=== PATIENT | male | born 1950 | race Caucasian/White ===

== ENCOUNTER 2022-07-24 08:15 | Outpatient (RCR) | payer MEDICARE, BC, SELFPAY | END 2022-07-26 13:49 | disposition home or self-care (01) | PROVIDERS: PCP Surgery; Visit Provider Family Medicine | DX: M54.2 Cervicalgia (principal); M79.605 Pain in left leg; M54.16 Radiculopathy, lumbar region; Z51.89 Encounter for other specified aftercare | CPT/HCPCS: 97012; 97110; 97112; 97140 ==

== ENCOUNTER 2022-11-20 15:12 | Outpatient (CLI) | payer MEDICARE, BC, SELFPAY ==
--- NOTE | 2022-11-20 15:30 | MR_ITS ---
[address] [address] Phone:?[phone] Fax:?[phone] Referring Physician Information: Dawson Ariza M.D. [id number] [facility] [address] Phone:?[phone] Fax:?[phone] Patient:Ivy Hawkins D.O.B:?1950 Sex:?Male Phone:?[phone] [facility] MRN:?[id number] Exam Date:?11/20/2022 ? EXAM: MRI EXAMINATION OF THE LEFT TIBIA AND FIBULA CLINICAL INFORMATION: The patient is a 72-year-old with left lower leg pain. The patient has a history of left tibial fracture with subsequent surgical fixation and hardware removal. COMPARISON STUDIES: Comparison is made to prior radiographs dated 02/19/2022. TECHNICAL INFORMATION: Using a 1.5T MRI scanner: 3 mm?coronals: T1, T2, STIR 3 mm?sagittals: STIR 4 mm?axials: T1, T2FS FINDINGS: Osseous structures: Imaging of the left tibia demonstrates postsurgical and posttraumatic changes, in keeping with the patient's history of fracture, surgical fixation, and subsequent hardware removal. There is a posttraumatic deformity involving the mid diaphyseal region seen on coronal series 5 image 15. No definite evidence for acute fracture is identified. No evidence for well- defined marrow edema within the tibia can be seen to suggest contusion or stress injury. No definite periosteal reaction is noted. There is a chronic, healed fracture involving the diaphyseal region of the fibula, seen on coronal series 6 image 22. No evidence for acute injury or nonunion can be seen. No other bony abnormalities of the left fibula are present. The right tibia and right fibula appear intact. Musculotendinous structures: No definite evidence for injury to the musculotendinous structures of the left lower leg can be seen. There is no definite evidence for myotendinous strain or intramuscular mass. No definite asymmetry of the left lower leg musculature can be seen when compared to the contralateral right side. Neurovascular structures: No definite neurovascular abnormalities of the left lower leg are noted. Fluid collections:?No evidence for abnormal fluid collection or soft tissue edema can be seen. No evidence for ganglion cyst is identified. CONCLUSION: 1. Chronic posttraumatic and postsurgical changes can be seen involving the left tibia and left fibula, however no definite evidence for acute injury or nonunion can be seen. 2. No definite musculotendinous injuries of the left lower leg are present. 3. No definite neurovascular abnormalities are noted. 4. No well-defined areas of abnormal fluid collection are seen. AEC Electronically signed on 11/21/2022 7:09:00 AM by Junior Crowley M.D.
== END 2022-11-20 15:13 | disposition home or self-care (01) ==
LOC: MRI 15:13
PROVIDERS: PCP Surgery; Visit Provider Orthopaedic Surgery
DX: M79.605 Pain in left leg (principal)
CPT/HCPCS: 73718

== ENCOUNTER 2023-01-03 10:09 | Outpatient (CLI) | payer MEDICARE, BC, SELFPAY | END 2023-01-03 10:10 | disposition home or self-care (01) | LOC: AMB 18:01 | PROVIDERS: PCP Surgery; Visit Provider Internal Medicine | DX: R07.89 Other chest pain (principal) | CPT/HCPCS: A0425; A0427 ==

== ENCOUNTER 2023-01-03 10:36 | Emergency (ER) | payer MEDICARE, BC, SELFPAY ==
[2023-01-03] VITALS (14 sets, daily range): BP systolic 100–140; BP diastolic 57–83; PULSE 65–75; RESP 16–18; TEMP 36.9–37.1; O2SAT 92–96; BMI 31.0
--- NOTE | 2023-01-03 10:57 | ED_ITS ---
HPI - General Adult General Time Seen by Provider: 10:58 Date Seen: 01/03/23 Chief complaint: Chest Pain Stated complaint: Chest Pains Time Seen by Provider: 01/03/23 10:57 Source: patient and RN notes reviewed Mode of arrival: ambulatory Limitations: no limitations History of Present Illness HPI narrative: This 72-year-old male is ambulatory into the ED accompanied by his with concerns of chest congestion, chest pressure. He has had cough and cold symptoms for about 3 days now. No fevers, he has checked his temperature. He is having difficulty sleeping at night, cannot lie flat. He has had lots of clear nasal drainage. This morning after he got out of the shower he had an episode we just felt like he could not breathe that there was pressure on his neck and in his chest. He is noted no lower extremity edema. No abdominal pain, no nausea vomiting or diarrhea. He is up-to-date on all COVID vaccines. In review of records, this patient had a nuclear stress test that showed a small to medium area of inferior ischemia. He had an angiogram at [place] on 11/23/2021 that required no intervention, per Dr. Singh's note was essentially normal. Cardiology placed him on metoprolol and atorvastatin. Medications reviewed. his also reports that he has had a history of pneumonia. He does have obstructive sleep apnea but is not using CPAP. He denies any under lying chronic pulmonary conditions. Related Data Home Medications Medication Instructions Recorded Confirmed atorvastatin 40 mg tablet 20 mg PO HS 11/08/22 01/03/23 diltiazem HCl 180 mg 180 mg PO Q24H 11/08/22 01/03/23 capsule,extended release 24 hr nitroglycerin 0.4 mg sublingual 0.4 mg sublingual PRN 11/08/22 12/05/22 tablet trazodone 50 mg tablet 50 mg PO HS 11/08/22 01/03/23 aspirin 81 mg chewable tablet 81 mg PO DAILY 01/03/23 01/03/23 (Martín Chewable Low Dose Aspirin) escitalopram oxalate 10 mg tablet 10 mg PO DAILY 01/03/23 01/03/23 fluticasone furoate 50 inhalation 01/03/23 mcg/actuation blister powder for inhalation metformin 1,000 mg tablet 1,000 mg PO BID 01/03/23 01/03/23 omega 6-kkn-iab-fish oil 1,000 mg 1 cap PO DAILY 01/03/23 01/03/23 (120 mg-180 mg) capsule (Fish Oil) omeprazole 20 mg tablet,delayed 20 mg PO DAILY 01/03/23 01/03/23 release tamsulosin 0.4 mg capsule 0.4 mg PO DAILY 01/03/23 01/03/23 Previous Rx's Medication Instructions Recorded doxycycline monohydrate 100 mg 100 mg PO BID #13 caps 01/03/23 capsule Allergies Allergy/AdvReac Type Severity Reaction Status Date / Time morphine Allergy Verified 12/05/22 10:02 Review of Systems Status of ROS: Reports: 10 or more systems reviewed and unremarkable except as noted in History and below [facility] Medical History Adjustment disorder with depressed mood Asplenia (09/22/12) Chronic gastroesophageal reflux disease (06/28/16) Diverticulitis Heart attack Hyperlipidemia Hypertension Intractable hiccups Laceration of finger GHADA (obstructive sleep apnea) (06/11/17) Type 2 diabetes mellitus Surgical History H/O heart artery stent H/O hernia repair History of removal of retained hardware (09/04/18) S/P ORIF (open reduction internal fixation) fracture (04/21/12) Status post arthroscopy of left shoulder (04/02/17) Status post arthroscopy of right shoulder (11/04/09) Status post laparoscopic cholecystectomy Status post open reduction and internal fixation (ORIF) of fracture (11/11/19) Social History Smoking Status: Former smoker Exam Const: Vital Signs, click to edit/add: Vital Signs - 24 hr 01/03/23 10:51 01/03/23 10:45 01/03/23 11:00 Temperature 98.5 F Pulse Rate [Left P ulse Oximeter] 68 67 Respiratory Rate 18 16 Blood Pressure [Ri ght Upper Arm] 115/83 126/72 Pulse Oximetry 96 94 94 Oxygen Delivery Me thod Room Air Room Air 01/03/23 11:30 01/03/23 12:00 01/03/23 12:30 Temperature Pulse Rate [Left P ulse Oximeter] 69 65 69 Respiratory Rate 16 16 16 Blood Pressure [Ri ght Upper Arm] 100/57 L 126/73 134/63 Pulse Oximetry 93 93 92 Oxygen Delivery Me thod 01/03/23 13:37 01/03/23 13:00 01/03/23 13:30 Temperature 98.8 F Pulse Rate [Left P ulse Oximeter] 71 75 Respiratory Rate 16 16 Blood Pressure [Ri ght Upper Arm] 115/59 L 118/64 Pulse Oximetry 95 95 Oxygen Delivery Me thod Documenting provider has reviewed patient's vital signs: yes Common normal s: no apparent distress, average body habitus, oriented x3, no limitations, healthy appearing, alert and well nourished General appearance: cooperative, comfortable, well kempt and well developed Other: He has some audible nasal congestion but is able to speak in complete sentences. When I am talking to him, watching the oximetry, he is in the lower 90s. He is not tachypneic at this time. HENMT: Common normals: normocephalic, head/scalp atraumatic, hearing grossly normal bilaterally and external ears normal Head and scalp: normocephalic and atraumatic External ear: external ears normal Eye: Common normals: PERRL, EOMs intact bilaterally, conjunctivae normal and no scleral icterus General eye: normal appearance of both eyes Conjunctiva: conjunctiva(e) normal Pupil: PERRL Neck & C-Spine: Common normals: full ROM, no lymphadenopathy, supple, no meningeal signs, no JVD and thyroid normal Thyroid: thyroid normal Chest: Common normals: inspection of chest normal Resp: Common normals: normal respiratory effort, no retractions, no use of accessory muscles and clear to auscultation bilaterally Effort & inspection: able to speak in complete sentences Auscultation: clear to auscultation bilaterally Cardio: Common normals: no JVD, regular rate, regular rhythm, S1 normal heart sound, S2 normal heart sound, no gallops, no clicks and no murmurs Rate: regular rate Rhythm: regular rhythm Heart sounds: S1 normal and S2 normal GI: Common normals: Normal to inspection, nondistended, normoactive bowel sounds present, soft to palpation, non-tender, no hepatosplenomegaly and no masses Palpation: soft and no hepatosplenomegaly Extremity: Other: No lower extremity edema. Neuro: Common normals: oriented x3, moves all extremities and no focal motor deficits Sensorium/orientation: alert Meningeal signs: no meningeal signs Psych: Appearance: well kempt Course Course Hospital Course: We will obtain a triple swab for RSV, COVID and influenza. Patient has not tested yet. We will do a portable chest x-ray. He will be monitored on cardiac monitoring and pulse oximetry while here. We will obtain a full complement of labs as well. It certainly sounds as this is respiratory in nature. His initial troponin is already back and is normal. Will do a 3 hour troponin as well. My assumption is that he probably has a viral upper respiratory infection causing his symptoms, need to rule out any demand ischemia. Will also do a D- dimer, patient and his understand that he may need to do a chest CT if clinically indicated. Reevaluation(s) Reevaluation #1: Checked in on patient. Reviewed with him his chest x-ray is with some evidence of pneumonia at this time, will order IV doxycycline. We need to await for 3 hour EKG and troponin but other labs are looking good. Reviewed with him the negative triple swab. Did review there is always a possibility of false negative COVID testing initially but with the PCR, believe this to be less likely. We reviewed that the significant nasal drainage in congestion could have given him a choking type sensation. I would recommend something like Flonase, potentially maybe even Mucinex. [facility] and declines prescriptions from me. Reviewed signs and symptoms for return. If his follow-up EKG and troponin are normal, will discharge to home with further oral antibiotics. Time: 13:08 Vital Signs Vital signs: Initial Vital Signs Pulse Oximetry 94 01/03/23 10:45 Vital Signs Pulse Oximetry 94 01/03/23 10:45 Temperature 98.8 F 01/03/23 13:37 Pulse Rate 75 01/03/23 13:30 Respiratory Rate 16 01/03/23 13:30 Blood Pressure 118/64 01/03/23 13:30 Pulse Oximetry 95 01/03/23 13:30 Oxygen Delivery Method 01/03/23 11:00 Medical Decision Making Lab Data Lab results reviewed: Yes I reviewed the patient's lab results Labs: Lab Results 01/03/23 01/03/23 01/03/23 Range/Units 10:46 10:46 10:46 WBC 10.41 (4.50-11.00) K/uL RBC 4.92 (4.30-5.90) m/uL Hgb 15.4 (13.5-17.5) gm/dL Hct 46.5 (37.0-53.0) % MCV 95 (80-100) fL MCH 31 (26-34) pg MCHC 33 (32-36) gm/dL RDW Coeff of Nora 13.2 (11.5-15.5) % Plt Count 304 (140-440) K/uL Neut % (Auto) 60.6 (42.0-72.0) % Lymph % (Auto) 24.2 (20-44) % Camp % (Auto) 12.4 H (0.0-11.0) % Eos % (Auto) 2.0 (0.0-7.0) % Baso % (Auto) 0.5 (0.0-3.0) % Neut # (Auto) 6.31 (1.7-7.0) K/uL Lymph # (Auto) 2.52 (0.90-2.90) K/uL Camp # (Auto) 1.30 H (0.00-0.90) K/UL Eos # (Auto) 0.21 (0.00-0.50) K/uL Baso # (Auto) 0.05 (0.00-0.30) K/uL D-Dimer Quant (PE/DVT) 0.33 (0.00-0.50) ug/ml VBG pH (7.32-7.43) VBG pCO2 (40-50) mmHG VBG pO2 (25-47) mmHG VBG HCO3 (21-28) mmol/L Sodium 137 (135-149) mmol/L Potassium 4.0 (3.6-5.1) mmol/L Chloride 103 (96-114) mmol/L Carbon Dioxide 24 (20-32) mmol/L BUN 14 (7-30) mg/dL Creatinine 1.0 (0.5-1.5) mg/dL Estimated Creat Clear 66.77 Estimated GFR 80 ml/min Glucose 146 H (60-115) mg/dL Lactate (0.5-1.9) mmol/L Calcium 9.0 (8.4-10.6) mg/dL Total Bilirubin 0.8 (0.1-1.5) mg/dL AST 25 (12-35) U/L ALT 29 (4-50) U/L Alkaline Phosphatase 86 (40-150) U/L C-Reactive Protein 1.1 H (0.5-1.0) mg/dL NT-Pro-B Natriuret Pep pg/mL Total Protein 7.0 (6.0-8.3) g/dL Albumin 4.3 (3.3-5.0) g/dL SARS-CoV-2 (PCR) (Negative) Influenza Type A (PCR) (Negative) Influenza Type B (PCR) (Negative) RSV (PCR) (Negative) POC Troponin I (0.01-0.04) ng/ml 01/03/23 01/03/23 01/03/23 Range/Units 10:46 10:46 10:46 WBC (4.50-11.00) K/uL RBC (4.30-5.90) m/uL Hgb (13.5-17.5) gm/dL Hct (37.0-53.0) % MCV (80-100) fL MCH (26-34) pg MCHC (32-36) gm/dL RDW Coeff of Nora (11.5-15.5) % Plt Count (140-440) K/uL Neut % (Auto) (42.0-72.0) % Lymph % (Auto) (20-44) % Camp % (Auto) (0.0-11.0) % Eos % (Auto) (0.0-7.0) % Baso % (Auto) (0.0-3.0) % Neut # (Auto) (1.7-7.0) K/uL Lymph # (Auto) (0.90-2.90) K/uL Camp # (Auto) (0.00-0.90) K/UL Eos # (Auto) (0.00-0.50) K/uL Baso # (Auto) (0.00-0.30) K/uL D-Dimer Quant (PE/DVT) (0.00-0.50) ug/ml VBG pH (7.32-7.43) VBG pCO2 (40-50) mmHG VBG pO2 (25-47) mmHG VBG HCO3 (21-28) mmol/L Sodium (135-149) mmol/L Potassium (3.6-5.1) mmol/L Chloride (96-114) mmol/L Carbon Dioxide (20-32) mmol/L BUN (7-30) mg/dL Creatinine (0.5-1.5) mg/dL Estimated Creat Clear Estimated GFR ml/min Glucose (60-115) mg/dL Lactate 2.3 H (0.5-1.9) mmol/L Calcium (8.4-10.6) mg/dL Total Bilirubin (0.1-1.5) mg/dL AST (12-35) U/L ALT (4-50) U/L Alkaline Phosphatase (40-150) U/L C-Reactive Protein (0.5-1.0) mg/dL NT-Pro-B Natriuret Pep < 20 pg/mL Total Protein (6.0-8.3) g/dL Albumin (3.3-5.0) g/dL SARS-CoV-2 (PCR) (Negative) Influenza Type A (PCR) (Negative) Influenza Type B (PCR) (Negative) RSV (PCR) (Negative) POC Troponin I 0.00 L (0.01-0.04) ng/ml 01/03/23 01/03/23 01/03/23 Range/Units 10:46 11:38 13:46 WBC (4.50-11.00) K/uL RBC (4.30-5.90) m/uL Hgb (13.5-17.5) gm/dL Hct (37.0-53.0) % MCV (80-100) fL MCH (26-34) pg MCHC (32-36) gm/dL RDW Coeff of Nora (11.5-15.5) % Plt Count (140-440) K/uL Neut % (Auto) (42.0-72.0) % Lymph % (Auto) (20-44) % Camp % (Auto) (0.0-11.0) % Eos % (Auto) (0.0-7.0) % Baso % (Auto) (0.0-3.0) % Neut # (Auto) (1.7-7.0) K/uL Lymph # (Auto) (0.90-2.90) K/uL Camp # (Auto) (0.00-0.90) K/UL Eos # (Auto) (0.00-0.50) K/uL Baso # (Auto) (0.00-0.30) K/uL D-Dimer Quant (PE/DVT) (0.00-0.50) ug/ml VBG pH 7.472 H (7.32-7.43) VBG pCO2 37 L (40-50) mmHG VBG pO2 70.3 H (25-47) mmHG VBG HCO3 27 (21-28) mmol/L Sodium (135-149) mmol/L Potassium (3.6-5.1) mmol/L Chloride (96-114) mmol/L Carbon Dioxide (20-32) mmol/L BUN (7-30) mg/dL Creatinine (0.5-1.5) mg/dL Estimated Creat Clear Estimated GFR ml/min Glucose (60-115) mg/dL Lactate (0.5-1.9) mmol/L Calcium (8.4-10.6) mg/dL Total Bilirubin (0.1-1.5) mg/dL AST (12-35) U/L ALT (4-50) U/L Alkaline Phosphatase (40-150) U/L C-Reactive Protein (0.5-1.0) mg/dL NT-Pro-B Natriuret Pep pg/mL Total Protein (6.0-8.3) g/dL Albumin (3.3-5.0) g/dL SARS-CoV-2 (PCR) Negative SARS-CoV-2 (Negative) Influenza Type A (PCR) Negative PCR FLU A (Negative) Influenza Type B (PCR) Negative PCR FLU B (Negative) RSV (PCR) Negative PCR RSV (Negative) POC Troponin I 0.00 L (0.01-0.04) ng/ml Imaging Data Chest x-ray: Attestation: I have reviewed the pertinent imaging results. My impression: I see no acute infiltrate or pneumonia, no CHF in my preliminary review. Radiologist's impression: Patient: [facility] Facility:[facility] Patient ID:?[id number] Site Patient ID:?[id number]. Site :?[id number] Study:?XRay Chest 1 VIEW PORTABLE-01/03/2023 11:28:10 AM Ordering Physician:Mitch Birmingham Final Report: Indication: Cough, shortness of breath Technique: Chest 1 view Comparison: Chest x-ray 10/04/2021 Findings/Impression: Cardiovascular and mediastinum: Normal heart size with mild aortic tortuosity and atherosclerotic calcification. Lungs and pleural space: No pleural effusion or pneumothorax. Bronchial wall thickening with slight patchy opacities at the lung bases consistent with atelectasis or pneumonia. Bones and soft tissues: Attachment hooks bilateral humeri. Old left-sided rib fractures. Dictated by Heber East MD @ 01/03/2023 12:41:51 PM (Electronic Signature) Dictated by: Benny Crain MD @ 01/03/2023 12:36:30 (Electronic Signature) ECG Data Attestation: I personally reviewed and interpreted this ECG as follows: ( Arrival EKG shows normal sinus rhythm, 69 beats per minute. QT corrected 430 milliseconds. I appreciate no concerning ischemic change.) Prior ECG tracings: not available for review Interpretation: EKG timed 1:41 p.m. shows normal sinus rhythm, 69 beats per minute. No acute ischemic change. QT corrected 435 milliseconds on my reading. Critical Care Time Critical Care Time Critical Care Time: No Discharge Plan Discharge Clinical Impression: Community acquired pneumonia Patient Disposition: Home, Self-Care Condition: Stable Additional Instructions: Start oral antibiotic tonight and take as prescribed. Can use dmjw-tos-fgzmolo medicines for symptom control such as Mucinex. Can resume Flonase as well to help diminish nasal drainage. If you should develop increased difficulty breathing, worsening shortness of breath, worsening cough or fever, do recommend re-evaluation. Activity Level: Activity as Tolerated Discharge Diet: Regular Prescriptions: New doxycycline monohydrate 100 mg capsule 100 mg PO BID Qty: 13 0RF No Action diltiazem HCl 180 mg capsule,extended release 24hr 180 mg PO Q24H Label Comments: TAKE 1 CAPSULE BY MOUTH ONCE DAILY AT NIGHT trazodone 50 mg tablet 50 mg PO HS Label Comments: TAKE 1 TABLET BY MOUTH EVERYDAY AT BEDTIME atorvastatin 40 mg tablet 20 mg PO HS Label Comments: TAKE 1/2 TABLET BY MOUTH AT BEDTIME nitroglycerin 0.4 mg tablet, sublingual 0.4 mg sublingual PRN Label Comments: PLACE 0.4 MG ON TONGUE BY MOUTH EVERY 5M NEEDED FOR CHEST PAIN escitalopram oxalate 10 mg tablet 10 mg PO DAILY fluticasone furoate 50 mcg/actuation blister with device inhalation metformin 1,000 mg tablet 1,000 mg PO BID omeprazole 20 mg tablet,delayed release (DR/EC) 20 mg PO DAILY tamsulosin 0.4 mg capsule 0.4 mg PO DAILY aspirin [Martín Chewable Aspirin] 81 mg tablet,chewable 81 mg PO DAILY omega 0-nhu-hrd-fish oil [Fish Oil] 1,000 mg (120 mg-180 mg) capsule 1 cap PO DAILY Follow Up/Referrals: Mario White MD [Primary Care Provider] - Stand Alone Forms: [facility] Info Instructions
--- NOTE | 2023-01-03 11:08 | CRLHL7_ITS ---
For Patients: As a result of the Century Cures Act, medical imaging exams and procedure reports are released immediately into your electronic medical record. You may view this report before your referring provider. If you have questions, please contact your health care provider. Indication: Cough, shortness of breath Technique: Chest 1 view Comparison: Chest x-ray 10/04/2021 Findings/Impression: Cardiovascular and mediastinum: Normal heart size with mild aortic tortuosity and atherosclerotic calcification. Lungs and pleural space: No pleural effusion or pneumothorax. Bronchial wall thickening with slight patchy opacities at the lung bases consistent with atelectasis or pneumonia. Bones and soft tissues: Attachment hooks bilateral humeri. Old left-sided rib fractures. Dictated by Heber East MD @ 01/03/2023 12:41:51 PM (Electronically Signed)
[2023-01-03 11:19] LABS: HCO3 VBG 27 mmol/L (21-28); PCO2 VBG 37 mmHG (40-50); PO2 VBG 70.3 mmHG (25-47); pH VBG 7.472 (7.32-7.43)
[2023-01-03 11:20] LABS: Basophils Absolute Auto 0.05 K/uL (0.00-0.30); Basophils Percent Auto 0.5 % (0.0-3.0); Eosinophils Absolute Auto 0.21 K/uL (0.00-0.50); Hematocrit 46.5 % (37.0-53.0); Hemoglobin* 15.4 gm/dL (13.5-17.5); Immature Granulocytes Abs Auto 0.03 K/uL (0.00-0.30); Immature Granulocytes Pct Auto 0.3 %; Lymphocytes Absolute Auto 2.52 K/uL (0.90-2.90); Lymphocytes Percent Auto 24.2 % (20-44); Mean Corpuscular HGB Conc 33 gm/dL (32-36); Mean Corpuscular Hemoglobin 31 pg (26-34); Mean Corpuscular Volume 95 fL (80-100); Monocytes Percent Auto 12.4 % (0.0-11.0); Neutrophils Absolute Auto 6.31 K/uL (1.7-7.0); Neutrophils Percent Auto 60.6 % (42.0-72.0); Platelet Count* 304 K/uL (140-440); RDW Coefficient of Variation % 13.2 % (11.5-15.5); Red Blood Count 4.92 m/uL (4.30-5.90); White Blood Count* 10.41 K/uL (4.50-11.00)
[2023-01-03 11:21] LABS: Slide Review Reflex No
[2023-01-03 11:22] LABS: Lactate* 2.3 mmol/L (0.5-1.9)
[2023-01-03 11:39] LABS: Albumin* 4.3 g/dL (3.3-5.0); Chloride* 103 mmol/L (96-114)
[2023-01-03 11:40] LABS: Sodium* 137 mmol/L (135-149)
[2023-01-03 11:42] LABS: Alanine Aminotransferase* 29 U/L (4-50); Alkaline Phosphatase* 86 U/L (40-150); Aspartate Amino Transferase* 25 U/L (12-35); Bilirubin Total* 0.8 mg/dL (0.1-1.5); Carbon Dioxide* 24 mmol/L (20-32); Est. Creatinine Clearance* 66.77; Estimated Glomerular Filt Rate 80 ml/min
[2023-01-03 11:43] LABS: Blood Urea Nitrogen* 14 mg/dL (7-30); Glucose* 146 mg/dL (60-115)
[2023-01-03 11:45] LABS: C Reactive Protein* 1.1 mg/dL (0.5-1.0)
[2023-01-03 11:50] LABS: D Dimer Quantitative* 0.33 ug/ml (0.00-0.50)
[2023-01-03 11:52] LABS: NT Pro B Type NatriureticPept* < 20 pg/mL
[2023-01-03 12:21] LABS: PCR FLU A Negative PCR FLU A (Negative); PCR FLU B Negative PCR FLU B (Negative); PCR RSV Negative PCR RSV (Negative)
[2023-01-03 12:25] LABS: SARS PCR* Negative SARS-CoV-2 (Negative)
[2023-01-03] MEDS: DOXYCYCLINE HYCLATE 100 MG in 0.9 % SODIUM CHLORIDE Mini-bag 100 ML IVPB (13:33)
== END 2023-01-03 14:55 | disposition home or self-care (01) ==
PROVIDERS: Emergency Provider Family Medicine; PCP Surgery
DX: J18.9 Pneumonia, unspecified organism (principal)
CPT/HCPCS: 36415; 71045; 80053; 82803; 83605; 83880; 84484; 85025; 85379; 86140; 87502; 87634; 87635; 93005; 94761; 96365; 99284; 99285

== ENCOUNTER 2023-01-15 09:45 | Outpatient (RCR) | payer MEDICARE, BC, SELFPAY ==
--- NOTE | 2022-12-13 12:26 | PT.OPEX ---
PT [place] Outpatient Eval PT [facility] Outpatient Eval Start: 12/13/22 09:38 Freq: Status: Active Protocol: Document 12/13/22 09:38 ARR (Rec: 12/13/22 10:38 ARR [id number]) E-signed By Angelica Lui DPT Physical Therapy Outpatient Evaluation Insurance Information Recert Due Date 03/13/23 Insurance Name Medicare B Medical Diagnosis [id number] pain in left leg Left leg peroneal muscle stretching and strengthening Treating Diagnosis M79.605 pain in left leg M54.16 lumbar radiculopathy M25.672 left ankle stiffness Referring MD Dawson Ariza MD ([facility]) Subjective Subjective Pt noting pain ongoing a few months. Pain takes a little while to come on, but increases over course of day and with more activity. Did have imaging redone and all looked good. Per MD report MRI on 11/20/22 noting tibia/ fibula fx?s healed from fx?s back in 2011. Pain described as a toothache that doesn't go away. Slight swelling has been noted. -Increases in pain: walking, on it all day, sitting can make it ache. Can walk maybe 30-60 min before noticing pain . On a typical day pain can increase to 3-4/10 but manages it so it won't get high. -Decreases in pain: elevating legs. Rubbing ointment on it. -Location of pain: posterior- lateral L romo -Goals: get rid of pain, make it go away. PMHx: heart attack, HTN, Type 2 DM. Surgical for artery stent, hernia repair, ORIF L tibia fx with IM nailing with hardware removal 2019, bilateral shoulder scopes. Objective Other/Pertinent Objective Eval 12/13/22 Posture: loss of LS lordosis, level IC, loss of TS kyhposis, bilateral foot ER and foot pronation Palpation: slight TTP posterior tib muscle belly on L SLS (30 sec): mild pelvic drop on L side. Instability on both sides RANGE OF MOTION: Lumbar ROM: -Flx: fingers to knees with reduced TS/LS ROM and HS tightness -Ext: 50% loss of segmental mobility -R Rot: 50% loss -L Rot: 50% loss -R Sidebend: reduced L calf pain -L Sidebend: inc'd L calf pain LE ROM (R/L): -Hip ER90: 70 bliat -Hip IR90: 30 bilat -Knee Ext: 0 -Ankle DF: limited bilat -Ankle PF: 50 bilat -Ankle inversion 40R, 32 L STRENGTH: LE Strength (R/L) -Ankle DF, inversion, eversion , 4+/5 bilat -GLut medius: 3 R/L LE (myotome) strength (R/L) symmetrical no differences LE dermatomes symmetrical SPECIAL TESTS: LE Flexibility (R/L) -Hamstring: neg bilat -Piriformis: neg bilat : - Gastroc: pos bilat OTHER: -Passive SLR pos on L Functional Test Performed & Score LEFS 26/80 Assessment Assessment/Impression Pt is a 72 y/o male who presents with concerns of lateral romo/calf pain on left . Signs and symptoms not fully conclusive but does appear there could be lumbar radiculopathy component to symptoms as passive SLR on left and standing LS AROM L lateral flexion closing down L side of spine reproduced concordant signs. However, cannot rule out contributing peripheral source as pt does have h/o L ORIF with limited ankle AROM in all planes with gastroc tightness that also may be contributing to the problem. Patient is a good candidate for skilled therapy to target deficits described above. Skilled PT intervention is necessary for use of therapeutic exercise manual therapy, neuromuscular re- education, gait training, and therapeutic activity. Functional impairments include difficulty with: walking, sleeping through the night. See appropriate sections of PT eval for complete list of goals and POC. D/C plan and criteria is for pt to achieve the goals as listed below or until max rehab potential is met. Pt was agreeable with plan of care and goals established. 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 3) Pt will report at least 60% improvement in pain/symptoms since start of PT to sleep through the night without waking due to pain 4) Pt will report ability to walk 30-60 min pain not exceeding 1/10 for improved community mobility 5) Pt will demonstrate LEFS score <20 Treatment Plan/Direct Interventions Electrical Stimulation,Gait Training,Heat,Joint Mobilization,Manual Therapy, Neuromuscular Re-ed, Therapeutic Activities, Therapeutic Exercises,Traction (Mechanical),Ultrasound Frequency/Duration 1x/wk x 10 visits in 90 days Patient Will Be Discharged From Therapy Skills [facility],Independent w/ HEP Evaluation Billing Untimed Code Treatment Minutes 30 Complexity Moderate Certification Information Initial Certification Date 12/13/22 Ending Certification Date 03/13/23 Provider Signature Shows Agreement With POC & Medical Necessity Physician Signature & Date Requested Please Sign/Date Here Physician Comment/Change : Physician NPI Number #
== END 2023-01-16 10:00 | disposition home or self-care (01) ==
PROVIDERS: PCP Surgery; Visit Provider Orthopaedic Surgery
DX: M79.605 Pain in left leg (principal); Z51.89 Encounter for other specified aftercare
CPT/HCPCS: 97110; 97140; 97162

== ENCOUNTER 2023-01-15 21:48 | Emergency (ER) | payer MEDICARE, BC, SELFPAY ==
[2023-01-15] VITALS (12 sets, daily range): BP systolic 132–158; BP diastolic 69–80; PULSE 62–67; RESP 24; TEMP 36.4; O2SAT 93–98
--- NOTE | 2023-01-15 22:37 | CRLHL7_ITS ---
For Patients: As a result of the Cures Act, medical imaging exams and procedure reports are released immediately into your electronic medical record. You may view this report before your referring provider. If you have questions, please contact your health care provider. INDICATION: Chest pain. TECHNIQUE: Chest 2 views. COMPARISON: January 11, 2023. FINDINGS: Cardiovascular and mediastinum: Heart size and vasculature are normal in caliber and appearance. Lungs and pleural spaces: Lungs are clear. No sign of infiltrate or mass. No sign of pleural effusion. No pneumothorax. Bones and soft tissues: No significant findings. Chronic left rib fractures. IMPRESSION: No acute findings and no significant changes from the prior exam. Dictated by Kris Hess MD @ 01/15/2023 11:17:46 PM (Electronically Signed)
[2023-01-15 22:43] LABS: Basophils Absolute Auto 0.05 K/uL (0.00-0.30); Basophils Percent Auto 0.6 % (0.0-3.0); Eosinophils Absolute Auto 0.17 K/uL (0.00-0.50); Eosinophils Percent Auto 1.9 % (0.0-7.0); Hematocrit 47.8 % (37.0-53.0); Hemoglobin* 15.9 gm/dL (13.5-17.5); Immature Granulocytes Abs Auto 0.02 K/uL (0.00-0.30); Immature Granulocytes Pct Auto 0.2 %; Lymphocytes Absolute Auto 3.79 K/uL (0.90-2.90); Lymphocytes Percent Auto 41.7 % (20-44); Mean Corpuscular HGB Conc 33 gm/dL (32-36); Mean Corpuscular Hemoglobin 31 pg (26-34); Mean Corpuscular Volume 94 fL (80-100); Monocytes Percent Auto 10.8 % (0.0-11.0); Neutrophils Absolute Auto 4.08 K/uL (1.7-7.0); Neutrophils Percent Auto 44.8 % (42.0-72.0); Platelet Count* 321 K/uL (140-440); Red Blood Count 5.07 m/uL (4.30-5.90); White Blood Count* 9.09 K/uL (4.50-11.00)
[2023-01-15 22:45] LABS: Slide Review Reflex No
[2023-01-15 22:46] LABS: Albumin* 4.3 g/dL (3.3-5.0); Chloride* 102 mmol/L (96-114)
[2023-01-15 22:47] LABS: Potassium* 3.9 mmol/L (3.6-5.1); Sodium* 138 mmol/L (135-149)
[2023-01-15 22:49] LABS: Creatinine* 0.9 mg/dL (0.5-1.5); Estimated Glomerular Filt Rate 91 ml/min
[2023-01-15 22:50] LABS: Alanine Aminotransferase* 33 U/L (4-50); Alkaline Phosphatase* 106 U/L (40-150); Aspartate Amino Transferase* 41 U/L (12-35); Bilirubin Direct* 0.2 mg/dL (0.0-0.5); Bilirubin Total* 0.6 mg/dL (0.1-1.5); Blood Urea Nitrogen* 12 mg/dL (7-30); Carbon Dioxide* 28 mmol/L (20-32); Glucose* 159 mg/dL (60-115); Total Protein* 7.2 g/dL (6.0-8.3)
[2023-01-15 22:51] LABS: Calcium* 9.4 mg/dL (8.4-10.6)
[2023-01-15] MEDS: ASPIRIN 81 MG TAB.CHEW 324 MG PO (22:51)
[2023-01-15 22:57] LABS: C Reactive Protein* < 0.5 mg/dL (0.5-1.0)
[2023-01-15 22:59] LABS: D Dimer Quantitative* < 0.27 ug/ml (0.00-0.50)
[2023-01-15 23:01] LABS: NT Pro B Type NatriureticPept* < 20 pg/mL
[2023-01-16] VITALS (7 sets, daily range): BP systolic 135–149; BP diastolic 72–85; PULSE 63–77; O2SAT 93–97
--- NOTE | 2023-01-16 00:02 | ED_ITS ---
HPI - General Adult General Date Seen: 01/16/23 Chief complaint: Chest Pain Stated complaint: Heart Issue Time Seen by Provider: 01/15/23 22:08 Source: patient and family Mode of arrival: ambulatory Limitations: no limitations History of Present Illness HPI narrative: Patient is a 72-year-old male who presents with his for evaluation of chest discomfort. He is a little bit of a meandering historian but seems to have had several episodes of chest pain in the past couple of weeks. He was seen initially on January 03 and I believe it had some chest pressure at that time, but was diagnosed with pneumonia by chest x-ray. He was treated initially with doxycycline, then seen again in Urgent Care on January 11, chest x-ray was negative at that time but he was prescribed amoxicillin. He does not have any further respiratory symptoms, COVID was negative at that time. However, he says he is still getting some chest pressure, and has had 1 episode at least today, [place] the [place]. Pain seems to come on mostly at rest, sometimes when he is laying in bed, although it does not seem to be reliably reproduced by laying down. He describes it as a tightness which goes up into his throat. It seems reminiscent of his symptoms that he had prior to stenting back in 2011. In review of his notes from January 03 here, he had a stress test back in 2020 which did show small to moderate area of inferior ischemia, which was followed up with an angiogram which reportedly did not show any significant disease. He has been managed medically. He denies exertional chest pain. He has not had any difficulties with shortness of breath, nausea, vomiting, diaphoresis. He notes that when he is throwing a ball to his dog he gets more fatigued lately, but he also notes that he has a lot of phlegm or reflux into his throat lately as well. He has not tried nitroglycerin for his symptoms. He does take omeprazole 20 mg daily. Related Data Home Medications Medication Instructions Recorded Confirmed atorvastatin 40 mg tablet 20 mg PO HS 11/08/22 01/11/23 diltiazem HCl 180 mg 180 mg PO Q24H 11/08/22 01/11/23 capsule,extended release 24 hr nitroglycerin 0.4 mg sublingual 0.4 mg sublingual PRN 12/08/22 02/10/23 tablet trazodone 50 mg tablet 50 mg PO HS 11/08/22 01/11/23 aspirin 81 mg chewable tablet 81 mg PO DAILY 01/03/23 01/11/23 (Martín Chewable Low Dose Aspirin) escitalopram oxalate 10 mg tablet 10 mg PO DAILY 01/03/23 01/11/23 fluticasone furoate 50 inhalation 01/03/23 01/11/23 mcg/actuation blister powder for inhalation metformin 1,000 mg tablet 1,000 mg PO BID 01/03/23 01/11/23 omega 3-obt-uks-fish oil 1,000 mg 1 cap PO DAILY 01/03/23 01/11/23 (120 mg-180 mg) capsule (Fish Oil) omeprazole 20 mg tablet,delayed 20 mg PO DAILY 01/03/23 01/11/23 release tamsulosin 0.4 mg capsule 0.4 mg PO DAILY 01/03/23 01/11/23 Previous Rx's Medication Instructions Recorded doxycycline monohydrate 100 mg 100 mg PO BID #13 caps 01/03/23 capsule amoxicillin 875 mg tablet 875 mg PO BID #20 tabs 01/11/23 Allergies Allergy/AdvReac Type Severity Reaction Status Date / Time morphine Allergy Verified 01/11/23 17:27 Review of Systems Status of ROS: Reports: 10 or more systems reviewed and unremarkable except as noted in History and below [facility] Medical History Adjustment disorder with depressed mood Asplenia (09/22/12) Chronic gastroesophageal reflux disease (06/28/16) Cough Diverticulitis Heart attack Hyperlipidemia Hypertension Intractable hiccups Laceration of finger GHADA (obstructive sleep apnea) (06/11/17) Type 2 diabetes mellitus Surgical History H/O heart artery stent H/O hernia repair History of removal of retained hardware (09/04/18) S/P ORIF (open reduction internal fixation) fracture (04/21/12) Status post arthroscopy of left shoulder (04/02/17) Status post arthroscopy of right shoulder (11/04/09) Status post laparoscopic cholecystectomy Status post open reduction and internal fixation (ORIF) of fracture (11/11/19) Social History Smoking Status: Former smoker Do you use any of these nicotine containing products: None Second hand tobacco smoke exposure: No How often do you have a drink containing alcohol: monthly or less AUDIT-C Alcohol total score: 1 Non-prescribed substance use: denies use service: No Exam Narrative: Exam Narrative: Vital signs as noted above. In general, an alert, well-appearing patient. Head: Normocephalic, atraumatic. Eyes: Pupils are equal reactive. Extraocular movements are full. Conjunctivae are normal. ENT: Mucous membranes are moist. Throat is normal. Neck: Supple without lymphadenopathy. Heart: Regular rate and rhythm. No murmur or rub. Lungs: Clear bilaterally. No increased work of breathing, crackles or wheezes. Abdomen: Soft and nontender. No organomegaly. Extremities: Well perfused. No edema. No calf tenderness. Pulses intact. Neurologic: Patient is alert and oriented to person and place. Speech is fluent. Face is symmetric. Moves all extremities equally. Affect: Normal. Skin: Warm and dry. Well perfused. Const: Vital Signs, click to edit/add: Vital Signs - 24 hr 01/15/23 21:52 01/15/23 22:37 01/15/23 22:12 Temperature 97.6 F Pulse Rate 64 Pulse Rate [Right Pulse Oximeter] 67 Respiratory Rate 24 Blood Pressure Blood Pressure [Le ft Upper Arm] 158/80 H Pulse Oximetry 98 97 97 Oxygen Delivery Me thod Room Air 01/15/23 22:30 01/15/23 22:32 01/15/23 22:33 Temperature Pulse Rate 64 64 66 Pulse Rate [Right Pulse Oximeter] Respiratory Rate Blood Pressure 132/69 Blood Pressure [Le ft Upper Arm] Pulse Oximetry 96 96 95 Oxygen Delivery Me thod 01/15/23 23:00 01/15/23 23:03 01/15/23 23:04 Temperature Pulse Rate 67 65 66 Pulse Rate [Right Pulse Oximeter] Respiratory Rate Blood Pressure 147/79 H Blood Pressure [Le ft Upper Arm] Pulse Oximetry 93 93 94 Oxygen Delivery Me thod 01/15/23 23:30 01/15/23 23:32 01/15/23 23:33 Temperature Pulse Rate 65 63 62 Pulse Rate [Right Pulse Oximeter] Respiratory Rate Blood Pressure 151/76 H Blood Pressure [Le ft Upper Arm] Pulse Oximetry 94 96 96 Oxygen Delivery Me thod 01/16/23 00:00 01/16/23 00:02 Temperature Pulse Rate 70 74 Pulse Rate [Right Pulse Oximeter] Respiratory Rate Blood Pressure 149/85 H Blood Pressure [Le ft Upper Arm] Pulse Oximetry 93 94 Oxygen Delivery Me thod Documenting provider has reviewed patient's vital signs: yes Course Course Hospital Course: On arrival, patient had an EKG which by my review showed a normal sinus rhythm, ventricular rate of 70 beats per minute. Overall small voltages, but no acute ST segment changes. T-waves are unremarkable. Initial troponin was 0. Two- view chest x-ray by my review was unremarkable, comparison to previous no change. Final radiology report is no active disease. CBC shows a white blood cell count of 9, hemoglobin of 15.9 and normal platelets. D-dimer was negative. Metabolic panel was unremarkable. LFTs unremarkable as well, AST mildly elevated at 41, normal ALT, bilirubin and alk-phos. CRP was less than 0.5. BNP was less than 20. A 2nd troponin is pending at this time. Overall, return of symptoms reminiscent of his pre stent symptoms is somewhat concerning, though he does not complain of any exertional pain. Second troponin is 0.01. Repeat EKG is unchanged. He is eager to go home. Have discussed with him that we certainly want to get further evaluation to make sure that these symptoms are not related to coronary artery disease. I have set him up for a stress test as an outpatient, and I have asked him to make a follow-up appointment with his clinic. If at any time he has severe or persistent symptoms, would want him to return to the emergency department. Have also asked him to increase omeprazole to 40 mg daily, since he seems to have a significant component of symptoms which are suggestive of reflux. They are comfortable with that plan. Vital Signs Vital signs: Initial Vital Signs Temperature 97.6 F 01/15/23 21:52 Temperature Source Temporal Artery Scan 01/15/23 21:52 Pulse Rate 67 01/15/23 21:52 Pulse Rhythm 01/15/23 21:52 Respiratory Rate 24 01/15/23 21:52 Blood Pressure 158/80 H 01/15/23 21:52 Blood Pressure Mean 106 01/15/23 21:52 Blood Pressure Position Semi-Fowlers 01/15/23 21:52 Pulse Oximetry 98 01/15/23 21:52 Oxygen Delivery Method 01/15/23 21:52 Vital Signs Temperature 97.6 F 01/15/23 21:52 Pulse Rate 67 01/15/23 21:52 Respiratory Rate 24 01/15/23 21:52 Blood Pressure 158/80 H 01/15/23 21:52 Pulse Oximetry 98 01/15/23 21:52 Oxygen Delivery Method 01/15/23 21:52 Temperature 97.6 F 01/15/23 21:52 Pulse Rate 74 01/16/23 00:02 Respiratory Rate 24 01/15/23 21:52 Blood Pressure 149/85 H 01/16/23 00:02 Pulse Oximetry 94 01/16/23 00:02 Oxygen Delivery Method 01/15/23 21:52 Medical Decision Making Lab Data Labs: Lab Results 01/15/23 01/15/23 01/15/23 Range/Units 22:37 22:37 22:37 WBC 9.09 (4.50-11.00) K/uL RBC 5.07 (4.30-5.90) m/uL Hgb 15.9 (13.5-17.5) gm/dL Hct 47.8 (37.0-53.0) % MCV 94 (80-100) fL MCH 31 (26-34) pg MCHC 33 (32-36) gm/dL RDW Coeff of Nora 13.0 (11.5-15.5) % Plt Count 321 (140-440) K/uL Neut % (Auto) 44.8 (42.0-72.0) % Lymph % (Auto) 41.7 (20-44) % Walsh % (Auto) 10.8 (0.0-11.0) % Eos % (Auto) 1.9 (0.0-7.0) % Baso % (Auto) 0.6 (0.0-3.0) % Neut # (Auto) 4.08 (1.7-7.0) K/uL Lymph # (Auto) 3.79 H (0.90-2.90) K/uL Walsh # (Auto) 1.00 H (0.00-0.90) K/UL Eos # (Auto) 0.17 (0.00-0.50) K/uL Baso # (Auto) 0.05 (0.00-0.30) K/uL D-Dimer Quant (PE/DVT) < 0.27 (0.00-0.50) ug/ml Sodium 138 (135-149) mmol/L Potassium 3.9 (3.6-5.1) mmol/L Chloride 102 (96-114) mmol/L Carbon Dioxide 28 (20-32) mmol/L BUN 12 (7-30) mg/dL Creatinine 0.9 (0.5-1.5) mg/dL Estimated GFR 91 ml/min Glucose 159 H (60-115) mg/dL Calcium 9.4 (8.4-10.6) mg/dL Total Bilirubin 0.6 (0.1-1.5) mg/dL Direct Bilirubin 0.2 (0.0-0.5) mg/dL AST 41 H (12-35) U/L ALT 33 (4-50) U/L Alkaline Phosphatase 106 (40-150) U/L C-Reactive Protein < 0.5 L (0.5-1.0) mg/dL NT-Pro-B Natriuret Pep < 20 pg/mL Total Protein 7.2 (6.0-8.3) g/dL Albumin 4.3 (3.3-5.0) g/dL POC Troponin I (0.01-0.04) ng/ml 01/15/23 01/16/23 Range/Units 22:37 00:37 WBC (4.50-11.00) K/uL RBC (4.30-5.90) m/uL Hgb (13.5-17.5) gm/dL Hct (37.0-53.0) % MCV (80-100) fL MCH (26-34) pg MCHC (32-36) gm/dL RDW Coeff of Nora (11.5-15.5) % Plt Count (140-440) K/uL Neut % (Auto) (42.0-72.0) % Lymph % (Auto) (20-44) % Walsh % (Auto) (0.0-11.0) % Eos % (Auto) (0.0-7.0) % Baso % (Auto) (0.0-3.0) % Neut # (Auto) (1.7-7.0) K/uL Lymph # (Auto) (0.90-2.90) K/uL Walsh # (Auto) (0.00-0.90) K/UL Eos # (Auto) (0.00-0.50) K/uL Baso # (Auto) (0.00-0.30) K/uL D-Dimer Quant (PE/DVT) (0.00-0.50) ug/ml Sodium (135-149) mmol/L Potassium (3.6-5.1) mmol/L Chloride (96-114) mmol/L Carbon Dioxide (20-32) mmol/L BUN (7-30) mg/dL Creatinine (0.5-1.5) mg/dL Estimated GFR ml/min Glucose (60-115) mg/dL Calcium (8.4-10.6) mg/dL Total Bilirubin (0.1-1.5) mg/dL Direct Bilirubin (0.0-0.5) mg/dL AST (12-35) U/L ALT (4-50) U/L Alkaline Phosphatase (40-150) U/L C-Reactive Protein (0.5-1.0) mg/dL NT-Pro-B Natriuret Pep pg/mL Total Protein (6.0-8.3) g/dL Albumin (3.3-5.0) g/dL POC Troponin I 0.00 L 0.01 (0.01-0.04) ng/ml Discharge Plan Discharge Clinical Impression: Chest pain Patient Disposition: Home, Self-Care Condition: Stable Instructions: Chest Pain (DC) Additional Instructions: Increase your omeprazole to 40 mg daily for the next couple of weeks. Follow up in clinic within the next week; I have put in an order for you for a stress test to make sure that that can be done in a timely manner, however if you would rather schedule that through your primary doctor you are welcome to do that as well. In the meantime, avoid strenuous activity. Return to the emergency department at any time for worsening or severe, persistent symptoms. Prescriptions: No Action diltiazem HCl 180 mg capsule,extended release 24hr 180 mg PO Q24H Label Comments: TAKE 1 CAPSULE BY MOUTH ONCE DAILY AT NIGHT trazodone 50 mg tablet 50 mg PO HS Label Comments: TAKE 1 TABLET BY MOUTH EVERYDAY AT BEDTIME atorvastatin 40 mg tablet 20 mg PO HS Label Comments: TAKE 1/2 TABLET BY MOUTH AT BEDTIME nitroglycerin 0.4 mg tablet, sublingual 0.4 mg sublingual PRN Label Comments: PLACE 0.4 MG ON TONGUE BY MOUTH EVERY 5M NEEDED FOR CHEST PAIN amoxicillin 875 mg tablet 875 mg PO BID Qty: 20 0RF escitalopram oxalate 10 mg tablet 10 mg PO DAILY fluticasone furoate 50 mcg/actuation blister with device inhalation metformin 1,000 mg tablet 1,000 mg PO BID omeprazole 20 mg tablet,delayed release (DR/EC) 20 mg PO DAILY tamsulosin 0.4 mg capsule 0.4 mg PO DAILY aspirin [Martín Chewable Aspirin] 81 mg tablet,chewable 81 mg PO DAILY omega 9-krs-gfd-fish oil [Fish Oil] 1,000 mg (120 mg-180 mg) capsule 1 cap PO DAILY doxycycline monohydrate 100 mg capsule 100 mg PO BID Qty: 13 0RF Follow Up/Referrals: Mario White MD [Primary Care Provider] - Stand Alone Forms: [facility] Info Instructions
[2023-01-16 00:57] LABS: Troponin, Point-of-Care* 0.01 ng/ml (0.01-0.04)
== END 2023-01-16 01:21 | disposition home or self-care (01) ==
PROVIDERS: Emergency Provider Emergency Medicine; PCP Surgery
DX: R07.89 Other chest pain (principal)
CPT/HCPCS: 36415; 71046; 80048; 80076; 83880; 84484; 85025; 85379; 86140; 93005; 94761; 97110; 97140; 99284; 99285; A9270

== ENCOUNTER 2024-12-09 10:15 | Outpatient (RCR) | payer MEDICARE, BC, SELFPAY ==
--- OUTSIDE RECORDS SUMMARY | 2024-11-16 15:04 | XMS_ITS | Encounter Summary ---
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 This section includes the names of all active insurance providers for the patient. Insurance Provider Type of Coverage Plan Name Start of Policy Coverage End of Policy Coverage Group Number Member ID Insurance Provider's Telephone Number Policy Ivey's Name Patient's Relationship to Policy Ivey [place] ([place]) MEDICARE ADVANTAGE MCR (WNR) Dec 02, 2017 [id number] [phone] DIANA VELASQUEZ RTIN PATIENT Selected Encounter This section includes the information on record at [place] for the Encounter. Date/Time Encounter Type Encounter Description Reason Pro vider Source Dec 17, 2023 11:53 AM Outpatient Encounter COMMUNITY CARE CONSULT I[facility] Encounter Template Text not used by [place] Plan of Treatment: Future Appointments (+ 6 months) and Future Tests (+/- 45 days) The Plan of Treatment section includes future care activities for the patient from all [place] treatmentfacilities. This section includes future appointments and future orders which are active, pending or scheduled. Future Appointments This section includes appointments that were scheduled to occur 6 months from the date of the Encounter, up to a maximum of 20 appointments. The data comes from all [place] treatment facilities. Appointment Date/Time Appointment Type Appointme nt Facility Name Jan 07, 2024 10:30 AM AMBULATORY - MEDICINE [facility] Jan 09, 2024 02:00 PM AMBULATORY - MEDICINE [facility] April 16, 2024 08:45 AM AMBULATORY - SURGERY [facility] May 11, 2024 12:00 PM [facility] May 25, 2024 01:30 PM AMBULATORY - SURGERY [facility] Active, Pending, and Scheduled Orders This section includes a listing of several types of active, pending, and scheduled orders, including clinic medications orders, diagnostic test orders, procedure orders and consult orders; where the start date of the order is 45 days before the date of the Encounter or 45 days after the date of theEncounter. The data comes from all [place] treatment facilities. Test Date/Time Test Type Test Details Facility Name Dec 11, 2023 12:00 AM Laboratory - Chemi stry Order OCCULT BLOOD FIT X1 SCREEN STOOL FECES SP ONCE [facility] Lab Results: +/- 30 days of the encounter This section includes the Chemistry and Hematology Lab Results on record with [place] for the patient. Radiology Reports and Pathology Reports are provided separately, in subsequent sections. Lab Results This section contains the Chemistry/Hematology Results that were resulted 30 days before or 30 daysafter the date of the Encounter. Date/Time Source Result Type Result - Unit Interpretation Reference Range Comment Jan 09, 2024 02:[address] [facility] URINALYSIS Specimen Type: URINE No comment entered. Ordering Provider: STEPH MCDONNELL Report Released Date/Time: Jan 09, 2024 01:44 PM Reporting Lab: [facility] [id number] Performing Lab: [facility] [phone] URINE COLOR YELLOW SPECIFIC GRAVITY 1.023 1.003-1.035 URINE BILIRUBIN NEGATIVE NEGATIVE URINE KETONES NEGATIVE NEGATIVE URINE GLUCOSE NEGATIVE mg/dL URINE PROTEIN 20 mg/dL URINE PH 7.0 5.0-8.0 URINE WBC/HPF 23 /[HPF] H 0-7 URINE BACTERIA NONE SEEN URINE RBC/HPF 4 /[HPF] H 0-3 APPEARANCE CLEAR SQUAMOUS EPITHELIAL 1 /[HPF] URINE BLOOD NEGATIVE NEGATIVE URINE NITRITE NEGATIVE NEGATIVE LEUKOCYTE ESTERASE 250 NEGATIVE Dec 11, 2023 09:[address] [facility] HEMOGLOBIN A1C Specimen Type: BLOOD Comment: Values obtained from A1C measurements can vary. For typical A1C assays, a reported value of 7.0 could actually be between 6.7 and 7.3 if measured by a reference method. A reported value of 9.0 could actually be between 8.7 and 9.3. Ref: http://www.ngs p.org/CAPdata. asp Ordering Provider: INGE PERALES Report Released Date/Time: Nov 29, 2022 10:43 AM Reporting Lab: [facility] [phone] Performing Lab: [facility] [address] HEMOGLOBIN A1C 7.0 H 4.0-6.0 Dec 11, 2023 09:[address] [facility] BASIC METABOLIC PANEL+MG Specimen Type: PLASMA No comment entered. Ordering Provider: INGE PERALES Report Released Date/Time: Nov 29, 2022 10:43 AM Reporting Lab: [facility] [phone] Performing Lab: [facility] [phone] CREATININE 1.1 mg/dL 0.7-1.2 UREA NITROGEN 10 mg/dL 8-26 GLUCOSE 234 mg/dL H 70-100 SODIUM 136 mmol/L 136-145 POTASSIUM 3.9 mmol/L 3.5-5.1 CHLORIDE 100 mmol/L 98-107 CO2 28 mmol/L 22-29 CALCIUM 9.8 mg/dL 8.4-10.2 MAGNESIUM 1.9 mg/dL 1.6-2.6 ANION GAP 8 mmol/L 5-15 .CREAT EGFR(CKD-EPI) 71 >60 Dec 11, 2023 09:[address] [facility] LIPID PANEL,NON-FASTING Specimen Type: PLASMA No comment entered. Ordering Provider: INGE PERALES Report Released Date/Time: Nov 29, 2022 10:43 AM Reporting Lab: [facility] [phone] Performing Lab: [facility] [phone] CHOLESTEROL 120 mg/dL <199 .HDL 37 mg/dL L >40 LDL CALCULATION 46 mg/dL <99 VLDL CALCULATION 37 mg/dL H <29 NON HDL CHOLESTEROL 83 mg/dL <129 TRIG(NON FASTING) 185 mg/dL H <149 Social History: Smoking Status (Most current) and Tobacco Use (All prior to encounter date) This section includes the most current, and the historical, smoking and tobacco- related health factors from the [facility] where the Encounter took place. Current Smoking Status This section includes the most current smoking, or tobacco-related health factor, from the [place] facility where the Encounter took place. Date/Time Current Smoking Status Comment Facil ity Dec 11, 2023 10:30 AM VA-TOBACCO FORMER USER [facility] Tobacco Use History This section includes a history of the smoking, or tobacco-related health factors, that were collected on or before the date of the Encounter. The data comes from the [place] facility where the Encounter took place. Date/Time Smoking Status/Tobacco Use Comment F acility Dec 11, 2023 10:30 AM VA-TOBACCO QUIT [address] [facility] Nov 14, 2021 10:30 AM VA-TOBACCO FORMER USER [facility] Nov 14, 2021 10:30 AM VA-TOBACCO QUIT [address] [facility] Jun 24, 2019 09:39 AM VA-TOBACCO FORMER USER [facility] Jun 24, 2019 09:39 AM VA-TOBACCO QUIT [address] [facility] Aug 21, 2018 12:20 PM VA-TOBACCO FORMER USER [facility] Aug 21, 2018 12:20 PM VA-TOBACCO QUIT [address] [facility] Sep 26, 2017 10:52 AM FORMER TOBACCO USER 7Y OR GREATE R [facility] April 16, 2016 01:05 PM FORMER TOBACCO USER 7Y OR GREATE R [facility] Jul 21, 2014 08:39 AM FORMER TOBACCO USER 7Y OR GREATE R [facility] Pathology Reports: +/- 30 days of the encounter Pathology Reports For cases when an order for pathology services may have been completed prior to the date of the Encounter, the report list includes the Pathology Reports that were completed up to 30 days before dateof the Encounter. For cases when an order for pathology services may have been completed after the date of the Encounter, the report list also includes the Pathology Reports that were completed up to30 days after date of the Encounter. The data comes from all [facility] facilities. Date/Time Pathology Report Provider Source Jan 09, 2024 02:01 PM LR MICROBIOLOGY RE PORT: Reporting Lab: [facility] [CLIA# [id number]] [place] [address] Accession [UID]: [id number] [[id number]] Received: Jan 09, 2024@14:01 Collection sample: URINE Collection date: Jan 09, 2024 14:01 Provider: STEPH MCDONNELL Test(s) ordered: CULTURE & SUSCEPTIBILITY...... completed: Jan 10, 2024 * BACTERIOLOGY FINAL REPORT => Jan 10, 2024 14:32 TECH CODE: [id number] CULTURE RESULTS: STAPHYLOCOCCUS HAEMOLYTICUS - Quantity: >100,000 Comment: No susceptibility testing performed. Bacteriology Remark(s): THIS REPORT IS FINAL =--=--=--=--=--=--=--=--=--=--=--=- -=--=--=--=--=--=--=--=--=--=--=--= --=--=-- Performing Laboratory: Bacteriology Report Performed By: [facility] [CLIA# [id number]] [place] [address] [facility] Encounter Notes: All associated encounter notes This section contains the clinical notes associated to the Encounter. Date/Time Encounter Note(s) Provider Source Dec 17, 2023 11:53 AM PHARMACY NOTE: LOCAL TITLE: PHARMACY NON [place] CARE MEDICATIONS STANDARD TITLE: PHARMACY NOTE DATE OF NOTE: DEC 17, 2023@11:53 ENTRY DATE: DEC 17, 2023@11:53:42 AUTHOR: LUPE PILLAI EXP COSIGNER: URGENCY: STATUS: COMPLETED [facility] RECEIVED electronic prescription(s) (eRX(s))from NON- [place] Provider: JUAN RAMON VÁZQUEZ Date eRX received: Dec The outside (NON-[place]) provider not authorized to write for prescription(s) through community care at this [place] pharmacy at this time. Prescription request FORWARDED via FAX to [facility] eRx Prescription Information: eRx Reference #: [id number] eRx Drug: primidone 50 mg tablet (MYSOLINE) eRx Qty: 90 eRx Refills: 3 eRx Days Supply: eRx Written Date: DEC 12, 2023 eRx Issue Date: Prohibit Renewals: No eRx Sig: Take 1 tablet qhs. /александр/ LUPE PILLAI PharmD Signed: 12/17/2023 11:[address] [facility]
--- OUTSIDE RECORDS SUMMARY | 2024-11-16 15:04 | XMS_ITS | Encounter Summary ---
Author Name [facility] [place] [facility] [place] Address [address] [place] [address] Care Team Providers Care Service Support Representative Name Role Phone GLORIA PELAYO Primary Care [...] Name Patient's Relationship to Policy Ivey [place] MCR (WNR) MEDICARE ADVANTAGE MCR (WNR) Dec 02, 2017 [id number] [phone] DIANA VELASQUEZ RTIN PATIENT Selected Encounter This section includes the information on record at [place] for the Encounter. Date/Time Encounter Type Encounter Description Reason Pro vider Source Dec 19, 2023 09:20 AM Outpatient Encounter TELEPHONE PRIMARY CARE IHE Encounter Template Text not used by [...] 07, 2024 10:30 AM AMBULATORY - MEDICINE [facility] Jan 09, 2024 02:00 PM AMBULATORY - MEDICINE [facility] April 16, 2024 08:45 AM AMBULATORY - SURGERY [facility] May 11, 2024 12:00 PM [facility] May 25, 2024 01:30 PM AMBULATORY - SURGERY [facility] Active, Pending, and Scheduled Orders This section [...] FIT X1 SCREEN STOOL FECES SP ONCE [facility] Lab Results: +/- 30 days [...] Range Comment Jan 09, 2024 02:00 PM [facility] URINALYSIS Specimen Type: URINE No comment entered. Ordering Provider: STEPH MCDONNELL Report Released Date/Time: Jan 09, 2024 01:44 PM Reporting Lab: [facility] [phone] Performing Lab: [facility] [address] URINE COLOR YELLOW SPECIFIC GRAVITY 1.023 1.003-1.035 [...] 250 NEGATIVE Dec 11, 2023 09:27 AM [facility] HEMOGLOBIN A1C Specimen Type: BLOOD [...] Nov 29, 2022 10:43 AM Reporting Lab: [facility] [id number] Performing Lab: [facility] [address] HEMOGLOBIN A1C 7.0 H 4.0-6.0 Dec 11, 2023 09:27 AM [facility] BASIC METABOLIC PANEL+MG Specimen Type: PLASMA No comment entered. Ordering Provider: INGE PERALES Report Released Date/Time: Nov 29, 2022 10:43 AM Reporting Lab: [facility] [phone] Performing Lab: [facility] [address] CREATININE 1.1 mg/dL 0.7-1.2 UREA NITROGEN 10 mg/dL 8-26 GLUCOSE 234 mg/dL H 70-100 SODIUM 136 mmol/L 136-145 POTASSIUM 3.9 mmol/L 3.5-5.1 CHLORIDE 100 mmol/L 98-107 CO2 28 mmol/L 22-29 CALCIUM 9.8 mg/dL 8.4-10.2 MAGNESIUM 1.9 mg/dL 1.6-2.6 ANION GAP 8 mmol/L 5-15 .CREAT EGFR(CKD-EPI) 71 >60 Dec 11, 2023 09:27 AM [facility] LIPID PANEL,NON-FASTING Specimen Type: PLASMA No comment entered. Ordering Provider: INGE PERALES Report Released Date/Time: Nov 29, 2022 10:43 AM Reporting Lab: [facility] [phone] Performing Lab: [facility] [address] CHOLESTEROL 120 mg/dL <199 .HDL 37 mg/dL L >40 LDL CALCULATION 46 mg/dL <99 VLDL CALCULATION 37 mg/dL H <29 NON HDL CHOLESTEROL 83 mg/dL <129 TRIG(NON FASTING) 185 mg/dL H <149 Social History: Smoking Status (Most current) and Tobacco Use (All prior to encounter date) This section includes the most current, and the historical, smoking and tobacco- related health factors from the [facility] where the Encounter took place. Current Smoking Status This section includes the most current smoking, or tobacco-related health factor, from the [place] facility where the Encounter took place. Date/Time Current Smoking Status Comment Facil ity Dec 11, 2023 10:30 AM VA-TOBACCO FORMER USER [facility] Tobacco Use History This section includes a history of the smoking, or tobacco-related health factors, that were collected on or before the date of the Encounter. The data comes from the [place] facility where the Encounter took place. Date/Time Smoking Status/Tobacco Use Comment F acility Dec 11, 2023 10:30 AM VA-TOBACCO QUIT 15 YRS OR MORE [facility] Nov 14, 2021 10:30 AM VA-TOBACCO FORMER USER [facility] Nov 14, 2021 10:30 AM VA-TOBACCO QUIT 15 YRS OR MORE [facility] Jun 24, 2019 09:39 AM VA-TOBACCO FORMER USER [facility] Jun 24, 2019 09:39 AM VA-TOBACCO QUIT 15 YRS OR MORE [facility] Aug 21, 2018 12:20 PM VA-TOBACCO FORMER USER [facility] Aug 21, 2018 12:20 PM VA-TOBACCO QUIT 15 YRS OR MORE [facility] Sep 26, 2017 10:52 AM FORMER TOBACCO USER 7Y OR GREATE R [facility] April 16, 2016 01:05 PM FORMER TOBACCO USER 7Y OR GREATE R [facility] Jul 21, 2014 08:39 AM FORMER TOBACCO USER 7Y OR GREATE R [facility] Pathology Reports: +/- 30 days [...] the Encounter. The data comes from [facility] facilities. Date/Time Pathology Report Provider Source Jan 09, 2024 02:01 PM LR MICROBIOLOGY RE PORT: Reporting Lab: [facility] [CLIA# [id number]] [place] [address] Accession [UID]: [id number] [[id number]] Received: Jan 09, 2024@14:01 Collection sample: URINE [...] --=--=-- Performing Laboratory: Bacteriology Report Performed By: [facility] [CLIA# [id number]] [place] [address] [facility] Encounter Notes: All associated encounter notes This section contains the clinical notes associated to the Encounter. Date/Time Encounter Note(s) Provider Source Dec 19, 2023 09:20 AM PRIMARY CARE NONVA NOTE: LOCAL TITLE: CO-MANAGED CARE NOTE STANDARD TITLE: PRIMARY CARE NONVA NOTE DATE OF NOTE: DEC 19, 2023@09:20 ENTRY DATE: DEC 19, 2023@09:20:41 AUTHOR: ANDRE SANTOS EXP COSIGNER: URGENCY: STATUS: COMPLETED Received a request for: 1. Primidone 50mg tablet, take 1 tablet at bedtime. Records scanned and available for review. Rx written by: Nhan Vizcaino Facility: [facility] Local provider phone #[phone] Local provider fax #[phone] Please alert me if med isn't approved or additional information is requested. If med is denied let me know what alternatives would be approved so I can communicate that information back to the local provider. /александр/ ANDRE SANTOS LPN [employer] Signed: 12/19/2023 09:22 Receipt Acknowledged By: 12/19/2023 18:08 /александр/ GLORIA PELAYO Physician ANDRE SANTOS [facility]
--- OUTSIDE RECORDS SUMMARY | 2024-11-16 15:04 | XMS_ITS | Encounter Summary ---
Author Name [facility] [place] Address [address] [place] [address] Care Team Providers Care Business And Services Instructor Name Role Phone GLORIA PELAYO Primary Care [...] Ivey's Name Patient's Relationship to Policy Ivey [facility] (WNR) MEDICARE ADVANTAGE MCR (WNR) Dec 02, 2017 [id number] [phone] DIANA VELASQUEZ RTIN PATIENT Selected Encounter This section includes the information on record at [place] for the Encounter. Date/Time Encounter Type Encounter Description Reason Provider Source Dec 11, 2023 11:18 AM Outpatient Encounter GENERAL INTERNAL MEDICINE ICD-10-CM Z23 Encounter for immunization TERRY CARTAGENA [facility] Encounter Template Text not used by [place] Assessments - Encounter Diagnoses This section includes the primary and secondary diagnoses documented for the Encounter. Date/Time Primary/Secondary Diagnosis Diagnosis Name Provider Source Dec 11, 2023 11:19 AM PRIMARY Encounter for immunization TERRY CARTAGENA [facility] Plan of Treatment: Future Appointments (+ 6 months) and Future Tests (+/- 45 days) The Plan of Treatment section includes future care activities for the patient from all [place] treatmentfacilities. This section includes future appointments and future orders which are active, pending or scheduled. Future Appointments This section includes appointments that were scheduled to occur 6 months from the date of the Encounter, up to a maximum of 20 appointments. The data comes from all [facility]. Appointment Date/Time Appointment Type Appointme nt Facility Name Jan 07, 2024 10:30 AM AMBULATORY - MEDICINE [facility] Jan 09, 2024 02:00 PM AMBULATORY MEDICINE [facility] April 16, 2024 08:45 AM AMBULATORY - SURGERY [facility] May 11, 2024 12:00 PM AMBULATORY MEDICINE [facility] May 25, 2024 01:30 PM AMBULATORY - SURGERY [facility] Active, Pending, and Scheduled Orders This section includes a listing of several types of active, pending, and scheduled orders, including clinic medications orders, diagnostic test orders, procedure orders and consult orders; where the start date of the order is 45 days before the date of the Encounter or 45 days after the date of theEncounter. The data comes from all [facility]. Test Date/Time Test Type Test Details Facility Name Dec 11, 2023 12:00 AM Laboratory - Chemi stry Order OCCULT BLOOD FIT X1 SCREEN STOOL FECES SP ONCE [facility] Lab Results: +/- 30 days of the encounter This section includes the Chemistry and Hematology Lab Results on record with [place] for the patient. Radiology Reports and Pathology Reports are provided separately, in subsequent sections. Lab Results This section contains the Chemistry/Hematology Results that were resulted 30 days before or 30 daysafter the date of the Encounter. Date/Time Source Result Type Result - Unit Interpretation Reference Range Comment Jan 09, 2024 02:00 PM [facility] URINALYSIS Specimen Type: URINE No comment entered. Ordering Provider: STEPH MCDONNELL Report Released Date/Time: Jan 09, 2024 01:44 PM Reporting Lab: [facility] [id number] Performing Lab: [facility] [address] URINE COLOR YELLOW SPECIFIC GRAVITY 1.023 1.003-1.035 [...] 250 NEGATIVE Dec 11, 2023 09:27 AM [facility] HEMOGLOBIN A1C Specimen Type: BLOOD Comment: Values [...] Nov 29, 2022 10:43 AM Reporting Lab: [facility] [phone] Performing Lab: [facility] [id number] HEMOGLOBIN A1C 7.0 H 4.0-6.0 Dec 11, 2023 09:27 AM [facility] BASIC METABOLIC PANEL+MG Specimen Type: PLASMA No comment entered. Ordering Provider: INGE PERALES Report Released Date/Time: Nov 29, 2022 10:43 AM Reporting Lab: [facility] [id number] Performing Lab: [facility] [address] CREATININE 1.1 mg/dL 0.7-1.2 UREA NITROGEN 10 mg/dL 8-26 GLUCOSE 234 mg/dL H 70-100 SODIUM 136 mmol/L 136-145 POTASSIUM 3.9 mmol/L 3.5-5.1 CHLORIDE 100 mmol/L 98-107 CO2 28 mmol/L 22-29 CALCIUM 9.8 mg/dL 8.4-10.2 MAGNESIUM 1.9 mg/dL 1.6-2.6 ANION GAP 8 mmol/L 5-15 .CREAT EGFR(CKD-EPI) 71 >60 Dec 11, 2023 09:27 AM [facility] LIPID PANEL,NON-FASTING Specimen Type: PLASMA No comment entered. Ordering Provider: INGE PERALES Report Released Date/Time: Nov 29, 2022 10:43 AM Reporting Lab: [facility] [id number] Performing Lab: [facility] [address] CHOLESTEROL 120 mg/dL <199 .HDL 37 mg/dL L >40 LDL CALCULATION 46 mg/dL <99 VLDL CALCULATION 37 mg/dL H <29 NON HDL CHOLESTEROL 83 mg/dL <129 TRIG(NON FASTING) 185 mg/dL H <149 Vital Signs: All taken on the encounter date This section contains inpatient and outpatient Vital Signs collected on the date of the Encounter. Date/Time Temperature Pulse Blood Pressure Respiratory Rate SP02 Pain Height Weight Body Mass Index Source Dec 11, 2023 10:27 AM 64 /min 135/73 mm[Hg] [facility] Dec 11, 2023 10:19 AM 98 F 70 /min 141/85 mm[Hg] 16 /min 93 % 3 69 in 198.2 lb 29 [facility] Immunizations: All administered on the encounter date This section contains immunizations associated to the Encounter. Immunization Series Date Issued Reaction Comments COVID-19 (PFIZER), MRNA, LNP -S, PF, MAIRA-SUCROSE, 30 MCG/0.3 ML (AGES 12+ YEARS) 1 Dec 11, 2023 Social History: Smoking Status (Most current) and Tobacco Use (All prior to encounter date) This section includes the most current, and the historical, smoking and tobacco- related health factors from the [place] facility where the Encounter took place. Current Smoking Status This section includes the most current smoking, or tobacco-related health factor, from the [place] facility where the Encounter took place. Date/Time Current Smoking Status Comment Mookie ity Dec 11, 2023 10:30 AM VA-TOBACCO FORMER USER [facility] Tobacco Use History This section includes a history of the smoking, or tobacco-related health factors, that were collected on or before the date of the Encounter. The data comes from the [place] facility where the Encounter took place. Date/Time Smoking Status/Tobacco Use Comment F acility Dec 11, 2023 10:30 AM VA-TOBACCO QUIT 15 YRS OR MORE [facility] Nov 14, 2021 10:30 AM VA-TOBACCO FORMER USER [facility] Nov 14, 2021 10:30 AM VA-TOBACCO QUIT 15 YRS OR MORE [facility] Jun 24, 2019 09:39 AM VA-TOBACCO FORMER USER [facility] Jun 24, 2019 09:39 AM VA-TOBACCO QUIT 15 YRS OR MORE [facility] Aug 21, 2018 12:20 PM VA-TOBACCO FORMER USER [facility] Aug 21, 2018 12:20 PM VA-TOBACCO QUIT 15 YRS OR MORE [facility] Sep 26, 2017 10:52 AM FORMER TOBACCO USER 7Y OR GREATE R [facility] April 16, 2016 01:05 PM FORMER TOBACCO USER 7Y OR GREATE R [facility] Jul 21, 2014 08:39 AM FORMER TOBACCO USER 7Y OR GREATE R [facility] Pathology Reports: +/- 30 days of the [...] the Encounter. The data comes from all [place] treatment facilities. Date/Time Pathology Report Provider Source Jan 09, 2024 02:01 PM LR MICROBIOLOGY RE PORT: Reporting Lab: [facility] [CLIA# [id number]] [place] [address] Accession [UID]: [id number] [[id number]] Received: Jan 09, 2024@14:01 Collection sample: URINE [...] --=--=-- Performing Laboratory: Bacteriology Report Performed By: [facility] [CLIA# [id number]] [place] [address] [facility] Encounter Notes: All associated encounter notes This section contains the clinical notes associated to the Encounter. Date/Time Encounter Note(s) Provider Source Dec 11, 2023 07:00 PM ADMINISTRATIVE NOT E: LOCAL TITLE: AFTER VISIT SUMMARY NOTE STANDARD TITLE: ADMINISTRATIVE NOTE DICT DATE: DEC 11, 2023@19:00:11 ENTRY DATE: DEC 11, 2023@19:00:11 DICTATED BY: MARILIA CARTAGENA EXP COSIGNER: URGENCY: STATUS: COMPLETED The patient was provided with a copy of an after-visit summary at the conclusion of the visit. A copy of the after-visit summary provided to the patient is available in [facility]. SCANNED DOCUMENT SIGNATURE NOT REQUIRED Electronically Filed: 12/11/2023 by: Steff Chaudhari MD Primary Care Staff Physician MARILIA CARTAGENA [facility] Dec 11, 2023 11:19 AM NURSING IMMUNIZATI ON NOTE: LOCAL TITLE: [facility] OUTPATIENT COVID VACCINE ADMINISTRATION STANDARD TITLE: NURSING IMMUNIZATION NOTE DATE OF NOTE: DEC 11, 2023@11:19 ENTRY DATE: DEC 11, 2023@11:19:09 AUTHOR: MARILIA CARTAGENA EXP COSIGNER: URGENCY: STATUS: COMPLETED Pfizer Monovalent (Comirnaty) Administered: COVID-19 ([employer]), MRNA, LNP-S, PF, MAIRA-SUCROSE, 30 MCG/0.3 ML (AGES 12+ YEARS) Date Administered: Dec 11, 2023 11:18 Series: Series 1 Fisher Lampara Net: [employer] Lot: [id number] Exp Date: Jan 01, 2024 NDC: [id number] Admin Route/Site: INTRAMUSCULAR/LEFT DELTOID Dosage: 0.3mL Vaccine Information Statement(s): COVID-19 MRNA VACCINE (12+ YRS) VACCINE VIS Sep 19, 2023 ([place]) Order By: Policy Administered By: Marilia Cartagena Vaccine administered without complications. The patient was advised to remain in the facility for 15 minutes post vaccination. /александр/ MARILIA CARTAGENA RN Signed: 12/11/2023 11:19 MARILIA CARTAGENA [facility]
--- OUTSIDE RECORDS SUMMARY | 2024-11-16 15:04 | XMS_ITS | Encounter Summary ---
Author Name [facility] [place] Address [address] [place] [address] Care Team Providers Care Liner Reroll Tender Name Role Phone GLORIA PELAYO Primary Care [...] Name Patient's Relationship to Policy Ivey [place] MCR ([place]) MEDICARE ADVANTAGE MCR (WNR) Dec 02, 2017 [id number] [phone] DIANA VELASQUEZ RTIN PATIENT Selected Encounter This section includes the information on record at [place] for the Encounter. Date/Time Encounter Type Encounter Description Reason Pro vider Source Dec 19, 2023 08:19 AM Outpatient Encounter COMMUNITY CARE CONSULT IHE Encounter Template Text not used by [place] Plan of Treatment: Future Appointments (+ 6 months) and Future Tests (+/- 45 days) The Plan of Treatment section includes future care activities for the patient from all [place] treatmentfacilities. This section includes future appointments and future orders which are active, pending or scheduled. Future Appointments This section includes appointments that were scheduled to occur 6 months from the date of the Encounter, up to a maximum of 20 appointments. The data comes from all [place] treatment facilities. Appointment Date/Time Appointment Type Appointme nt Facility Name Jan 07, 2024 10:30 AM AMBULATORY - MEDICINE [facility] Jan 09, 2024 02:00 PM AMBULATORY - MEDICINE [facility] April 16, 2024 08:45 AM AMBULATORY - SURGERY [facility] May 11, 2024 12:00 PM AM[facility]UL[facility] - [facility]IC[facility] May 25, 2024 01:30 PM AMBULATORY - SURGERY [facility] Active, Pending, and Scheduled Orders This section includes a listing of several types of active, pending, and scheduled orders, including clinic medications orders, diagnostic test orders, procedure orders and consult orders; where the start date of the order is 45 days before the date of the Encounter or 45 days after the date of theEncounter. The data comes from all [place] treatment facilities. Test Date/Time Test Type Test Details Facility Name Dec 11, 2023 12:00 AM Laboratory - Chemi stry Order OCCULT BLOOD FIT X1 SCREEN STOOL FECES SP ONCE [facility] Lab Results: +/- 30 days of the encounter This section includes the Chemistry and Hematology Lab Results on record with [place] for the patient. Radiology Reports and Pathology Reports are provided separately, in subsequent sections. Lab Results This section contains the Chemistry/Hematology Results that were resulted 30 days before or 30 daysafter the date of the Encounter. Date/Time Source Result Type Result - Unit Interpretation Reference Range Comment Jan 09, 2024 02:00 PM [facility] URINALYSIS Specimen Type: URINE No comment entered. Ordering Provider: STEPH MCDONNELL Report Released Date/Time: Jan 09, 2024 01:44 PM Reporting Lab: [facility] [id number] Performing Lab: [facility] [address] URINE COLOR YELLOW SPECIFIC GRAVITY 1.023 1.003-1.035 [...] 250 NEGATIVE Dec 11, 2023 09:27 AM [facility] HEMOGLOBIN A1C Specimen Type: BLOOD Comment: [...] Nov 29, 2022 10:43 AM Reporting Lab: [facility] [id number] Performing Lab: [facility] [address] HEMOGLOBIN A1C 7.0 H 4.0-6.0 Dec 11, 2023 09:27 AM [facility] BASIC METABOLIC PANEL+MG Specimen Type: PLASMA No comment entered. Ordering Provider: INGE PERALES Report Released Date/Time: Nov 29, 2022 10:43 AM Reporting Lab: [facility] [id number] Performing Lab: [facility] [address] CREATININE 1.1 mg/dL 0.7-1.2 UREA NITROGEN 10 mg/dL 8-26 GLUCOSE 234 mg/dL H 70-100 SODIUM 136 mmol/L 136-145 POTASSIUM 3.9 mmol/L 3.5-5.1 CHLORIDE 100 mmol/L 98-107 CO2 28 mmol/L 22-29 CALCIUM 9.8 mg/dL 8.4-10.2 MAGNESIUM 1.9 mg/dL 1.6-2.6 ANION GAP 8 mmol/L 5-15 .CREAT EGFR(CKD-EPI) 71 >60 Dec 11, 2023 09:27 AM [facility] LIPID PANEL,NON-FASTING Specimen Type: PLASMA No comment entered. Ordering Provider: INGE PERALES Report Released Date/Time: Nov 29, 2022 10:43 AM Reporting Lab: [facility] [id number] Performing Lab: [facility] [address] CHOLESTEROL 120 mg/dL <199 .HDL 37 mg/dL L >40 LDL CALCULATION 46 mg/dL <99 VLDL CALCULATION 37 mg/dL H <29 NON HDL CHOLESTEROL 83 mg/dL <129 TRIG(NON FASTING) 185 mg/dL H <149 Social History: Smoking Status (Most current) and Tobacco Use (All prior to encounter date) This section includes the most current, and the historical, smoking and tobacco- related health factors from the [facility] where the Encounter took place. Current Smoking Status This section includes the most current smoking, or tobacco-related health factor, from the [place] facility where the Encounter took place. Date/Time Current Smoking Status Comment Facil ity Dec 11, 2023 10:30 AM VA-TOBACCO FORMER USER [facility] Tobacco Use History This section includes a history of the smoking, or tobacco-related health factors, that were collected on or before the date of the Encounter. The data comes from the [place] facility where the Encounter took place. Date/Time Smoking Status/Tobacco Use Comment F acility Dec 11, 2023 10:30 AM VA-TOBACCO QUIT 15 YRS OR MORE [facility] Nov 14, 2021 10:30 AM VA-TOBACCO FORMER USER [facility] Nov 14, 2021 10:30 AM VA-TOBACCO QUIT 15 YRS OR MORE [facility] Jun 24, 2019 09:39 AM VA-TOBACCO FORMER USER [facility] Jun 24, 2019 09:39 AM VA-TOBACCO QUIT 15 YRS OR MORE [facility] Aug 21, 2018 12:20 PM VA-TOBACCO FORMER USER [facility] Aug 21, 2018 12:20 PM VA-TOBACCO QUIT 15 YRS OR MORE [facility] Sep 26, 2017 10:52 AM FORMER TOBACCO USER 7Y OR GREATE R [facility] April 16, 2016 01:05 PM FORMER TOBACCO USER 7Y OR GREATE R [facility] Jul 21, 2014 08:39 AM FORMER TOBACCO USER 7Y OR GREATE R [facility] Pathology Reports: +/- 30 days of [...] the Encounter. The data comes from all [facility] facilities. Date/Time Pathology Report Provider Source Jan 09, 2024 02:01 PM LR MICROBIOLOGY RE PORT: Reporting Lab: [facility] [CLIA# [id number]] [place] [address] Accession [UID]: [id number] [[id number]] Received: Jan 09, 2024@14:01 Collection sample: URINE [...] --=--=-- Performing Laboratory: Bacteriology Report Performed By: [facility] [CLIA# [id number]] [place] [address] [facility] Encounter Notes: All associated encounter notes This section contains the clinical notes associated to the Encounter. Date/Time Encounter Note(s) Provider Source Dec 19, 2023 08:19 AM PHARMACY NOTE: LOCAL TITLE: PHARMACY NON [place] CARE MEDICATIONS STANDARD TITLE: PHARMACY NOTE DATE OF NOTE: DEC 19, 2023@08:19 ENTRY DATE: DEC 19, 2023@08:19:35 AUTHOR: AUREA GRANDE COSIGNER: URGENCY: STATUS: COMPLETED [facility] Outpatient Pharmacy RECEIVED electronic prescription(s) (eRX(s)) from NON-VA Provider: BRYANT ROMO Date eRX received: Dec [facility] not eligible to receive non-VA prescription(s) at this time. Prescription(s) REDIRECTED via FAX to [facility] (Dual[facility] Care eRx Reference #: [id number] eRx Prescription Information: eRx Drug: atorvastatin 40 mg tablet (LIPITOR) eRx Qty: 90 eRx Refills: 3 eRx Days Supply: eRx Written Date: DEC 16, 2023 eRx Issue Date: Prohibit Renewals: No eRx Sig: Take 1 Tablet (40 mg) by mouth once daily in the evening. eRx Reference #: [id number] eRx Drug: dilTIAZem CD 180 mg capsule,extended release 24 hr (CARDIZEM CD) eRx Qty: 90 eRx Refills: 3 eRx Days Supply: eRx Written Date: DEC 16, 2023 eRx Issue Date: Prohibit Renewals: No eRx Sig: Take 1 Capsule (180 mg) by mouth once daily. Take at night // SANTIAGO CAPPS Pharmacist Signed: 12/19/2023 08:21 SANTIAGO GRANDE [facility]
--- OUTSIDE RECORDS SUMMARY | 2024-11-16 15:04 | XMS_ITS | Encounter Summary ---
Author Name [place] Organization [place] Address [address] [place] [address] Care Team Providers Care Nascar Racer Name Role Phone PIERCEGLORIA Primary Care Provider Unavaila ble Insurance Providers: [...] Ivey's Name Patient's Relationship to Policy Ivey BS [place] MCR (WNR) MEDICARE ADVANTAGE MCR (WNR) Dec 02, 2017 [id number] [phone] DIANA VELASQUEZ RTIN PATIENT Selected Encounter This section includes the information on record at [place] for the Encounter. Date/Time Encounter Type Encounter Description Reason Pro vider Source Dec 11, 2023 12:00 AM Outpatient Encounter EVENT (HISTORICAL) IHE Encounter Template Text not used by [place] Plan of Treatment: Future Appointments (+ 6 months) and Future Tests (+/- 45 days) The Plan of Treatment section includes future care activities for the patient from all [place] treatmentfacilities. This section includes future appointments and future orders which are active, pending or scheduled. Future Appointments This section includes appointments that were scheduled to occur 6 months from the date of the Encounter, up to a maximum of 20 appointments. The data comes from all [place] treatment facilities. Appointment Date/Time Appointment Type Appointme nt Facility Name Jan 07, 2024 10:30 AM AMBULATORY - MEDICINE [facility] Jan 09, 2024 02:00 PM AMBULATORY - MEDICINE [facility] April 16, 2024 08:45 AM AMBULATORY - SURGERY [facility] May 11, 2024 12:00 PM [facility]UL[facility]ICINE [facility] May 25, 2024 01:30 PM AMBULATORY - SURGERY [facility] Active, Pending, and Scheduled Orders This section includes a listing of several types of active, pending, and scheduled orders, including clinic medications orders, diagnostic test orders, procedure orders and consult orders; where the start date of the order is 45 days before the date of the Encounter or 45 days after the date of theEncounter. The data comes from all [place] treatment facilities. Test Date/Time Test Type Test Details Facility Name Dec 11, 2023 12:00 AM Laboratory - Chemi stry Order OCCULT BLOOD FIT X1 SCREEN STOOL FECES SP ONCE [facility] Lab Results: +/- 30 days of the encounter This section includes the Chemistry and Hematology Lab Results on record with [place] for the patient. Radiology Reports and Pathology Reports are provided separately, in subsequent sections. Lab Results This section contains the Chemistry/Hematology Results that were resulted 30 days before or 30 daysafter the date of the Encounter. Date/Time Source Result Type Result - Unit Interpretation Reference Range Comment Jan 09, 2024 02:00 PM [facility] URINALYSIS Specimen Type: URINE No comment entered. Ordering Provider: STEPH MCDONNELL Report Released Date/Time: Jan 09, 2024 01:44 PM Reporting Lab: [facility] [address] Performing Lab: [facility] [address] URINE COLOR YELLOW SPECIFIC GRAVITY 1.023 1.003-1.035 [...] 250 NEGATIVE Dec 11, 2023 09:27 AM [facility] HEMOGLOBIN A1C Specimen Type: BLOOD Comment: Values [...] Nov 29, 2022 10:43 AM Reporting Lab: [facility] [id number] Performing Lab: [facility] [address] HEMOGLOBIN A1C 7.0 H 4.0-6.0 Dec 11, 2023 09:27 AM [facility] BASIC METABOLIC PANEL+MG Specimen Type: PLASMA No comment entered. Ordering Provider: INGE PERALES Report Released Date/Time: Nov 29, 2022 10:43 AM Reporting Lab: [facility] [address] Performing Lab: [facility] [address] CREATININE 1.1 mg/dL 0.7-1.2 UREA NITROGEN 10 mg/dL 8-26 GLUCOSE 234 mg/dL H 70-100 SODIUM 136 mmol/L 136-145 POTASSIUM 3.9 mmol/L 3.5-5.1 CHLORIDE 100 mmol/L 98-107 CO2 28 mmol/L 22-29 CALCIUM 9.8 mg/dL 8.4-10.2 MAGNESIUM 1.9 mg/dL 1.6-2.6 ANION GAP 8 mmol/L 5-15 .CREAT EGFR(CKD-EPI) 71 >60 Dec 11, 2023 09:27 AM [facility] LIPID PANEL,NON-FASTING Specimen Type: PLASMA No comment entered. Ordering Provider: INGE PERALES Report Released Date/Time: Nov 29, 2022 10:43 AM Reporting Lab: [facility] [address] Performing Lab: [facility] [address] CHOLESTEROL 120 mg/dL <199 .HDL 37 mg/dL [...] 2023 10:27 AM 64 /min 135/73 mm[Hg] [facility] Dec 11, 2023 10:19 AM 98 F 70 /min 141/85 mm[Hg] 16 /min 93 % 3 69 in 198.2 lb 29 [facility] Social History: Smoking Status (Most current) and Tobacco Use (All prior to encounter date) This section includes the most current, and the historical, smoking and tobacco- related health factors from the [place] facility where the Encounter took place. Current Smoking Status This section includes the most current smoking, or tobacco-related health factor, from the [place] facility where the Encounter took place. Date/Time Current Smoking Status Comment Facil ity Dec 11, 2023 10:30 AM VA-TOBACCO FORMER USER [facility] Tobacco Use History This section includes a history of the smoking, or tobacco-related health factors, that were collected on or before the date of the Encounter. The data comes from the [place] facility where the Encounter took place. Date/Time Smoking Status/Tobacco Use Comment F acility Dec 11, 2023 10:30 AM VA-TOBACCO QUIT 15 YRS OR MORE [facility] Nov 14, 2021 10:30 AM VA-TOBACCO FORMER USER [facility] Nov 14, 2021 10:30 AM VA-TOBACCO QUIT 15 YRS OR MORE [facility] Jun 24, 2019 09:39 AM VA-TOBACCO FORMER USER [facility] Jun 24, 2019 09:39 AM VA-TOBACCO QUIT 15 YRS OR MORE [facility] Aug 21, 2018 12:20 PM VA-TOBACCO FORMER USER [facility] Aug 21, 2018 12:20 PM VA-TOBACCO QUIT 15 YRS OR MORE [facility] Sep 26, 2017 10:52 AM FORMER TOBACCO USER 7Y OR GREATE R [facility] April 16, 2016 01:05 PM FORMER TOBACCO USER 7Y OR GREATE R [facility] Jul 21, 2014 08:39 AM FORMER TOBACCO USER 7Y OR GREATE R [facility] Pathology Reports: +/- 30 days of the [...] the Encounter. The data comes from all [facility] facilities. Date/Time Pathology Report Provider Source Jan 09, 2024 02:01 PM LR MICROBIOLOGY RE PORT: Reporting Lab: [facility] [CLIA# [id number]] [place] [address] Accession [UID]: [id number] [[id number]] Received: Jan 09, 2024@14:01 Collection sample: URINE [...] --=--=-- Performing Laboratory: Bacteriology Report Performed By: [facility] [CLIA# [id number]] [place] [address] [facility]
--- OUTSIDE RECORDS SUMMARY | 2024-11-16 15:05 | XMS_ITS | Encounter Summary ---
Author Name [facility] ([place]) Organization [facility] Address [address] [place] [id number] Care Team Providers Care Scientific Manager Name Role Phone GLORIA PELAYO Primary Care [...] Ivey's Name Patient's Relationship to Policy Ivey [facility] MCR (WNR) MEDICARE ADVANTAGE MCR (WNR) Dec 02, 2017 [id number] [phone] DIANA VELASQUEZ RTIN PATIENT Selected Encounter This section includes the information on record at OR for the Encounter. Date/Time Encounter Type Encounter Description Reason Provider Source Jan 09, 2024 02:00 PM OFFICE O/P EST LOW 20 MIN PRIMARY CARE/MEDICINE ICD-10-CM R30.0 Dysuria STEPH MCDONNELL [place] Encounter Template Text not used by OR Assessments - Encounter Diagnoses This section includes the primary and secondary diagnoses documented for the Encounter. Date/Time Primary/Secondary Diagnosis Diagnosis Name Provider Source Jan 23, 2024 03:29 PM PRIMARY Dysuria STEPH MCDONNELL [facility] Plan of Treatment: Future Appointments (+ 6 months) and Future Tests (+/- 45 days) The Plan of Treatment section includes future care activities for the patient from all OR treatmentfacilities. This section includes future appointments and future orders which are active, pending or scheduled. Future Appointments This section includes appointments that were scheduled to occur 6 months from the date of the Encounter, up to a maximum of 20 appointments. The data comes from all [facility]. Appointment Date/Time Appointment Type Appointme nt Facility Name April 16, 2024 08:45 AM AMBULATORY - SURGERY [facility] May 11, 2024 12:00 PM AMBULATORY - MEDICINE REHANA JAIMES [facility] May 25, 2024 01:30 PM AMBULATORY - SURGERY [facility] Active, Pending, and Scheduled Orders This section includes a listing of several types of active, pending, and scheduled orders, including clinic medications orders, diagnostic test orders, procedure orders and consult orders; where the start date of the order is 45 days before the date of the Encounter or 45 days after the date of theEncounter. The data comes from all [facility]. Test Date/Time Test Type Test Details Facility Name Dec 11, 2023 12:00 AM Laboratory - Chemi stry Order OCCULT BLOOD FIT X1 SCREEN STOOL FECES SP ONCE [facility] Lab Results: +/- 30 days of the encounter This section includes the Chemistry and Hematology Lab Results on record with OR for the patient. Radiology Reports and Pathology Reports are provided separately, in subsequent sections. Lab Results This section contains the Chemistry/Hematology Results that were resulted 30 days before or 30 daysafter the date of the Encounter. Date/Time Source Result Type Result - Unit Interpretation Reference Range Comment Jan 09, 2024 02:00 PM [facility] URINALYSIS Specimen Type: URINE No comment entered. Ordering Provider: STEPH MCDONNELL Report Released Date/Time: Jan 09, 2024 01:44 PM Reporting Lab: [facility] [id number] Performing Lab: [facility] [address] URINE COLOR YELLOW SPECIFIC GRAVITY 1.023 1.003-1.035 [...] 250 NEGATIVE Dec 11, 2023 09:27 AM [facility] HEMOGLOBIN A1C Specimen Type: BLOOD [...] Nov 29, 2022 10:43 AM Reporting Lab: [facility] [address] Performing Lab: [facility] [address] HEMOGLOBIN A1C 7.0 H 4.0-6.0 Dec 11, 2023 09:27 AM [facility] BASIC METABOLIC PANEL+MG Specimen Type: PLASMA No comment entered. Ordering Provider: INGE PERALES Report Released Date/Time: Nov 29, 2022 10:43 AM Reporting Lab: [facility] [address] Performing Lab: [facility] [address] CREATININE 1.1 mg/dL 0.7-1.2 UREA NITROGEN 10 mg/dL 8-26 GLUCOSE 234 mg/dL H 70-100 SODIUM 136 mmol/L 136-145 POTASSIUM 3.9 mmol/L 3.5-5.1 CHLORIDE 100 mmol/L 98-107 CO2 28 mmol/L 22-29 CALCIUM 9.8 mg/dL 8.4-10.2 MAGNESIUM 1.9 mg/dL 1.6-2.6 ANION GAP 8 mmol/L 5-15 .CREAT EGFR(CKD-EPI) 71 >60 Dec 11, 2023 09:27 AM [facility] LIPID PANEL,NON-FASTING Specimen Type: PLASMA No comment entered. Ordering Provider: INGE PERALES Report Released Date/Time: Nov 29, 2022 10:43 AM Reporting Lab: [facility] [address] Performing Lab: [facility] [address] CHOLESTEROL 120 mg/dL <199 .HDL 37 mg/dL [...] Pain Height Weight Body Mass Index Source Jan 09, 2024 02:22 PM 99.5 76 170/84 15 95 0 69 201 30 PATRICK OLIVARES [facility] Social History: Smoking Status (Most current) and Tobacco Use (All prior to encounter date) This section includes the most current, and the historical, smoking and tobacco- related health factors from the OR facility where the Encounter took place. Current Smoking Status This section includes the most current smoking, or tobacco-related health factor, from the OR facility where the Encounter took place. Date/Time Current Smoking Status Comment Facil ity Dec 11, 2023 10:30 AM VA-TOBACCO FORMER USER [facility] Tobacco Use History This section includes a history of the smoking, or tobacco-related health factors, that were collected on or before the date of the Encounter. The data comes from the OR facility where the Encounter took place. Date/Time Smoking Status/Tobacco Use Comment F acility Dec 11, 2023 10:30 AM VA-TOBACCO QUIT 15 YRS OR MORE [facility] Nov 14, 2021 10:30 AM VA-TOBACCO FORMER USER [facility] Nov 14, 2021 10:30 AM VA-TOBACCO QUIT 15 YRS OR MORE [facility] Jun 24, 2019 09:39 AM VA-TOBACCO FORMER USER [facility] Jun 24, 2019 09:39 AM VA-TOBACCO QUIT 15 YRS OR MORE [facility] Aug 21, 2018 12:20 PM VA-TOBACCO FORMER USER [facility] Aug 21, 2018 12:20 PM VA-TOBACCO QUIT 15 YRS OR MORE [facility] Sep 26, 2017 10:52 AM FORMER TOBACCO USER 7Y OR GREATE R [facility] April 16, 2016 01:05 PM FORMER TOBACCO USER 7Y OR GREATE R [facility] Jul 21, 2014 08:39 AM FORMER TOBACCO USER 7Y OR GREATE R [facility] Pathology Reports: +/- 30 days [...] the Encounter. The data comes from all OR treatment facilities. Date/Time Pathology Report Provider Source Jan 09, 2024 02:01 PM LR MICROBIOLOGY RE PORT: Reporting Lab: [facility] [CLIA# [id number]] [place] [address] Accession [UID]: [id number] [[id number]] Received: Jan 09, 2024@14:01 Collection sample: URINE [...] --=--=-- Performing Laboratory: Bacteriology Report Performed By: [facility] [CLIA# [id number]] [place] [address] [facility] Encounter Notes: All associated encounter notes This section contains the clinical notes associated to the Encounter. Date/Time Encounter Note(s) Provider Source Jan 13, 2024 07:32 PM ADDENDUM: LOCAL TITLE: Addendum STANDARD TITLE: ADDENDUM DATE OF NOTE: JAN 13, 2024@19:32:38 ENTRY DATE: JAN 13, 2024@19:32:39 AUTHOR: STEPH MCDONNELL EXP COSIGNER: URGENCY: STATUS: COMPLETED Please f/u with pt to assess for improvement/resolution of UTI symptoms. /александр/ STEPH MCDONNELL APRN, COARSE WIRE DRAWER NURSE PRACTITIONER Signed: 01/13/2024 19:33 Receipt Acknowledged By: 01/14/2024 13:30 /anahy MAE, INSURANCE LOSS CONTROL SURVEYOR NURSE for TARYN Pinto RENITA --- Original Document --- 01/09/24 MEDICINE CLINIC NOTE: Nurse Summary: PATIENT CONCERN/DURATION/ONSET: [place] c/o 24 hours of burning with urination, inability to empty bladder fully as only a little come out, and more frequent bathroom visits. Denies fever/chills/n/v/d/abdomina l pain. WHAT HAS PATIENT TRIED TO TREAT THE SYMPTOMS: No new home measures. HISTORY/PREVIOUS TREATMENT: CAD, Osteoarthritis, BEH. Nurse's Notes Reviewed. Chief Complaint: Difficulty urinating - burning on urination since 01/08/2024 AM HPI: Luis Velasquez is a 73 y.o. male w/CAD and splenectomy who presents w/ 24 hours of dysuria, frequency, urgency w/decreased stream. He denies fevers, chills, sweats, CV angle tenderness, low back pain or suprapubic tenderness. He denies concern for STI. He is noted to have elevated temperature on check-in (99.5). Past medical history/Active Problems: Active Problems: Active problems - Computerized Problem List is the source for the followin. CAD UNSPEC TYPE VES 2. Coronary artery disease (SNOMED CT 26398578) 3. 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 Fracture of tibial spine (SNOMED CT 877300773) 5. Depression 6. Obstructive sleep apnea of adult 7. Osteoarthritis of left knee joint 8. Benign essential hypertension Physical Exam: VS: Temp: 99.5 F [37.5 C] (01/09/2024 14:22) BP: 170/84 (01/09/2024 14:22) Pulse:76 (01/09/2024 14:22) Resp: 15 (01/09/2024 14:22) Weight: 201 lb [91.17 kg] (01/09/2024 14:22) Pain: 0 (01/09/2024 14:22) O2 Sat: 95% (01/09/2024 14:22) BMI: 29.7 General: A&O, does not appear acutely ill, appropriate, NAD HEENT: Oropharynx (OP): Clear, PERRLA, no scleral icterus Abdominal: non-distended, non TTP, bowel sounds present : no suprapubic tenderness Other exam: (-) CV angle tenderness Assessment/Plan: # bacterial cystitis: UA w/leukocyte esterase, WBC and RBC, PVR (-). We discussed empiric treatment now, vs waiting on cultures and pt opted for empiric treatment. Will treat as complicated cystitis given hx of splenectomy. May change antibiotics based upon culture results. RTC w/new or worsening symptoms. More than 50% of this 30 min appt was spent counseling/coordinating care for the medical problems outlined above. Medication Reconciliation: Education Evaluations *Was medication education provided for NEW medications or CHANGES to medications? (including medication name, dose, route, reason for use, and potential side effects). Yes. Verbal education was provided to patient/caregiver and patient/caregiver verbalized understanding. Additional Comment: Bactrim -detailed instructions per Pharmacist at window TERATOGENIC MED & CONTRACEPTION REVIEW (Optional)... ===== MEDICATION RECONCILIATION ===== Review Done: The medication list shown below was verified for accuracy and it includes all pending medications/active medications/all medications or discontinued within the last 90 days/all remote medications and non-VA medications. If a given category (i.e. remote meds) is not shown, that means that a patient doesn't have a medication(s) in that category. Allergies listed below were also reviewed/updated for accuracy. Allergies/ADR from [employer]D may not display in CPRS. Use JLV MRT5 - Allergies/ADRs FACILITY ALLERGY/ADR -------- [facility] NO KNOWN ALLERGIES Active and Recently Outpatient Medications (including Supplies): Issue Date Status Last Fill Active Outpatient Medications Refills Expiration 1) ATORVASTATIN CALCIUM 40MG TAB Qty: 90 ACTIVE Issu:12-11-23 for 90 days Sig: TAKE ONE TABLET BY Refills: 3 Last:12-11-23 MOUTH EVERY DAY FOR CHOLESTEROL Expr:12-11-24 2) DILTIAZEM (EQV-TIAZAC) 180MG 24HR CAP ACTIVE Issu:12-11-23 Qty: 90 for 90 days Sig: TAKE ONE Refills: 3 Last:12-11-23 CAPSULE BY MOUTH AT BEDTIME Expr:12-11-24 3) ESCITALOPRAM OXALATE 20MG TAB Qty: 90 ACTIVE (S) Issu:12-11-23 for 90 days Sig: TAKE ONE TABLET BY Refills: 3 Last:02-13-24 MOUTH EVERY MORNING Expr:12-11-24 4) FLUTICASONE PROP 50MCG 120D NASAL INHL ACTIVE Issu:02-14-23 Qty: 3 for 90 days Sig: SPRAY 2 Refills: 3 Last:02-15-23 SPRAYS IN EACH NOSTRIL EVERY DAY FOR Expr:02-15-24 ALLERGIES 5) METFORMIN HCL 500MG 24HR SA TAB Qty: ACTIVE Issu:12-18-23 180 for 90 days Sig: TAKE ONE TABLET Refills: 3 Last:12-20-23 BY MOUTH TWICE A DAY FOR DIABETES Expr:12-18-24 6) OMEPRAZOLE 40MG EC CAP Qty: 90 for 90 ACTIVE Issu:12-11-23 days Sig: TAKE ONE CAPSULE BY MOUTH Refills: 3 Last:12-11-23 EVERY DAY FOR STOMACH ACID Expr:12-11-24 7) PRIMIDONE 50MG TAB Qty: 90 for 90 days ACTIVE Issu:12-19-23 Sig: TAKE ONE TABLET BY MOUTH AT Refills: 3 Last:12-20-23 BEDTIME FOR TREMOR Expr:12-19-24 8) SULFAMETHOXAZOLE 800/TRIMETH 160MG TAB ACTIVE Issu:01-09-24 Qty: 14 for 7 days Sig: TAKE 1 TABLET Refills: 0 Last:01-09-24 BY MOUTH TWICE A DAY Expr:02-08-24 9) TAMSULOSIN HCL 0.4MG CAP Qty: 90 for 90 ACTIVE Issu:12-11-23 days Sig: TAKE ONE CAPSULE BY MOUTH Refills: 3 Last:12-11-23 EVERY EVENING Expr:12-11-24 Issue Date Status Last Fill Inactive Outpatient Medications Refills Expiration 1) ATORVASTATIN CALCIUM 40MG TAB Qty: 90 DISCONTINUED Issu:11-29-22 for 90 days Sig: TAKE ONE TABLET BY Refills: 1 Last:09-06-23 MOUTH EVERY DAY FOR CHOLESTEROL Expr:11-30-23 2) DILTIAZEM (EQV-TIAZAC) 180MG 24HR CAP DISCONTINUED Issu:11-29-22 Qty: 90 for 90 days Sig: TAKE ONE Refills: 0 Last:09-06-23 CAPSULE BY MOUTH AT BEDTIME Expr:11-30-23 3) ESCITALOPRAM OXALATE 20MG TAB Qty: 90 DISCONTINUED Issu:11-29-22 for 90 days Sig: TAKE ONE TABLET BY Refills: 0 Last:11-25-23 MOUTH EVERY MORNING Expr:11-30-23 4) FAMOTIDINE 20MG TAB Qty: 45 for 90 days DISCONTINUED Issu:11-29-22 Sig: TAKE ONE-HALF TABLET BY MOUTH Refills: 3 Last:11-30-22 EVERY MORNING TO DECREASE STOMACH ACID Expr:11-30-23 5) METFORMIN HCL 500MG 24HR SA TAB Qty: DISCONTINUED Issu:12-18-23 180 for 90 days Sig: TAKE ONE TABLET Refills: 3 Last:01-31-24 BY MOUTH TWICE A DAY FOR DIABETES Expr:12-18-24 6) OMEPRAZOLE 40MG EC CAP Qty: 90 for 90 DISCONTINUED Issu:02-14-23 days Sig: TAKE ONE CAPSULE BY MOUTH Refills: 1 Last:09-06-23 EVERY DAY FOR STOMACH ACID Expr:02-15-24 7) TAMSULOSIN HCL 0.4MG CAP Qty: 30 for 30 DISCONTINUED Issu:09-10-23 days Sig: TAKE ONE CAPSULE BY MOUTH (EDIT) Last:10-21-23 EVERY EVENING Refills: 1 Expr:09-10-24 8) TAMSULOSIN HCL 0.4MG CAP Qty: 90 for 90 DISCONTINUED Issu:11-29-22 days Sig: TAKE ONE CAPSULE BY MOUTH Refills: 0 Last:09-06-23 EVERY EVENING Expr:11-30-23 9) TRAZODONE HCL 50MG TAB Qty: 30 for 30 Issu:11-29-22 days Sig: TAKE ONE TABLET BY MOUTH AT Refills: 3 Last:11-30-22 BEDTIME NEEDED FOR SLEEP Expr:11-30-23 Start Date Active Non-VA Medications Refills Expiration 1) Non-VA ASPIRIN 81MG CHEW TAB SiMG ACTIVE MOUTH EVERY DAY 2) Non-VA MARINE LIPID (FISH OIL) CAP,ORAL ACTIVE Sig: MOUTH 3) Non-VA MULTIVITAMINS CAP/TAB Sig: ACTIVE MOUTH 4) Non-VA PSYLLIUM POWDER,ORAL Sig: ACTIVE 22 Total Medications /es/ STEPH MCDONNELL APRN, COARSE WIRE DRAWER NURSE PRACTITIONER Signed: 01/13/2024 19:30 01/14/2024 ADDENDUM STATUS: COMPLETED Reached out to to inquire about UTI symptoms. Pt states he has 2 days of antibiotics left. Pt states that all syptoms have resolved. Denies burning with urination or inability to empty bladder fully. Denies fever, chills, nausea, vomiting, or abdominal pain. Pt feels he has completely recovered. Instructed to finish course of antibiotics. verbalizes understanding and thanks fiction and nonfiction writer prose for call. /александр/ STEPH MAE, INSURANCE LOSS CONTROL SURVEYOR NURSE Signed: 01/14/2024 13:30 STEPH MCDONNELL [facility] Jan 09, 2024 02:26 PM INTERNAL MEDICINE OUTPATIENT NOTE: LOCAL TITLE: MEDICINE CLINIC NURSING NOTE STANDARD TITLE: INTERNAL MEDICINE OUTPATIENT NOTE DATE OF NOTE: JAN 09, 2024@14:26 ENTRY DATE: JAN 09, 2024@14:26:26 AUTHOR: EDDIE TRONCOSO COSIGNER: JAGJIT HUGHES URGENCY: STATUS: COMPLETED MEDICINE CLINIC NURSING NOTE Has ADDENDA TYPE OF VISIT: Appointment Check In Type of appointment: In-person appointment REASON FOR VISIT: Difficulty urinating - burning on urination since 01/08/2024 AM ALLERGIES: MORPHINE (Jul 21, 2014) VITAL SIGNS: Blood Pressure: 170/84 (01/09/2024 14:22)BP recheck 14:27 163/75 Pulse: 76 (01/09/2024 14:22) Respiration: 15 (01/09/2024 14:22) Procedure: Residual Urine Patient instructed and verbalizes that they have emptied the bladder completely. Ultrasound RU: 2 cc Temperature: 99.5 F [37.5 C] (01/09/2024 14:22) Weight: 201 lb [91.17 kg] (01/09/2024 14:22) Height: 69 in [175.3 cm] (01/09/2024 14:22) BMI: 29.7 O2 Sat: 95% (01/09/2024 14:22) Pain: 0 (01/09/2024 14:22) PAIN SCREEN: Patient is not having significant pain that they wish to discuss with their provider today. MEDICATION Active Outpatient Medications (including Supplies): ATORVASTATIN CALCIUM 40MG TAB TAKE ONE TABLET BY MOUTH ACTIVE EVERY DAY FOR CHOLESTEROL DILTIAZEM (EQV-TIAZAC) 180MG 24HR CAP TAKE ONE CAPSULE BY ACTIVE MOUTH AT BEDTIME ESCITALOPRAM OXALATE 20MG TAB TAKE ONE TABLET BY MOUTH ACTIVE (S) EVERY MORNING FLUTICASONE PROP 50MCG 120D NASAL INHL SPRAY 2 SPRAYS IN ACTIVE EACH NOSTRIL EVERY DAY FOR ALLERGIES METFORMIN HCL 500MG 24HR SA TAB TAKE ONE TABLET BY MOUTH ACTIVE TWICE A DAY FOR DIABETES OMEPRAZOLE 40MG EC CAP TAKE ONE CAPSULE BY MOUTH EVERY DAY ACTIVE FOR STOMACH ACID PRIMIDONE 50MG TAB TAKE ONE TABLET BY MOUTH AT BEDTIME FOR ACTIVE TREMOR TAMSULOSIN HCL 0.4MG CAP TAKE ONE CAPSULE BY MOUTH EVERY ACTIVE EVENING Non-VA ASPIRIN 81MG CHEW TAB 81MG MOUTH EVERY DAY ACTIVE Non-VA MARINE LIPID (FISH OIL) CAP,ORAL MOUTH ACTIVE Non-VA MULTIVITAMINS CAP/TAB MOUTH ACTIVE Non-VA PSYLLIUM POWDER,ORAL ACTIVE Over the Counter/Herbal Medications: The patient states that they take some outside medications and/or herbals. /александр/ EDDIE TRONCOSO SNT Signed: 01/09/2024 14:35 /александр/ JAGJIT HUGHES Nurse Field Service Representative Cosigned: 01/09/2024 14:39 01/09/2024 ADDENDUM STATUS: COMPLETED Full note to follow. H&P, urinalysis c/w bacterial UTI. Pt opted to treat empirically per CDSS, pending culture. We present to ED if new or worsening symptoms. /александр/ STEPH MCDONNELL APRN, COARSE WIRE DRAWER NURSE PRACTITIONER Signed: 01/12/2024 21:23 EDDIE TRONCOSO [facility] Jan 09, 2024 02:25 PM INTERNAL MEDICINE NOTE: LOCAL TITLE: MEDICINE CLINIC NOTE STANDARD TITLE: INTERNAL MEDICINE NOTE DATE OF NOTE: JAN 09, 2024@14:25 ENTRY DATE: JAN 09, 2024@14:25:55 AUTHOR: STEPH MCDONNELLIGNER: URGENCY: STATUS: COMPLETED MEDICINE CLINIC NOTE Has ADDENDA Nurse Summary: PATIENT CONCERN/DURATION/ONSET: c/o 24 hours of burning with urination, inability to empty bladder fully as only a little come out, and more frequent bathroom visits. Denies fever/chills/n/v/d/abdomina l pain. WHAT HAS PATIENT TRIED TO TREAT THE SYMPTOMS: No new home measures. HISTORY/PREVIOUS TREATMENT: CAD, Osteoarthritis, BEH. Nurse's Notes Reviewed. Chief Complaint: Difficulty urinating - burning on urination since 01/08/2024 AM HPI: Luis Velasquez is a 73 y.o. male w/CAD and splenectomy who presents w/ 24 hours of dysuria, frequency, urgency w/decreased stream. He denies fevers, chills, sweats, CV angle tenderness, low back pain or suprapubic tenderness. He denies concern for STI. He is noted to have elevated temperature on check-in (99.5). Past medical history/Active Problems: Active Problems: Active problems - Computerized Problem List is the source for the followin. CAD UNSPEC TYPE VES 2. Coronary artery disease (SNOMED CT 36990737) 3. H/O splenectomy (SNOMED CT 509737770) - has accessory spleen 4. Fracture of tibial spine (SNOMED CT 378607650) 5. Depression 6. Obstructive sleep apnea of adult 7. Osteoarthritis of left knee joint 8. Benign essential hypertension Physical Exam: VS: Temp: 99.5 F [37.5 C] (01/09/2024 14:22) BP: 170/84 (01/09/2024 14:22) Pulse:76 (01/09/2024 14:22) Resp: 15 (01/09/2024 14:22) Weight: 201 lb [91.17 kg] (01/09/2024 14:22) Pain: 0 (01/09/2024 14:22) O2 Sat: 95% (01/09/2024 14:22) BMI: 29.7 General: A&O, does not appear acutely ill, appropriate, NAD HEENT: Oropharynx (OP): Clear, PERRLA, no scleral icterus Abdominal: non-distended, non TTP, bowel sounds present : no suprapubic tenderness Other exam: (-) CV angle tenderness Assessment/Plan: # bacterial cystitis: UA w/leukocyte esterase, WBC and RBC, PVR (-). We discussed empiric treatment now, vs waiting on cultures and pt opted for empiric treatment. Will treat as complicated cystitis given hx of splenectomy. May change antibiotics based upon culture results. RTC w/new or worsening symptoms. More than 50% of this 30 min appt was spent counseling/coordinating care for the medical problems outlined above. Medication Reconciliation: Education Evaluations *Was medication education provided for NEW medications or CHANGES to medications? (including medication name, dose, route, reason for use, and potential side effects). Yes. Verbal education was provided to patient/caregiver and patient/caregiver verbalized understanding. Additional Comment: Bactrim -detailed instructions per Pharmacist at window TERATOGENIC MED & CONTRACEPTION REVIEW (Optional)... ===== MEDICATION RECONCILIATION ===== Review Done: The medication list shown below was verified for accuracy and it includes all pending medications/active medications/all medications or discontinued within the last 90 days/all remote medications and non-VA medications. If a given category (i.e. remote meds) is not shown, that means that a patient doesn't have a medication(s) in that category. Allergies listed below were also reviewed/updated for accuracy. Allergies/ADR from [employer]D may not display in CPRS. Use JLV MRT5 - Allergies/ADRs FACILITY ALLERGY/ADR -------- [facility] NO KNOWN ALLERGIES Active and Recently Outpatient Medications (including Supplies): Issue Date Status Last Fill Active Outpatient Medications Refills Expiration 1) ATORVASTATIN CALCIUM 40MG TAB Qty: 90 ACTIVE Issu:12-11-23 for 90 days Sig: TAKE ONE TABLET BY Refills: 3 Last:12-11-23 MOUTH EVERY DAY FOR CHOLESTEROL Expr:12-11-24 2) DILTIAZEM (EQV-TIAZAC) 180MG 24HR CAP ACTIVE Issu:12-11-23 Qty: 90 for 90 days Sig: TAKE ONE Refills: 3 Last:12-11-23 CAPSULE BY MOUTH AT BEDTIME Expr:12-11-24 3) ESCITALOPRAM OXALATE 20MG TAB Qty: 90 ACTIVE (S) Issu:12-11-23 for 90 days Sig: TAKE ONE TABLET BY Refills: 3 Last:02-13-24 MOUTH EVERY MORNING Expr:12-11-24 4) FLUTICASONE PROP 50MCG 120D NASAL INHL ACTIVE Issu:02-14-23 Qty: 3 for 90 days Sig: SPRAY 2 Refills: 3 Last:02-15-23 SPRAYS IN EACH NOSTRIL EVERY DAY FOR Expr:02-15-24 ALLERGIES 5) METFORMIN HCL 500MG 24HR SA TAB Qty: ACTIVE Issu:12-18-23 180 for 90 days Sig: TAKE ONE TABLET Refills: 3 Last:12-20-23 BY MOUTH TWICE A DAY FOR DIABETES Expr:12-18-24 6) OMEPRAZOLE 40MG EC CAP Qty: 90 for 90 ACTIVE Issu:12-11-23 days Sig: TAKE ONE CAPSULE BY MOUTH Refills: 3 Last:12-11-23 EVERY DAY FOR STOMACH ACID Expr:12-11-24 7) PRIMIDONE 50MG TAB Qty: 90 for 90 days ACTIVE Issu:12-19-23 Sig: TAKE ONE TABLET BY MOUTH AT Refills: 3 Last:12-20-23 BEDTIME FOR TREMOR Expr:12-19-24 8) SULFAMETHOXAZOLE 800/TRIMETH 160MG TAB ACTIVE Issu:01-09-24 Qty: 14 for 7 days Sig: TAKE 1 TABLET Refills: 0 Last:01-09-24 BY MOUTH TWICE A DAY Expr:02-08-24 9) TAMSULOSIN HCL 0.4MG CAP Qty: 90 for 90 ACTIVE Issu:12-11-23 days Sig: TAKE ONE CAPSULE BY MOUTH Refills: 3 Last:12-11-23 EVERY EVENING Expr:12-11-24 Issue Date Status Last Fill Inactive Outpatient Medications Refills Expiration 1) ATORVASTATIN CALCIUM 40MG TAB Qty: 90 DISCONTINUED Issu:11-29-22 for 90 days Sig: TAKE ONE TABLET BY Refills: 1 Last:09-06-23 MOUTH EVERY DAY FOR CHOLESTEROL Expr:11-30-23 2) DILTIAZEM (EQV-TIAZAC) 180MG 24HR CAP DISCONTINUED Issu:11-29-22 Qty: 90 for 90 days Sig: TAKE ONE Refills: 0 Last:09-06-23 CAPSULE BY MOUTH AT BEDTIME Expr:11-30-23 3) ESCITALOPRAM OXALATE 20MG TAB Qty: 90 DISCONTINUED Issu:11-29-22 for 90 days Sig: TAKE ONE TABLET BY Refills: 0 Last:11-25-23 MOUTH EVERY MORNING Expr:11-30-23 4) FAMOTIDINE 20MG TAB Qty: 45 for 90 days DISCONTINUED Issu:11-29-22 Sig: TAKE ONE-HALF TABLET BY MOUTH Refills: 3 Last:11-30-22 EVERY MORNING TO DECREASE STOMACH ACID Expr:11-30-23 5) METFORMIN HCL 500MG 24HR SA TAB Qty: DISCONTINUED Issu:12-18-23 180 for 90 days Sig: TAKE ONE TABLET Refills: 3 Last:01-31-24 BY MOUTH TWICE A DAY FOR DIABETES Expr:12-18-24 6) OMEPRAZOLE 40MG EC CAP Qty: 90 for 90 DISCONTINUED Issu:02-14-23 days Sig: TAKE ONE CAPSULE BY MOUTH Refills: 1 Last:09-06-23 EVERY DAY FOR STOMACH ACID Expr:02-15-24 7) TAMSULOSIN HCL 0.4MG CAP Qty: 30 for 30 DISCONTINUED Issu:09-10-23 days Sig: TAKE ONE CAPSULE BY MOUTH (EDIT) Last:10-21-23 EVERY EVENING Refills: 1 Expr:09-10-24 8) TAMSULOSIN HCL 0.4MG CAP Qty: 90 for 90 DISCONTINUED Issu:11-29-22 days Sig: TAKE ONE CAPSULE BY MOUTH Refills: 0 Last:09-06-23 EVERY EVENING Expr:11-30-23 9) TRAZODONE HCL 50MG TAB Qty: 30 for 30 Issu:11-29-22 days Sig: TAKE ONE TABLET BY MOUTH AT Refills: 3 Last:11-30-22 BEDTIME NEEDED FOR SLEEP Expr:11-30-23 Start Date Active Non-VA Medications Refills Expiration 1) Non-VA ASPIRIN 81MG CHEW TAB SiMG ACTIVE MOUTH EVERY DAY 2) Non-VA MARINE LIPID (FISH OIL) CAP,ORAL ACTIVE Sig: MOUTH 3) Non-VA MULTIVITAMINS CAP/TAB Sig: ACTIVE MOUTH 4) Non-VA PSYLLIUM POWDER,ORAL Sig: ACTIVE 22 Total Medications /александр/ STEPH MCDONNELL APRN, COARSE WIRE DRAWER NURSE PRACTITIONER Signed: 01/13/2024 19:30 01/13/2024 ADDENDUM STATUS: COMPLETED Please f/u with pt to assess for improvement/resolution of UTI symptoms. /anahy MCDONNELL APRN, MARGO NURSE PRACTITIONER Signed: 01/13/2024 19:33 Receipt Acknowledged By: 01/14/2024 13:30 /anahy MAE RN STAFF NURSE for TARYN MARAVILLA 01/14/2024 ADDENDUM STATUS: COMPLETED Reached out to to inquire about UTI symptoms. Pt states he has 2 days of antibiotics left. Pt states that all syptoms have resolved. Denies burning with urination or inability to empty bladder fully. Denies fever, chills, nausea, vomiting, or abdominal pain. Pt feels he has completely recovered. Instructed to finish course of antibiotics. verbalizes understanding and thanks fiction and nonfiction writer prose for call. /anahy MAE RN STAFF NURSE Signed: 01/14/2024 13:30 STEPH MCDONNELL [facility] Jan 09, 2024 02:16 PM ADVANCE DIRECTIVE: LOCAL TITLE: AD NOTIFICATION AND SCREENING STANDARD TITLE: ADVANCE DIRECTIVE DATE OF NOTE: JAN 09, 2024@14:16 ENTRY DATE: JAN 09, 2024@14:16:16 AUTHOR: YASEMIN PATEL COSIGNER: URGENCY: STATUS: COMPLETED ADVANCE DIRECTIVE NOTIFICATION: Patient was given written notification of the following rights: 1. Accept or refuse any medical treatment. 2. Complete a durable power of corporate attorney for health care. 3. Complete a living will. ADVANCE DIRECTIVE SCREENING: Does patient have an Advance Directive? The patient does not have an Advance Directive. The patient does not wish to create an Advance Directive for health care. Comment: DECLINED /александр/ YASEMIN PATEL Advance Neonatal Pediatric Nurse Signed: 01/09/2024 14:16 YASEMIN PATEL [facility]
--- OUTSIDE RECORDS SUMMARY | 2024-11-16 15:05 | XMS_ITS | Encounter Summary ---
Author Name [facility] [place] Organization [place] Address [address] [place] [id number] Care Team Providers Care Dye Room Helper Name Role Phone GLORIA PELAYO Primary Care [...] Ivey's Name Patient's Relationship to Policy Ivey [facility] MCR (WNR) MEDICARE ADVANTAGE MCR (WNR) Dec 02, 2017 [id number] [phone] DIANA VELASQUEZ RTIN PATIENT Selected Encounter This section includes the information on record at CT for the Encounter. Date/Time Encounter Type Encounter Description Reason Provider Source Dec 20, 2023 12:25 PM HC PRO PHONE CALL 5-10 MIN TELEPHONE PRIMARY CARE ICD-10-CM Z71.9 Counseling, unspecified TARYN AMRAVILLA [facility] Encounter Template Text not used by CT Assessments - Encounter Diagnoses This section includes the primary and secondary diagnoses documented for the Encounter. Date/Time Primary/Secondary Diagnosis Diagnosis Name Provider Source Dec 20, 2023 12:25 PM PRIMARY Counseling, unspecified TARYN MARAVILLA [facility] Plan of Treatment: Future Appointments (+ 6 months) and Future Tests (+/- 45 days) The Plan of Treatment section includes future care activities for the patient from all CT treatmentfacilities. This section includes future appointments and future orders which are active, pending or scheduled. Future Appointments This section includes appointments that were scheduled to occur 6 months from the date of the Encounter, up to a maximum of 20 appointments. The data comes from all [facility]. Appointment Date/Time Appointment Type Appointme nt Facility Name Jan 07, 2024 10:30 AM AMBULATORY - MEDICINE [facility] Jan 09, 2024 02:00 PM AMBULATORY MEDICINE [facility] April 16, 2024 08:45 AM AMBULATORY - SURGERY [facility] May 11, 2024 12:00 PM AMBULATORY MEDICINE [facility] May 25, 2024 01:30 PM AMBULATORY - SURGERY [facility] Active, Pending, and Scheduled Orders This section includes a listing of several types of active, pending, and scheduled orders, including clinic medications orders, diagnostic test orders, procedure orders and consult orders; where the start date of the order is 45 days before the date of the Encounter or 45 days after the date of theEncounter. The data comes from all [facility]. Test Date/Time Test Type Test Details Facility Name Dec 11, 2023 12:00 AM Laboratory - Chemi stry Order OCCULT BLOOD FIT X1 SCREEN STOOL FECES SP ONCE [facility] Lab Results: +/- 30 days of the encounter This section includes the Chemistry and Hematology Lab Results on record with CT for the patient. Radiology Reports and Pathology Reports are provided separately, in subsequent sections. Lab Results This section contains the Chemistry/Hematology Results that were resulted 30 days before or 30 daysafter the date of the Encounter. Date/Time Source Result Type Result - Unit Interpretation Reference Range Comment Jan 09, 2024 02:00 PM [facility] URINALYSIS Specimen Type: URINE No comment entered. Ordering Provider: STEPH MCDONNELL Report Released Date/Time: Jan 09, 2024 01:44 PM Reporting Lab: [facility] [id number] Performing Lab: [facility] [id number] URINE COLOR YELLOW SPECIFIC GRAVITY 1.023 1.003-1.035 [...] 250 NEGATIVE Dec 11, 2023 09:27 AM [facility] HEMOGLOBIN A1C Specimen Type: BLOOD [...] Nov 29, 2022 10:43 AM Reporting Lab: [facility] [id number] Performing Lab: [facility] [id number] HEMOGLOBIN A1C 7.0 H 4.0-6.0 Dec 11, 2023 09:27 AM [facility] BASIC METABOLIC PANEL+MG Specimen Type: PLASMA No comment entered. Ordering Provider: INGE PERALES Report Released Date/Time: Nov 29, 2022 10:43 AM Reporting Lab: [facility] [id number] Performing Lab: [facility] [phone] CREATININE 1.1 mg/dL 0.7-1.2 UREA NITROGEN 10 mg/dL 8-26 GLUCOSE 234 mg/dL H 70-100 SODIUM 136 mmol/L 136-145 POTASSIUM 3.9 mmol/L 3.5-5.1 CHLORIDE 100 mmol/L 98-107 CO2 28 mmol/L 22-29 CALCIUM 9.8 mg/dL 8.4-10.2 MAGNESIUM 1.9 mg/dL 1.6-2.6 ANION GAP 8 mmol/L 5-15 .CREAT EGFR(CKD-EPI) 71 >60 Dec 11, 2023 09:27 AM [facility] LIPID PANEL,NON-FASTING Specimen Type: PLASMA No comment entered. Ordering Provider: INGE PERALES Report Released Date/Time: Nov 29, 2022 10:43 AM Reporting Lab: [facility] [id number] Performing Lab: [facility] [phone] CHOLESTEROL 120 mg/dL <199 .HDL 37 mg/dL L >40 LDL CALCULATION 46 mg/dL <99 VLDL CALCULATION 37 mg/dL H <29 NON HDL CHOLESTEROL 83 mg/dL <129 TRIG(NON FASTING) 185 mg/dL H <149 Social History: Smoking Status (Most current) and Tobacco Use (All prior to encounter date) This section includes the most current, and the historical, smoking and tobacco- related health factors from the CT facility where the Encounter took place. Current Smoking Status This section includes the most current smoking, or tobacco-related health factor, from the CT facility where the Encounter took place. Date/Time Current Smoking Status Comment Facil ity Dec 11, 2023 10:30 AM VA-TOBACCO QUIT 15 YRS OR MORE [facility] Tobacco Use History This section includes a history of the smoking, or tobacco-related health factors, that were collected on or before the date of the Encounter. The data comes from the CT facility where the Encounter took place. Date/Time Smoking Status/Tobacco Use Comment F acility Dec 11, 2023 10:30 AM VA-TOBACCO QUIT 15 YRS OR MORE [facility] Nov 14, 2021 10:30 AM VA-TOBACCO FORMER USER [facility] Nov 14, 2021 10:30 AM VA-TOBACCO QUIT 15 YRS OR MORE [facility] Jun 24, 2019 09:39 AM VA-TOBACCO FORMER USER [facility] Jun 24, 2019 09:39 AM VA-TOBACCO QUIT 15 YRS OR MORE [facility] Aug 21, 2018 12:20 PM VA-TOBACCO FORMER USER [facility] Aug 21, 2018 12:20 PM VA-TOBACCO QUIT 15 YRS OR MORE [facility] Sep 26, 2017 10:52 AM FORMER TOBACCO USER 7Y OR GREATE R [facility] April 16, 2016 01:05 PM FORMER TOBACCO USER 7Y OR GREATE R [facility] Jul 21, 2014 08:39 AM FORMER TOBACCO USER 7Y OR GREATE R [facility] Pathology Reports: +/- 30 days [...] the Encounter. The data comes from all CT treatment facilities. Date/Time Pathology Report Provider Source Jan 09, 2024 02:01 PM LR MICROBIOLOGY RE PORT: Reporting Lab: [facility] [CLIA# [id number]] [place] [address] Accession [UID]: [id number] [[id number]] Received: Jan 09, 2024@14:01 Collection sample: URINE [...] --=--=-- Performing Laboratory: Bacteriology Report Performed By: [facility] [CLIA# [id number]] [place] [address] [facility] Encounter Notes: All associated encounter notes This section contains the clinical notes associated to the Encounter. Date/Time Encounter Note(s) Provider Source Dec 23, 2023 12:13 AM ADDENDUM: LOCAL TITLE: Addendum STANDARD TITLE: ADDENDUM DATE OF NOTE: DEC 23, 2023@00:13:47 ENTRY DATE: DEC 23, 2023@00:13:49 AUTHOR: GLORIA PELAYO EXP COSIGNER: URGENCY: STATUS: COMPLETED RSV ordered. Please inform patient he can come back to immunization clinic on 4E when he can to get the shot. /александр/ GLORIA PELAYO Physician Signed: 12/23/2023 00:14 Receipt Acknowledged By: 12/24/2023 14:31 /александр/ TARYN MARAVILLA, TIMO REGISTERED NURSE --- Original Document --- 12/20/23 MEDICINE CLINIC NURSING RN NOTE: TYPE OF VISIT: Telephone REASON FOR VISIT: and spouse present during call. Discussed RSV vaccine risks/benefits per pt education handout. Pt interested in RSV vaccine ALLERGIES: FACILITY ALLERGY/ADR -------- [facility] NO KNOWN ALLERGIES PLAN: /anahy MARAVILLA RN REGISTERED NURSE Signed: 12/20/2023 12:26 Receipt Acknowledged By: 12/23/2023 00:13 /anahy PELAYO Physician GLORIA PELAYO [facility] Dec 20, 2023 12:25 PM NURSING OUTPATIENT NOTE: LOCAL TITLE: MEDICINE CLINIC NURSING RN NOTE STANDARD TITLE: NURSING OUTPATIENT NOTE DATE OF NOTE: DEC 20, 2023@12:25 ENTRY DATE: DEC 20, 2023@12:25:34 AUTHOR: TARYN MARAVILLA EXP COSIGNER: URGENCY: STATUS: COMPLETED MEDICINE CLINIC NURSING RN NOTE Has ADDENDA TYPE OF VISIT: Telephone REASON FOR VISIT: and spouse present during call. Discussed RSV vaccine risks/benefits per pt education handout. Pt interested in RSV vaccine ALLERGIES: FACILITY ALLERGY/ADR -------- [facility] NO KNOWN ALLERGIES PLAN: /anahy MARAVILLA RN REGISTERED NURSE Signed: 12/20/2023 12:26 Receipt Acknowledged By: 12/23/2023 00:13 /anahy PELAYO Physician 12/23/2023 ADDENDUM STATUS: COMPLETED RSV ordered. Please inform patient he can come back to immunization clinic on 4E when he can to get the shot. /anahy PELAYO Physician Signed: 12/23/2023 00:14 Receipt Acknowledged By: * AWAITING SIGNATURE * TARYN MARAVILLA RACHEL F [facility]
--- OUTSIDE RECORDS SUMMARY | 2024-11-16 15:05 | XMS_ITS | Encounter Summary ---
Author Name [facility] [place] [facility] [place] Organization [place] Address [address] [place] [address] Care Team Providers Care Radiotelegraph Operator Name Role Phone GLORIA PELAYO Primary [...] Name Patient's Relationship to Policy Ivey [employer] [place] MCR (WNR) MEDICARE ADVANTAGE MCR (WNR) Dec 02, 2017 [id number] [phone] DIANA VELASQUEZ RTIN PATIENT Selected Encounter This section includes the information on record at [place] for the Encounter. Date/Time Encounter Type Encounter Description Reason Pro vider Source Jan 24, 2024 01:01 PM Outpatient Encounter [facility]ARE CONSULT [facility] Encounter Template Text not used by [facility] Plan of Treatment: Future Appointments (+ 6 months) and Future Tests (+/- 45 days) The Plan of Treatment section includes future care activities for the patient from all [place] treatmentfacilities. This section includes future appointments and future orders which are active, pending or scheduled. Future Appointments This section includes appointments that were scheduled to occur 6 months from the date of the Encounter, up to a maximum of 20 appointments. The data comes from all [place] treatment facilities. Appointment Date/Time Appointment Type Appointme nt Facility Name April 16, 2024 08:45 AM AMBULATORY - SURGERY JUANI MIRZA [facility] May 11, 2024 12:00 PM AMBULATORY - MEDICINE REHANA JAIMES [facility] May 25, 2024 01:30 PM AMBULATORY - SURGERY JUANI MIRZA [facility] Active, Pending, and Scheduled Orders This section includes a listing of several types of active, pending, and scheduled orders, including clinic medications orders, diagnostic test orders, procedure orders and consult orders; where the start date of the order is 45 days before the date of the Encounter or 45 days after the date of theEncounter. The data comes from all [place] treatment facilities. Test Date/Time Test Type Test Details Facility Name Dec 11, 2023 12:00 AM Laboratory - Chemi stry Order OCCULT BLOOD FIT X1 SCREEN STOOL FECES SP ONCE [facility] Lab Results: +/- 30 days of the encounter This section includes the Chemistry and Hematology Lab Results on record with [place] for the patient. Radiology Reports and Pathology Reports are provided separately, in subsequent sections. Lab Results This section contains the Chemistry/Hematology Results that were resulted 30 days before or 30 daysafter the date of the Encounter. Date/Time Source Result Type Result - Unit Interpretation Reference Range Comment Jan 09, 2024 02:00 PM [facility] URINALYSIS Specimen Type: URINE No comment entered. Ordering Provider: STEPH MCDONNELL Report Released Date/Time: Jan 09, 2024 01:44 PM Reporting Lab: [facility] [id number] Performing Lab: [facility] [id number] URINE COLOR YELLOW SPECIFIC GRAVITY 1.023 1.003-1.035 URINE BILIRUBIN NEGATIVE NEGATIVE URINE KETONES NEGATIVE NEGATIVE URINE GLUCOSE NEGATIVE mg/dL URINE PROTEIN 20 mg/dL URINE PH 7.0 5.0-8.0 URINE WBC/HPF 23 /[HPF] H 0-7 URINE BACTERIA NONE SEEN URINE RBC/HPF 4 /[HPF] H 0-3 APPEARANCE CLEAR SQUAMOUS EPITHELIAL 1 /[HPF] URINE BLOOD NEGATIVE NEGATIVE URINE NITRITE NEGATIVE NEGATIVE LEUKOCYTE ESTERASE 250 NEGATIVE Social History: Smoking Status (Most current) and Tobacco Use (All prior to encounter date) This section includes the most current, and the historical, smoking and tobacco- related health factors from the [place] facility where the Encounter took place. Current Smoking Status This section includes the most current smoking, or tobacco-related health factor, from the [place] facility where the Encounter took place. Date/Time Current Smoking Status Comment Mookie maddox Dec 11, 2023 10:30 AM VA-TOBACCO FORMER USER [facility] Tobacco Use History This section includes a history of the smoking, or tobacco-related health factors, that were collected on or before the date of the Encounter. The data comes from the [place] facility where the Encounter took place. Date/Time Smoking Status/Tobacco Use Comment F acility Dec 11, 2023 10:30 AM VA-TOBACCO QUIT 15 YRS OR MORE [facility] Nov 14, 2021 10:30 AM VA-TOBACCO FORMER USER [facility] Nov 14, 2021 10:30 AM VA-TOBACCO QUIT 15 YRS OR MORE [facility] Jun 24, 2019 09:39 AM VA-TOBACCO FORMER USER [facility] Jun 24, 2019 09:39 AM VA-TOBACCO QUIT 15 YRS OR MORE [facility] Aug 21, 2018 12:20 PM VA-TOBACCO FORMER USER [facility] Aug 21, 2018 12:20 PM VA-TOBACCO QUIT 15 YRS OR MORE [facility] Sep 26, 2017 10:52 AM FORMER TOBACCO USER 7Y OR GREATE R [facility] April 16, 2016 01:05 PM FORMER TOBACCO USER 7Y OR GREATE R [facility] Jul 21, 2014 08:39 AM FORMER TOBACCO USER 7Y OR GREATE R [facility] Pathology Reports: +/- 30 days of [...] the Encounter. The data comes from all [facility] facilities. Date/Time Pathology Report Provider Source Jan 09, 2024 02:01 PM LR MICROBIOLOGY RE PORT: Reporting Lab: [facility] [CLIA# [id number]] [place] [address] Accession [UID]: [id number] [[id number]] Received: Jan 09, 2024@14:01 Collection sample: URINE [...] --=--=-- Performing Laboratory: Bacteriology Report Performed By: [facility] [CLIA# [id number]] [place] [address] [facility] Encounter Notes: All associated encounter notes This section contains the clinical notes associated to the Encounter. Date/Time Encounter Note(s) Provider Source Jan 24, 2024 01:01 PM PHARMACY NOTE: LOCAL TITLE: PHARMACY NON [place] CARE MEDICATIONS STANDARD TITLE: PHARMACY NOTE DATE OF NOTE: JAN 24, 2024@13:01 ENTRY DATE: JAN 24, 2024@13:01:16 AUTHOR: RAFA SHUKLA EXP COSIGNER: URGENCY: STATUS: COMPLETED The [facility] RECEIVED electronic prescription(s) faxed from a NON-[place] Provider: Mario White Regarding Patient: DANILO VELASQUEZ Date of : May Regarding PRESCRIPTION(s) written on Jan for: Medication(s): Omeprazole 40mg The Non-[place] provider is not authorized to write prescription(s) through the [facility] pharmacy. The Prescription request has been redirected via FAX to [facility]. /александр/ RAFA HSUKLA Signed: 01/24/2024 13:01 RAFA SHUKLA [facility]
--- OUTSIDE RECORDS SUMMARY | 2024-11-16 15:05 | XMS_ITS | Encounter Summary ---
Author Name [facility] [place] [facility] [place] Address [address] [place] [address] Care Team Providers Care Electrical Prospecting Operator Name Role Phone GLORIA PELAYO Primary [...] Name Patient's Relationship to Policy Ivey BCBS ID MCR (WNR) MEDICARE ADVANTAGE MCR (WNR) Dec 02, 2017 [id number] [phone] DIANA VELASQUEZ RTIN PATIENT Selected Encounter This section includes the information on record at [place] for the Encounter. Date/Time Encounter Type Encounter Description Reason Pro vider Source Dec 20, 2023 10:12 AM Outpatient Encounter TELEPHONE TRIAGE IHE Encounter Template Text not used by [place] Plan of Treatment: Future Appointments (+ 6 months) and Future Tests (+/- 45 days) The Plan of Treatment section includes future care activities for the patient from all [place] treatmentfacilities. This section includes future appointments and future orders which are active, pending or scheduled. Future Appointments This section includes appointments that were scheduled to occur 6 months from the date of the Encounter, up to a maximum of 20 appointments. The data comes from all [place] treatment facilities. Appointment Date/Time Appointment Type Appointme nt Facility Name Jan 07, 2024 10:30 AM AMBULATORY - MEDICINE [facility] Jan 09, 2024 02:00 PM AMBULATORY - MEDICINE [facility] April 16, 2024 08:45 AM AMBULATORY - SURGERY [facility] May 11, 2024 12:00 PM AMBULATORY - MEDICINE REHANA JAIMES [facility] May 25, 2024 01:30 PM AMBULATORY - SURGERY [facility] Active, Pending, and Scheduled Orders This section includes a listing of several types of active, pending, and scheduled orders, including clinic medications orders, diagnostic test orders, procedure orders and consult orders; where the start date of the order is 45 days before the date of the Encounter or 45 days after the date of theEncounter. The data comes from all [place] treatment facilities. Test Date/Time Test Type Test Details Facility Name Dec 11, 2023 12:00 AM Laboratory - Chemi stry Order OCCULT BLOOD FIT X1 SCREEN STOOL FECES SP ONCE [facility] Lab Results: +/- 30 days of the encounter This section includes the Chemistry and Hematology Lab Results on record with [place] for the patient. Radiology Reports and Pathology Reports are provided separately, in subsequent sections. Lab Results This section contains the Chemistry/Hematology Results that were resulted 30 days before or 30 daysafter the date of the Encounter. Date/Time Source Result Type Result - Unit Interpretation Reference Range Comment Jan 09, 2024 02:00 PM [facility] URINALYSIS Specimen Type: URINE No comment entered. Ordering Provider: STEPH MCDONNELL Report Released Date/Time: Jan 09, 2024 01:44 PM Reporting Lab: [facility] [id number] Performing Lab: [facility] [id number] URINE COLOR YELLOW SPECIFIC GRAVITY 1.023 1.003-1.035 [...] 250 NEGATIVE Dec 11, 2023 09:27 AM [facility] HEMOGLOBIN A1C Specimen Type: BLOOD Comment: Values [...] Nov 29, 2022 10:43 AM Reporting Lab: [facility] [id number] Performing Lab: [facility] [id number] HEMOGLOBIN A1C 7.0 H 4.0-6.0 Dec 11, 2023 09:27 AM [facility] BASIC METABOLIC PANEL+MG Specimen Type: PLASMA No comment entered. Ordering Provider: INGE PERALES Report Released Date/Time: Nov 29, 2022 10:43 AM Reporting Lab: [facility] [id number] Performing Lab: [facility] [id number] CREATININE 1.1 mg/dL 0.7-1.2 UREA NITROGEN 10 mg/dL 8-26 GLUCOSE 234 mg/dL H 70-100 SODIUM 136 mmol/L 136-145 POTASSIUM 3.9 mmol/L 3.5-5.1 CHLORIDE 100 mmol/L 98-107 CO2 28 mmol/L 22-29 CALCIUM 9.8 mg/dL 8.4-10.2 MAGNESIUM 1.9 mg/dL 1.6-2.6 ANION GAP 8 mmol/L 5-15 .CREAT EGFR(CKD-EPI) 71 >60 Dec 11, 2023 09:27 AM [facility] LIPID PANEL,NON-FASTING Specimen Type: PLASMA No comment entered. Ordering Provider: INGE PERALES Report Released Date/Time: Nov 29, 2022 10:43 AM Reporting Lab: [facility] [id number] Performing Lab: [facility] [phone] CHOLESTEROL 120 mg/dL <199 .HDL 37 mg/dL L >40 LDL CALCULATION 46 mg/dL <99 VLDL CALCULATION 37 mg/dL H <29 NON HDL CHOLESTEROL 83 mg/dL <129 TRIG(NON FASTING) 185 mg/dL H <149 Social History: Smoking Status (Most current) and Tobacco Use (All prior to encounter date) This section includes the most current, and the historical, smoking and tobacco- related health factors from the [facility] where the Encounter took place. Current Smoking Status This section includes the most current smoking, or tobacco-related health factor, from the [place] facility where the Encounter took place. Date/Time Current Smoking Status Comment Facil ity Dec 11, 2023 10:30 AM VA-TOBACCO QUIT 15 YRS OR MORE [facility] Tobacco Use History This section includes a history of the smoking, or tobacco-related health factors, that were collected on or before the date of the Encounter. The data comes from the [facility] where the Encounter took place. Date/Time Smoking Status/Tobacco Use Comment F acility Dec 11, 2023 10:30 AM VA-TOBACCO QUIT 15 YRS OR MORE [facility] Nov 14, 2021 10:30 AM VA-TOBACCO FORMER USER [facility] Nov 14, 2021 10:30 AM VA-TOBACCO QUIT 15 YRS OR MORE [facility] Jun 24, 2019 09:39 AM VA-TOBACCO FORMER USER [facility] Jun 24, 2019 09:39 AM VA-TOBACCO QUIT 15 YRS OR MORE [facility] Aug 21, 2018 12:20 PM VA-TOBACCO FORMER USER [facility] Aug 21, 2018 12:20 PM VA-TOBACCO QUIT 15 YRS OR MORE [facility] Sep 26, 2017 10:52 AM FORMER TOBACCO USER 7Y OR GREATE R [facility] April 16, 2016 01:05 PM FORMER TOBACCO USER 7Y OR GREATE R [facility] Jul 21, 2014 08:39 AM FORMER TOBACCO USER 7Y OR GREATE R [facility] Pathology Reports: +/- 30 days of the [...] the Encounter. The data comes from all [facility] facilities. Date/Time Pathology Report Provider Source Jan 09, 2024 02:01 PM LR MICROBIOLOGY RE PORT: Reporting Lab: [facility] [CLIA# [id number]] [place] [address] Accession [UID]: [id number] [[id number]] Received: Jan 09, 2024@14:01 Collection sample: URINE [...] --=--=-- Performing Laboratory: Bacteriology Report Performed By: [facility] [CLIA# [id number]] [place] [address] [facility] Encounter Notes: All associated encounter notes This section contains the clinical notes associated to the Encounter. Date/Time Encounter Note(s) Provider Source Dec 20, 2023 10:12 AM ADMINISTRATIVE NOT E: LOCAL TITLE: CCC: SCHEDULING ADMINISTRATION STANDARD TITLE: ADMINISTRATIVE NOTE DATE OF NOTE: DEC 20, 2023@10:12 ENTRY DATE: DEC 20, 2023@10:12:56 AUTHOR: PRAFUL FAYE EXP COSIGNER: URGENCY: STATUS: COMPLETED Primary Care Call Center Primary Care Provider Call Other: called requesting the RSV vaccine. Veterans contacted number listed below. Phone verified: This note was created by a [address] [facility] [address] MIESHA/LANCE. Please do not alert this underwriter solicitation director by adding as a signer for future communications. Alerts are not monitored by this user, please reach out to [facility] Leadership instead if indicated. /александр/ PRAFUL FAYE MSA,[address] Signed: 12/20/2023 10:14 Receipt Acknowledged By: 12/20/2023 12:27 /es/ TARYN MARAVILLA, RN REGISTERED NURSE PRAFUL FAYE [facility]
--- OUTSIDE RECORDS SUMMARY | 2024-11-16 15:05 | XMS_ITS | Encounter Summary ---
Author Name [facility] [place] [facility] [place] Address [address] [place] [address] Care Team Providers Care Locomotive Supervisor Name Role Phone GLORIA PELAYO Primary Care [...] Name Patient's Relationship to Policy Ivey BCBS [place] MCR (WNR) MEDICARE ADVANTAGE MCR (WNR) Dec 02, 2017 [id number] [phone] DIANA VELASQUEZ RTIN PATIENT Selected Encounter This section includes the information on record at [place] for the Encounter. Date/Time Encounter Type Encounter Description Reason Provider Source Jan 09, 2024 01:37 PM Outpatient Encounter TELEPHONE TRIAGE GRISELDA HERNANDEZ [facility] Encounter Template Text not used by [place] Plan of Treatment: Future Appointments (+ 6 months) and Future Tests (+/- 45 days) The Plan of Treatment section includes future care activities for the patient from all [place] treatmentfacilities. This section includes future appointments and future orders which are active, pending or scheduled. Future Appointments This section includes appointments that were scheduled to occur 6 months from the date of the Encounter, up to a maximum of 20 appointments. The data comes from all [place] treatment facilities. Appointment Date/Time Appointment Type Appointme nt Facility Name April 16, 2024 08:45 AM AMBULATORY - SURGERY JUANI MIRZA [facility] May 11, 2024 12:00 PM AMBULATORY - MEDICINE REHANA JAIMES [facility] May 25, 2024 01:30 PM AMBULATORY - SURGERY JUANI MIRZA [facility] Active, Pending, and Scheduled Orders This section includes a listing of several types of active, pending, and scheduled orders, including clinic medications orders, diagnostic test orders, procedure orders and consult orders; where the start date of the order is 45 days before the date of the Encounter or 45 days after the date of theEncounter. The data comes from all [place] treatment facilities. Test Date/Time Test Type Test Details Facility Name Dec 11, 2023 12:00 AM Laboratory - Chemi stry Order OCCULT BLOOD FIT X1 SCREEN STOOL FECES SP ONCE [facility] Lab Results: +/- 30 days of the encounter This section includes the Chemistry and Hematology Lab Results on record with [place] for the patient. Radiology Reports and Pathology Reports are provided separately, in subsequent sections. Lab Results This section contains the Chemistry/Hematology Results that were resulted 30 days before or 30 daysafter the date of the Encounter. Date/Time Source Result Type Result - Unit Interpretation Reference Range Comment Jan 09, 2024 02:00 PM [facility] URINALYSIS Specimen Type: URINE No comment entered. Ordering Provider: STEPH MCDONNELL Report Released Date/Time: Jan 09, 2024 01:44 PM Reporting Lab: [facility] [id number] Performing Lab: [facility] [address] URINE COLOR YELLOW SPECIFIC GRAVITY 1.023 1.003-1.035 [...] 250 NEGATIVE Dec 11, 2023 09:27 AM [facility] HEMOGLOBIN A1C Specimen Type: [...] Nov 29, 2022 10:43 AM Reporting Lab: [facility] [id number] Performing Lab: [facility] [address] HEMOGLOBIN A1C 7.0 H 4.0-6.0 Dec 11, 2023 09:27 AM [facility] BASIC METABOLIC PANEL+MG Specimen Type: PLASMA No comment entered. Ordering Provider: INGE PERALES Report Released Date/Time: Nov 29, 2022 10:43 AM Reporting Lab: [facility] [id number] Performing Lab: [facility] [address] CREATININE 1.1 mg/dL 0.7-1.2 UREA NITROGEN 10 mg/dL 8-26 GLUCOSE 234 mg/dL H 70-100 SODIUM 136 mmol/L 136-145 POTASSIUM 3.9 mmol/L 3.5-5.1 CHLORIDE 100 mmol/L 98-107 CO2 28 mmol/L 22-29 CALCIUM 9.8 mg/dL 8.4-10.2 MAGNESIUM 1.9 mg/dL 1.6-2.6 ANION GAP 8 mmol/L 5-15 .CREAT EGFR(CKD-EPI) 71 >60 Dec 11, 2023 09:27 AM [facility] LIPID PANEL,NON-FASTING Specimen Type: PLASMA No comment entered. Ordering Provider: INGE PERALES Report Released Date/Time: Nov 29, 2022 10:43 AM Reporting Lab: [facility] [id number] Performing Lab: [facility] [address] CHOLESTEROL 120 mg/dL <199 .HDL 37 mg/dL [...] 170/84 15 95 0 69 201 30 [facility] Social History: Smoking Status (Most current) and Tobacco Use (All prior to encounter date) This section includes the most current, and the historical, smoking and tobacco- related health factors from the [place] facility where the Encounter took place. Current Smoking Status This section includes the most current smoking, or tobacco-related health factor, from the [place] facility where the Encounter took place. Date/Time Current Smoking Status Comment Facil ity Dec 11, 2023 10:30 AM VA-TOBACCO FORMER USER [facility] Tobacco Use History This section includes a history of the smoking, or tobacco-related health factors, that were collected on or before the date of the Encounter. The data comes from the [place] facility where the Encounter took place. Date/Time Smoking Status/Tobacco Use Comment F acility Dec 11, 2023 10:30 AM VA-TOBACCO QUIT 15 YRS OR MORE [facility] Nov 14, 2021 10:30 AM VA-TOBACCO FORMER USER [facility] Nov 14, 2021 10:30 AM VA-TOBACCO QUIT 15 YRS OR MORE [facility] Jun 24, 2019 09:39 AM VA-TOBACCO FORMER USER [facility] Jun 24, 2019 09:39 AM VA-TOBACCO QUIT 15 YRS OR MORE [facility] Aug 21, 2018 12:20 PM VA-TOBACCO FORMER USER [facility] Aug 21, 2018 12:20 PM VA-TOBACCO QUIT 15 YRS OR MORE [facility] Sep 26, 2017 10:52 AM FORMER TOBACCO USER 7Y OR GREATE R [facility] April 16, 2016 01:05 PM FORMER TOBACCO USER 7Y OR GREATE R [facility] Jul 21, 2014 08:39 AM FORMER TOBACCO USER 7Y OR GREATE R [facility] Pathology Reports: +/- 30 [...] the Encounter. The data comes from all [place] treatment facilities. Date/Time Pathology Report Provider Source Jan 09, 2024 02:01 PM LR MICROBIOLOGY RE PORT: Reporting Lab: [facility] [CLIA# [id number]] [place] [address] Accession [UID]: [id number] [[id number]] Received: Jan 09, 2024@14:01 Collection sample: URINE [...] --=--=-- Performing Laboratory: Bacteriology Report Performed By: [facility] [CLIA# [id number]] [place] [address] [facility] Encounter Notes: All associated encounter notes This section contains the clinical notes associated to the Encounter. Date/Time Encounter Note(s) Provider Source Jan 09, 2024 12:37 PM RN PROGRESS NOTE: LOCAL TITLE: CCC: CLINICAL TRIAGE STANDARD TITLE: RN PROGRESS NOTE DATE OF NOTE: JAN 09, 2024@12:37:15 ENTRY DATE: JAN 09, 2024@12:37:15 AUTHOR: GRISELDA HERNANDEZ EXP COSIGNER: URGENCY: STATUS: COMPLETED Patient Demographics Patient Name: DANILO VELASQUEZ Patient Primary Address: [address] [place] [address] Patient Primary Phone: [phone] Patient : 1950 Patient Age: 73 Caller/Recipient Relation to Patient: Self Emergency Contact: alexus VELASQUEZ Triage Summary Conducted triage/discussed symptoms Pain Score: 0 (No Pain) Utilized the Triage Tool: Yes Chief Complaint: Burning During Urination System WHEN: Within 24 Hours Nurse's Recommendation / WHEN: Within 24 Hours System WHERE: Clinic Nurse's Recommendation / WHERE: Clinic/[facility] Patient Disposition Patient/Caregiver agrees to plan of care: Yes Nursing Plan and Disposition Referred Patient for In-Person Appt Transferred patient to Sched & Admin-Apt Nurse Summary Nurse Summary: PATIENT CONCERN/DURATION/ONSET: [place] c/o 24 hours of burning with urination, inability to empty bladder fully as only a little come out, and more frequent bathroom visits. Denies fever/chills/n/v/d/abdominal pain. WHAT HAS PATIENT TRIED TO TREAT THE SYMPTOMS: No new home measures. HISTORY/PREVIOUS TREATMENT: CAD, Osteoarthritis, BEH. WHAT IS PATIENT GOAL FOR THE CALL: appointment Was Care Now considered (TELE or VVC)? No SKEET OPERATOR DISPOSITION: Recommended triage is provider evaluation within 24 hours, secondary to, acute onset of symptoms. Scheduled within requested time frame per production scheduler for a [facility] appointment today 01/09/2024 at 14:00pm. All questions answered and verbalized understanding of disposition and education that was provided, as [place] did agree with plan of care. Best contact for is (Verified). [phone] This note was created by a [facility] [employer] web applications administrator. Please do not alert this nurse by adding as a signer for future communications. Alerts are not monitored by this user, please reach out to [facility] Leadership instead if indicated Clinical Contact Center Codes Clinic/Location: [address] PHONE CCC RN [facility]CC Triage Complete Triage Note: Phone Triage Elsa, 09 Jan 2024 18:13:45 +0000 [facility] Demographics 73 y/o Male Results CC: Burning During Urination Software suggested: Within 24 Hours Software suggested follow-up location: Clinic, consider virtual care Values and Measures Duration of CC: 1 Days Positive Responses HPI: bladder feels full HPI: incomplete bladder emptying, new VS: temperature not taken Negative Responses Denies: HPI: abdominal pain, lower Denies: HPI: back pain or flank pain, new Denies: HPI: hematuria Denies: HPI: increased urinary frequency Denies: HPI: urinary urgency, constant Denies: HPI: vomiting Denies: HPI: weakness, with diaphoresis Denies: MEDS: antibiotic Denies: MEDS: chemotherapy Denies: PMH: diabetes Denies: PMH: HIV positive Denies: PSH: organ transplant Education Log Home care for painful urination includes: Drink plenty of fluids. Drink cranberry juice. This causes the urine to be acidic, which helps protect the bladder from infection. Take prescription medicine as directed. Ask your provider if you can take acetaminophen for pain. Ask your provider if you can take nonprescription nonsteroidal anti-inflammatory medications for pain: Ibuprofen Naproxen Notify your provider if you have painful urination and any of the following: Worsening abdominal pain Worsening back pain Worsening flank pain Inability to urinate Repeated vomiting Fever over 102 degrees F (38.8 C) Worsening painful urination /es/ GRISELDA HERNANDEZ RN, V23 [facility] Signed: 01/09/2024 12:37 GRISELDA HERNANDEZ [facility]
--- OUTSIDE RECORDS SUMMARY | 2024-11-16 15:06 | XMS_ITS | Encounter Summary ---
Author Name [facility] [place] [facility] [place] [facility] [place] Address [address] [place] [id number] Care Team Providers Care Production Sanitizer Name Role Phone GLORIA PELAYO Primary Care [...] Name Patient's Relationship to Policy Ivey BS DE MCR (WNR) MEDICARE ADVANTAGE MCR (WNR) Dec 02, 2017 [id number] [phone] DIANA VELASQUEZ RTIN PATIENT Selected Encounter This section includes the information on record at [place] for the Encounter. Date/Time Encounter Type Encounter Description Reason Provider Source May 25, 2024 01:30 PM PURE TONE AUDIOMETRY AIR AUDIOLOGY ICD-10-CM H90.3 Sensorineural hearing loss, bilateral ALIYAH OWUSU [place] Encounter Template Text not used by [place] Assessments - Encounter Diagnoses This section includes the primary and secondary diagnoses documented for the Encounter. Date/Time Primary/Secondary Diagnosis Diagnosis Name Provider Source May 25, 2024 02:29 PM PRIMARY Sensorineural hearing loss, bilateral ALIYAH OWUSU [facility] May 25, 2024 02:29 PM SECONDARY Encounter for fitting and adjustment of hearing aid ALIYAH OWUSU [facility] May 25, 2024 02:29 PM SECONDARY Tinnitus, bilateral ALIYAH OWUSU [facility] Plan of Treatment: Future Appointments (+ 6 months) and Future Tests (+/- 45 days) The Plan of Treatment section includes future care activities for the patient from [facility] [place] [facility] This section includes future appointments and future orders which are active, pending or scheduled. Future Appointments This section includes appointments that were scheduled to occur 6 months from the date of the Encounter, up to a maximum of 20 appointments. The data comes from all [facility]. Appointment Date/Time Appointment Type Appointme nt Facility Name Oct 17, 2024 10:15 AM AMBULATORY - SURGERY [facility] Active, Pending, and Scheduled Orders This section includes a listing of several types of active, pending, and scheduled orders, including clinic medications orders, diagnostic test orders, procedure orders and consult orders; where the start date of the order is 45 days before the date of the Encounter or 45 days after the date of theEncounter. The data comes from all [facility]. Test Date/Time Test Type Test Details Facility Name Jul 07, 2024 12:00 AM Laboratory - Chemi stry Order OCCULT BLOOD FIT X1 SCREEN (MFP ONLY) STOOL FECES SP [facility] Social History: Smoking Status (Most current) and Tobacco Use (All prior to encounter date) This section includes the most current, and the historical, smoking and tobacco- related health factors from the [place] facility where the Encounter took place. Current Smoking Status This section includes the most current smoking, or tobacco-related health factor, from the [place] facility where the Encounter took place. Date/Time Current Smoking Status Comment Facil ity Dec 11, 2023 10:30 AM VA-TOBACCO FORMER USER [facility] Tobacco Use History This section includes a history of the smoking, or tobacco-related health factors, that were collected on or before the date of the Encounter. The data comes from the [place] facility where the Encounter took place. Date/Time Smoking Status/Tobacco Use Comment F acility Dec 11, 2023 10:30 AM VA-TOBACCO QUIT 15 YRS OR MORE [facility] Nov 14, 2021 10:30 AM VA-TOBACCO FORMER USER [facility] Nov 14, 2021 10:30 AM VA-TOBACCO QUIT 15 YRS OR MORE [facility] Jun 24, 2019 09:39 AM VA-TOBACCO FORMER USER [facility] Jun 24, 2019 09:39 AM VA-TOBACCO QUIT 15 YRS OR MORE [facility] Aug 21, 2018 12:20 PM VA-TOBACCO FORMER USER [facility] Aug 21, 2018 12:20 PM VA-TOBACCO QUIT 15 YRS OR MORE [facility] Sep 26, 2017 10:52 AM FORMER TOBACCO USER 7Y OR SHERRYE R [facility] April 16, 2016 01:05 PM FORMER TOBACCO USER 7Y OR SHERRYE R [facility] Jul 21, 2014 08:39 AM FORMER TOBACCO USER 7Y OR TIFFANIE R [facility] Encounter Notes: All associated encounter notes This section contains the clinical notes associated to the Encounter. Date/Time Encounter Note(s) Provider Source May 25, 2024 02:55 PM AUDIOLOGY NOTE: LOCAL TITLE: AUDIOLOGY CLINIC NOTE STANDARD TITLE: AUDIOLOGY NOTE DATE OF NOTE: MAY 25, 2024@14:55 ENTRY DATE: MAY 25, 2024@14:55:26 AUTHOR: ALIYAH OWUSU COSIGNER: URGENCY: STATUS: COMPLETED DIAGNOSIS: Encounter for Fitting and Adjustment of Hearing Aid Sensorineural hearing loss, bilateral Tinnitus, bilateral REASON FOR VISIT: Therapeutic - hearing aid fitting, air threshold test - left ear, tympanometry, orientation and counseling using a standard curriculum LOCATION OF VISIT (ROOM NUMBER): [id number] was seen for Hearing Aid [place] Appointment [place] was unaccompained. OTOSCOPY: Both Ears: Free of excessive cerumen. Very slight redness a bit behind left pinna, on left side of head. HISTORY: is an experienced hearing aid wearer. Recommended keep his old hearing aids as a backup/spare as needed. [place]'s chief concern today is some irritation on the left side of his head somehwat behind his pinna. He has occasional pain from this and it bothers him when he is trying to sleep. He said it hurts to touch it. He feels the spot is growing and is now getting into his hairline. He is quite concerned about it. I advised him to see a Physician or Dermatology. He said he does have an appointment tomorrow to see Physician regarding this issue. I will do air threshold testing of left ear and tympanometry today to rule out hearing impact from this new symptom. AUDIOMETRY: LEFT ear was tested via air conduction. No change when compared to April 16 exam. TYMPANOMETRY: Normal (type a) tympanograms bilaterally with normal canal volumes. HEARING AIDS (Right/Left) fitting date: May 25, 2024 Right aid: SONOVA PHONAK AUDEO L90-RL MULU R [id number] Left aid: SONOVA PHONAK AUDEO L90-RL MULU L [id number] Dome: Medium Open Wax Filters: Cerustop *Connected to android for hands free calls. ACTION: Domes are a good physical fit. Feedback test was completed bilaterally. Hearing aids were programmed to prescriptive targets, which were derived from the [place]'s hearing loss. CONFORMITY EVAUATION (VERIFICATION OF HEARING AID FUNCTION): Real Ear Aided Response (REAR) was NOT measured due to time constraints and the testing we did for the left ear. 's subjective impressions were considered while adjusting the hearing aids. reported good sound quality and equal balance between ears after adjustments were made. [place] reported a comfortable fit. [place] demonstrated understanding of the new aids and was able to insert the hearing aids appropriately, as well as manipulate the volume control and press tender star signal. Indicator tones were demonstrated for . Volume toggle enabled- Synchronized; [place]'s android phone was paired to the hearing aids. Education and counseling was completed regarding streaming capabilities. The ZarthCode application was reviewed in detail (volume control, program changes, settings, etc.). The may decide to download the kailey at a later time. [place] was counseled using a standard curriculum regarding: -Full-time hearing aid use and acclimating to amplification -Realistic expectations for hearing aid use -Appropriate communication strategies -Proper use of the press tender star signal -Location and operation of all controls -Proper care and maintenance -Protecting hearing in high noise levels -TIMBO and Call Center contact information and services, including the trial period. Prognosis for success is good, given the [place]'s response to the hearing aids. Hearing aids were issued and supplies were mailed. was provided with a copy of [place] issuance form [id number]. PLAN: [place] will contact the call center as needed for follow up. He is an experienced user. He will follow up with Physician regarding his concerns about the pain on left side of head with unknown etiology. /александр/ Saad Valadez Clinical Criminal Researcher Signed: 05/25/2024 15:06 ALIYAH OWUSU [facility]
--- OUTSIDE RECORDS SUMMARY | 2024-11-16 15:06 | XMS_ITS | Encounter Summary ---
Author Name [facility] [place] [facility] [place] [facility] [place] Address [address] [place] [address] Care Team Providers Care Career Services Coordinator Name Role Phone PIERCE GLORIA Primary Care Provider Unavaila ble Insurance Providers: [...] Ivey's Name Patient's Relationship to Policy Ivey [facility] (WNR) MEDICARE ADVANTAGE MCR (WNR) Dec 02, 2017 [id number] [phone] DIANA VELASQUEZ RTIN PATIENT Selected Encounter This section includes the information on record at [place] for the Encounter. Date/Time Encounter Type Encounter Description Reason Provider Source Oct 17, 2024 10:15 AM HEARING AID REPAIR/MODIFYIN G AUDIOLOGY ICD-10-CM H90.3 Sensorineural hearing loss, bilateral CAROL ANN ESPINOZA Encounter Template Text not used by [place] Assessments - Encounter Diagnoses This section includes the primary and secondary diagnoses documented for the Encounter. Date/Time Primary/Secondary Diagnosis Diagnosis Name Provider Source Oct 17, 2024 12:05 PM PRIMARY Sensorineural hearing loss, bilateral CHRIS MCKENNA [facility] Oct 17, 2024 12:05 PM SECONDARY Encounter for fitting and adjustment of hearing aid CHRIS MCKENNA [facility] Oct 17, 2024 12:05 PM SECONDARY Tinnitus, bilateral CHRIS MCKENNA [facility] Plan of Treatment: Future Appointments (+ 6 months) and Future Tests (+/- 45 days) The Plan of Treatment section includes future care activities for the patient from [facility] [place] [facility] This section includes future appointments and future orders which are active, pending or scheduled. Future Appointments This section includes appointments that were scheduled to occur 6 months from the date of the Encounter, up to a maximum of 20 appointments. The data comes from all [place] treatment facilities. Appointment Date/Time Appointment Type Appointme nt Facility Name Dec 10, 2024 12:30 PM AMBULATORY - NONE [facility] Dec 10, 2024 01:30 PM AMBULATORY - MEDICINE [facility] Social History: Smoking Status (Most current) and Tobacco Use (All prior to encounter date) This section includes the most current, and the historical, smoking and tobacco- related health factors from the [place] facility where the Encounter took place. Current Smoking Status This section includes the most current smoking, or tobacco-related health factor, from the [place] facility where the Encounter took place. Date/Time Current Smoking Status Comment Facil ity Dec 11, 2023 10:30 AM VA-TOBACCO FORMER USER [facility] Tobacco Use History This section includes a history of the smoking, or tobacco-related health factors, that were collected on or before the date of the Encounter. The data comes from the [place] facility where the Encounter took place. Date/Time Smoking Status/Tobacco Use Comment F acility Dec 11, 2023 10:30 AM VA-TOBACCO QUIT 15 YRS OR MORE [facility] Nov 14, 2021 10:30 AM VA-TOBACCO FORMER USER [facility] Nov 14, 2021 10:30 AM VA-TOBACCO QUIT 15 YRS OR MORE [facility] Jun 24, 2019 09:39 AM VA-TOBACCO FORMER USER [facility] Jun 24, 2019 09:39 AM VA-TOBACCO QUIT 15 YRS OR MORE [facility] Aug 21, 2018 12:20 PM VA-TOBACCO FORMER USER [facility] Aug 21, 2018 12:20 PM VA-TOBACCO QUIT 15 YRS OR MORE [facility] Sep 26, 2017 10:52 AM FORMER TOBACCO USER 7Y OR GREATE R [facility] April 16, 2016 01:05 PM FORMER TOBACCO USER 7Y OR GREATE R [facility] Jul 21, 2014 08:39 AM FORMER TOBACCO USER 7Y OR GREATE R [facility] Encounter Notes: All associated encounter notes This section contains the clinical notes associated to the Encounter. Date/Time Encounter Note(s) Provider Source Oct 17, 2024 12:00 PM AUDIOLOGY NOTE: LOCAL TITLE: AUDIOLOGY CLINIC NOTE STANDARD TITLE: AUDIOLOGY NOTE DATE OF NOTE: OCT 17, 2024@12:00 ENTRY DATE: OCT 17, 2024@12:00:57 AUTHOR: ABDIFATAH MCKENNA COSIGNER: CAROL ANN ESPINOZA URGENCY: STATUS: COMPLETED DIAGNOSIS: Sensorineural Hearing Loss, Tinnitus Reason for visit: Encounter for fitting adjustment Otoscopy: Free of excessive cerumen, normal anatomy bilaterally. History: Patient seen for a hearing aid service/hearing aid check. Hearing Aids (right/left): SONOVA PHONAK AUDEO L90-RL MULU R [id number] SONOVA PHONAK AUDEO L90-RL MULU L [id number] The following hearing aid problem/s were presented: RIGHT HEARING AID - clean & cehck, feedback LEFT HEARING AID - clean & check, feedback Action: Hearing aids were cleaned and checked. Listening check revealed good sound quality The following parts were replaced: waxguards, domes The presented his hearnig aids and said that he was getting some feedback. I cleaned both aids; changed the waxguards, replaced the domes, added sports locks, and brushed the socrates ports. I connected the aids to Phonak [employer]gin and conducted a feedback calibration. The calibration resolved the feedback issue. Both aids functioning properly post clean & check Supplies provided to patient today: no supplies needed today [place] was counseled on the cleaning, care and use of hearing aids. Plan: Patient will schedule an appointment to return to the clinic as needed Patient is in agreement with this plan. /александр/ ABDIFATAH MCKENNA [employer]ENT [employer] Signed: 10/17/2024 12:05 /александр/ Carol Ann Espinoza Staff Fuse Cutter Cosigned: 10/17/2024 14:29 ABDIFATAH MCKENNA [facility]
--- OUTSIDE RECORDS SUMMARY | 2024-11-16 15:06 | XMS_ITS | Encounter Summary ---
Author Name [facility] [place] Address [address] [place] [address] Care Team Providers Care Humid System Operator Name Role Phone GLORIA PELAYO Primary [...] Name Patient's Relationship to Policy Ivey BCBS OR MCR ([place]NR) MEDICARE ADVANTAGE MCR (WNR) Dec 02, 2017 [id number] [phone] DIANA VELASQUEZ RTIN PATIENT Selected Encounter This section includes the information on record at [place] for the Encounter. Date/Time Encounter Type Encounter Description Reason Provider Source May 25, 2024 11:00 AM Outpatient Encounter TELEPHONE TRIAGE Michi RAMSEY [place] Encounter Template Text not used by [place] Plan of Treatment: Future Appointments (+ 6 months) and Future Tests (+/- 45 days) The Plan of Treatment section includes future care activities for the patient from all [place] treatmentfacilities. This section includes future appointments and future orders which are active, pending or scheduled. Future Appointments This section includes appointments that were scheduled to occur 6 months from the date of the Encounter, up to a maximum of 20 appointments. The data comes from all [place] treatment facilities. Appointment Date/Time Appointment Type Appointme nt Facility Name Oct 17, 2024 10:15 AM AMBULATORY - SURGERY [facility] Active, Pending, and Scheduled Orders This section includes a listing of several types of active, pending, and scheduled orders, including clinic medications orders, diagnostic test orders, procedure orders and consult orders; where the start date of the order is 45 days before the date of the Encounter or 45 days after the date of theEncounter. The data comes from all [place] treatment facilities. Test Date/Time Test Type Test Details Facility Name Jul 07, 2024 12:00 AM Laboratory - Chemi stry Order OCCULT BLOOD FIT X1 SCREEN (MFP ONLY) STOOL FECES SP [facility] Social History: Smoking Status (Most current) and Tobacco Use (All prior to encounter date) This section includes the most current, and the historical, smoking and tobacco- related health factors from the [place] facility where the Encounter took place. Current Smoking Status This section includes the most current smoking, or tobacco-related health factor, from the [place] facility where the Encounter took place. Date/Time Current Smoking Status Comment Facil ity Dec 11, 2023 10:30 AM VA-TOBACCO FORMER USER [facility] Tobacco Use History This section includes a history of the smoking, or tobacco-related health factors, that were collected on or before the date of the Encounter. The data comes from the [place] facility where the Encounter took place. Date/Time Smoking Status/Tobacco Use Comment F acility Dec 11, 2023 10:30 AM VA-TOBACCO QUIT 15 YRS OR MORE [facility] Nov 14, 2021 10:30 AM VA-TOBACCO FORMER USER [facility] Nov 14, 2021 10:30 AM VA-TOBACCO QUIT 15 YRS OR MORE [facility] Jun 24, 2019 09:39 AM VA-TOBACCO FORMER USER [facility] Jun 24, 2019 09:39 AM VA-TOBACCO QUIT 15 YRS OR MORE [facility] Aug 21, 2018 12:20 PM VA-TOBACCO FORMER USER [facility] Aug 21, 2018 12:20 PM VA-TOBACCO QUIT 15 YRS OR MORE [facility] Sep 26, 2017 10:52 AM FORMER TOBACCO USER 7Y OR GREATE R [facility] April 16, 2016 01:05 PM FORMER TOBACCO USER 7Y OR GREATE R [facility] Jul 21, 2014 08:39 AM FORMER TOBACCO USER 7Y OR GREATE R [facility] Encounter Notes: All associated encounter notes This section contains the clinical notes associated to the Encounter. Date/Time Encounter Note(s) Provider Source May 25, 2024 11:00 AM RN PROGRESS NOTE: LOCAL TITLE: CCC: CLINICAL TRIAGE STANDARD TITLE: RN PROGRESS NOTE DATE OF NOTE: MAY 25, 2024@11:00:39 ENTRY DATE: MAY 25, 2024@11:00:39 AUTHOR: ERWIN RAMSEY EXP COSIGNER: URGENCY: STATUS: COMPLETED Patient Demographics Patient Name: DANILO VELASQUEZ Patient Primary [address]: [address] [place] [address] Patient Primary Phone: [phone] Patient : 1950 Patient Age: 74 Caller/Recipient Relation to Patient: Caregiver Caller Name: alvaro Reed Emergency Contact: alexus VELASQUEZ Triage Summary Pain Score: 5 (Moderate to Severe Pain) Nurse's Recommendation / WHEN: Selfcare Nurse's Recommendation / WHERE: Home Care Nursing Plan and Disposition Other course(s) of action Provided guidance for worsening symptoms: *Caller/Patient* advised to call facilities [place] Clinical Contact Center or seek immediate medical attention for new or worsening symptoms Alternative course of action Alternative courses of action: home care Nurse Summary Nurse Summary: NURSES NOTES PATIENT CONCERN/DURATION/ONSET: Pts alvaro 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 Per she thinks veterans pain is a 5/10. Pt did report a headache the other day but per denies any current headache. Pt denies redness, swelling of area. Pt does wear hearing aids and states the area of concern is close to his hearing aid area. Pt was seen in at non-[facility] urgent care on 05/22/24 for same concerns and just referred to take tylenol and discharged . WHAT HAS THE PATIENT TRIED TO TREAT THE SYMPTOMS: Pt taking tylenol with no relief. 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 Veterans states has an appt at [facility] today and reports wanted to be seen [facility], this typewriter aligner recommended if wants to be seen in person he can seek care at [facility] ED if he would like, states she will convey that to . Informed pt to continue to monitor symptoms, if worsening prior to hearing from care team and/or appointment date and time to call back or seek care at Urgent Care or Emergency Department, pt agreed with plan. (Caller could accurately summarize the agreed upon plan of care as discussed in the education log portion of this note.) This note was created by a [address] dental nurse. Please do not alert this nurse by adding as a signer for future communications. Alerts are not monitored by this user, please reach out to [facility] instead if indicated. Clinical Contact Center Codes Clinic/Location: [address] PHONE CCC RN /александр/ LOGAN RAMSEY RN VISNick 23 Daytime can technician Signed: 05/25/2024 11:00 ERWIN RAMSEY [facility]
--- OUTSIDE RECORDS SUMMARY | 2024-11-16 15:06 | XMS_ITS | Encounter Summary ---
Author Name [facility] [place] Organization [place] Address [address] [place] [address] Care Team Providers Care Case Fitter Name Role Phone GLORIA PELAYO Primary Care [...] Ivey's Name Patient's Relationship to Policy Ivey [facility] MCR (WNR) MEDICARE ADVANTAGE MCR (WNR) Dec 02, 2017 [id number] [phone] DIANA VELASQUEZ RTIN PATIENT Selected Encounter This section includes the information on record at [place] for the Encounter. Date/Time Encounter Type Encounter Description Reason Pro vider Source Jan 24, 2024 12:00 AM Outpatient Encounter ADMIN PAT ACTIVTIES (MASNONCT) IHE Encounter Template Text not used by [...] 08:45 AM AMBULATORY - SURGERY JUANI MIRZA [facility] May 11, 2024 12:00 PM AMBULATORY - MEDICINE REHANA JAIMES [facility] May 25, 2024 01:30 PM AMBULATORY - SURGERY JUANI MIRZA [facility] Active, Pending, and Scheduled Orders This section [...] FIT X1 SCREEN STOOL FECES SP ONCE [facility] Lab Results: +/- 30 days of [...] Range Comment Jan 09, 2024 02:00 PM [facility] URINALYSIS Specimen Type: URINE No comment entered. Ordering Provider: STEPH MCDONNELL Report Released Date/Time: Jan 09, 2024 01:44 PM Reporting Lab: [facility] [id number] Performing Lab: [facility] [id number] URINE COLOR YELLOW SPECIFIC GRAVITY 1.023 1.003-1.035 [...] maddox Dec 11, 2023 10:30 AM VA-TOBACCO QUIT 15 YRS OR MORE [facility] Tobacco Use History This section includes a history of the smoking, or tobacco-related health factors, that were collected on or before the date of the Encounter. The data comes from the [place] facility where the Encounter took place. Date/Time Smoking Status/Tobacco Use Comment F acility Dec 11, 2023 10:30 AM VA-TOBACCO QUIT 15 YRS OR MORE [facility] Nov 14, 2021 10:30 AM VA-TOBACCO FORMER USER [facility] Nov 14, 2021 10:30 AM VA-TOBACCO QUIT 15 YRS OR MORE [facility] Jun 24, 2019 09:39 AM VA-TOBACCO FORMER USER [facility] Jun 24, 2019 09:39 AM VA-TOBACCO QUIT 15 YRS OR MORE [facility] Aug 21, 2018 12:20 PM VA-TOBACCO FORMER USER [facility] Aug 21, 2018 12:20 PM VA-TOBACCO QUIT 15 YRS OR MORE [facility] Sep 26, 2017 10:52 AM FORMER TOBACCO USER 7Y OR GREATE R [facility] April 16, 2016 01:05 PM FORMER TOBACCO USER 7Y OR GREATE R [facility] Jul 21, 2014 08:39 AM FORMER TOBACCO USER 7Y OR GREATE R [facility] Pathology Reports: +/- 30 days of [...] the Encounter. The data comes from all [facility] facilities. Date/Time Pathology Report Provider Source Jan 09, 2024 02:01 PM LR MICROBIOLOGY RE PORT: Reporting Lab: [facility] [CLIA# [id number]] [place] [address] Accession [UID]: [id number] [[id number]] Received: Jan 09, 2024@14:01 Collection sample: URINE [...] --=--=-- Performing Laboratory: Bacteriology Report Performed By: [facility] [CLIA# [id number]] [facility] [place] [place] [address] [facility] Encounter Notes: All associated encounter notes This section contains the clinical notes associated to the Encounter. Date/Time Encounter Note(s) Provider Source Jan 24, 2024 12:00 AM NONVA NOTE: LOCAL TITLE: PRIMARY CARE NONVA NOTE STANDARD TITLE: NONVA NOTE DATE OF NOTE: JAN 24, 2024 ENTRY DATE: FEB 06, 2024@13:46:44 AUTHOR: PAPO GUILLORY EXP COSIGNER: URGENCY: STATUS: COMPLETED VistA Imaging - Scanned Document This note contains attached PRIMARY CARE scanned document(s) received from an outside facility. Open [facility] to review the document(s). /александр/ PAPO GUILLORY Handicrafts Teacher - HIT Signed: 02/06/2024 13:46 PAPO GUILLORY [facility]
--- OUTSIDE RECORDS SUMMARY | 2024-11-16 15:06 | XMS_ITS | Encounter Summary ---
Author Name [facility] [place] Organization [place] Address [address] [place] [address] Care Team Providers Care Building And Grounds Supervisor Name Role Phone GLORIA PELAYO Primary [...] Ivey's Name Patient's Relationship to Policy Ivey [facility] MCR (WNR) MEDICARE ADVANTAGE MCR (WNR) Dec 02, 2017 [id number] [phone] DIANA VELASQUEZ RTIN PATIENT Selected Encounter This section includes the information on record at [place] for the Encounter. Date/Time Encounter Type Encounter Description Reason Provider Source Aug 27, 2024 01:56 PM ADMN SARSCOV2 VACC 1 DOSE PRIMARY CARE/MEDICINE ICD-10-CM Z23 Encounter for immunization JJLORETONANCYAmanda Romero [facility] Encounter Template Text not used by [place] Assessments - Encounter Diagnoses This section includes the primary and secondary diagnoses documented for the Encounter. Date/Time Primary/Secondary Diagnosis Diagnosis Name Provider Source Aug 27, 2024 02:01 PM PRIMARY Encounter for immunization JJLORETONANCYAmanda GORDON N [facility] Plan of Treatment: Future Appointments (+ 6 months) and Future Tests (+/- 45 days) The Plan of Treatment section includes future care activities for the patient from all [place] treatmentfacilities. This section includes future appointments and future orders which are active, pending or scheduled. Future Appointments This section includes appointments that were scheduled to occur 6 months from the date of the Encounter, up to a maximum of 20 appointments. The data comes from all [place] treatment facilities. Appointment Date/Time Appointment Type Appointme nt Facility Name Oct 17, 2024 10:15 AM AMBULATORY - SURGERY JUANI MIRZA [facility] Dec 10, 2024 12:30 PM AMBULATORY - NONE KELVIN XIAO [facility] Dec 10, 2024 01:30 PM AMBULATORY - MEDICINE REHANA JAIMES [facility] Immunizations: All administered on the encounter date This section contains immunizations associated to the Encounter. Immunization Series Date Issued Reaction Comments COVID-19 (PFIZER), MRNA, LNP -S, PF, MAIRA-SUCROSE, 30 MCG/0.3 ML (AGES 12+ YEARS) Aug 27, 2024 INFLUENZA, HIGH-DOSE, TRIVALENT, PF Aug 27 Social History: Smoking Status (Most current) and Tobacco Use (All prior to encounter date) This section includes the most current, and the historical, smoking and tobacco- related health factors from the [place] facility where the Encounter took place. Current Smoking Status This section includes the most current smoking, or tobacco-related health factor, from the [place] facility where the Encounter took place. Date/Time Current Smoking Status Comment Facil ity Dec 11, 2023 10:30 AM VA-TOBACCO FORMER USER [facility] Tobacco Use History This section includes a history of the smoking, or tobacco-related health factors, that were collected on or before the date of the Encounter. The data comes from the [place] facility where the Encounter took place. Date/Time Smoking Status/Tobacco Use Comment F acility Dec 11, 2023 10:30 AM VA-TOBACCO QUIT 15 YRS OR MORE [facility] Nov 14, 2021 10:30 AM VA-TOBACCO FORMER USER [facility] Nov 14, 2021 10:30 AM VA-TOBACCO QUIT 15 YRS OR MORE [facility] Jun 24, 2019 09:39 AM VA-TOBACCO FORMER USER [facility] Jun 24, 2019 09:39 AM VA-TOBACCO QUIT 15 YRS OR MORE [facility] Aug 21, 2018 12:20 PM VA-TOBACCO FORMER USER [facility] Aug 21, 2018 12:20 PM VA-TOBACCO QUIT 15 YRS OR MORE [facility] Sep 26, 2017 10:52 AM FORMER TOBACCO USER 7Y OR GREATE R [facility] April 16, 2016 01:05 PM FORMER TOBACCO USER 7Y OR GREATE R [facility] Jul 21, 2014 08:39 AM FORMER TOBACCO USER 7Y OR GREATE R [facility] Encounter Notes: All associated encounter notes This section contains the clinical notes associated to the Encounter. Date/Time Encounter Note(s) Provider Source Aug 27, 2024 01:56 PM IMMUNIZATION NOTE: LOCAL TITLE: INFLUENZA VACCINATION STANDARD TITLE: IMMUNIZATION NOTE DATE OF NOTE: AUG 27, 2024@13:56 ENTRY DATE: AUG 27, 2024@13:56:20 AUTHOR: MENG DELGADO EXP COSIGNER: URGENCY: STATUS: COMPLETED Influenza, High-Dose, Trivalent, Preservative Free (Fluzone-Syringe) Administered: INFLUENZA, HIGH-DOSE, TRIVALENT, PF Date Administered: Aug 27, 2024 13:56 Accounting Intern: Mir Tesen PASTEUR Lot: [id number] Exp Date: May 31, 2025 Admin Route/Site: INTRAMUSCULAR/LEFT DELTOID Dosage: 0.5mL Vaccine Information Statement(s): INFLUENZA(FLU) VACC(INACTIVATED OR RECOMBINANT)VIS Jul 07, 2021 (TOGOLESE) Order By: Policy Administered By: Meng Delgado The Influenza Vaccine Information Statement (VIS) was reviewed with the patient/caregiver which lists the benefits and risks of the vaccine and the risks of not receiving the Influenza vaccine. The patient/caregiver denied any prior severe reaction to this vaccine or its components or a severe allergic reaction, such as anaphylaxis, to any vaccine or any injectable therapy. The patient/caregiver gave verbal consent to receive the vaccine. COVID-19 Immunization: Pfizer Monovalent (Comirnaty) Administered: COVID-19 (PFIZER), MRNA, LNP-S, PF, MAIRA-SUCROSE, 30 MCG/0.3 ML (AGES 12+ YEARS) Date Administered: Aug 27, 2024 13:56 Accounting Intern: [employer] Lot: [id number] Exp Date: Mar 04, 2025 [facility]: [phone] Admin Route/Site: INTRAMUSCULAR/LEFT DELTOID Dosage: 0.3mL Vaccine Information Statement(s): COVID-19 MRNA VACCINE (12+ YRS) VACCINE VIS Sep 19, 2023 (TOGOLESE) Order By: Policy Administered By: Meng Delgado Vaccine administered without complications. /александр/ MENG DELGADO NURSE PRACTITIONER RESIDENT Signed: 08/27/2024 14:01 MENG DELGADO [facility]
--- OUTSIDE RECORDS SUMMARY | 2024-11-16 15:06 | XMS_ITS | Encounter Summary ---
Author Name [facility] [place] Organization [place] Address [address] [place] [address] Care Team Providers Care Claims Counsel Name Role Phone PIERCE GLORIA Primary Care [...] Ivey's Name Patient's Relationship to Policy Ivey [facility] MCR (WNR) MEDICARE ADVANTAGE MCR (WNR) Dec 02, 2017 [id number] [phone] DIANA VELASQUEZ RTIN PATIENT Selected Encounter This section includes the information on record at [place] for the Encounter. Date/Time Encounter Type Encounter Description Reason Provider Source April 16, 2024 08:45 AM HEARING AID FITTING/CHECKING AUDIOLOGY ICD-10-CM Z01.118 Encntr for exam of ears and hearing w oth abnormal findings YENY MYLES [facility] Encounter Template Text not used by [place] Assessments - Encounter Diagnoses This section includes the primary and secondary diagnoses documented for the Encounter. Date/Time Primary/Secondary Diagnosis Diagnosis Name Provider Source April 16, 2024 09:44 AM PRIMARY Encntr for exam of ears and hearing w oth abnormal findings BAILEY MYLES [facility] April 16, 2024 09:44 AM SECONDARY Encounter for fitting and adjustment of hearing aid BAILEY MYLES [facility] April 16, 2024 09:44 AM SECONDARY Sensorineural hearing loss, bilateral BAILEY MYLES A [facility] April 16, 2024 09:44 AM SECONDARY Tinnitus, bilateral BAILEY MYLES RLY A [facility] Plan of Treatment: Future Appointments (+ 6 months) and Future Tests (+/- 45 days) The Plan of Treatment section includes future care activities for the [facility] [place] [facility] This section includes future appointments and future orders which are active, pending or scheduled. Future Appointments This section includes appointments that were scheduled to occur 6 months from the date of the Encounter, up to a maximum of 20 appointments. The data comes from all [place] treatment facilities. Appointment Date/Time Appointment Type Appointme nt Facility Name May 11, 2024 12:00 PM [facility] May 25, 2024 01:30 PM AMBULATORY - SURGERY [facility] Oct 17, 2024 10:15 AM AMBULATORY - SURGERY [facility] Social History: Smoking Status (Most current) and Tobacco Use (All prior to encounter date) This section includes the most current, and the historical, smoking and tobacco- related health factors from the [place] facility where the Encounter took place. Current Smoking Status This section includes the most current smoking, or tobacco-related health factor, from the [place] facility where the Encounter took place. Date/Time Current Smoking Status Comment Facil ity Dec 11, 2023 10:30 AM VA-TOBACCO FORMER USER [facility] Tobacco Use History This section includes a history of the smoking, or tobacco-related health factors, that were collected on or before the date of the Encounter. The data comes from the [place] facility where the Encounter took place. Date/Time [...] 01:05 PM FORMER TOBACCO USER 7Y OR TIFFANIE Banda [facility] Jul 21, 2014 08:39 AM FORMER TOBACCO USER 7Y OR [facility] Veronika [facility] Encounter Notes: All associated encounter notes This section contains the clinical notes associated to the Encounter. Date/Time Encounter Note(s) Provider Source April 16, 2024 07:38 AM AUDIOLOGY NOTE: LOCAL TITLE: AUDIOLOGY CLINIC NOTE STANDARD TITLE: AUDIOLOGY NOTE DATE OF NOTE: APRIL 16, 2024@07:38 ENTRY DATE: APRIL 16, 2024@07:38:14 AUTHOR: JULIA MYLES COSIGNER: URGENCY: STATUS: COMPLETED DIAGNOSIS: Encounter for examination of ears and hearing Sensorineural loss - bilateral Tinnitus - bilateral REASON FOR VISIT: HEARING EVALUATION AND HEARING AID SELECTION, 60 MINUTES: was seen in the clinic today for a comprehensive audiologic evaluation, hearing aid selection, hearing aid clean/check and counseling utilizing a standard curriculum (30 minutes). LOCATION OF VISIT (ROOM NUMBER): 106 Personal Protective Equipment (PPE): PPE medical mask was worn by provider as recommended by [place] policy. The was last seen in this clinic on 04/02/2023. The is Service Connected for Tinnitus. was unaccompanied. The currently wears the following hearing aids: Hearing aids: right/left; Issued 02/27/2020 Make: Phonak Model: M90-R RICs Ser#:[id number] Design Consultant: 2 Dome: Open Dome 4.0 M HISTORY: returns to get new hearing aids. He reports the left hearing aid often cuts out and has feedback - these issues have been going on for a while. He's having issues with the bluetooth connectivity as well. He reports an increase of tinnitus in the left ear and questions a change of hearing. The denies other otologic symptoms, including: recent ear pathology, otalgia, otorrhea, aural pressure, vertigo. He reports a localized headache above his right ear; he was advised to discuss this with his PCP. PROCEDURES: OTOSCOPY: Both Ears: Free of excessive cerumen. Normal anatomy bilaterally. TYMPANOMETRY: RIGHT EAR: Type A Pressure: Normal Compliance: Normal Volume: Normal LEFT EAR: Type A Pressure: Normal Compliance: Normal Volume: Normal AUDIOMETRICS: Air conduction, bone conduction and speech testing were completed bilaterally. 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 WORD RECOGNITION: / - word list RIGHT EAR: 84% Level: 80* dB LEFT EAR: 72% Level: 80* dB This demonstrates no significant change in word recognition ability re: 04/02/2023. SUMMARY: No significant change in hearing re: 04/02/2023. RIGHT EAR: Within normal limits at 250 Hz sloping to a profound sensorineural hearing loss with a mild degree of word recognition difficulty (84%). Tympanogram was within normal limits, consistent with normal middle ear function. LEFT EAR: Borderline normal through 500 Hz sloping to a moderately-severe sensorineural hearing loss with a moderate degree of word recognition difficulty (72%). Tympanogram was within normal limits, consistent with normal middle ear function. HEARING AID EVALUATION: Hearing aids were cleaned and checked. Replaced: receivers, domes, waxguards, retention lines. Brushed clear the partially occluded microphone ports. Battery contacts were clear. The listening check was then good for both aids. Pt was pleased with the sound quality post cleaning. REPROGRAMMING / CONFORMITY / ORIENTATION: Successfully re-paired the hearing aids with pt's smartphone. He does not use the kailey. Instructed pt on how to reconnect the aids to the phone should he lose connection again in the future. Performed a practice phone call with success. Discussed the limitations inherent in bluetooth technology. Answered questions. AMPLIFICATION: - [place] continues to be a good candidate for hearing aid use. - was counseled on his type, degree and configuration of hearing loss using a standard curriculum. - The 's hearing loss has progressed currently to the extent that it affects full participation in the provision of health care as noted today in our discussions. Hearing aids are medically indicated to treat the 's auditory conditions. - Different styles/technologies were reviewed with consideration given to veterans listening situations and lifestyle needs. [place] is interested in rechargeable MULU hearing aids. Discussed the possibility of custom earmolds for improved retention but will try domes first. - The has good vision, memory, and dexterity for hearing aid use. Counseling (30 minutes) - counseled using a standard curriculum on realistic expectations associated with adjusting to hearing aids, use of the devices, VA procedures and trial period. - [place] counseled using a standard curriculum on effective communication strategies such as maintaining face to face contact when speaking, eliminating background noise when possible, and talking at a close distance. - [place] counseled using a standard curriculum on hearing protection in noise. He was instructed to remove his hearing aids and put in hearing protection devices when using power tools, lawnmower and on his motorcycle. He indicated understanding. - Leia has an Android cell phone and is interested in smartphone connectivity. HEARING AIDS ORDERED: - PHONAK AUDEO L90-RL MULU hearing aids (champagne, Size 2M receivers, medium open domes) were selected and ordered today. - Accessories ordered: none ( has Android phone) Reviewed [facility] ordering and procedures with the patient. Ordered more supplies in ROES for patient. was counseled on the cleaning, care and use of hearing aids. Answered all questions. PLAN: 1. [place] will be scheduled for a 60-minute hearing aid fitting appointment. 2. may return for 30-minute f/u 1 month after fitting. 3. Regular follow-up recommended to monitor for changes in hearing, or as medically indicated. IS IN AGREEMENT WITH THIS PLAN. /александр/ Tali AYALA CCC-A DRIVER ENGINEER Signed: 04/16/2024 09:44 JULIA MYLES [facility]
--- OUTSIDE RECORDS SUMMARY | 2024-11-16 15:06 | XMS_ITS | Encounter Summary ---
Author Name [facility] [facility] [place] Address [address] [place] [id number] Care Team Providers Care Marine Structural Welder Name Role Phone GLORIA PELAYO Primary Care [...] Ivey's Name Patient's Relationship to Policy Ivey [facility] MCR (WNR) MEDICARE ADVANTAGE MCR (WNR) Dec 02, 2017 [id number] [phone] DIANA VELASQUEZ RTIN PATIENT Selected Encounter This section includes the information on record at [place] for the Encounter. Date/Time Encounter Type Encounter Description Reason Provider Source May 11, 2024 12:00 PM OFFICE O/P EST LOW 20 MIN PRIMARY CARE/MEDICINE ICD-10-CM I25.10 [place] heart disease of [place] coronary artery w/o CONNOR [address] IHE Encounter Template Text not used by [place] Assessments - Encounter Diagnoses This section includes the primary and secondary diagnoses documented for the Encounter. Date/Time Primary/Secondary Diagnosis Diagnosis Name Provider Source May 11, 2024 01:00 PM PRIMARY Athscl heart disease of [place] coronary artery w/o JAYSHREE Latham TAHIRA [facility] May 11, 2024 01:00 PM SECONDARY Essential (primary) hypertension JAYSHREE PELAYO TAHIRA [facility] May 11, 2024 01:00 PM SECONDARY Overweight JAYSHREE PELAYO [facility] Plan of Treatment: Future Appointments (+ 6 months) and Future Tests (+/- 45 days) The Plan of Treatment section includes future care activities for the patient from all [place] [facility]. This section includes future appointments and future orders which are active, pending or scheduled. Future Appointments This section includes appointments that were scheduled to occur 6 months from the date of the Encounter, up to a maximum of 20 appointments. The data comes from all [facility]. Appointment Date/Time Appointment Type Appointme nt Facility Name May 25, 2024 01:30 PM AMBULATORY - SURGERY [facility] Oct 17, 2024 10:15 AM AMBULATORY - SURGERY [facility] Vital Signs: All taken on the encounter date This section contains inpatient and outpatient Vital Signs collected on the date of the Encounter. Date/Time Temperature Pulse Blood Pressure Respiratory Rate SP02 Pain Height Weight Body Mass Index Source May 11, 2024 12:15 PM 98.1 71 125/75 16 96 0 193.2 29 [facility] Social History: Smoking Status (Most current) and Tobacco Use (All prior to encounter date) This section includes the most current, and the historical, smoking and tobacco- related health factors from the [place] facility where the Encounter took place. Current Smoking Status This section includes the most current smoking, or tobacco-related health factor, from the [place] facility where the Encounter took place. Date/Time Current Smoking Status Comment Mookie maddox Dec 11, 2023 10:30 AM VA-TOBACCO FORMER USER [facility] Tobacco Use History This section includes a history of the smoking, or tobacco-related health factors, that were collected on or before the date of the Encounter. The data comes from the [place] facility where the Encounter took place. Date/Time Smoking Status/Tobacco Use Comment F acility Dec 11, 2023 10:30 AM VA-TOBACCO QUIT 15 YRS OR MORE [facility] Nov 14, 2021 10:30 AM VA-TOBACCO FORMER USER [facility] Nov 14, 2021 10:30 AM VA-TOBACCO QUIT 15 YRS OR MORE [facility] Jun 24, 2019 09:39 AM VA-TOBACCO FORMER USER [facility] Jun 24, 2019 09:39 AM VA-TOBACCO QUIT 15 YRS OR MORE [facility] Aug 21, 2018 12:20 PM VA-TOBACCO FORMER USER [facility] Aug 21, 2018 12:20 PM VA-TOBACCO QUIT 15 YRS OR MORE [facility] Sep 26, 2017 10:52 AM FORMER TOBACCO USER 7Y OR SHERRYE R [facility] April 16, 2016 01:05 PM FORMER TOBACCO USER 7Y OR SHERRYE R [facility] Jul 21, 2014 08:39 AM FORMER TOBACCO USER 7Y OR [facility] Encounter Notes: All associated encounter notes This section contains the clinical notes associated to the Encounter. Date/Time Encounter Note(s) Provider Source May 11, 2024 12:28 PM INTERNAL MEDICINE NOTE: LOCAL TITLE: MEDICINE CLINIC NOTE STANDARD TITLE: INTERNAL MEDICINE NOTE DATE OF NOTE: MAY 11, 2024@12:28 ENTRY DATE: MAY 11, 2024@12:29:03 AUTHOR: GLORIA PELAYO: URGENCY: STATUS: COMPLETED CC: follow up Assessment and Plan: 1. Medication refills. Already refilled for the year. Reviewed his med list, he has RTC set for 12/26. Discussed for the future how to know when medication refills are coming due. 2. Weight loss. Current BMI 29. Discussed diet/exercise modifications. When available, please see After Visit Summary in [employer] for additional information given to patient at time of visit. RTC 6 months or prn Total time spent with patient care including chart review/diagnostic and testing review, patient interview/examination, counseling and documentation was 20 minutes. HPI/ROS: DANILO VELASQUEZ is a 73 year old MALE here for follow up. 1. Med refills. Last seen 12/25 and has refills until 12/26. 2. Weight loss. He's been trying to lose some weight, not currently interested in medical therapy. PMH: Active problems - Computerized Problem List is the source for the followin. CAD UNSPEC TYPE VES 2. Coronary artery disease (SNOMED CT 05699082) 3. 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 Fracture of tibial spine (SNOMED CT 716041327) 5. Depression 6. Obstructive sleep apnea of adult 7. Osteoarthritis of left knee joint 8. Benign essential hypertension Allergies: MORPHINE (Jul 21, 2014) Meds: Reviewed & updated in CPRS. See EMR for details. EXAM: VS: Temp: 98.1 F [36.7 C] (05/11/2024 12:15) Pulse:71 (05/11/2024 12:15) BP: 125/75 (05/11/2024 12:15) Resp: 16 (05/11/2024 12:15) O2 sat: 96% (05/11/2024 12:15) Weight: Measurement DT WEIGHT LB(KG)[BMI] 05/11/2024 12:15 193.2(87.63)[29*] 01/09/2024 14:22 201(91.17)[30*] 12/11/2023 10:19 198.2(89.90)[29*] General: WDWN, NAD HEENT: NCAT Lungs: Speaking in complete sentences, nwob Neuro: Ambulates without assist device, alert & oriented, EOMI. Data/Labs: Reviewed in EMR. Labs completed prior to today's appointment were reviewed with patient during appointment. Education on Treatment Plan: Patient indicates readiness to learn, verbalizes understanding, agreement and satisfaction with the treatment plan. Denies further questions. Patient indicates readiness to learn and has been instructed on action, dose, frequency, and side effects of medications. Patient verbalizes understanding. /александр/ GLORIA PELAYO Physician Signed: 05/11/2024 13:00 GLORIA PELAYO [facility] May 11, 2024 12:16 PM INTERNAL MEDICINE OUTPATIENT NOTE: LOCAL TITLE: MEDICINE CLINIC NURSING NOTE STANDARD TITLE: INTERNAL MEDICINE OUTPATIENT NOTE DATE OF NOTE: MAY 11, 2024@12:16 ENTRY DATE: MAY 11, 2024@12:16:57 AUTHOR: LUCY GELLER COSIGNER: URGENCY: STATUS: COMPLETED TYPE OF VISIT: Appointment Check In Type of appointment: In-person appointment REASON FOR VISIT: follow up visit ALLERGIES: MORPHINE (Jul 21, 2014) VITAL SIGNS: Blood Pressure: 125/75 (05/11/2024 12:15) Pulse: 71 (05/11/2024 12:15) Respiration: 16 (05/11/2024 12:15) Temperature: 98.1 F [36.7 C] (05/11/2024 12:15) Weight: 193.2 lb [87.63 kg] (05/11/2024 12:15) Height: 69 in [175.3 cm] (01/09/2024 14:22) BMI: 28.6 O2 Sat: 96% (05/11/2024 12:15) Pain: 0 (05/11/2024 12:15) PAIN SCREEN: Patient is not having significant pain that they wish to discuss with their provider today. MEDICATION Active Outpatient Medications (including Supplies): ATORVASTATIN CALCIUM 40MG TAB TAKE ONE TABLET BY MOUTH ACTIVE EVERY DAY FOR CHOLESTEROL DILTIAZEM (EQV-TIAZAC) 180MG 24HR CAP TAKE ONE CAPSULE BY ACTIVE MOUTH AT BEDTIME ESCITALOPRAM OXALATE 20MG TAB TAKE ONE TABLET BY MOUTH ACTIVE EVERY MORNING METFORMIN HCL 500MG 24HR SA TAB TAKE ONE TABLET BY MOUTH ACTIVE TWICE A DAY FOR DIABETES OMEPRAZOLE 40MG EC CAP TAKE ONE CAPSULE BY MOUTH EVERY DAY ACTIVE FOR STOMACH ACID PRIMIDONE 50MG TAB TAKE ONE TABLET BY MOUTH AT BEDTIME FOR ACTIVE TREMOR TAMSULOSIN HCL 0.4MG CAP TAKE ONE CAPSULE BY MOUTH EVERY ACTIVE EVENING TRAZODONE HCL 50MG TAB TAKE ONE TABLET BY MOUTH AT BEDTIME ACTIVE NEEDED FOR SLEEP Non-VA ASPIRIN 81MG CHEW TAB 81MG MOUTH EVERY DAY ACTIVE Non-VA MARINE LIPID (FISH OIL) CAP,ORAL MOUTH ACTIVE Non-VA MULTIVITAMINS CAP/TAB MOUTH ACTIVE Non-VA PSYLLIUM POWDER,ORAL ACTIVE Over the Counter/Herbal Medications: The patient states that they take some outside medications and/or herbals. COVID-19 Immunization: Refused Pfizer Monovalent COVID-19 vaccine Immunization: COVID-19 (PFIZER), MRNA, LNP-S, PF, MAIRA-SUCROSE, 30 MCG/0.3 ML (AGES 12+ YEARS) Refusal Reason: PATIENT DECISION Patient refuses all immunization(s) in the COVID-19 group Date Documented: 05/11/24 12:18 /александр/ LUCY GELLER LPN LICENSED PRACTICAL NURSE Signed: 05/11/2024 12:26 LUCY GELLER [facility]
== END 2025-02-04 13:14 | disposition home or self-care (01) ==
PROVIDERS: PCP Surgery; Visit Provider Physician Assistant
DX: M25.511 Pain in right shoulder (principal); Z51.89 Encounter for other specified aftercare
CPT/HCPCS: 97110; 97112; 97162

== ENCOUNTER 2024-12-20 15:07 | Emergency (ER) | payer MEDICARE, BC, SELFPAY ==
[2024-12-20] VITALS (9 sets, daily range): BP systolic 118–141; BP diastolic 68–78; PULSE 57–62; RESP 18–20; TEMP 36.2; O2SAT 89–96
--- NOTE | 2024-12-20 15:41 | CRLHL7_ITS ---
For Patients: As a result of the Cures Act, medical imaging exams and procedure reports are released immediately into your electronic medical record. You may view this report before your referring provider. If you have questions, please contact your health care provider. INDICATION: Severe dizziness. COMPARISON: Chest x-ray dated 15 January 2023. FINDINGS: A single PA chest x-ray and 2 lateral chest x-rays show a normal cardiac silhouette. The lungs show trace bibasilar atelectasis. No pneumothorax. IMPRESSION: Trace bibasilar atelectasis. No pneumothorax. Dictated by Aren Barnes MD @ 12/20/2024 4:31:37 PM Dictated by: Aren Barnes MD @ 12/20/2024 16:32:21 (Electronically Signed)
--- NOTE | 2024-12-20 15:41 | CRLHL7_ITS ---
For Patients: As a result of the Century Cures Act, medical imaging exams and procedure reports are released immediately into your electronic medical record. You may view this report before your referring provider. If you have questions, please contact your health care provider. Indication Severe dizziness. TECHNIQUE: Noncontrast CT images of the brain. COMPARISON: MRI brain 10/04/2021. FINDINGS: Mild diffuse cerebral volume loss. No mass effect or midline shift. Valenzuela-white differentiation is maintained. No acute intracranial hemorrhage or pathologic extra-axial fluid collection. Intracranial atherosclerotic calcifications. Suggested mild chronic microvascular ischemic changes. Globes are symmetric. The calvarium is intact. The visualized paranasal sinuses and mastoid air cells are clear. IMPRESSION: No acute intracranial hemorrhage or mass effect. Please note that all CT scans at this facility use dose modulation, iterative reconstruction, and/or weight-based dosing when appropriate to reduce radiation dose to as low as reasonably achievable. Dictated by Mike Landry MD @ 12/20/2024 4:14:37 PM (Electronically Signed)
[2024-12-20 15:51] LABS: Glucose, Point-of-Care* 201 mg/dl (60-115)
[2024-12-20] MEDS: ONDANSETRON 2 MG/ML inj 4 MG IVP (15:59)
[2024-12-20 16:07] LABS: Albumin* 4.4 g/dL (3.3-5.0)
[2024-12-20 16:08] LABS: Chloride* 100 mmol/L (96-114); Potassium* 3.8 mmol/L (3.6-5.1); Sodium* 136 mmol/L (135-149)
--- OUTSIDE RECORDS SUMMARY | 2024-12-20 16:08 | XMS_ITS | Continuity of Care Document ---
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 It does not include entries that were removed or entered in error. 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 [facility] Obstructive sleep apnea of adult Active [facility] Osteoarthritis of left knee joint Active Condition [facility] Diagnosis: ICD-10-CM H90.3 Sensorineural hearing loss, bilateral Active Diagnosis [facility] Diagnosis: ICD-10-CM Z23 Encounter for immunization Active Diagnosis [facility] Diagnosis: ICD-10-CM I25.10 Athscl heart disease of [place] coronary artery w/o ang pctrs Active Diagnosis [facility] Diagnosis: ICD-10-CM Z01.118 Encntr for exam of ears and hearing w oth abnormal findings Active Diagnosis [facility] Diagnosis: ICD-10-CM R30.0 Dysuria Active Diagnosis [facility] Diagnosis: ICD-10-CM Z71.9 Counseling, unspecified Active Diagnosis [facility] Medications Combined list of outpatient medications from Department of [facility] and [facility] Affairs facilities.Medications provided include 1) outpatient medications from the last 15 months, and 2) patient-reported medications. Medication Details Route Status Patient Instructions Prescription Expires Prescription Number Last Dispense Date Ordering Provider Order Date Order Qty Source ASPIRIN 81MG TAB,CHEWABL E CHEW ONE TABLET BY MOUTH EVERY DAY ORAL ACTIVE FRANNIE DAS 2013 [facility] ATORVASTATI N [place] 40MG TAB TAKE ONE TABLET BY MOUTH EVERY DAY FOR CHOLESTE ROL ORAL ACTIVE 12/11/2025 [id number] GLORIA PELAYO 2024 90 [facility] ATORVASTATI N [place] 40MG TAB TAKE ONE TABLET BY MOUTH EVERY DAY FOR CHOLESTE ROL ORAL DISCONT INUED 12/11/2024 [id number] 4 FRANSICO GÓMEZ 2023 90 [facility] DILTIAZEM (EQV-TIAZAC AB4) 180MG 24HR CAP TAKE ONE CAPSULE BY MOUTH AT BEDTIME ORAL ACTIVE 11/14/2025 [id number] 5 FRANSICO GÓMEZ 2024 90 [facility] DILTIAZEM (EQV-TIAZAC AB4) 180MG 24HR CAP TAKE ONE CAPSULE BY MOUTH AT BEDTIME ORAL DISCONT INUED 12/11/2024 [id number] 4 [facility] FRANSICO BROOKS 2023 90 [facility] ESCITALOPRA M OXALATE 20MG TAB TAKE ONE TABLET BY MOUTH EVERY MORNING ORAL DISCONT INUED 11/30/2023 [id number] ELAN PERALES 2022 90 [facility] ESCITALOPRA M OXALATE 20MG TAB TAKE ONE TABLET BY MOUTH EVERY MORNING ORAL 12/11/2024 [id number] 4 [facility] 2023 90 [facility] MARINE LIPID (FISH OIL) CAP,ORAL TAKE BY MOUTH ORAL ACTIVE [facility] BETH, FARNSICO BROOKS 2023 [facility] METFORMIN HCL 500MG 24HR TAB,SA TAKE TWO TABLETS BY MOUTH TWICE A DAY FOR DIABETES ORAL ACTIVE 12/11/2025 [id number] 5 GLORIA PELAYO 2024 360 [facility] METFORMIN HCL 500MG 24HR TAB,SA TAKE ONE TABLET BY MOUTH TWICE A DAY FOR DIABETES ORAL DISCONT INUED (EDIT) 12/18/2024 [id number] 4 GLORIA PELAYO 2023 60 [facility] METFORMIN HCL 500MG 24HR TAB,SA TAKE ONE TABLET BY MOUTH TWICE A DAY FOR DIABETES ORAL DISCONT INUED 12/18/2024 [id number] GLORIA PELAYO 2023 180 [facility] METFORMIN HCL 500MG 24HR TAB,SA TAKE ONE TABLET BY MOUTH TWICE A DAY FOR DIABETES ORAL DISCONT INUED 12/18/2024 [id number] 4 GLORIA PELAYO 2023 180 [facility] METFORMIN HCL 500MG 24HR TAB,SA TAKE ONE TABLET BY MOUTH TWICE A DAY FOR DIABETES ORAL DISCONT INUED 11/30/2023 [id number] 3 ELAN PERALES 2022 180 [facility] MULTIVITAMI NS CAP/TAB TAKE BY MOUTH ORAL ACTIVE DALIA FRANSICOARRON BROOKS 2023 [facility] OMEPRAZOLE 40MG CAP,EC TAKE ONE CAPSULE BY MOUTH EVERY DAY FOR STOMACH ACID ORAL SUSPEND ED 12/11/2025 [id number] 5 GLORIA PELAYO 2024 90 [facility] OMEPRAZOLE 40MG CAP,EC TAKE ONE CAPSULE BY MOUTH EVERY DAY FOR STOMACH ACID ORAL DISCONT INUED 12/11/2024 [id number] 4 DALIA FRANSICOARRON BROOKS 2023 [facility] PRIMIDONE 50MG TAB TAKE ONE TABLET BY MOUTH AT BEDTIME FOR TREMOR ORAL ACTIVE 11/14/2025 [id number] 5 GLORIA PELAYO 2024 90 [facility] PRIMIDONE 50MG TAB TAKE ONE TABLET BY MOUTH AT BEDTIME FOR TREMOR ORAL DISCONT INUED 12/19/2024 [id number] 4 GLOR[facility]ELAYO 2023 90 [facility] PSYLLIUM POWDER,ORAL TAKE ACTIVE SHERLEYISE, FRANSICO BROOKS 2023 [facility] SULFAMETHOX AZOLE 800MG/TRIME THOPRIM 160MG TAB TAKE 1 TABLET BY MOUTH TWICE A DAY ORAL 02/08/2024 [id number] 4 SAMANTHA MCDONNELL 2023 14 [facility] TAMSULOSIN HCL 0.4MG CAP TAKE ONE CAPSULE BY MOUTH EVERY EVENING ORAL ACTIVE 12/11/2025 [id number] 5 PIERCEGLORIA 2024 90 [facility] TAMSULOSIN HCL 0.4MG CAP TAKE ONE CAPSULE BY MOUTH EVERY EVENING ORAL DISCONT INUED 12/11/2024 [id number] 4 FRANSICO GÓMEZ 2023 90 [facility] TAMSULOSIN HCL 0.4MG CAP TAKE ONE CAPSULE BY MOUTH EVERY EVENING ORAL DISCONT INUED (EDIT) 09/10/2024 [id number] 3 ELAN PERALES JENNIFER 2022 30 [facility] TRAZODONE HCL 50MG TAB TAKE ONE TABLET BY MOUTH AT BEDTIME NEEDED FOR SLEEP ORAL ACTIVE 01/22/2025 [id number] 4 PIERCEGLORIA 2023 30 [facility] Allergies, Adverse Reactions, Alerts Combined list of allergies from Department of Defense and Veterans Affairs facilities. It does not include entries that were removed or entered in error. Substance Category Reaction Severity Reaction type Status Date Reported Comments Source MORPHINE Propensity to adverse reactions to drug (finding) Constipation active 4 [facility] Immunizations Combined list of available immunizations from the Department of Defense and Veterans Affairs facilities. 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 Comments Source COVID-19 (Tech.eu), MRNA, LNP-S, PF, MAIRA-SUCROSE, 30 MCG/0.3 ML (AGES 12+ YEARS) 2023 NANCY POOLE LEFT DELTO ID [id number] 309 complet ed [facility] INFLUENZA, HIGH-DOSE, TRIVALENT, PF 2023 NANCY POOLE N LEFT DELTO ID [id number] A 135 complet ed [facility] RSV, BIVALENT, PROTEIN SUBUNIT RSVPREF, DILUENT RECONSTITUTED , 0.5 ML, PF 2023 TERRY KRISHNAN IE GALINA LEFT DELTO ID [id number] 305 complet ed [facility] COVID-19 (PFIZER), MRNA, LNP-S, PF, MAIRA-SUCROSE, 30 MCG/0.3 ML (AGES 12+ YEARS) 1 2023 TERRY KRISHNAN IE GALINA LEFT DELTO ID [id number] 309 complet ed [facility] INFLUENZA VACCINE, QUADRIVALENT, ADJUVANTED 2022 205 complet ed [facility] COVID-19 (PFIZER), MRNA, LNP-S, BIVALENT BOOSTER, PF, 30 MCG/0.3 ML DOSE 1 2021 BAILEY SHEPPARD ABHI LEFT DELTO ID [id number] 300 complet ed [facility] INFLUENZA VACCINE, QUADRIVALENT, ADJUVANTED 1 2021 BAILEY SHEPPARDY ABHI LEFT DELTO ID [id number] 205 complet ed [facility] COVID-19 (PFIZER), MRNA, LNP-S, PF, 30 MCG/0.3 ML DOSE, MAIRA-SUCROSE (AGES 12+ YEARS) 2021 217 complet ed [facility] COVID-19 (MODERNA), MRNA, LNP-S, PF, 100 MCG/0.5ML DOSE OR 50 MCG/0.25ML DOSE 2020 207 complet ed [facility] INFLUENZA, HIGH-DOSE, QUADRIVALENT 2020 197 complet ed [facility] TDAP 2020 115 complet ed [facility] COVID-19 (MODERNA), MRNA, LNP-S, PF, 100 MCG/0.5 ML DOSE 2 2020 207 complet ed MOD: [id number]; 1 [facility] COVID-19 (MODERNA), MRNA, LNP-S, PF, 100 MCG/0.5 ML DOSE 1 2020 207 complet ed MOD; [id number]; 1 [facility] INFLUENZA, HIGH-DOSE, QUADRIVALENT 2019 197 complet ed [facility] ZOSTER RECOMBINANT 2 2019 187 complet ed [facility] ZOSTER RECOMBINANT 1 2018 187 complet ed [facility] INFLUENZA, SEASONAL, INJECTABLE, PRESERVATIVE FREE 2018 140 complet ed [facility] INFLUENZA, SEASONAL, INJECTABLE, PRESERVATIVE FREE 2017 140 complet ed [facility] INFLUENZA, HIGH DOSE SEASONAL 2016 135 complet ed [facility] INFLUENZA, HIGH DOSE SEASONAL 2015 135 complet ed [facility] PNEUMOCOCCAL CONJUGATE PCV 13 2015 133 complet ed [facility] INFLUENZA, SEASONAL, INJECTABLE, PRESERVATIVE FREE 2015 140 complet ed [facility] PNEUMOCOCCAL POLYSACCHARID E PPV23 2015 33 complet ed [employer] , [id number] 12/12/17 [facility] INFLUENZA, HIGH DOSE SEASONAL 2014 135 complet ed [facility] PNEUMOCOCCAL CONJUGATE PCV 13 2014 133 complet ed [id number], 01/2017 [facility] INFLUENZA, INJECTABLE, QUADRIVALENT, PRESERVATIVE FREE 2013 150 complet ed [facility] INFLUENZA, UNSPECIFIED FORMULATION 2012 88 complet ed [facility] INFLUENZA, SEASONAL, INJECTABLE 2012 141 complet ed [facility] TDAP 2012 115 complet ed [facility] ZOSTER LIVE 2012 121 complet ed [facility] INFLUENZA, SEASONAL, INJECTABLE 2011 141 complet ed [facility] HIB (PRP-OMP) 2011 49 complet ed [facility] MENINGOCOCCAL MCV4P 2011 114 complet ed [facility] MENINGOCOCCAL MPSV4 2011 32 complet ed [facility] PNEUMOCOCCAL POLYSACCHARID E PPV23 2011 33 complet ed [facility] TDAP 2011 115 complet ed [facility] ZOSTER LIVE 2011 121 complet ed [facility] Results Combined list of recent chemistry, hematology and other laboratory results from Department of Defense and Veterans Affairs, ranging from 15 months to all on record, depending upon the facility. Order Name Results Value Reference Range Date Interpretation Specimen Comments Source ALT/SGPT ALANINE AMINOTRANS FERASE [ENZYMATIC ACTIVITY/V OLUME] IN SERUM OR PLASMA 34 U/L <44 - 44 12/10 Specimen Type: PLASMA No comment entered. Ordering Provider: JESSICA GÓMEZ Report Released Date/Time: Dec 11, 2023 11:32 AM Reporting Lab: [facility] [address] Performing Lab: [facility] [address] [place] [facility] AST/SGOT ASPARTATE AMINOTRANS FERASE [ENZYMATIC ACTIVITY/V OLUME] IN SERUM OR PLASMA 29 U/L 11 - 34 12/10 Specimen Type: PLASMA No comment entered. Ordering Provider: JESSICA GÓMEZ Report Released Date/Time: Dec 11, 2023 11:32 AM Reporting Lab: [facility] [address] Performing Lab: [facility] [address] [place] [facility] BASIC METABOLI C PANEL+MG CREATININE [MASS/VOLU ME] IN SERUM OR PLASMA 1.0 mg/dL 0.7 - 1.2 12/10 Specimen Type: PLASMA No comment entered. Ordering Provider: JESSICA GÓMEZ Report Released Date/Time: Dec 11, 2023 11:32 AM Reporting Lab: [facility] [address] Performing Lab: [facility] [address] [place] [facility] BASIC METABOLI C PANEL+MG UREA NITROGEN [MASS/VOLU ME] IN SERUM OR PLASMA 11 mg/dL 8 - 26 12/10 Specimen Type: PLASMA No comment entered. Ordering Provider: JESSICA GÓMEZ Report Released Date/Time: Dec 11, 2023 11:32 AM Reporting Lab: [facility] [address] Performing Lab: [facility] [address] [place] [facility] BASIC METABOLI C PANEL+MG GLUCOSE [MASS/VOLU ME] IN SERUM OR PLASMA 153 mg/dL 70 - 100 12/10 H Specimen Type: PLASMA No comment entered. Ordering Provider: JESSICA GÓMEZ Report Released Date/Time: Dec 11, 2023 11:32 AM Reporting Lab: [facility] [address] Performing Lab: [facility] [address] [place] [facility] BASIC METABOLI C PANEL+MG SODIUM [MOLES/VOL UME] IN SERUM OR PLASMA 138 mmol/L 136 - 145 12/10 Specimen Type: PLASMA No comment entered. Ordering Provider: JESSICA GÓMEZ Report Released Date/Time: Dec 11, 2023 11:32 AM Reporting Lab: [facility] [address] Performing Lab: [facility] [address] [place] [facility] BASIC METABOLI C PANEL+MG POTASSIUM [MOLES/VOL UME] IN SERUM OR PLASMA 4.1 mmol/L 3.5 - 5.1 12/10 Specimen Type: PLASMA No comment entered. Ordering Provider: JESSICA GÓMEZ Report Released Date/Time: Dec 11, 2023 11:32 AM Reporting Lab: [facility] [address] Performing Lab: [facility] [address] [place] [facility] BASIC METABOLI C PANEL+MG CHLORIDE [MOLES/VOL UME] IN SERUM OR PLASMA 102 mmol/L 98 - 107 12/10 Specimen Type: PLASMA No comment entered. Ordering Provider: JESSICA GÓMEZ Report Released Date/Time: Dec 11, 2023 11:32 AM Reporting Lab: [facility] [address] Performing Lab: [facility] [address] [place] [facility] BASIC METABOLI C PANEL+MG CARBON DIOXIDE, TOTAL [MOLES/VOL UME] IN SERUM OR PLASMA 28 mmol/L 22 - 29 12/10 Specimen Type: PLASMA No comment entered. Ordering Provider: JESSICA GÓMEZ Report Released Date/Time: Dec 11, 2023 11:32 AM Reporting Lab: [facility] [address] Performing Lab: [facility] [address] [place] [facility] BASIC METABOLI C PANEL+MG CALCIUM [MASS/VOLU ME] IN SERUM OR PLASMA 9.0 mg/dL 8.4 - 10.2 12/10 Specimen Type: PLASMA No comment entered. Ordering Provider: JESSICA GÓMEZ Report Released Date/Time: Dec 11, 2023 11:32 AM Reporting Lab: [facility] [address] Performing Lab: [facility] [address] [place] [facility] BASIC METABOLI C PANEL+MG MAGNESIUM [MASS/VOLU ME] IN SERUM OR PLASMA 2.2 mg/dL 1.6 - 2.6 12/10 Specimen Type: PLASMA No comment entered. Ordering Provider: JESSICA GÓMEZ Report Released Date/Time: Dec 11, 2023 11:32 AM Reporting Lab: [facility] [address] Performing Lab: [facility] [address] [place] [facility] BASIC METABOLI C PANEL+MG ANION GAP IN SERUM OR PLASMA 8 mmol/L 5 - 15 12/10 Specimen Type: PLASMA No comment entered. Ordering Provider: JESSICA GÓMEZ Report Released Date/Time: Dec 11, 2023 11:32 AM Reporting Lab: [facility] [address] Performing Lab: [facility] [address] [place] [facility] BASIC METABOLI C PANEL+MG GLOMERULAR FILTRATION RATE/1.73 SQ M.PREDICTE D [VOLUME RATE/AREA] IN SERUM, PLASMA OR BLOOD BY CREATININE -BASED FORMULA (CKD-EPI 2020) 79 60 12/10 Specimen Type: PLASMA No comment entered. Ordering Provider: JESSICA GÓMEZ Report Released Date/Time: Dec 11, 2023 11:32 AM Reporting Lab: [facility] [address] Performing Lab: [facility] [address] [place] [facility] CBC LEUKOCYTES [#/VOLUME] IN BLOOD BY AUTOMATED COUNT 8.0 4.0 - 11.0 12/10 Specimen Type: BLOOD No comment entered. Ordering Provider: JESSICA GÓMEZ Report Released Date/Time: Dec 11, 2023 11:32 AM Reporting Lab: [facility] [address] Performing Lab: [facility] [address] [place] [facility] CBC ERYTHROCYT ES [#/VOLUME] IN BLOOD BY AUTOMATED COUNT 5.03 4.60 - 6.20 12/10 Specimen Type: BLOOD No comment entered. Ordering Provider: JESSICA GÓMEZ Report Released Date/Time: Dec 11, 2023 11:32 AM Reporting Lab: [facility] [address] Performing Lab: [facility] [address] [place] [facility] CBC HEMOGLOBIN [MASS/VOLU ME] IN BLOOD 15.9 g/dL 13.5 - 17.9 12/10 Specimen Type: BLOOD No comment entered. Ordering Provider: JESSICA GÓMEZ Report Released Date/Time: Dec 11, 2023 11:32 AM Reporting Lab: [facility] [address] Performing Lab: [facility] [address] [place] [facility] CBC HEMATOCRIT [VOLUME FRACTION] OF BLOOD BY AUTOMATED COUNT 47.8 41.0 - 54.0 12/10 Specimen Type: BLOOD No comment entered. Ordering Provider: JESSICA GÓMEZ Report Released Date/Time: Dec 11, 2023 11:32 AM Reporting Lab: [facility] [address] Performing Lab: [facility] [address] [place] [facility] CBC MCV [ENTITIC VOLUME] BY AUTOMATED COUNT 95.0 fL 80.0 - 100.0 12/10 Specimen Type: BLOOD No comment entered. Ordering Provider: JESSICA GÓMEZ Report Released Date/Time: Dec 11, 2023 11:32 AM Reporting Lab: [facility] [address] Performing Lab: [facility] [address] [place] [facility] CBC MCH [ENTITIC MASS] BY AUTOMATED COUNT 31.6 pg 27.0 - 33.0 12/10 Specimen Type: BLOOD No comment entered. Ordering Provider: JESSICA GÓMEZ Report Released Date/Time: Dec 11, 2023 11:32 AM Reporting Lab: [facility] [address] Performing Lab: [facility] [address] [facility] [facility] CBC MCHC [MASS/VOLU ME] BY AUTOMATED COUNT 33.3 g/dL 32.0 - 37.5 12/10 Specimen Type: BLOOD No comment entered. Ordering Provider: JESSICA GÓMEZ Report Released Date/Time: Dec 11, 2023 11:32 AM Reporting Lab: [facility] [address] Performing Lab: [facility] [address] [facility] CBC PLATELETS [#/VOLUME] IN BLOOD BY AUTOMATED COUNT 306 150 - 400 12/10 Specimen Type: BLOOD No comment entered. Ordering Provider: JESSICA GÓMEZ Report Released Date/Time: Dec 11, 2023 11:32 AM Reporting Lab: [facility] [address] Performing Lab: [facility] [address] [facility] CBC PLATELET MEAN VOLUME [ENTITIC VOLUME] IN BLOOD BY AUTOMATED COUNT 10.1 fL 9.1 - 13.0 12/10 Specimen Type: BLOOD No comment entered. Ordering Provider: JESSICA GÓMEZ Report Released Date/Time: Dec 11, 2023 11:32 AM Reporting Lab: [facility] [address] Performing Lab: [facility] [address] [facility] CBC ERYTHROCYT E DISTRIBUTI ON WIDTH [RATIO] BY AUTOMATED COUNT 13.1 11.5 - 14.5 12/10 Specimen Type: BLOOD No comment entered. Ordering Provider: JESSICA GÓMEZ Report Released Date/Time: Dec 11, 2023 11:32 AM Reporting Lab: [facility] [address] Performing Lab: [facility] [address] [facility] HEMOGLOB IN A1C HEMOGLOBIN A1C/HEMOGL OBIN.TOTAL IN BLOOD 7.8 4.0 - 6.0 12/10 H Specimen Type: BLOOD Comment: Values obtained from A1C measurement s can vary. For typical A1C assays, a reported value of 7.0 could actually be between 6.7 and 7.3 if measured by a reference method. A reported value of 9.0 could actually be between 8.7 and 9.3. Ref: http://www. ngsp.org/[place] Pdata.asp Ordering Provider: JESSICA GÓMEZ Report Released Date/Time: Dec 11, 2023 11:32 AM Reporting Lab: [facility] [address] Performing Lab: [facility] [address] [facility] LIPID PANEL,NO N-FASTIN G CHOLESTERO L [MASS/VOLU ME] IN SERUM OR PLASMA 114 mg/dL <199 - 199 12/10 Specimen Type: PLASMA No comment entered. Ordering Provider: JESSICA GÓMEZ Report Released Date/Time: Dec 11, 2023 11:32 AM Reporting Lab: [facility] [address] Performing Lab: [facility] [address] [place] [facility] LIPID PANEL,NO N-FASTIN G CHOLESTERO L IN HDL [MASS/VOLU ME] IN SERUM OR PLASMA 36 mg/dL 40 12/10 L Specimen Type: PLASMA No comment entered. Ordering Provider: JESSICA GÓMEZ Report Released Date/Time: Dec 11, 2023 11:32 AM Reporting Lab: [facility] [address] Performing Lab: [place] [address] [place] [facility] LIPID PANEL,NO N-FASTIN G CHOLESTERO L IN LDL [MASS/VOLU ME] IN SERUM OR PLASMA BY CALCULATIO N 44 mg/dL <99 - 99 12/10 Specimen Type: PLASMA No comment entered. Ordering Provider: JESSICA GÓMEZ Report Released Date/Time: Dec 11, 2023 11:32 AM Reporting Lab: [facility] [address] Performing Lab: [place] [address] [place] [facility] LIPID PANEL,NO N-FASTIN G CHOLESTERO L IN VLDL [MASS/VOLU ME] IN SERUM OR PLASMA BY CALCULATIO N 34 mg/dL <29 - 29 12/10 H Specimen Type: PLASMA No comment entered. Ordering Provider: JESSICA GÓMEZ Report Released Date/Time: Dec 11, 2023 11:32 AM Reporting Lab: [facility] [address] Performing Lab: [facility] [address] [place] [facility] LIPID PANEL,NO N-FASTIN G CHOLESTERO L NON HDL [MASS/VOLU ME] IN SERUM OR PLASMA 78 mg/dL <129 - 129 12/10 Specimen Type: PLASMA No comment entered. Ordering Provider: JESSICA GÓMEZ Report Released Date/Time: Dec 11, 2023 11:32 AM Reporting Lab: [facility] [address] Performing Lab: [facility] [address] [place] [facility] LIPID PANEL,NO N-FASTIN G TRIGLYCERI DE [MASS/VOLU ME] IN SERUM OR PLASMA 170 mg/dL <149 - 149 12/10 H Specimen Type: PLASMA No comment entered. Ordering Provider: JESSICA GÓMEZ Report Released Date/Time: Dec 11, 2023 11:32 AM Reporting Lab: [facility] [address] Performing Lab: [facility] [address] [place] [facility] URINALYS IS COLOR OF URINE YELLOW 01/09 Specimen Type: URINE No comment entered. Ordering Provider: ELLY MCDONNELL Report Released Date/Time: Jan 09, 2024 01:44 PM Reporting Lab: [facility] [address] Performing Lab: [place] [address] [place] [facility] URINALYS IS SPECIFIC GRAVITY OF URINE 1.023 1.003 - 1.035 01/09 Specimen Type: URINE No comment entered. Ordering Provider: ELLY MCDONNELL Report Released Date/Time: Jan 09, 2024 01:44 PM Reporting Lab: [facility] [address] Performing Lab: [facility] [address] [place] [facility] URINALYS IS BILIRUBIN. TOTAL [PRESENCE] IN URINE BY TEST STRIP NEGATIVE 01/09 Specimen Type: URINE No comment entered. Ordering Provider: ELLY MCDONNELL Report Released Date/Time: Jan 09, 2024 01:44 PM Reporting Lab: [facility] [address] Performing Lab: [facility] [address] [place] [facility] URINALYS IS KETONES [MASS/VOLU ME] IN URINE BY TEST STRIP NEGATIVE 01/09 Specimen Type: URINE No comment entered. Ordering Provider: ELLY MCDONNELL Report Released Date/Time: Jan 09, 2024 01:44 PM Reporting Lab: [facility] [address] Performing Lab: [facility] [address] [place] [facility] URINALYS IS GLUCOSE [MASS/VOLU ME] IN URINE BY TEST STRIP NEGATIVE mg/dL 01/09 Specimen Type: URINE No comment entered. Ordering Provider: ELLY MCDONNELL Report Released Date/Time: Jan 09, 2024 01:44 PM Reporting Lab: [facility] [address] Performing Lab: [facility] [address] [place] [facility] URINALYS IS PROTEIN [MASS/VOLU ME] IN URINE BY TEST STRIP 20 mg/dL 01/09 Specimen Type: URINE No comment entered. Ordering Provider: ELLY MCDONNELL Report Released Date/Time: Jan 09, 2024 01:44 PM Reporting Lab: [facility] [address] Performing Lab: [facility] [address] [place] [facility] URINALYS IS PH OF URINE BY TEST STRIP 7.0 5.0 - 8.0 01/09 Specimen Type: URINE No comment entered. Ordering Provider: ELLY MCDONNELL Report Released Date/Time: Jan 09, 2024 01:44 PM Reporting Lab: [facility] [address] Performing Lab: [facility] [address] [place] [facility] URINALYS IS LEUKOCYTES [#/AREA] IN URINE SEDIMENT BY MICROSCOPY HIGH POWER FIELD 23 /[HPF] 0 - 7 01/09 H Specimen Type: URINE No comment entered. Ordering Provider: ELLY MCDONNELL Report Released Date/Time: Jan 09, 2024 01:44 PM Reporting Lab: [facility] [address] Performing Lab: [facility] [address] [place] [facility] URINALYS IS BACTERIA [PRESENCE] IN URINE SEDIMENT BY LIGHT MICROSCOPY NONE SEEN 01/09 Specimen Type: URINE No comment entered. Ordering Provider: LELY MCDONNELL Report Released Date/Time: Jan 09, 2024 01:44 PM Reporting Lab: [facility] [address] Performing Lab: [facility] [address] [place] [facility] URINALYS IS ERYTHROCYT ES [#/AREA] IN URINE SEDIMENT BY MICROSCOPY HIGH POWER FIELD 4 /[HPF] 0 - 3 01/09 H Specimen Type: URINE No comment entered. Ordering Provider: ELLY MCDONNELL Report Released Date/Time: Jan 09, 2024 01:44 PM Reporting Lab: [facility] [id number] Performing Lab: [place] [address] [place] [facility] URINALYS IS APPEARANCE OF URINE CLEAR 01/09 Specimen Type: URINE No comment entered. Ordering Provider: ELLY MCDONNELL Report Released Date/Time: Jan 09, 2024 01:44 PM Reporting Lab: [facility] [id number] Performing Lab: [facility] [address] [place] [facility] URINALYS IS EPITHELIAL CELLS.SQUA MOUS [#/AREA] IN URINE SEDIMENT BY MICROSCOPY HIGH POWER FIELD 1 /[HPF] 01/09 Specimen Type: URINE No comment entered. Ordering Provider: ELLY MCDONNELL Report Released Date/Time: Jan 09, 2024 01:44 PM Reporting Lab: [facility] [address] Performing Lab: [employer] [address] [place] [facility] URINALYS IS HEMOGLOBIN [PRESENCE] IN URINE BY TEST STRIP NEGATIVE 01/09 Specimen Type: URINE No comment entered. Ordering Provider: ELLY MCDONNELL Report Released Date/Time: Jan 09, 2024 01:44 PM Reporting Lab: [facility] [address] Performing Lab: [facility] [address] [place] [facility] URINALYS IS NITRITE [PRESENCE] IN URINE BY TEST STRIP NEGATIVE 01/09 Specimen Type: URINE No comment entered. Ordering Provider: ELLY MCDONNELL Report Released Date/Time: Jan 09, 2024 01:44 PM Reporting Lab: [facility] [address] Performing Lab: [facility] [address] [place] [facility] URINALYS IS LEUKOCYTE ESTERASE [PRESENCE] IN URINE BY TEST STRIP 250 01/09 Specimen Type: URINE No comment entered. Ordering Provider: ELLY MCDONNELL Report Released Date/Time: Jan 09, 2024 01:44 PM Reporting Lab: [facility] [address] Performing Lab: [facility] [address] [place] [facility] BASIC METABOLI C PANEL+MG CREATININE [MASS/VOLU ME] IN SERUM OR PLASMA 1.1 mg/dL 0.7 - 1.2 12/11 Specimen Type: PLASMA No comment entered. Ordering Provider: INGE PERALES Report Released Date/Time: Nov 29, 2022 10:43 AM Reporting Lab: [facility] [address] Performing Lab: [facility] [address] [place] [facility] BASIC METABOLI C PANEL+MG UREA NITROGEN [MASS/VOLU ME] IN SERUM OR PLASMA 10 mg/dL 8 - 26 12/11 Specimen Type: PLASMA No comment entered. Ordering Provider: INEG PERALES Report Released Date/Time: Nov 29, 2022 10:43 AM Reporting Lab: [facility] [address] Performing Lab: [facility] [address] [place] [facility] BASIC METABOLI C PANEL+MG GLUCOSE [MASS/VOLU ME] IN SERUM OR PLASMA 234 mg/dL 70 - 100 12/11 H Specimen Type: PLASMA No comment entered. Ordering Provider: INGE PERALES Report Released Date/Time: Nov 29, 2022 10:43 AM Reporting Lab: [facility] [address] Performing Lab: [facility] [address] [place] [facility] BASIC METABOLI C PANEL+MG SODIUM [MOLES/VOL UME] IN SERUM OR PLASMA 136 mmol/L 136 - 145 12/11 Specimen Type: PLASMA No comment entered. Ordering Provider: INGE PERALES Report Released Date/Time: Nov 29, 2022 10:43 AM Reporting Lab: [facility] [address] Performing Lab: [facility] [address] [place] [facility] BASIC METABOLI C PANEL+MG POTASSIUM [MOLES/VOL UME] IN SERUM OR PLASMA 3.9 mmol/L 3.5 - 5.1 12/11 Specimen Type: PLASMA No comment entered. Ordering Provider: INGE PERALES Report Released Date/Time: Nov 29, 2022 10:43 AM Reporting Lab: [facility] [address] Performing Lab: [facility] [address] [place] [facility] BASIC METABOLI C PANEL+MG CHLORIDE [MOLES/VOL UME] IN SERUM OR PLASMA 100 mmol/L 98 - 107 12/11 Specimen Type: PLASMA No comment entered. Ordering Provider: INGE PERALES Report Released Date/Time: Nov 29, 2022 10:43 AM Reporting Lab: [facility] [address] Performing Lab: [facility] [address] [place] [facility] BASIC METABOLI C PANEL+MG CARBON DIOXIDE, TOTAL [MOLES/VOL UME] IN SERUM OR PLASMA 28 mmol/L 22 - 29 12/11 Specimen Type: PLASMA No comment entered. Ordering Provider: INGE PERALES Report Released Date/Time: Nov 29, 2022 10:43 AM Reporting Lab: [facility] [address] Performing Lab: [facility] [address] [place] [facility] BASIC METABOLI C PANEL+MG CALCIUM [MASS/VOLU ME] IN SERUM OR PLASMA 9.8 mg/dL 8.4 - 10.2 12/11 Specimen Type: PLASMA No comment entered. Ordering Provider: INGE PERALES Report Released Date/Time: Nov 29, 2022 10:43 AM Reporting Lab: [facility] [address] Performing Lab: [facility] [address] [place] [facility] BASIC METABOLI C PANEL+MG MAGNESIUM [MASS/VOLU ME] IN SERUM OR PLASMA 1.9 mg/dL 1.6 - 2.6 12/11 Specimen Type: PLASMA No comment entered. Ordering Provider: INGE PERALES Report Released Date/Time: Nov 29, 2022 10:43 AM Reporting Lab: [facility] [address] Performing Lab: [facility] [address] [place] BASIC METABOLI C PANEL+MG ANION GAP IN SERUM OR PLASMA 8 mmol/L 5 - 15 12/11 Specimen Type: PLASMA No comment entered. Ordering Provider: INGE PERALES Report Released Date/Time: Nov 29, 2022 10:43 AM Reporting Lab: [facility] [address] Performing Lab: [facility] [address] [facility] BASIC METABOLI C PANEL+MG GLOMERULAR FILTRATION RATE/1.73 SQ M.PREDICTE D [VOLUME RATE/AREA] IN SERUM, PLASMA OR BLOOD BY CREATININE -BASED FORMULA (CKD-EPI 2020) 71 60 12/11 Specimen Type: PLASMA No comment entered. Ordering Provider: INGE PERALES Report Released Date/Time: Nov 29, 2022 10:43 AM Reporting Lab: [facility] [address] Performing Lab: [facility] [address] [facility] HEMOGLOB IN A1C HEMOGLOBIN A1C/HEMOGL OBIN.TOTAL IN BLOOD 7.0 4.0 - 6.0 12/11 H Specimen Type: BLOOD Comment: Values obtained from A1C measurement s can vary. For typical A1C assays, a reported value of 7.0 could actually be between 6.7 and 7.3 if measured by a reference method. A reported value of 9.0 could actually be between 8.7 and 9.3. Ref: http://www. ngsp.org/[place] Pdata.asp Ordering Provider: INGE PERALES Report Released Date/Time: Nov 29, 2022 10:43 AM Reporting Lab: [facility] [address] Performing Lab: [facility] [address] [facility] LIPID PANEL,NO N-FASTIN G CHOLESTERO L [MASS/VOLU ME] IN SERUM OR PLASMA 120 mg/dL <199 - 199 12/11 Specimen Type: PLASMA No comment entered. Ordering Provider: INGE PERALES Report Released Date/Time: Nov 29, 2022 10:43 AM Reporting Lab: [facility] [address] Performing Lab: [facility] [address] [place] [facility] LIPID PANEL,NO N-FASTIN G CHOLESTERO L IN HDL [MASS/VOLU ME] IN SERUM OR PLASMA 37 mg/dL 40 12/11 L Specimen Type: PLASMA No comment entered. Ordering Provider: INGE PERALES Report Released Date/Time: Nov 29, 2022 10:43 AM Reporting Lab: [facility] [address] Performing Lab: [facility] [address] [place] [facility] LIPID PANEL,NO N-FASTIN G CHOLESTERO L IN LDL [MASS/VOLU ME] IN SERUM OR PLASMA BY CALCULATIO N 46 mg/dL <99 - 99 12/11 Specimen Type: PLASMA No comment entered. Ordering Provider: INGE PERALES Report Released Date/Time: Nov 29, 2022 10:43 AM Reporting Lab: [facility] [address] Performing Lab: [facility] [address] [place] [facility] LIPID PANEL,NO N-FASTIN G CHOLESTERO L IN VLDL [MASS/VOLU ME] IN SERUM OR PLASMA BY CALCULATIO N 37 mg/dL <29 - 29 12/11 H Specimen Type: PLASMA No comment entered. Ordering Provider: INGE PERALES Report Released Date/Time: Nov 29, 2022 10:43 AM Reporting Lab: [facility] [address] Performing Lab: [facility] [address] [place] [facility] LIPID PANEL,NO N-FASTIN G CHOLESTERO L NON HDL [MASS/VOLU ME] IN SERUM OR PLASMA 83 mg/dL <129 - 129 12/11 Specimen Type: PLASMA No comment entered. Ordering Provider: INGE PERALES Report Released Date/Time: Nov 29, 2022 10:43 AM Reporting Lab: [facility] [address] Performing Lab: [facility] [address] [place] [facility] LIPID PANEL,NO N-FASTIN G TRIGLYCERI DE [MASS/VOLU ME] IN SERUM OR PLASMA 185 mg/dL <149 - 149 12/11 H Specimen Type: PLASMA No comment entered. Ordering Provider: INGE PERALES Report Released Date/Time: Nov 29, 2022 10:43 AM Reporting Lab: [facility] [address] Performing Lab: [facility] [address] [place] Vital Signs Combined list of inpatient and outpatient Vital Signs from Department of Defense and Veterans Affairs, ranging from 12 months to all on record, depending upon the facility. Vital Sign Value Date Comments Source SYSTOLIC BLOOD PRESSURE 166 12/10/2024 13:28:43 [facility] DIASTOLIC BLOOD PRESSURE 79 12/10/2024 13:28:43 [facility] PULSE OXIMETRY 95 12/10/2024 13:28:43 [facility] [place] WEIGHT 210.1 12/10/2024 13:28:43 [facility] BMI 31kg/m2 12/10/2024 13:28:43 [facility] PAIN 6 12/10/2024 13:28:43 [facility] TEMPERATURE 97.6 12/10/2024 13:28:43 [facility] PULSE 71 12/10/2024 13:28:43 [facility] RESPIRATION 12 12/10/2024 13:28:43 [facility] SYSTOLIC BLOOD PRESSURE 125 05/11/2024 12:15:52 [facility] DIASTOLIC BLOOD PRESSURE 75 05/11/2024 12:15:52 [facility] PULSE OXIMETRY 96 05/11/2024 12:15:52 [facility] [place] WEIGHT 193.2 05/11/2024 12:15:52 [facility] BMI 29kg/m2 05/11/2024 12:15:52 [facility] PAIN 0 05/11/2024 12:15:52 [facility] TEMPERATURE 98.1 05/11/2024 12:15:52 [facility] PULSE 71 05/11/2024 12:15:52 [facility] RESPIRATION 16 05/11/2024 12:15:52 [facility] SYSTOLIC BLOOD PRESSURE 170 01/09/2024 14:22:16 [facility] DIASTOLIC BLOOD PRESSURE 84 01/09/2024 14:22:16 [facility] PULSE OXIMETRY 95 01/09/2024 14:22:16 M [facility] WEIGHT 201 01/09/2024 14:22:16 JUANI RAUSCHElizabet [facility] BMI 30kg/m2 01/09/2024 14:22:16 JUANI RAUSCHElizabet [facility] PAIN 0 01/09/2024 14:22:16 [facility] HEIGHT 69 01/09/2024 14:22:16 [facility] TEMPERATURE 99.5 01/09/2024 14:22:16 [facility] PULSE 76 01/09/2024 14:22:16 [facility] RESP[facility]ATION 15 01/09/2024 14:22:16 [facility] Encounters Combined list of: 1) Encounters from Department of [facility] Affairs facilities going back up to thelast 18 months. 2) Encounters from the Department of [place] facilities going back up to 280 months. Location Location Details Encounter Type Encounter Number Reason For Visit Attending Provider ADM Date DC Date Status Disposition Source [facility] Outpatient Encounter [id number] 08/13 [facility] [place] [facility] Outpatient Encounter [id number] 12/11 [facility] OFFICE O/P EST HI 40 MIN [id number] Diagnos is: ICD-10- CM I25.10 Athscl heart disease of [place] coronar y artery w/o ang pctrs<b r/> Kari GÓMEZ 12/11 [facility] Outpatient Encounter [id number] Diagnos is: ICD-10- CM Z23 Encount er for immuniz ation<b r/> SEB KRISHNAN 12/11 [facility] [place] [facility] Outpatient Encounter [id number] 12/17 [facility] [place] [facility] Outpatient Encounter [id number] 12/19 [facility] [place] [facility] Outpatient Encounter [id number] 12/19 [facility] Outpatient Encounter [id number] 12/20 [facility] HC PRO PHONE CALL 5-10 MIN [id number] Diagnos is: ICD-10- CM 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
RENITAAMANDA RODRIGES F 12/20 [facility] IMMUNIZATI [place] ADMIN [id number] Diagnos is: ICD-10- CM Z23 Encount er for immuniz ation<b r/> Veronika PELAYO 01/07 [facility] Outpatient Encounter [id number] FREDDIE HERNANDEZ 01/09 [facility] OFFICE O/P EST LOW 20 MIN [id number] Diagnos is: ICD-10- CM R30.0 Dysuria
BENNY MCDONNELL 01/09 [facility] Outpatient Encounter [id number] 01/24 [facility] Outpatient Encounter [id number] 01/24 [facility] HEARING AID FITTING/CH ECKING [id number] Diagnos is: ICD-10- CM Z01.118 Encntr for exam of ears and hearing w oth abnorma l finding s
KUNAL MYLES A 04/16 [facility] OFFICE O/P EST LOW 20 MIN [id number] Diagnos is: ICD-10- CM I25.10 Athscl heart disease of [place] coronar y artery w/o ang pctrs<b r/> Veronika PELAYO 05/11 [facility] Outpatient Encounter [id number] LOGAN FERNANDEZ 05/25 [facility] PURE TONE AUDIOMETRY AIR [id number] Diagnos is: ICD-10- CM H90.3 Sensori neural hearing loss, bilater al
ALIYAH OWUSU 05/25 [facility] ADMN SARSCOV2 VACC 1 DOSE [id number] Diagnos is: ICD-10- CM Z23 Encount er for immuniz ation<b r/> Elizabet POOLE N 08/27 [facility] HEARING AID REPAIR/MOD IFYING [id number] Diagnos is: ICD-10- CM H90.3 Sensori neural hearing loss, bilater al
LIZETH CARABALLO 10/17 [facility] Outpatient Encounter [id number] 12/10 [facility] Social History Combined list of available smoking, tobacco, and other social history from Department of Defense and Veterans Affairs facilities. Social History Type Response Date Comment Sour e Tobacco smoking status IDIS VA-TOBACCO FORMER USER 12/11/2023 [facility] History of tobacco use WA-TOBACCO QUIT 1 5 YRS OR MORE 12/11/2023 [facility] History of tobacco use WA-TOBACCO FORMER USER 11/14/2021 [facility] History of tobacco use WA-TOBACCO QUIT 1 5 YRS OR MORE 06/24/2019 [facility] History of tobacco use WA-TOBACCO QUIT 1 5 YRS OR MORE 08/21/2018 [facility] History of tobacco use FORMER TOBACCO US ER 7Y OR GREATER 09/26/2017 [facility] History of tobacco use FORMER TOBACCO US ER 7Y OR GREATER 04/16/2016 [facility] History of tobacco use FORMER TOBACCO US ER 7Y OR GREATER 07/21/2014 [facility] Plan of Care List of future care activities from Department of Veterans Affairs facilities. Additional future care activities may be listed in the Assessment and Plan section. Date/Time Care Activity Care Activity Detail Facili ty 12/10/2024 Consult Order NUTRITION OUTPT Cons Consul tant's Choice [facility]
--- OUTSIDE RECORDS SUMMARY | 2024-12-20 16:08 | XMS_ITS | Encounter Summary ---
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 Date/Time Encounter Type Encounter Description Reason Pro vider Source Dec 10, 2024 01:30 PM Outpatient Encounter PRIMARY CARE/MEDICINE IHE Encounter Template Text not used by [place] Plan of Treatment: Future Appointments (+ 6 months) and Future Tests (+/- 45 days) The Plan of Treatment section includes future care activities for the patient from all [place] treatmentfacilities. This section includes future appointments and future orders which are active, pending or scheduled. Active, Pending, and Scheduled Orders This section includes a listing of several types of active, pending, and scheduled orders, including clinic medications orders, diagnostic test orders, procedure orders and consult orders; where the start date of the order is 45 days before the date of the Encounter or 45 days after the date of theEncounter. The data comes from all [place] treatment facilities. Test Date/Time Test Type Test Details Facility Name Dec 10, 2024 02:15 PM Consult Order NUTRITION OUTPT Cons Parole Board Member's Choice [facility] Lab Results: +/- 30 days of the encounter This section includes the Chemistry and Hematology Lab Results on record with [place] for the patient. Radiology Reports and Pathology Reports are provided separately, in subsequent sections. Lab Results This section contains the Chemistry/Hematology Results that were resulted 30 days before or 30 daysafter the date of the Encounter. Date/Time Source Result Type Result - Unit Interpretation Reference Range Comment Dec 10, 2024 12:39 PM [facility] AST/SGOT Specimen Type: PLASMA No comment entered. Ordering Provider: FRANSICO GÓMEZ Report Released Date/Time: Dec 11, 2023 11:32 AM Reporting Lab: [facility] [address] Performing Lab: [facility] [address] AST/SGOT 29 U/L 11-34 Dec 10, 2024 12:39 PM [facility] CBC Specimen Type: BLOOD No comment entered. Ordering Provider: FRANSICO GÓMEZ Report Released Date/Time: Dec 11, 2023 11:32 AM Reporting Lab: [facility] [address] Performing Lab: [facility] [address] WBC 8.0 4.0-11.0 RBC 5.03 4.60-6.20 HGB 15.9 g/dL 13.5-17.9 HCT 47.8 41.0-54.0 MCV 95.0 fL 80.0-100.0 MCH 31.6 pg 27.0-33.0 MCHC 33.3 g/dL 32.0-37.5 PLT 306 150-400 MPV 10.1 fL 9.1-13.0 RDW 13.1 11.5-14.5 Dec 10, 2024 12:39 PM [facility] ALT/SGPT Specimen Type: PLASMA No comment entered. Ordering Provider: FRANSICO GÓMEZ Report Released Date/Time: Dec 11, 2023 11:32 AM Reporting Lab: [facility] [address] Performing Lab: [facility] [address] ALT/SGPT 34 U/L <44 Dec 10, 2024 12:39 PM [facility] BASIC METABOLIC PANEL+MG Specimen Type: PLASMA No comment entered. Ordering Provider: FRANSICO GÓMEZ Report Released Date/Time: Dec 11, 2023 11:32 AM Reporting Lab: [facility] [address] Performing Lab: [facility] [address] CREATININE 1.0 mg/dL 0.7-1.2 UREA NITROGEN 11 mg/dL 8-26 GLUCOSE 153 mg/dL H 70-100 SODIUM 138 mmol/L 136-145 POTASSIUM 4.1 mmol/L 3.5-5.1 CHLORIDE 102 mmol/L 98-107 CO2 28 mmol/L 22-29 CALCIUM 9.0 mg/dL 8.4-10.2 MAGNESIUM 2.2 mg/dL 1.6-2.6 ANION GAP 8 mmol/L 5-15 .CREAT EGFR(CKD-EPI) 79 >60 Dec 10, 2024 12:39 PM [facility] HEMOGLOBIN A1C Specimen Type: BLOOD Comment: Values obtained from A1C measurements can vary. For typical A1C assays, a reported value of 7.0 could actually be between 6.7 and 7.3 if measured by a reference method. A reported value of 9.0 could actually be between 8.7 and 9.3. Ref: http://www.ngs p.org/CAPdata. asp Ordering Provider: FRANSICO GÓMEZ Report Released Date/Time: Dec 11, 2023 11:32 AM Reporting Lab: [facility] [address] Performing Lab: [facility] [address] HEMOGLOBIN A1C 7.8 H 4.0-6.0 Dec 10, 2024 12:39 PM [facility] LIPID PANEL,NON-FASTING Specimen Type: PLASMA No comment entered. Ordering Provider: FRANSICO GÓMEZ Report Released Date/Time: Dec 11, 2023 11:32 AM Reporting Lab: [facility] [address] Performing Lab: [facility] [address] CHOLESTEROL 114 mg/dL <199 .HDL 36 mg/dL L >40 LDL CALCULATION 44 mg/dL <99 VLDL CALCULATION 34 mg/dL H <29 NON HDL CHOLESTEROL 78 mg/dL <129 TRIG(NON FASTING) 170 mg/dL H <149 Vital Signs: All taken on the encounter date This section contains inpatient and outpatient Vital Signs collected on the date of the Encounter. Date/Time Temperature Pulse Blood Pressure Respiratory Rate SP02 Pain Height Weight Body Mass Index Source Dec 10, 2024 01:35 PM 169/68 [facility] Dec 10, 2024 01:28 PM 97.6 71 166/79 12 95 6 210.1 31 [facility] Social History: Smoking Status (Most current) and Tobacco Use (All prior to encounter date) This section includes the most current, and the historical, smoking and tobacco- related health factors from the [place] facility where the Encounter took place. Current Smoking Status This section includes the most current smoking, or tobacco-related health factor, from the [place] facility where the Encounter took place. Date/Time Current Smoking Status Comment Facil ity Dec 11, 2023 10:30 AM VA-TOBACCO FORMER USER [facility] Tobacco Use History This section includes a history of the smoking, or tobacco-related health factors, that were collected on or before the date of the Encounter. The data comes from the [place] facility where the Encounter took place. Date/Time Smoking Status/Tobacco Use Comment F acility Dec 11, 2023 10:30 AM VA-TOBACCO QUIT 15 YRS OR MORE [facility] Nov 14, 2021 10:30 AM VA-TOBACCO FORMER USER [facility] Nov 14, 2021 10:30 AM VA-TOBACCO QUIT 15 YRS OR MORE [facility] Jun 24, 2019 09:39 AM VA-TOBACCO FORMER USER [facility] Jun 24, 2019 09:39 AM VA-TOBACCO QUIT 15 YRS OR MORE [facility] Aug 21, 2018 12:20 PM VA-TOBACCO FORMER USER [facility] Aug 21, 2018 12:20 PM VA-TOBACCO QUIT 15 YRS OR MORE [facility] Sep 26, 2017 10:52 AM FORMER TOBACCO USER 7Y OR GREATE R [facility] April 16, 2016 01:05 PM FORMER TOBACCO USER 7Y OR GREATE R [facility] Jul 21, 2014 08:39 AM FORMER TOBACCO USER 7Y OR GREATE R [facility]
--- OUTSIDE RECORDS SUMMARY | 2024-12-20 16:09 | XMS_ITS | Continuity of Care Document ---
Author Name NwMARYN User [id number] llowed Address Unknown Organization Unknown Address Unknown Alerts, Allergies and Adverse Reactions FILTER APPLIED:All Known Active Allergies Substance Reaction Onset Status (MORPHINE) CONSTIPATION (Mild) Active (MORPHINE) CONSTIPATION (Mild) Active Procedures FILTER APPLIED:Only known Procedures with Onset Date within the last 5 years Procedure Date Procedure Provider Additiona l Information Status [facility] POLYSOMNOGRAPHY => 6YRS =>4 PARAMETERS W CPAP OR BILEVEL (00756) Complete d Encounters FILTER APPLIED:Only known Encounters with Admission Date within the last 5 years Encounter Location Admission Discharge Billing Code 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 EMERGENCY DEPARTMENT MORTEZA CARUSO Outpatient [facility]patient [facility]patient [facility] FAMILY MEDICINE [facility]patient [facility] RADIOLOGY Unknown [facility] Unknown [facility] Unknown [facility] Unknown [facility] Unknown [facility] Outpatient [facility] In[facility] OSORIO TATE PEREIRA [facility] Patient [id number] LINN MCMILLAN
--- OUTSIDE RECORDS SUMMARY | 2024-12-20 16:09 | XMS_ITS | Clinical Summary ---
Author Organization [facility] Address [place], [place] [address] Care Team Providers Care Armor Reconnaissance Vehicle Driver Name Role Phone Mario White MD Primary Care Provider [phone] Bryant Alcantara MD Unavailable [phone] Allergies Active Allergy Reactions Criticality Noted Date Comments Morphine Constipation 09/22/2012 Medications aspirin chewable 81 mg chewable tablet Take 1 tablet by mouth once daily. 0 2 Active PS-1-BIV-EPA-Fish Oil-Vit D3 300-1,000-1,000 mg-mg-unit cap Take by mouth. Take one daily 0 6 Active escitalopram oxalate (LEXAPRO) 10 mg tablet Take 10 mg by mouth. 2 Active tamsulosin (FLOMAX) 0.4 mg capsule Take 1 Capsule by mouth at bedtime. 1 Active multivitamins-ayala ulsr-twkf-djwbenj s tab tablet Take 1 Tablet by mouth. Active psyllium husk (METAMUCIL ORAL) Take by mouth 2 times daily. Active cetirizine (ZYRTEC) 10 mg tablet Take 1 Tablet (10 mg) by mouth once daily. 0 2 Active fluticasone (50 mcg per actuation) nasal solution (FLONASE) SPRAY 2 SPRAYS IN EACH NOSTRIL EVERY MORNING USE REGULARLY FOR RELIEF OF ALLERGIES/EDWARDO ESTION 1 Active triamcinolone (ARISTOCORT; KENALOG) 0.1 % creamIndications: Dermatitis Apply topically to affected area(s) two times daily. Use twice daily on affected area for up to 2 weeks straight, then stop 80 g 2 Active atorvastatin (LIPITOR) 40 mg tabletIndications :Coronary artery disease involving [place] coronary artery of [place] heart without angina pectoris Take 1 Tablet (40 mg) by mouth once daily in the evening. 90 Tablet 3 4 Active dilTIAZem CD (CARDIZEM CD) 180 mg extended release 24 hr capsuleIndication s:Coronary artery disease involving [place] coronary artery of [place] heart without angina pectoris Take 1 Capsule (180 mg) by mouth once daily. Take at night 90 Capsule 3 4 Active nitroglycerin (NITROSTAT) 0.4 mg sublingual tabletIndications :Coronary artery disease involving [place] coronary artery without angina pectoris, unspecified whether [place] or transplanted heart Place 1 Tablet (0.4 mg) under the tongue every 5 minutes if needed for Chest Pain. 25 Tablet 4 Active primidone (MYSOLINE) 50 mg tablet Take 50 mg by mouth at bedtime. 4 Active albuterol HFA (Ventolin HFA) 90 mcg/actuation inhalerIndication s:Chronic dyspnea Inhale 1-2 Puffs by mouth every 4 hours if needed for Shortness Of Breath. 1 Each 4 Active metFORMIN (GLUCOPHAGE XR) 500 mg Extended-Release tabletIndications :Controlled type 2 diabetes mellitus with complication, without long-term current use of insulin (HC) Take 1 Tablet (500 mg) by mouth two times daily with meals. 180 Tablet 3 4 Active omeprazole (PRILOSEC) 40 mg Delayed-Release capsuleIndication s:Chronic GERD Take 1 Capsule (40 mg) by mouth once daily before a meal. 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 08/13/2023 Overview (08/13/2023): 2 cm segment - repeat in 5 years S/P ORIF (open reduction internal fixation) darin morocho 11/11/2019 Pain of left tibia 11/11/2019 Controlled type 2 diabetes m anny with complication, without long-term current use of insulin 07/30/2017 GHADA, 05/2017, AHI 33 06/11/2017 Dyslipidemia with low high d ensity lipoprotein (HDL) cholesterol with hypertriglyceridemia due to type 2 diabetes mellitus 10/02/2016 Lung nodules 06/28/2016 Chronic chest wall pain 06/28/2016 Chronic GERD 06/28/2016 Spleen absent 09/22/2012 Allergic rhinitis, cause unspecified 09/22/2012 Wears hearing aid 09/22/2012 Overview (09/22/2012): Left side only CAD (coronary artery disease) 02/29/2012 Overview (11/23/2021): 12/12/2011: NSTEMI, angiogram with severe distal RCA stenosis s/p LUCIEN. [facility] 11/23/2021: chest pain, NM stress test with new small apical ischemia. Coronary angiogram: Anxiety state, unspecified 01/09/2010 Intercostal neuralgia Resolved Problems Problem Noted Date Diagnosed Date Resolved Date Chronic pain of left knee 11/11/2019 Trigger thumb 02/29/2012 07/14/2012 Overview (02/29/2012): Right - bothering for a year Impaired fasting glucose 01/25/2009 Mixed hyperlipidemia 01/25/2009 016 Rotator cuff (capsule) sprain 01/19/2009 09/22/2012 Inguinal hernia without ment ion of obstruction or gangrene, bilateral, (not specified as recurrent) 08/26/2008 10/25/2009 Overview (08/26/2008): Right > Left Chronic low back pain 08/26/20082011 Elevated prostate specific antigen (PSA) 08/26/2008 01/19/2009 Encounters Date Type Department Care Team Description 12/14/2024 [place] [facility] [place] [address] [facility] [address] [place] [address] Scott Wang MD Procedure 12/12/2024 Orders Only [facility] Scanner 1 scan: (1-Ord) [facility], MRI EXAMINATION OF THE RIGHT SHOULDER, 12/12/2024 12/11/2024 7:47 AM CERTIFIED MEDICAL CODING SPECIALIST - 12/11/2024 11:59 PM CERTIFIED MEDICAL CODING SPECIALIST Hospital Encounter Scott Wang MD 12/11/2024 Orders Only [address] [place] [address] Scott Wang MD <No scans attached> 12/11/[address] [place] [address] Scott Wang MD Drug Induced Sleep Endoscopy [id number] 12/10/2024 [place] [facility] [place] [address] [place] [address] Scott Wang MD Questions 11/12/2024 11:05 AM CERTIFIED MEDICAL CODING SPECIALIST Office Visit [facility] [address] [place] [address] Mario White MD Diabetes 11/12/2024 Travel 10/06/2024 [place] [facility] [place] [address] [place] [address] Scott Wang MD Surgery Scheduled 10/02/2024 2:00 PM CDT Office Visit [facility] [address] [place] [phone] Scott Wang MD Sleep Problem (Sleep apnea consult Air lift procedure ) 10/02/2024 Travel 09/28/2024 Travel from Last 3 Months Immunizations Name Administration Dates Next Due AMB Influenza, IIV4 PF (=>6 mos Flulaval,Fluzone Fluarix)(Flu Clinic Only) 09/13/2014 COVID-19 vaccine (Moderna 10 0mcg/0.5mL) VICTOR MANUEL ELISE 11/07/2021,02/13/2021,01/16/2021 COVID-19 vaccine (Pfizer-Bio NTech 30mcg/0.3mL) 12YO+ MAIRA-SUCROSE VICOTR MANUEL ELISE 04/16/2022 HIB PRP-OMP (PedvaxHIB) 04/15/2012 Influenza, High-dose Inactivated 08/27/2024,09/02 Influenza, High-dose Quadriv alent Inactivated 10/05/2021,09/30/2020 Influenza, IIV3 (Age >=3 years) 08/31/2013,09/22 Influenza, Inactivated AIIV4 (Age 65+ Years) Preserv Free 08/13/2023,11/20/2022 Meningococcal Vaccine (Menomune) 04/15/2012 Pneumococcal Poly,23-Valent (Pneumovax) 04/15/20 12 Pneumococcal conj 13-Valent (Prevnar 13) 016,08/31/2015 RSV, Bivalent Vaccine Recons tituted (Abrysvo 120MCG/0.5mL) 01/07/2024 Td (Age >=7 Years) 12/19/2004 Tdap 03/14/2021,12/02/2012,04/14/2012 Zoster (Shingrix-RZV, recombinant) 02/09/2020, Zoster (Zostavax-ZVL, live) 02/29/2012 Family History Medical History Relation Name Comments Cancer Brother 2 Mehdi Ca of Small [place] el Other Brother 3 Mark Mult Sclerosis Other Brother 4 Lb HIV Heart Disease Father Luis sudden a t age 83 Hypertension Father Luis Cancer-breast Mother Kenzie Cancer Sister 2 Rina Other Sister 3 Ashley Tse Mult Sclerosis Anesthesia Problem No Family History Blood Disease No Family History Relation Name Status Comments Brother 1 Jacky (Age 28) MVA Brother 2 Mehdi Alive Brother 3 Mark Alive Brother 4 Lb Alive Father Luis (Age 87) massive SD Mother Kenzie (Age 49) Sister 1 Mary Grace Alive Sister 2 Rina Alive Sister 3 Ashley Tse Alive Sister 4 Herlinda Alive Sister 5 Maribeth Alive Social History Tobacco Use Types Packs/Day Years Used Date Smoking Tobacco: Former Cigarettes 3 15 0 12/02/1965 - 12/02/1980 Smokeless Tobacco: Never Tobacco Cessation:Counseling Given: Yes Alcohol Use Standard Drinks/Week Comments Not Currently 0 (1 standard drink = 0.6 oz pur e alcohol) maybe 1-3/mo PHQ-2 Answer Date Recorded PHQ-2 TOTAL SCORE 0 01/24/2024 Social Connections Answer Date Recorded Do you often feel lonely or isolated from those around you? 0 02/11/2024 Financial Resource Strain Answer Date R ecorded Difficulty of Paying Living Expenses 3 02/11/2024 Difficulty of Paying Living Expenses Not on file 02/11/2024 Food Insecurity Answer Date Recorded Do you worry your food will run out before you are able to buy more? 1 02/11/2024 Transportation Needs Answer Date Record ed Does lack of transportation keep you from medica l appointments? 1 02/11/2024 Does lack of transportation keep you from work, meetings or getting things that you need? 1 02/11/2024 Housing Stability Answer Date Recorded What is your housing situation today? 1 02/11/2024 Utilities Answer Date Recorded Do you have trouble paying f or utilities (for example, heat, electricity, water, phone)? 1 02/11/2024 Sex and Gender Information Value Date Recorded Sex Assigned at Not on file Legal Sex Male 6:10 AM CERTIFIED MEDICAL CODING SPECIALIST Gender Identity Not on file Sexual Orientation Not on file Occupation Industry Job Start Date Job End Date Disabled Not on file Not on file Not on file Obstetrics History Last Filed Vital Signs Vital Sign Reading Time Taken Comments Blood Pressure 128/67 11/12/2024 11:18 AM CERTIFIED MEDICAL CODING SPECIALIST Pulse 67 11/12/2024 11:18 AM CERTIFIED MEDICAL CODING SPECIALIST Temperature 36.2 C (97.2 F) 02/27/2023 8:58 AM CDT Respiratory Rate 20 01/16/2024 1:27 PM CERTIFIED MEDICAL CODING SPECIALIST Oxygen Saturation 94% 11/12/2024 11:16 AM CERTIFIED MEDICAL CODING SPECIALIST Inhaled Oxygen Concentration - - Weight 94.6 kg (208 lb 9.6 oz) 11/12/2024 11:16 AM CERTIFIED MEDICAL CODING SPECIALIST Height 173 cm (5' 8.11) 01/24/2024 10:00 AM CERTIFIED MEDICAL CODING SPECIALIST Body Mass Index 31.62 01/24/2024 10:00 AM CERTIFIED MEDICAL CODING SPECIALIST Plan of Treatment Upcoming Encounters Date Type Department Care Team (Late st Contact Info) Description 02/11/2025 10:15 AM CDT Office Visit [facility] [address] [place] [address] Mario White MD [address] [place] [address] Scheduled Procedures Name Priority Associated Diagnoses Date/Ti me IMPLANT RESPONSIVE NEUROSTIMULATOR Elective GHADA (obstructive sleep apnea) Health Maintenance Due Date Last Done Comments BMI (ht and wt on same day) for age 18+ 01/24/2025 01/24/2024, 01/16/2024, 12/16/2023, Additional history exists Depression screening for age 12+ 01/24/2025 01/24/2024, 01/24/2024, 01/25/2023, Additional history exists Medicare Wellness for age 65+ 01/24/2025, 01/25/2023, 12/01/2021 (Completed outside of [facility]), Additional history exists Lipids for age 45-75 01/24/2029 01/24/2024, 01/25/2023, 11/23/2021, Additional history exists Colonoscopy through age 75 03/02/203103/02 (Completed outside of [facility]), 03/21/2012, 03/21/2012 Tetanus booster 03/14/2031 03/14/2021, 12/2012, 04/14/2012, Additional history exists Pneumococcal series for age 50+ Completed 09/25/2016, 09/24/2016 (Completed outside of [facility]), 08/31/2015, Additional history exists Hepatitis C screening for ag e 18-79 Completed 10/19/2019 Zoster (shingles) series for age 50+ Completed 02/09/2020, 11/17/2019, 02/29/2012 Tdap Completed 03/14/2021, 12/2012, 04/14/2012 AAA screening age 65-74 Completed 11/14/20, 10/04/2014, 08/27/2012 RSV vaccine for adults or Completed 01/07/2024 COVID-19 vaccine series Completed 08/27/20 24, 12/11/2023, 11/20/2022, Additional history exists Influenza for age 65+ Completed 08/27/2024 , 08/13/2023, 11/20/2022, Additional history exists Procedures Procedure Name Priority Date/Time Associated Diagnosis Comments SCAN-MRI INTERPRETATION 12/12/2024 12:00 AM CERTIFIED MEDICAL CODING SPECIALIST HEMOGLOBIN A1C MONITORING (POCT) Routine 11/12/2024 11:08 AM CERTIFIED MEDICAL CODING SPECIALIST Controlled type 2 diabetes mellitus with complication, without long-term current use of insulin (HC) URINE ALBUMIN TO CREATININE RATIO, RANDOM Routine 11/12/2024 11:04 AM CERTIFIED MEDICAL CODING SPECIALIST Controlled type 2 diabetes mellitus with complication, without long-term current use of insulin (HC) LIPID PANEL Routine 01/24/2024 9:48 AM CERTIFIED MEDICAL CODING SPECIALIST Dyslipidemia with low high density lipoprotein (HDL) cholesterol with hypertriglyceridemia due to type 2 diabetes mellitus (HC) US ABD AORTA SCREENING Routine 11/14/2022 10:05 AM CERTIFIED MEDICAL CODING SPECIALIST Encounter for screening for abdominal aortic aneurysm (AAA) in patient 50 years of age or older without other risk factors for AAA ANTI HCV Routine 10/19/2019 10:02 AM CERTIFIED MEDICAL CODING SPECIALIST Encounter for hepatitis C screening test for low risk patient SURGICAL PROCEDURE (TYPE PROCEDURE DESCRIPTION BELOW) Elective GHADA (obstructive sleep apnea) from Last 3 Months or Most Recently Relevant to Health Maintenance Results * SCAN-MRI INTERPRETATION (12/12/2024 12:00 AM CERTIFIED MEDICAL CODING SPECIALIST) Anatomical Region Laterality Modality Other us Scanner OTHER Final Result * (ABNORMAL) POCT Hemoglobin A1C Monitoring (11/12/2024 11:08 AM CERTIFIED MEDICAL CODING SPECIALIST) POC HEMOGLOBIN A1C 8.0(H) <6.0 % OF TOTAL HGB [facility] Comment: Any point of care results exhibiting inconsistency with the patient's clinical status should be repeated using a different testing method. Blood BLOOD SPECIMEN / Unknown 11/12/2024 11:08 AM CERTIFIED MEDICAL CODING SPECIALIST 11/12/2024 11:08 AM CERTIFIED MEDICAL CODING SPECIALIST us Mario White MD CHEMISTRY Final Resu lt [facility] [address] [place] [address], [facility] [address] [place] [address] * URINE ALBUMIN TO CREATININE RATIO, RANDOM (11/12/2024 11:04 AM CERTIFIED MEDICAL CODING SPECIALIST) ALB RAND URINE 33.2 mg/L 11/12/2024 5:31 PM CERTIFIED MEDICAL CODING SPECIALIST [facility] CREATININE,URIN E 1.55 g/L 11/12/2024 5:31 PM CERTIFIED MEDICAL CODING SPECIALIST [facility] ALBUMIN TO CREATININE RATIO,RAND UR 21.4 <30.0 mg/g creat 11/12/2024 5:[address] [facility] Urine URINE SPECIMEN / Unknown Non-Blood / Unknown 11/12/2024 11:04 AM CERTIFIED MEDICAL CODING SPECIALIST 11/12/2024 11:04 AM CERTIFIED MEDICAL CODING SPECIALIST [facility] - 11/12/2024 5:31 PM CERTIFIED MEDICAL CODING SPECIALIST If Albumin to Creatinine Ratio is elevated, consider the following: Elevations seen with incipient nephropathy associated with diabetes mellitus or hypertension. Stress, exercise,hematuria, and urinary tract infection may also produce elevated results. If clinically indicated, confirm with 24 Hour Albumin to Creatinine Ratio. us Mario White MD URINE Final Resu lt [facility] [address] [place] [address], * (ABNORMAL) LIPID PANEL (01/24/2024 9:48 AM CERTIFIED MEDICAL CODING SPECIALIST) CHOLESTEROL,TOTAL 121 100 - 199 mg/dL 01/24/2024 5:14 PM [facility] Comment: Cholesterol, Total Reference Ranges Desirable <200 mg/dL Borderline 200-239 mg/dL High >=240 mg/dL TRIGLYCERIDES 207(H) <150 mg/dL 01/24/2024 5:14 PM [facility] HDL CHOLESTEROL 36(L) >40 mg/dL 5:14 PM [facility] NON-HDL CHOLESTEROL 85 <145 mg/dl 01/24/2024 5:14 PM [facility] CHOL/HDL RATIO 3.36 <4.50 01/24/2024 5:14 PM CERTIFIED MEDICAL CODING SPECIALIST [facility] LDL CHOLESTEROL 44 <=130 mg/dL 01/24/2024 5:14 PM CERTIFIED MEDICAL CODING SPECIALIST [facility] VLDL CHOLESTEROL 41(H) <=30 mg/dL 01/24/2024 5:14 PM CERTIFIED MEDICAL CODING SPECIALIST [facility] PROVIDER ORDERED STATUS RANDOM 01/24/2024 5:14 PM CERTIFIED MEDICAL CODING SPECIALIST [facility] Blood BLOOD SPECIMEN / Unknown Venipuncture / Unknown 01/24/2024 9:48 AM CERTIFIED MEDICAL CODING SPECIALIST 01/24/2024 9:50 AM CERTIFIED MEDICAL CODING SPECIALIST us Mario White MD CHEMISTRY Final [facility]u [facility] [address] [place] [place] [address], [place] * US ABD AORTA SCREENING (11/14/2022 10:05 AM CERTIFIED MEDICAL CODING SPECIALIST) Anatomical Region Laterality Modality Abdomen, AORTA Ultrasound 11/14/2022 9:48 AM CERTIFIED MEDICAL CODING SPECIALIST Narrative 11/15/2022 1:14 PM CERTIFIED MEDICAL CODING SPECIALIST VASCULAR ULTRASOUND REPORT LUIS VELASQUEZ : 1950 Study Date: 11/14/2022 9:48:38 AM Age: 72 years Tech: JAG Gender: M Referring MD: BRYANT ALCANTARA Site: [facility] Study performed: Aorta, Iliac, (bilateral) Indication for study: AAA screening. TECHNIQUE: The abdominal aorta and iliac arteries were examined with duplex ultrasound, color-flow and spectral Doppler. Bypass grafts and/or stents if present are evaluated per exam protocol. Vessel size, peak systolic velocity (PSV) and velocity ratios if applicable, were obtained and documented at sites per exam protocol. IMPRESSION: 1. No evidence of abdominal aortic aneurysm. 2. No common iliac artery stenosis or aneurysm bilaterally. COMPARISON: No prior study available for comparison. FINDINGS: There is no evidence of abdominal aortic aneurysm. No common iliac artery stenosis or aneurysm bilaterally. MEASUREMENTS: + +--------+-------+ +---------+ TRV (cm) AP (cm) PSV (cm/s) Phasicity + +--------+-------+ +---------+ Suprarenal aorta 2.40 2.30 89 + +--------+-------+ +---------+ Juxtarenal aorta 2.20 2.20 93 + +--------+-------+ +---------+ Infrarenal aorta 1.50 1.50 95 + +--------+-------+ +---------+ Right common iliac 0.80 0.90 126 + +--------+-------+ +---------+ Left common iliac 0.90 1.00 131 + +--------+-------+ +---------+ Rehan Sadler MD. Electronically signed on 11/15/2022 1:14:24 PM This study was performed and interpreted by a service accredited by the Intersocietal Accreditation Commission (IAC/Vascular), www.[email or web address]/vascular Report generated by [employer]. Final Procedure Note Rehan Sadler MD - 11/15/2022 VASCULAR ULTRASOUND REPORT LUIS VELASQUEZ : 1950 Study Date: 11/14/2022 9:48:38 AM Age: 72 years Tech: JAG Gender: M Referring MD: BRYANT ALCANTARA Site: [facility] Study performed: Aorta, Iliac, (bilateral) Indication for study: AAA screening. TECHNIQUE: The abdominal aorta and iliac arteries were examined with duplexultrasound, color-flow and spectral Doppler. Bypass grafts and/or stentsif present are evaluated per exam protocol. Vessel size, peak systolicvelocity (PSV) and velocity ratios if applicable, were obtained anddocumented at sites per exam protocol. IMPRESSION: 1. No evidence of abdominal aortic aneurysm. 2. No common iliac artery stenosis or aneurysm bilaterally. COMPARISON: No prior study available for comparison. FINDINGS: There is no evidence of abdominal aortic aneurysm. No common iliac arterystenosis or aneurysm bilaterally. MEASUREMENTS: + +--------+-------+ +---------+ TRV (cm) AP (cm) PSV (cm/s) Phasicity + +--------+-------+ +---------+ Suprarenal aorta 2.40 2.30 89 + +--------+-------+ +---------+ Juxtarenal aorta 2.20 2.20 93 + +--------+-------+ +---------+ Infrarenal aorta 1.50 1.50 95 + +--------+-------+ +---------+ Right common iliac 0.80 0.90 126 + +--------+-------+ +---------+ Left common iliac 0.90 1.00 131 + +--------+-------+ +---------+ Rehan Sadler MD. Electronically signed on 11/15/2022 1:14:24 PM This study was performed and interpreted by a service accredited by theIntersocietal Accreditation Commission (IAC/Vascular),[email or web address] Report generated by [employer]. Final Byrant Alcantara MD Final Result * ANTI HCV (10/19/2019 10:02 AM CERTIFIED MEDICAL CODING SPECIALIST) HEPATITIS C ANTIBODY Non-React arleth Non-React arleth 10/19/2019 5:36 PM CERTIFIED MEDICAL CODING SPECIALIST [facility] Comment:Antibodies to HCV no t detected; does not exclude the possibility of exposure to HCV. Blood BLOOD SPECIMEN / Unknown Venipuncture / Unknown 10/19/2019 10:02 AM CERTIFIED MEDICAL CODING SPECIALIST 10/19/2019 10:02 AM CERTIFIED MEDICAL CODING SPECIALIST us Stefan Burton MD SEND OUTS Final Result [facility] [address] [place] [address], [place] from Last 3 Months or Most Recently Relevant to Health Maintenance Insurance MEDICARE PART A HB ONLY MEDICARE PART B HB ONLY [employer] [place] BLUE HB ONLY [employer] [place] [place] BLUE MR PB ONLY WORKERS COMP Advance Directives * Full Code (Latest Code Status on File) Date Activated Date Inactivated Comments 11/23/2021 1:35 PM 11/23/2021 10:40 PM Question Answer Comments Code Status Discussion: Discussed * Full Code Date Activated Date Inactivated Comments 12/11/2011 10:54 PM 12/13/2011 6:00 PM * Full Code Date Activated Date Inactivated Comments 12/11/2011 9:05 PM 12/11/2011 10:54 PM Care Teams Armor Reconnaissance Vehicle Driver Relationship Specialty Start Date End Date Mario White MD [address] [place] [address] PCP - General Family Practice 02/19/22 [place] [address] [place] [address] Consulting Physician Cardiovascular Disease 12/16/23
--- OUTSIDE RECORDS SUMMARY | 2024-12-20 16:09 | XMS_ITS | Clinical Summary ---
Author Organization [facility] [employer] [facility] Address [address] [address] Phone Care Team Providers Care Sales Engineer Engineered Products Name Role Phone Tomasz Singh MD Primary Care Provider Tomasz Singh MD Unavailable [phone] Allergies Active Allergy Reactions Criticality Noted Date Comments Morphine Constipation Low 09/09/2020 Medications atorvaSTATin (Lipitor) 40 MG tablet Take 40 mg by mouth one time a day. Active escitalopram (Lexapro) 20 MG tablet Take 20 mg by mouth one time a day. Active tamsulosin (Flomax) 0.4 MG 24 hour capsule Take 0.4 mg by mouth one time a day. Capsules should be swallowed whole; do not crush, chew, or open Active [place]-3 Fatty Acids (fish oil) 1000 MG CAPSULE DELAYED RELEASE Take 1,000 mg by mouth one time a day. Active Multiple Vitamins-Minera ls (One-A-Day Mens 50+ Advantage) Tablet Take 1 Tablet by mouth one time a day. Active dilTIAZem CD (Cardizem CD) 180 MG 24 hour extended release capsule Take 1 Capsule by mouth one time a day. Do not open, chew, or crush; swallow whole. 2 Active traZODone (Desyrel) 50 MG tablet Take 1 Tablet by mouth at bedtime. 30 Tablet 2 Active fluticasone propionate (Flonase) 50 MCG/ACT nasal spray Place 2 Sprays into both nostrils one time a day. Shake gently before each use; alternate nostrils with each spray. 15.8 mL 2 Active Metamucil Fiber Tablet Chewable Take by mouth. 2 Active aspirin (Aspirin 81) 81 MG chewable tablet Chew and swallow 81 mg one time a day. Take with food. Active metFORMIN-XR (Glucophage-XR) 500 MG 24 hour tablet Take 500 mg by mouth two times a day with meals. Swallow tablet whole; do not crush, divide or chew. Active omeprazole (PriLOSEC) 40 MG delayed-release capsule Take 40 mg by mouth one time a day. Take before meals. Do not crush. Active primidone (Mysoline) 50 MG tablet Take 50 mg by mouth at bedtime. Active vitamin D, cholecalciferol , 10 mcg (400 Units) tablet Take 400 Units by mouth one time a day. 1 unit of Vitamin D equals 0.025 mcg of Vitamin D Active polyvinyl alcohol-povidon e PF (Refresh) 1.4-0.6 % Solution Place 1 Drop into both eyes every hour as needed for Dry Eyes. Active Active Problems Problem Noted Date Diagnosed Date Small bowel obstruction 02/03/2024 H/O non-insulin dependent diabetes mellitus 0 03/2024 Hypertension 02/03/2024 GHADA (obstructive sleep apnea) 02/03/2024 GERD (gastroesophageal reflux disease) CAD (coronary artery disease) with prior stent 0 02/03/2024 Immunizations Name Administration Dates Next Due COVID-19 mRNA Vaccine (Moderna - 18+ Yrs) 2020 Hib PRP OMP (PedvaxHib) 05/02/2012,04/15/2012 Influenza High Dose Quadrivalent 09/30/2020 Influenza Quad Preservative Free 09/13/2014 Influenza Trivalent Preservative Free (High Dose ) 09/25/2016 Influenza Trivalent With Preservative 08/31/2013 ,09/22/2012 Meningococcal MPSV4 (Menomune) 05/02/2012,2011 Pneumococcal Conjugate, (Prevnar)13-valent 09/25 Pneumovax 23 05/02/2012,04/15/2012 TD >7yrs With Preservative 12/19/2004 Tdap (7 years and older) 04/14/2012 Zoster Zostavax (Shingles) 02/29/2012 Social History Tobacco Use Types Packs/Day Years Used Date Smoking Tobacco: Former Smokeless Tobacco: Never PHQ-2 Answer Date Recorded PHQ-2 Total 0 03/16/2022 Hunger Vital Sign Answer Date Recorded Within the past 12 months, y ou worried that your food would run out before you got the money to buy more. Never true 02/03/20 24 Within the past 12 months, t he food you bought just didn't last and you didn't have money to get more. Never true 02/03/2024 PRAPARE - Transportation Answer Date Re corded In the past 12 months, has l ack of transportation kept you from medical appointments or from getting medications? No 03/2024 In the past 12 months, has l ack of transportation kept you from meetings, work, or from getting things needed for daily living? No 02/03/2024 EH IP Custom Utilities Answer Date Pete rded Retired - How hard is it for you to pay for utilities like heat, water, and electricity? Not hard at all 02/03/2024 EH IP Housing Domain Answer Date Record ed Retired - What is your livin g situation today? I have a steady place to live 02/03/2024 EH IP Custom IPV Answer Date Recorded Do you feel UNSAFE in any of your personal relationships with your family members or any other acquaintances? No 2023 Sex and Gender Information Value Date Recorded Sex Assigned at Not on file Legal Sex Male 8:05 PM HYDRATE THICKENER OPERATOR Gender Identity Not on file Sexual Orientation Not on file Obstetrics History Last Filed Vital Signs Vital Sign Reading Time Taken Comments Blood Pressure 141/60 02/06/2024 1:06 PM HYDRATE THICKENER OPERATOR Pulse 70 02/06/2024 1:06 PM HYDRATE THICKENER OPERATOR Temperature 37 C (98.6 F) 02/06/2024 1:06 PM HYDRATE THICKENER OPERATOR Respiratory Rate 16 02/06/2024 1:06 PM HYDRATE THICKENER OPERATOR Oxygen Saturation 90% 02/06/2024 1:06 PM HYDRATE THICKENER OPERATOR Inhaled Oxygen Concentration - - Weight 91.2 kg (201 lb 1 oz) 02/06/2024 4:17 AM HYDRATE THICKENER OPERATOR Height 177.8 cm (5' 10) 02/02/2024 8:37 PM HYDRATE THICKENER OPERATOR Body Mass Index 28.85 02/02/2024 8:37 PM HYDRATE THICKENER OPERATOR Plan of Treatment Health Maintenance Due Date Last Done Comments CT Colonography 1950 Cologuard 1950 Colonoscopy 1950 Colorectal Cancer Screening 1950 FIT/FOBT 1950 MEDICARE AWV 1950 Sigmoidoscopy 1950 VASCULAR LIPID PROFILE Q5 YEARS (Standing Order) 1968 RSV Vaccination (60+ yrs) (Abrysvo/Arexvy) (1 - Risk 60-74 years 1-dose series) 2010 Shingrix (Zoster recombinant) vaccine (Standing Order) (1 of 2) 04/25/2012 Pneumococcal Vaccine: 65+ yrs (Standing Order) (3 of 3 - PPSV23 or PCV20) 09/25/2021 09/25/2016, 05/02/2012, 04/15/2012 TETANUS (Standing Order) 04/14/2022 04/14/2012, 12/02 COVID-19 Vaccine ( - season) 2024 01/16/2021 Influenza Vaccine Seasonal (Standing Order) (#1) 2024 09/30/2020, 09/25/2016, 09/13/2014, Additional history exists PERTUSSIS (Standing Order) Completed 04/14/2012 HPV Vaccine (Standing Order) Aged Out No longer eligible based on patient's age to complete this topic Hepatitis B Vaccine (Standing Order) Aged Out No longer eligible based on patient's age to complete this topic Insurance [place] BLUE/VANTAGE BLUE MEDICARE COST PART A&B [place] BLUE/VANTAGE BLUE MEDICARE COST PART A&B Advance Directives For more information, please contact: [phone] * Full Code (Latest Code Status on File) Date Activated Date Inactivated Comments 02/03/2024 12:53 AM 02/06/2024 5:20 PM Care Teams Sales Engineer Engineered Products Relationship Specialty Start Date End Date Tomasz Singh MD [facility] [address] [place] [phone] PCP - General Family Medicine 03/13/21 Tomasz Singh MD [facility] [address] [place] [phone] Family Medicine 03/13/21
[2024-12-20 16:10] LABS: Anion Gap 7 mEq/L (7-15); Aspartate Amino Transferase* 28 U/L (12-35); Bilirubin Total* 0.8 mg/dL (0.1-1.5); Carbon Dioxide* 29 mmol/L (20-32); Creatinine* 0.9 mg/dL (0.5-1.5); Estimated Glomerular Filt Rate 90 ml/min
--- OUTSIDE RECORDS SUMMARY | 2024-12-20 16:10 | XMS_ITS | Clinical Summary ---
Author Organization [facility] Address [address] [place] [address] Care Team Providers Care Medical Sociologist Name Role Phone Mario White MD Primary Care Provider [phone] Source Comments You are receiving this document as you are listed as the primary care provider,follow-up provider, or the patient has been referred to you for consultation.This is in compliance with the Medicare andOhio[facility] Hospitalca[facility] EHR Incentive Program,which states Providers who transition their patient to another setting of careor provider of care or refers their patient to another provider of care shouldprovide summary care record for each transition of care or referral. Critical access hospital Allergies Active Allergy Reactions Criticality Noted Date Comments Morphine Muscle Aches/Weakness 05/29/2012 Medications Medication Sig Dispensed Refills Start Date End Date Status acetaminophen (AKA TYLENOL EXTRA STRENGTH) 500 MG tablet Take 2 Tabs by mouth three times a day. 180 Tab 1 05/20/2012 Active senna (SENOKOT) 8.6 MG tabletIndication s:Constipation Take 1 Tablet by mouth two times a day. Take while on narcotics. Hold for loose stools. Indications: Constipation 30 Tablet 01/27/2020 Active oxyCODONE (ROXICODONE) 5 MG immediate release tablet Take 1-2 Tablets by mouth every 4 hours as needed for Pain. Take 1 tablet for pain rated at 4-7. Take 2 tablets for pain rated 8-10. 25 Tablet 01/27/2020 Active metoprolol tartrate (LOPRESSOR) 50 MG tabletIndication s:Hypertension Take 25 mg by mouth two times a day. Indications: High Blood Pressure Disorder Active omeprazole (PRILOSEC) 20 MG capsuleIndicatio ns:Gastroesophag eal Reflux Disease Take 20 mg by mouth daily. Take 1 hour before a meal. Indications: Gastroesophageal Reflux Disease Active atorvastatin (LIPITOR) 40 MG tabletIndication s:Hyperlipidemia Take 20 mg by mouth daily. Indications: High Amount of Fats in the Blood Active escitalopram oxalate (LEXAPRO) 20 MG tabletIndication s:Mood Take 20 mg by mouth daily. Indications: Mood Active polyethylene glycol (MIRALAX) packet Take 1 Packet by mouth daily as needed for Constipation. 7 Each 01/29/2020 Active Active Problems Problem Noted Date Diagnosed Date S/P hardware removal 01/27/2020 Overview (01/27/2020): S/p Removal of Left Tibial IMN for concerns of possible deep infection/osteomyelitis. Performed by [facility]raya at [facility]. 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 Chronic GERD 06/28/2016 Lung nodules 06/28/2016 Chronic knee pain 10/13/2014 Other complications due to o ther internal orthopedic device, implant, and graft 08/19/2013 Allergic rhinitis 09/22/2012 Spleen absent 09/22/2012 Wears hearing aid 09/22/2012 Overview (01/27/2020): Left side only Delayed union of fracture 09/11/2012 Postoperative heterotopic calcification 09/11/20 12 Closed fracture of middle or proximal phalanx or phalanges of hand 07/04/2012 Coronary atherosclerosis 02/29/2012 Overview (01/27/2020): Stent at [facility] 12/2011 Anxiety state 01/09/2010 Immunizations Name Administration Dates Next Due Hib (PedvaxHIB) 05/02/2012 Influenza, Unspecified Formulation 09/15/2012 MPSV4 (Menomune) 05/02/2012 PPSV23 (Pneumovax) 05/02/2012 Social History Tobacco Use Types Packs/Day Years Used Date Smoking Tobacco: Former Cigarettes 3 15 0 12/02/1965 - 12/02/1980 Smokeless Tobacco: Never Alcohol Use Standard Drinks/Week Comments No 0 (1 standard drink = 0.6 oz pur e alcohol) Sex and Gender Information Value Date Recorded Sex Assigned at Not on file Gender Identity Not on file Sexual Orientation Not on file Last Filed Vital Signs Vital Sign Reading Time Taken Comments Blood Pressure 135/71 01/29/2020 6:36 AM SLIVER CUTTER Pulse 78 01/29/2020 6:36 AM SLIVER CUTTER Temperature 37.2 C (99 F) 01/29/2020 6:36 AM SLIVER CUTTER Respiratory Rate 18 01/29/2020 6:36 AM SLIVER CUTTER Oxygen Saturation 99% 01/29/2020 6:36 AM SLIVER CUTTER Inhaled Oxygen Concentration - - Weight 97.5 kg (214 lb 14.4 oz) 01/27/2020 8:21 AM SLIVER CUTTER Height 172.7 cm (5' 8) 01/27/2020 8:21 AM SLIVER CUTTER Body Mass Index 32.68 01/27/2020 8:21 AM SLIVER CUTTER Plan of Treatment Health Maintenance Due Date Last Done Comments Colon Cancer Screening Plan Due 1950 Diabetes: Eye Exam 1950 Diabetes: Foot Exam 1950 Diabetes: Lipid Panel 1950 Hep C Screening (Preventive Services) 1950 Medicare Annual Wellness Visit 1950 Meningococcal B (1 of 4 - Increased Risk) 1960 Zoster/Shingles (2 of 3) 04/25/2012 02/29/2012 MCV4 (1 - Risk start 2-23 months series) 06/27/2012 05/02/2012, 04/15/2012 Diabetes: Urine Microalbumin 11/19/2013 11/19/2012 Diabetes: Creatinine 11/20/2013 11/20/2012, 11/14/2012, 05/08/2012, Additional history exists Pneumococcal 65+ Yrs (4 - PPSV23 or PCV20) 09/25/2017 09/25/2016, 05/02/2012, 04/15/2012 Diabetes: HGBA1C 10/19/2020 04/18/2020, , 10/19/2019, Additional history exists COVID-19 Vaccine (2 - 2023- season) 2024 01/16/2021 Influenza (#1) 2024 09/30/2020, 09/02, 09/13/2014, Additional history exists RSV (1 - 1-dose 75+ series) 2025 DTaP/Tdap/Td (3 - Tdap) 03/14/2031 03/14/20, 04/14/2012, 12/19/2004 Hib Completed 05/02/2012, 04/15/2012 HepA Aged Out No longer eligi ble based on patient's age to complete this topic HepB Aged Out No longer eligi ble based on patient's age to complete this topic IPV (Polio) Aged Out No longer eligi ble based on patient's age to complete this topic Medical Devices Implanted Type Area Street Sweeper Device Identifier Shelf Expiration Date Model / Serial / Lot Meli Bar[address] dr 5.0x175 - [id number] Implanted:Qty: 4 on 04/14/2012 by Daniel Hurtado MD at [facility] DEVICE TIBIA MID[place]FT [employer] [id number] / / Nail Tib Ti [address] 10.0x330 - [id number] Implanted:Qty: 1 on 04/21/2012 by Daniel Hurtado MD at [facility] DEVICE Left: TIBIA [place]FT [employer] 01/02/2021 [id number] S / / [id number] Scr Lk Ti T25 5.0x36 - [id number] Implanted:Qty: 1 on 04/21/2012 by Daniel Hurtado MD at [facility] DEVICE Left: TIBIA PROXIMAL [employer] 12/02/2020 04.005.526 / / [id number] Scr Lk Ti T25 5.0x40 - [id number] Implanted:Qty: 1 on 04/21/2012 at [facility] DEVICE Left: TIBIA DISTAL [employer] 12/02/2020 04.005.530 / / [id number] Scr Lk Ti T25 5.0x44 - [id number] Implanted:Qty: 1 on 04/21/2012 by Daniel Hurtado MD at [facility] DEVICE Left: TIBIA PROXIMAL [employer] 12/02/2020 04.005.534 / / [id number] Scr Lk Ti T25 5.0x32 - [id number] Implanted:Qty: 1 on 04/21/2012 by Daniel Hurtado MD at [facility] DEVICE Left: TIBIA DISTAL [employer] 01/02/2021 04.005.522 / / [id number] Scr Lk T2 5.0x40 F-Thrd - [id number] Implanted:Qty: 1 on 11/19/2012 by Byron Tena MD at [facility] DEVICE TIBIA DISTAL [place] 10/01/2017 [id number] / / [id number] Nail Tib T2 [id number] - [id number] Implanted:Qty: 1 on 11/19/2012 by Byron Tena MD at [facility] DEVICE Left: TIBIA MIDSHAFT [place] 05/31/2017 [id number] / / [id number] Scr Lk T2 5.0x42.5 F-Thrd - [id number] Implanted:Qty: 1 on 11/19/2012 by Byron Tena MD at [facility] DEVICE Left: TIBIA PROXIMAL [place] 10/01/2017 [id number] / / [id number] End Cap T2 +10mm - [id number] Implanted:Qty: 1 on 11/19/2012 by Byron Tena MD at [facility] DEVICE Left: TIBIA PROXIMAL [place] 05/31/2017 [id number] / / [id number] Procedures Procedure Name Priority Date/Time Associated Diagnosis Comments HGB A1C Routine 01/28/2020 11:07 AM SLIVER CUTTER BASIC METABOLIC PANEL Routine 11/20/2012 7:14 AM SLIVER CUTTER CREATININE, UR 24 HR Routine 11/19/2012 6:13 AM SLIVER CUTTER from Last 3 Months or Most Recently Relevant to Health Maintenance Results * (ABNORMAL) Hemoglobin A1C Glycosylated (01/28/2020 11:07 AM SLIVER CUTTER) Hemoglobin A1C 7.2(H) <=5.6 % 01/28/2020 1:56 PM SLIVER CUTTER [facility] Blood Venipuncture Butterfly / Unknown 01/28/2020 11:07 AM SLIVER CUTTER 01/28/2020 11:11 AM SLIVER CUTTER Narrative [facility] - 01/28/2020 1:56 PM SLIVER CUTTER For patients not previously diagnosed with diabetes: 5.7-6.4%: Increased risk for diabetes 6.5% and greater: Diagnostic for diabetes For patients diagnosed with diabetes: <8.0%: Goal of therapy for ages 18-75 Clinicians may recommend a higher or lower goal for specific individuals. Daniela Aguiar APRN, STAFF COMMAND AND CONTROL OFFICER LAB_1 [facility] [address] [place] [address] * (ABNORMAL) Basic Metabolic Panel (K, Na, CO2, Cl, Gluc, BUN, Creat, Ca) (Chem 8) POD # (11/20/2012 7:14 AM SLIVER CUTTER) Pathologist [facility] BUN 14 7 - 20 mg/dl [facility] Sodium 131(L) 135 - 145 mmol/L [facility] Potassium 4.1 3.5 - 5.3 mmol/L [facility] Chloride 95 95 - 106 mmol/L [facility] CO2 30 22 - 30 mmol/L [facility] Glucose 110 70 - 180 mg/dl [facility] Creatinine 0.97 0.66 - 1.25 mg/dl [facility] GFR, Estimated >60.0 >60 ml/min/1.7 3m2 [facility] GFR, Est., If Black >60.0 >60 ml/min/1.7 3m2 [facility] Calcium 8.4 8.4 - 10.2 mg/dl [facility] Anion Gap (calc.) 6(L) 7 - 16 mmol/L [facility] 11/20/2012 7:14 AM SLIVER CUTTER 11/20/2012 7:15 AM SLIVER CUTTER Citlali Lazcano APRN, STAFF COMMAND AND CONTROL OFFICER LAB_[address] [address] * (ABNORMAL) CREATININE, UR 24 HR (11/19/2012 6:13 AM SLIVER CUTTER) Creatinine, Urine, 24 Hours 694(L) 1000 - 2000 mg/24 hr [facility] Total Volume, 24 hr 2525 ml [facility] 11/19/2012 6:13 AM SLIVER CUTTER 11/19/2012 7:18 AM SLIVER CUTTER Byron Tena MD LAB_1 [facility] [address] [place] [address] from Last 3 Months or Most Recently Relevant to Health Maintenance Advance Directives * Full Code (Latest Code Status on File) Date Activated Date Inactivated Comments 01/27/2020 2:30 PM 01/29/2020 5:02 PM * Full Code Date Activated Date Inactivated Comments 09/03/2013 5:22 AM 09/03/2013 1:11 PM * Full Code Date Activated Date Inactivated Comments 11/19/2012 10:05 AM 11/21/2012 5:07 PM * Full Code Date Activated Date Inactivated Comments 11/19/2012 5:27 AM 11/19/2012 10:05 AM * Full Code Date Activated Date Inactivated Comments 05/07/2012 2:54 PM 2012 1:21 PM Care Teams Medical Sociologist Relationship Specialty Start Date End Date Mario White MD [address] [place] [address] PCP - General Family Practice 09/22/14
--- OUTSIDE RECORDS SUMMARY | 2024-12-20 16:10 | XMS_ITS | Encounter Summary ---
Author Organization [facility] Address [address] [place] [address] Care Team Providers Care Rental Salesperson Name Role Phone Mario White MD Primary Care Provider [phone] Encounter Details Date Type Department Care Team (Late st Contact Info) Description 04/19/2012 Consent for Procedure/Treatme nt [facility] INFORMED CONSENT RECORD Social History Tobacco Use Types Packs/Day Years Used Date Smoking Tobacco: Never Assessed Sex and Gender Information Value Date Recorded Sex Assigned at Not on file Gender Identity Not on file Sexual Orientation Not on file documented as of this encounter Progress Notes * [facility] PROVIDER - 04/19/2012 12:00 AM CDT documented in this encounter Plan of Treatment Not on file documented as of this encounter Visit Diagnoses Not on filedocumented in this encounter Care Teams Rental Salesperson Relationship Specialty Start Date End Date Mario White MD [address] [place] [address] PCP - General Family Practice 09/22/14 documented as of this encounter
--- OUTSIDE RECORDS SUMMARY | 2024-12-20 16:10 | XMS_ITS | Encounter Summary ---
Author Organization [facility] Address [address] [place] [address] Care Team Providers Care Family And Consumer Sciences Teacher Name Role Phone Mario White MD Primary Care Provider [phone] Encounter Details Date Type Department Care Team (Late st Contact Info) Description 08/19/2013 Consent for Procedure/Treatme nt [facility] INFORMED CONSENT RECORD Social History Tobacco Use Types Packs/Day Years Used Date Smoking Tobacco: Former Cigarettes 3 15 0 12/02/1965 - 12/02/1980 Smokeless Tobacco: Never Alcohol Use Standard Drinks/Week Comments Not Asked 0 (1 standard drink = 0.6 oz pur e alcohol) Sex and Gender Information Value Date Recorded Sex Assigned at Not on file Gender Identity Not on file Sexual Orientation Not on file documented as of this encounter Progress Notes * [facility], PROVIDER - 08/19/2013 12:00 AM CDT documented in this encounter Plan of Treatment Not on file documented as of this encounter Visit Diagnoses Not on filedocumented in this encounter Care Teams Family And Consumer Sciences Teacher Relationship Specialty Start Date End Date Mario White MD [address] [place] [address] PCP - General Family Practice 09/22/14 documented as of this encounter
--- OUTSIDE RECORDS SUMMARY | 2024-12-20 16:10 | XMS_ITS | Encounter Summary ---
Author Organization [facility] [address] [place] [address] Care Team Providers Care Lead Engineer Name Role Phone Mario White MD Primary Care Provider [phone] Encounter Details Date Type Department Care Team (Late st Contact Info) Description 12/14/2012 Correspondence [facility] [address] [place] [address] Citlali Brower APRN, CNP [address] [place] [address] FMLA Social History Tobacco Use Types Packs/Day Years [...] as of this encounter Progress Notes * Citlali Deras APRN, CNP - 12/14/2012 12:00 AM CST documented in this encounter Plan of Treatment Not on file documented as of this encounter Visit Diagnoses Not on filedocumented in this encounter Care Teams Lead Engineer Relationship Specialty Start Date End Date Mario White MD [address] [place] [address] PCP - General Family Practice 09/22/14 documented as of this encounter
--- OUTSIDE RECORDS SUMMARY | 2024-12-20 16:10 | XMS_ITS | Encounter Summary ---
Author Organization [facility] Address [address], [place] [address] Care Team Providers Care Brake Drum Lathe Operator Name Role Phone Mario White MD Primary Care Provider [phone] Encounter Details Date Type Department Care Team (Late st Contact Info) Description 07/17/2012 Correspondence [facility] Physical Medicine [address] [place] [address] Jeff Gastelum MD [address] [place] [address] REHAB REFERRAL TREATMENT Social History Tobacco Use Types Packs/Day Years [...] as of this encounter Progress Notes * Jeff Gastelum MD - 07/17/2012 12:00 AM CDT documented in this encounter Plan of Treatment Not on file documented as of this encounter Visit Diagnoses Not on filedocumented in this encounter Care Teams Brake Drum Lathe Operator Relationship Specialty Start Date End Date Mario White MD [address] [place] [id number] PCP - General Family Practice 09/22/14 documented as of this encounter
--- OUTSIDE RECORDS SUMMARY | 2024-12-20 16:10 | XMS_ITS | Encounter Summary ---
Author Organization [facility] Address [address] [place] [address] Care Team Providers Care Telegraph Mechanic Name Role Phone Mario White MD Primary Care Provider [phone] Encounter Details Date Type Department Care Team (Late st Contact Info) Description 06/30/2012 Correspondence [facility] 401 Physical Medicine 401 [facility] [place] [address] Jeff Gastelum MD [address] [place] [address] [facility] Social History Tobacco Use Types Packs/Day Years [...] Progress Notes * Jeff Gastelum MD - 06/30/2012 12:00 AM CDT documented in this encounter Plan of Treatment Not on file documented as of this encounter Visit Diagnoses Not on filedocumented in this encounter Care Teams Telegraph Mechanic Relationship Specialty Start Date End Date Mario White MD [address] [place] [address] PCP - General Family Practice 09/22/14 documented as of this encounter
--- OUTSIDE RECORDS SUMMARY | 2024-12-20 16:10 | XMS_ITS | Encounter Summary ---
Author Organization [facility] Address [address] [place] [address] Care Team Providers Care Manager Assurance Name Role Phone Mario White MD Primary Care Provider [phone] Encounter Details Date Type Department Care Team (Late st Contact Info) Description 06/18/2012 Scanned History External to External, [place] [address] [facility] SUMMARY ASSESSMENT Social History Tobacco Use Types Packs/Day Years [...] as of this encounter Progress Notes * External, Provider - 06/18/2012 12:00 AM CDT documented in this encounter Plan of Treatment Not on file documented as of this encounter Visit Diagnoses Not on filedocumented in this encounter Care Teams Manager Assurance Relationship Specialty Start Date End Date Mario White MD [address] [place] [address] PCP - General Family Practice 09/22/14 documented as of this encounter
--- OUTSIDE RECORDS SUMMARY | 2024-12-20 16:10 | XMS_ITS | Encounter Summary ---
Author Organization [facility] Address [address] [place] [address] Care Team Providers Care Electric Motor Rebuilder Name Role Phone aMrio White MD Primary Care Provider [phone] Encounter Details Date Type Department Care Team (Late st Contact Info) Description 11/14/2012 Consent for Procedure/Treatme nt [facility] INFORMED [...] as of this encounter Progress Notes * [facility], PROVIDER - 11/14/2012 12:00 AM CST [employer] documented in this encounter Plan of Treatment Not on file documented as of this encounter Visit Diagnoses Not on filedocumented in this encounter Care Teams Electric Motor Rebuilder Relationship Specialty Start Date End Date Mario White MD [address] [place] [address] PCP - General Family Practice 09/22/14 documented as of this encounter
--- OUTSIDE RECORDS SUMMARY | 2024-12-20 16:10 | XMS_ITS | Encounter Summary ---
[facility] Address [address] [place] [address] Care Team Providers Care Sheet Turner Name Role Phone Mario White MD Primary Care Provider [phone] Encounter Details Date Type Department Care Team (Late st Contact Info) Description 05/27/2012 [facility] 401 Physical Medicine [address] [facility] [place] [address] Jeff Gastelum MD [address] [place] [address] SURGICAL DRESSING PRESCRIPTION Social History Tobacco Use Types Packs/Day Years Used Date Smoking Tobacco: Never Assessed Sex and Gender Information Value Date Recorded Sex Assigned at Not on file Gender Identity Not on file Sexual Orientation Not on file documented as of this encounter Progress Notes * Jeff Gastelum MD - 05/27/2012 12:00 AM CDT documented in this encounter Plan of Treatment Not on file documented as of this encounter Visit Diagnoses Not on filedocumented in this encounter Care Teams Sheet Turner Relationship Specialty Start Date End Date Mario White MD [address] [place] [address] PCP - General Family Practice 09/22/14 documented as of this encounter
--- OUTSIDE RECORDS SUMMARY | 2024-12-20 16:10 | XMS_ITS | Encounter Summary ---
Author Organization [facility] Address [address] [place] [address] Care Team Providers Care Manager Of Business Operations Name Role Phone Mario White MD Primary Care Provider [phone] Encounter Details Date Type Department Care Team (Late st Contact Info) Description 04/16/2012 Consent for Procedure/Treatme nt [facility] INFORMED CONSENT RECORD Social History Tobacco Use Types Packs/Day Years Used Date Smoking Tobacco: Never Assessed Sex and Gender Information Value Date Recorded Sex Assigned at Not on file Gender Identity Not on file Sexual Orientation Not on file documented as of this encounter Progress Notes * [facility], PROVIDER - 04/16/2012 12:00 AM CDT documented in this encounter Plan of Treatment Not on file documented as of this encounter Visit Diagnoses Not on filedocumented in this encounter Care Teams Manager Of Business Operations Relationship Specialty Start Date End Date Mario White MD [address] [place] [address] PCP - General Family Practice 09/22/14 documented as of this encounter
--- OUTSIDE RECORDS SUMMARY | 2024-12-20 16:10 | XMS_ITS | Encounter Summary ---
Author Organization [facility] [address] [place] [address] Care Team Providers Care Assembler Dc Field Ring Name Role Phone Mario White MD Primary Care Provider [phone] Encounter Details Date Type Department Care Team (Late st Contact Info) Description 04/15/2012 Correspondence [facility] [address] [place] [address] Juan Jose Gill [address] [place] [address] ORTHO EQUIPMENT LIST Social History Tobacco Use Types Packs/Day Years Used Date Smoking Tobacco: Never Assessed Sex and Gender Information Value Date Recorded Sex Assigned at Not on file Gender Identity Not on file Sexual Orientation Not on file documented as of this encounter Progress Notes * Juan Jose Gill - 04/15/2012 12:00 AM CDT documented in this encounter Plan of Treatment Not on file documented as of this encounter Visit Diagnoses Not on filedocumented in this encounter Care Teams Assembler Dc Field Ring Relationship Specialty Start Date End Date Mario White MD [address] [place] [address] PCP - General Family Practice 09/22/14 documented as of this encounter
--- OUTSIDE RECORDS SUMMARY | 2024-12-20 16:10 | XMS_ITS | Encounter Summary ---
Author Organization [facility] Address [address] [place] [address] Care Team Providers Care Enterprise Sales Executive Name Role Phone Mario White MD Primary Care Provider [phone] Encounter Details Date Type Department Care Team (Late st Contact Info) Description 06/30/2012 [facility] 401 Physical Medicine 401 [facility]. [place], [place] [id number] Jeff Gastelum MD [address] [place] [address] [facility] Social History Tobacco Use Types [...] on filedocumented in this encounter Care Teams Enterprise Sales Executive Relationship Specialty Start Date End Date Mario White MD [address] [place] [address] PCP - General Family Practice 09/22/14 documented as of this encounter
[2024-12-20 16:11] LABS: Alanine Aminotransferase* 37 U/L (4-50); Alkaline Phosphatase* 87 U/L (40-150); Blood Urea Nitrogen* 11 mg/dL (7-30); Calcium* 9.3 mg/dL (8.4-10.6); Glucose* 184 mg/dL (60-115); Total Protein* 6.9 g/dL (6.0-8.3)
--- OUTSIDE RECORDS SUMMARY | 2024-12-20 16:11 | XMS_ITS | Continuity of Care Document ---
Author Organization [facility] Address [address] [place] [address] Phone Care Team Providers Care Process Safety Specialist Name Role Phone Newton Lara Unavailable Unavailable Allergies, Adverse Reactions, Alerts Substance Reaction Status Criticality morphine Difficulty breathing Active No Info rmation Medications Medication Instructions Dosage Effective Dates (start - stop) Status Comments ALBUTEROL SULFATE (unknown strength) Not Available - Active ASPIRIN (unknown strength) Not Available - Active ATORVASTATIN CALCIUM (unknown strength) Not Available - Active FLONASE SENSIMIST (unknown strength) Not Available - Active METFORMIN HCL (unknown strength) Not Available - Active NITROGLYCERIN (unknown strength) Not Available - Active AMOXICILLIN (unknown strength) Not Available - Active CETIRIZINE HCL (unknown strength) Not Available - Active CARDIZEM (unknown strength) Not Available - Active ESCITALOPRAM OXALATE (unknown strength) Not Available - Active MULTIVITAMINS (unknown strength) Not Available - Active METHYLPREDNISOLONE (unknown strength) Not Available - Active OMEPRAZOLE (unknown strength) Not Available - Active TAMSULOSIN HCL (unknown strength) Not Available - Active PRIMIDONE (unknown strength) Not Available - Active TRAZODONE HCL (unknown strength) Not Available - Active TRIAMCINOLONE ACETONIDE (unknown strength) Not Available - Active Procedures Procedure Date Office/Outpatient Visit,Est, Mod 2023 Office/Outpatient Visit,New, Mod 2023 Advance Directives Directive Yes / No Effective Date File Name No Information Encounters Encounter Description Practice Location Reason(s) For Visit Diagnoses Date Provider Providers Copied on Encounter Office/Outpati ent Visit,Est, Mod [facility], [address], [place], [id number], tel:[phone] [facility], cervical region Art Newton. [facility] [place], [address], [place], [place], [id number], . tel:[phone] Referring Provider: Mario Patel, [facility] [address] [facility], [place], [address]. tel:[phone] Office/Outpati ent Visit,[facility], [address], [place], [place], [id number], tel:[phone] [facility] Sp[facility], cervical region [place] Newton. [facility], [address], [place], [place], [id number], . tel:[phone] Referring Provider: Mario Patel, [facility] [address] [place], [address]. tel:[phone] Family History Family Member Type Diagnosis Age At Onset Brother Problem (finding) Cancer, unknown type Brother Problem (finding) Diabetes mellitus Sister Problem (finding) Cancer, unknown type Mother Problem (finding) Cancer, unknown type Father Problem (finding) Cardiovascular disease Payers Payer name Insurance type Covered democrat [id number] [id number] [facility] Social History Type Description Quantity Date Captured Comments Alcohol Use Details Unknown Caffeine Use Details Unknown Tobacco Use Status No Information Smoking Status Former smoker Smoking Tobacco Use Details Cigarette: No Details Available [place]: No Details Available Cigarette: No Details Available [place]: No Details Available Sex Male Vital Signs Date / Time: Height Weight BMI Pulse Rate Blood Pressure Temperature Respiratory Rate Body Surface Area Head Circumference Head Circ. Percentile Wt./Fran. Percentile BMI percentile Pulse Ox Inhaled Ox 9:59 AM 70.00 in 91.444 kg (201.60 lbs) 28.9 3 kg/m eter (2) Chief Complaint And Reason For Visit No Information Reason For Referral Reason For Referral No Information History Of Present Illness Encounter Date Complaint History Of Prese nt Illness No Information Functional Status Date Functional Assessmen t No Information Instructions Date Instruction Additional Infor mation No Information Assessments Type Assessment Date assessment Spinal stenosis, cervical region Patient Care Teams Name Effective Dates (start - stop) Status Members No Information
--- OUTSIDE RECORDS SUMMARY | 2024-12-20 16:11 | XMS_ITS | Encounter Summary ---
Author Organization [facility] Address [address] [place] [address] Care Team Providers Care Developer Prover Mechanical Name Role Phone Mario White MD Primary Care Provider [phone] Encounter Details Date Type Department Care Team (Late st Contact Info) Description 04/14/2012 Consent for Procedure/Treatme nt [facility] INFORMED CONSENT RECORD Social History Tobacco Use Types Packs/Day Years Used Date Smoking Tobacco: Never Assessed Sex and Gender Information Value Date Recorded Sex Assigned at Not on file Gender Identity Not on file Sexual Orientation Not on file documented as of this encounter Progress Notes * [facility], PROVIDER - 04/15/2012 12:00 AM CDT * [facility], PROVIDER - 04/14/2012 12:00 AM CDT documented in this encounter Plan of Treatment Not on file documented as of this encounter Visit Diagnoses Not on filedocumented in this encounter Care Teams Developer Prover Mechanical Relationship Specialty Start Date End Date Mario [place] [address] PCP - General Family Practice 09/22/14 documented as of this encounter
--- OUTSIDE RECORDS SUMMARY | 2024-12-20 16:11 | XMS_ITS | Encounter Summary ---
Author Organization [facility] Address [address] [place] [address] Care Team Providers Care Station Mechanic Apprentice Name Role Phone Mario White MD Primary Care Provider [phone] Encounter Details Date Type Department Care Team (Late st Contact Info) Description 04/14/2012 Outside Hospital External to External, Provider No address [address] ER NOTE/ TRANSFER Social History Tobacco Use Types Packs/Day Years Used Date Smoking Tobacco: Never Assessed Sex and Gender Information Value Date Recorded Sex Assigned at Not on file Gender Identity Not on file Sexual Orientation Not on file documented as of this encounter Progress Notes * External, Provider - 04/14/2012 12:00 AM CDT documented in this encounter Plan of Treatment Not on file documented as of this encounter Visit Diagnoses Not on filedocumented in this encounter Care Teams Station Mechanic Apprentice Relationship Specialty Start Date End Date Mario White MD [address] [place] [address] PCP - General Family Practice 09/22/14 documented as of this encounter
--- OUTSIDE RECORDS SUMMARY | 2024-12-20 16:11 | XMS_ITS | Continuity of Care Document ---
Author Organization [facility] Address [address] [facility] [address] [place] [address] Phone Care Team Providers Care Hair Dresser Name Role Phone Snow Elizabeth CNP Unavailable Unavailable Allergies, Adverse Reactions, Alerts Substance Reaction Status Criticality morphine Unknown Active No Information Medications Medication Instructions Dosage Effective Dates (start - stop) Status Comments Advil 200 mg tablet take 1 tablet by ora l route every 6 hours as needed with food 200 MG - Active Tylenol Extra Strength 500 mg tablet take 1 tablet by oral route every 4 - 6 hours as needed not to exceed 8 tablets per 24hrs 500 MG - Active Procedures Procedure Date No Show Visit Fee Arthrocentesis/aspir/inj; Lizeth 18 Fluoro Guidance - NonSpine Arthrocentesis/aspir/inj; Lizeth 18 Fluoro Guidance - NonSpine Inject Joint Large Fluoro Needle NonSpine New Pt Eval 60 Min Advance Directives Directive Yes / No Effective Date File Name No Information Encounters Encounter Description Practice Location Reason(s) For Visit Diagnoses Date Provider Providers Copied on Encounter [facility], [address] [facility] [address], [place], [place], [id number], [place] tel:[phone] [facility] No Information 9 Glenn Adamson. [address] [facility] [address], [place], [place], [id number], [place]. tel:[phone] Referring Provider: Hernando Alicia MD, [address] [place] [address] [facility], [place], [address]. tel:[phone], [address] [facility], [address], [place], [address], [place] tel:[phone] [facility] left knee pain (chief complaint) Unilateral primary osteoarthriti s, left kneePain in left kneePain in left kneeUnilatera l primary osteoarthriti s, left knee [facility]. [address] [facility] [address], [place], [place], [id number], [place]. tel:[phone] Referring Provider: Tomasz Finley, [address], [place], [address]. tel:[phone] [facility], [address] [facility] [address], [place], [place], [id number], [place] tel:[phone] [facility] No Information 8 Zane Tolbert. [address], [place], [place], [id number], [place]. tel:[phone] Referring Provider: Tomasz Finley, [address], [place], [address]. tel:[phone] New Pt Eval 60 Min [facility], [address] [facility] [address], [place], [place], [address], [place] tel:[phone] [facility] left leg pain (chief complaint) Pain in left kneeUnilatera l primary osteoarthriti s, left kneePatellofe moral disorders, left knee No Information Referring Provider: Hernando Alicia MD, [address] [place] [address] [facility], [place], [address]. tel:[phone] Family History Family Member Type Diagnosis Age At Onset Mother Problem (finding) Cancer Payers Payer name Insurance type Covered libertarian ID Authoriza tion(s) No Information Social History Type Description Quantity Date Captured Comments Sex Male Smoking Status No Information Chief Complaint And Reason For Visit No Information Reason For Referral Reason For Referral No Information Plan Of Treatment Date Type Action Status Future Order: Radiology Order X- RAY - Knee ([id number]), Ordered on: Ordered History Of Present Illness Encounter Date Complaint History Of Prese nt Illness left knee pain Severity level i s moderate. It occurs constantly and is stable. Location: left knee. The pain is Stabbing. left leg pain Severity level i s moderate. It occurs intermittently and is fluctuating. Location: left. The pain radiates to the left calf. left ankle, left foot. The pain is aching, sharp, throbbing, deep and numb. The pain is aggravated by bending, climbing (and descending) stairs, jumping and lying down. The pain is relieved by heat, ice, injection, massage, rest and movement. Functional Status Date Functional Assessmen t No Information Instructions Date Instruction Additional Infor mation No Information Assessments Type Assessment Date No Information Patient Care Teams Name Effective Dates (start - stop) Status Members No Information
--- OUTSIDE RECORDS SUMMARY | 2024-12-20 16:11 | XMS_ITS | Continuity of Care Document ---
Author Organization [facility] Address [address] [address] [place] [address] Phone Care Team Providers Care Lithopone Charger Name Role Phone Gurdeep Davies MD Unavailable Unavailable Allergies, Adverse Reactions, Alerts Substance Reaction Status Criticality morphine Trouble Breathing Active No Informa tion Medications Medication Instructions Dosage Effective Dates (start - stop) Status Comments aspirin 81 mg tablet,delayed release take 1 tablet by oral route every day 81 MG - Active famotidine 20 mg tablet take 1 tablet by oral route 2 times every day 20 MG - Active metformin 500 mg tablet take 2 tablet by oral route 2 times every day with morning and evening meals 1000 MG - Active diltiazem ER 180 mg tablet,extended release 24 hr take 1 tablet by oral route every day 180 MG - Active fluticasone propionate 50 mcg/actuation nasal spray,suspension inhale 1 spray by intranasal route every day in each nostril 50 MCG - Active nitroglycerin 0.[address] 1 tablet by sublingual route at the 1st sign of attack; may repeat every 5 min until relief; if pain persists after 3 tablets in 15 min, prompt medical attention is recommended 0.4 MG - Active omeprazole 40 mg capsule,delayed release take 1 capsule by oral route 2 times every day before a meal 40 MG - Active tamsulosin 0.4 mg capsule take 1 capsule by oral route every day 0.4 MG - Active escitalopram 10 mg tablet take 1 tablet by oral route every day 10 MG - Active cetirizine 10 mg tablet take 1 tablet by oral route every day 10 MG - Active atorvastatin 40 mg tablet take 1 tablet by oral route every day 40 MG - Active triamcinolone acetonide 0.1 % topical cream apply by topical route every day a thin layer to the affected area(s) Not Available - No Longer Active Procedures Procedure Date cancelled appt Ugi Endo; W/bx 1/mx Level Iv-surg Path Gross/micro Ugi Endo; W/bx 1/mx cancelled appt Advance Directives Directive Yes / No Effective Date File Name No Information Encounters Encounter Description Practice Location Reason(s) For Visit Diagnoses Date Provider Providers Copied on Encounter [facility] [place], [address] [address], [place], [place], [id number], tel:[phone] [facility] No Information Samson Mackenzie. [address] [facility], [place], [place], [id number], [place]. tel:[phone] Referring Provider: Referral Self, USE FOR SELF REFERRALS. [facility] [place], [address] [address], [place], [place], [id number], tel:[phone] [facility] No Information Castillo Siu. [address] [facility], [place], [place], [id number], [place]. tel:[phone] [facility] [place], [address] [address], [place], [place], [id number], tel:[phone] [facility] GI Symptoms or Concerns (chief complaint) Mitchell's esophagus without dysplasiaBarr ett's esophagus without dysplasia Reagan Velazco. [address] [facility], [place], [place], [id number], [place]. tel:[phone] Referring Provider: Referral Self, USE FOR SELF REFERRALS. [facility] [place], [address] [address], [place], [place], [id number], [place] tel:[phone] [facility] No Information Reagan Velazco. [address] [facility], [address], [place], [place], [id number], [place]. tel:[phone] [facility] [place], [address] [address], [place], [place], [address], [place] [phone] [facility] No Information Josiah Reina. [address] [facility], [place], [place], [address], [place]. tel:[phone] Referring Provider: Mario Patel, [address] [place] [address], [address]. tel:[phone] [facility] [place], [address] [address], [place], [place], [id number], [place] tel:[phone] [facility] GI Symptoms or Concerns (chief complaint) No Information Maya Aburto. [address] [place] [address], [place] [address], [place], [place], [address], [place]. tel:[phone] Referring Provider: Mario Patel, [address] [place] [address], [address]. tel:[phone] [facility] [place], [address] [address], [place], [place], [id number], [place] tel:[phone] [facility] No Information Castillo Siu. [address] [facility], [place] [address], [place], [place], [id number], [place]. tel:[phone] Family History Family Member Type Diagnosis Age At Onset Daughter Problem (finding) Alcoholism Sister Problem (finding) Cancer, brain Brother Problem (finding) Cancer, gastric Father Problem (finding) Alcoholism Brother Problem (finding) HIV Mother Problem (finding) Cancer, breast Immunizations Vaccine Date Status Comments Influenza, high-dose, split virus, trivalent, injectable, preservative free administered Note: [facility] bi-direct ional interface ; Source: Other Registry SARS-COV-2 (COVID-19) vaccin e, mRNA, spike protein, LNP, preservative free, delfino-sucrose, 30 mcg/0.3 mL dose administered Note: [facility] bi-direct ional interface ; Source: Other Registry Respiratory syncytial virus (RSV), vaccine, bivalent, protein subunit RSV prefusion F, diluent reconstituted, 0.5 mL, preservative free administered Note: [facility] bi-direct ional interface ; Source: Other Registry SARS-COV-2 (COVID-19) vaccin e, mRNA, spike protein, LNP, preservative free, delfino-sucrose, 30 mcg/0.3 mL dose administered Note: [facility] bi-direct ional interface ; Source: Other Registry Influenza, adjuvanted, inactivated, quadrivalent, injectable, preservative free administered Note: [facility] bi-directional interface ; Source: Other Registry influenza, seasonal vaccine, quadrivalent, adjuvanted, 0.5mL dose, preservative free administered Note: [facility] bi-di rectional interface ; Source: Other Registry Influenza, adjuvanted, inactivated, quadrivalent, injectable, preservative free administered Note: [facility] bi-directional interface ; Source: Other Registry influenza, seasonal vaccine, quadrivalent, adjuvanted, 0.5mL dose, preservative free administered Note: [facility] bi-di rectional interface ; Source: Other Registry SARS-COV-2 (COVID-19) vaccin e, mRNA, spike protein, LNP, bivalent, preservative free, 30 mcg/0.3 mL dose, delfino-sucrose formulation administered Note: [facility] bi-direct ional interface ; Source: Other Registry influenza, seasonal vaccine, quadrivalent, adjuvanted, .5mL dose, preservative free administered Note: [facility] bi-di rectional interface ; Source: Other Registry SARS-COV-2 (COVID-19) vaccin e, mRNA, spike protein, LNP, bivalent booster, preservative free, 30 mcg/0.3 mL dose, delfino-sucrose formulation administered Note: [facility] bi-d irectional interface ; Source: Other Registry SARS-COV-2 (COVID-19) vaccin e, mRNA, spike protein, LNP, preservative free, 30 mcg/0.3mL dose, delfino-sucrose formulation administered Note: [facility] C bi- directional interface ; Source: Other Registry SARS-COV-2 (COVID-19) vaccin e, mRNA, spike protein, LNP, preservative free, 100 mcg/0.5mL dose or 50 mcg/0.25mL dose administered Note: [facility] bi -directional interface ; Source: Other Registry Influenza, high-dose, split virus, quadrivalent, injectable, preservative free administered Note: [facility] bi-direct ional interface ; Source: Other Registry influenza, high-dose seasona l, quadrivalent, 0.7mL dose, preservative free administered Note: [facility] bi-direct ional interface ; Source: Other Registry influenza, high-dose seasona l, quadrivalent, .7mL dose, preservative free administered Note: [facility] bi-direct ional interface ; Source: Other Registry tetanus toxoid, reduced diphtheria toxoid, and acellular pertussis vaccine, adsorbed administered Note: [facility] b i-directional interface ; Source: Other Registry SARS-COV-2 (COVID-19) vaccin e, mRNA, spike protein, LNP, preservative free, 100 mcg/0.5mL dose or 50 mcg/0.25mL dose administered Note: [facility] bi -directional interface ; Source: Other Registry SARS-COV-2 (COVID-19) vaccin e, mRNA, spike protein, LNP, preservative free, 100 mcg/0.5mL dose or 50 mcg/0.25mL dose administered Note: [facility] bi -directional interface ; Source: Other Registry Influenza, high-dose, split virus, quadrivalent, injectable, preservative free administered Note: [facility] bi-direct ional interface ; Source: Other Registry influenza, high-dose seasona l, quadrivalent, 0.7mL dose, preservative free administered Note: [facility] bi-direct ional interface ; Source: Other Registry influenza, high-dose seasona l, quadrivalent, .7mL dose, preservative free administered Note: [facility] bi-direct ional interface ; Source: Other Registry Influenza, high-dose, split virus, trivalent, injectable, preservative free administered Note: [facility] bi-direct ional interface ; Source: Other Registry Prevnar 13 administered Note: [facility] bi-d irectional interface ; Source: Other Registry influenza, high dose seasona l, preservative-free administered Note: [facility] bi-direct ional interface ; Source: Other Registry Afluria Qd administered Note: [facility] bi-directional interface ; Source: Other Registry meningococcal polysaccharide (groups A, C, Y and W-135) diphtheria toxoid conjugate vaccine (MCV4P) administered Note: [facility] bi-direct ional interface ; Source: Other Registry Haemophilus influenzae type b vaccine, PRP-OMP conjugate administered Note: [facility] bi -directional interface ; Source: Other Registry Pneumovax 23 administered Note: [facility] bi-d irectional interface ; Source: Other Registry meningococcal polysaccharide vaccine (MPSV4) administered Note: [facility] bi-direct ional interface ; Source: Other Registry tetanus toxoid, reduced diphtheria toxoid, and acellular pertussis vaccine, adsorbed administered Note: [facility] b i-directional interface ; Source: Other Registry zoster vaccine, live administered Note: [facility] bi-directional interface ; Source: Other Registry Payers Payer name Insurance type Covered republican ID Authoriza tion(s) [employer] [place] [employer] [place] [id number] Social History Type Description Quantity Date Captured Comments Alcohol Use Details Unknown Caffeine Use Details Unknown Tobacco Use Status No Information Smoking Status Former smoker Sex Male Vital Signs Date / Time: Height Weight BMI Pulse Rate Blood Pressure Temperature Respiratory Rate Body Surface Area Head Circumference Head Circ. Percentile Wt./Fran. Percentile BMI percentile Pulse Ox Inhaled Ox 68.00 in 95.240 kg (210.00 lbs) 31.9 0 kg/m eter (2) 70 /min 177/84 mm[Hg] 0.00 F 16 /min 96 % Chief Complaint And Reason For Visit No Information Reason For Referral Reason For Referral No Information History Of Present Illness Encounter Date Complaint History Of Prese nt Illness GI Symptoms or Concerns GI Symptoms or Concerns Functional Status Date Functional Assessmen t No Information Instructions Date Instruction Additional Infor mation Barretts Related to Banning tt's esophagus without dysplasia Assessments Type Assessment Date No Information Patient Care Teams Name Effective Dates (start - stop) Status Members No Information
[2024-12-20 16:12] LABS: D Dimer Quantitative* 0.21 ug/ml (0.00-0.50)
[2024-12-20 16:14] LABS: Basophils Absolute Auto 0.04 K/uL (0.00-0.30); Basophils Percent Auto 0.4 % (0.0-3.0); Eosinophils Absolute Auto 0.17 K/uL (0.00-0.50); Eosinophils Percent Auto 1.8 % (0.0-7.0); Hematocrit 46.1 % (37.0-53.0); Hemoglobin* 15.6 gm/dL (13.5-17.5); Immature Granulocytes Abs Auto 0.01 K/uL (0.00-0.30); Immature Granulocytes Pct Auto 0.1 %; Lymphocytes Percent Auto 47.6 % (20-44); Mean Corpuscular HGB Conc 34 gm/dL (32-36); Mean Corpuscular Hemoglobin 32 pg (26-34); Mean Corpuscular Volume 94 fL (80-100); Monocytes Percent Auto 9.2 % (0.0-11.0); Neutrophils Percent Auto 40.9 % (42.0-72.0); Platelet Count* 283 K/uL (140-440); RDW Coefficient of Variation % 12.8 % (11.5-15.5); Red Blood Count 4.91 m/uL (4.30-5.90); White Blood Count* 9.23 K/uL (4.50-11.00)
[2024-12-20 16:22] LABS: Slide Review Reflex No
--- NOTE | 2024-12-20 16:40 | ED_ITS ---
HPI - Chest Pain General Chief Complaint: Chest Pain Stated Complaint: took nitro and room spinning, dizzy, Time Seen by Provider: 12/20/24 15:09 History of Present Illness HPI narrative: Patient is a 74-year-old gentleman who was in his usual state of health when he got off the toilet today. Patient began experiencing vertigo. The vertigo was are rotational zxpr-ib-myoj movement. He is able to walk and talk without any defects. It really no overt chest pain shortness a breath orthopnea no PND no vomiting they did have mild nausea. Patient has had no similar symptoms previously. Patient came to the emergency room where CT of the head and chest x-ray are unremarkable troponin negative EKG showed normal sinus rhythm. Electrolytes are unremarkable CBC is unremarkable. D-dimer negative. Patient has had complete resolution of his symptoms and now feels well. Related Data Home Medications ?Medication ?Instructions ?Recorded ?Confirmed atorvastatin 40 mg tablet 20 mg PO HS 11/08/22 12/09/24 diltiazem HCl 180 mg 180 mg PO Q24H 11/08/22 12/09/24 capsule,extended release 24 hr aspirin 81 mg chewable tablet 81 mg PO DAILY 01/03/23 12/09/24 (Martín Chewable Low Dose Aspirin) omega 2-tkm-tzt-fish oil 1,000 mg 1 cap PO DAILY 01/03/23 12/09/24 (120 mg-180 mg) capsule (Fish Oil) omeprazole 20 mg tablet,delayed 20 mg PO DAILY 01/03/23 12/09/24 release Vitamin D3 PO 12/09/24 escitalopram oxalate 20 mg tablet 20 mg PO DAILY 12/09/24 12/09/24 metformin 500 mg tablet,extended 500 mg PO BID 12/09/24 12/09/24 release 24 hr nrxwmqjq-fkvhocbq-brdbz acid 400 tab PO 12/09/24 12/09/24 mcg-vit K 20 mcg-lycop 300 mcg tablet (One-A-Day Men's Multivitamin) tamsulosin 0.4 mg capsule 0.4 mg PO QDAY 12/09/24 12/09/24 Allergies Allergy/AdvReac Type Severity Reaction Status Date / Time morphine Allergy Verified 12/09/24 13:26 Review of Systems Status of ROS Reports: 10 or more systems reviewed and unremarkable except as noted in History and below [facility] Medical History Cough ?R05.9 - Cough, unspecified (ICD-10) GHADA (obstructive sleep apnea) (06/11/17) ?G47.33 - Obstructive sleep apnea (adult) (pediatric) (ICD-10) Laceration of finger ?S61.219A - Laceration without foreign body of unspecified finger without damage to nail, initial encounter (ICD-10) Intractable hiccups ?R06.6 - Hiccough (ICD-10) Heart attack ?I21.9 - Acute myocardial infarction, unspecified (ICD-10) Type 2 diabetes mellitus ?E11.9 - Type 2 diabetes mellitus without complications (ICD-10) Hypertension ?I10 - Essential (primary) hypertension (ICD-10) Hyperlipidemia ?E78.5 - Hyperlipidemia, unspecified (ICD-10) Diverticulitis ?K57.92 - Diverticulitis of intestine, part unspecified, without perforation or abscess without bleeding (ICD-10) Chronic gastroesophageal reflux disease (06/28/16) ?K21.9 - Gastro-esophageal reflux disease without esophagitis (ICD-10) Asplenia (09/22/12) ?Q89.01 - Asplenia (congenital) (ICD-10) Adjustment disorder with depressed mood ?F43.21 - Adjustment disorder with depressed mood (ICD-10) Surgical History Status post open reduction and internal fixation (ORIF) of fracture (11/11/19) ?Z98.890 - Other specified postprocedural states (ICD-10) ?Z87.81 - Personal history of (healed) traumatic fracture (ICD-10) H/O hernia repair ?Z98.890 - Other specified postprocedural states (ICD-10) ?Z87.19 - Personal history of other diseases of the digestive system (ICD-10) H/O heart artery stent ?Z95.5 - Presence of coronary angioplasty implant and graft (ICD-10) Status post laparoscopic cholecystectomy ?Z90.49 - Acquired absence of other specified parts of digestive tract (ICD- 10) Status post arthroscopy of right shoulder (11/04/09) ?Z98.890 - Other specified postprocedural states (ICD-10) Status post arthroscopy of left shoulder (04/02/17) ?Z98.890 - Other specified postprocedural states (ICD-10) History of removal of retained hardware (09/04/18) ?Z98.890 - Other specified postprocedural states (ICD-10) S/P ORIF (open reduction internal fixation) fracture (04/21/12) ?Z98.890 - Other specified postprocedural states (ICD-10) ?Z87.81 - Personal history of (healed) traumatic fracture (ICD-10) Social History Smoking Status: Former smoker Do you use any of these nicotine containing products: None Second hand tobacco smoke exposure: No How often do you have a drink containing alcohol: monthly or less AUDIT-C Alcohol total score: 1 Non-prescribed substance use: denies use service: No Exam Narrative Exam Narrative: EXAM GENERAL: Patient appears comfortable and well. EYES: No scleral icterus. ENT: Tympanic membranes and oropharynx normal. THYROID: no thyroid nodules or thyromegaly. LYMPH: No supraclavicular or cervical lymphadenopathy. SKIN: Visible skin seen during exam normal or with benign process only. EXT: No dependent lower extremity pedal edema. HEART: Regular rate and rhythm with no murmurs, rubs, or gallops. LUNGS: Clear to auscultation bilaterally with no crackles or wheezes. ABD: Soft, non tender, non distended. PSYCH: Good eye contact, speech is not pressured. Const Vital Signs, click to edit/add: Vital Signs - 24 hr 12/20/24 15:23 12/20/24 15:33 12/20/24 15:34 Temperature 97.1 F L Pulse Rate 61 61 Pulse Rate [Pulse Oximeter] 62 Respiratory Rate 20 Blood Pressure 118/75 Blood Pressure [Right Upper Arm] 124/68 Pulse Oximetry 96 95 95 Oxygen Delivery Method Room Air 12/20/24 15:47 Temperature Pulse Rate Pulse Rate [Pulse Oximeter] Respiratory Rate Blood Pressure 119/70 Blood Pressure [Right Upper Arm] Pulse Oximetry Oxygen Delivery Method Course Course ED Course: Patient seen examined. Workup as above. Vital Signs Vital signs: Initial Vital Signs Temperature 97.1 F L 12/20/24 15:23 Temperature Source Temporal Artery Scan 12/20/24 15:23 Pulse Rate 62 12/20/24 15:23 Respiratory Rate 20 12/20/24 15:23 Blood Pressure 124/68 12/20/24 15:23 Blood Pressure Mean 86 12/20/24 15:23 Blood Pressure Position Supine 12/20/24 15:23 Pulse Oximetry 96 12/20/24 15:23 Oxygen Delivery Method Room Air 12/20/24 15:23 Vital Signs Temperature 97.1 F L 12/20/24 15:23 Pulse Rate 62 12/20/24 15:23 Respiratory Rate 20 12/20/24 15:23 Blood Pressure 124/68 12/20/24 15:23 Pulse Oximetry 96 12/20/24 15:23 Oxygen Delivery Method Room Air 12/20/24 15:23 Temperature 97.1 F L 12/20/24 15:23 Pulse Rate 61 12/20/24 15:34 Respiratory Rate 20 12/20/24 15:23 Blood Pressure 119/70 12/20/24 15:47 Pulse Oximetry 95 12/20/24 15:34 Oxygen Delivery Method Room Air 12/20/24 15:23 Medications Administered Medications: Discontinued Medications Generic Name Dose Route Start Last Admin Trade Name Freq PRN Reason Stop Dose Admin Ondansetron HCl 4 mg 12/20/24 15:48 12/20/24 15:59 Ondansetron 2 Mg/Ml Inj IVP 12/20/24 15:49 4 mg ONCE ONE Administration MDM - Chest Pain MDM Narrative Medical decision making narrative: Patient is a 74-year-old gentleman who presents with vertigo which was very short-lived. He has had resolution of his symptoms and now feels well. He had a normal neurologic exam normal vital signs. He at this time is resting comfortably and able to go home. Laboratory workup E imaging of the head and chest are all unremarkable. Reassurance offered differential diagnosis includes but not limited to benign positional vertigo cerebral hemorrhage cerebrovascular accident a rhythmic me a seizure. Patient will monitor symptoms advanced diet activity as tolerated follow-up with his primary physician if symptoms return. Lab Data Labs: Lab Results 12/20/24 12/20/24 Range/Units 15:25 15:35 WBC 9.23 (4.50-11.00) K/uL RBC 4.91 (4.30-5.90) m/uL Hgb 15.6 (13.5-17.5) gm/dL Hct 46.1 (37.0-53.0) % MCV 94 (80-100) fL MCH 32 (26-34) pg MCHC 34 (32-36) gm/dL RDW Coeff of Nora 12.8 (11.5-15.5) % Plt Count 283 (140-440) K/uL Neut % (Auto) 40.9 L (42.0-72.0) % Lymph % (Auto) 47.6 H (20-44) % [place] % (Auto) 9.2 (0.0-11.0) % Eos % (Auto) 1.8 (0.0-7.0) % Baso % (Auto) 0.4 (0.0-3.0) % Neut # (Auto) 3.80 (1.7-7.0) K/uL Lymph # (Auto) 4.40 H (0.90-2.90) K/uL [place] # (Auto) 0.80 (0.00-0.90) K/UL Eos # (Auto) 0.17 (0.00-0.50) K/uL Baso # (Auto) 0.04 (0.00-0.30) K/uL Abs Immat Gran (auto) 0.01 (0.00-0.30) K/uL Imm/Tot Granulo (auto) 0.1 % D-Dimer Quant (PE/DVT) 0.21 (0.00-0.50) ug/ml Sodium 136 (135-149) mmol/L Potassium 3.8 (3.6-5.1) mmol/L Chloride 100 (96-114) mmol/L Carbon Dioxide 29 (20-32) mmol/L Anion Gap 7 (7-15) mEq/L BUN 11 (7-30) mg/dL Creatinine 0.9 (0.5-1.5) mg/dL Estimated Creat Clear 62.70 Estimated GFR 90 ml/min Glucose 184 H (60-115) mg/dL Calcium 9.3 (8.4-10.6) mg/dL Total Bilirubin 0.8 (0.1-1.5) mg/dL AST 28 (12-35) U/L ALT 37 (4-50) U/L Alkaline Phosphatase 87 (40-150) U/L Total Protein 6.9 (6.0-8.3) g/dL Albumin 4.4 (3.3-5.0) g/dL POC Glucose 201 H (60-115) mg/dl POC Troponin I 0.00 L (0.01-0.04) ng/ml Discharge Plan Discharge Clinical Impression: Vertigo Patient Disposition: Home, Self-Care Condition: Stable Instructions: Vertigo (ED) Additional Instructions: Continue current medications Monitor for return of symptoms. Follow-up with your doctor as needed. Activity Level: No Restrictions Discharge Diet: Regular Prescriptions: No Action diltiazem HCl 180 mg capsule,extended release 24hr 180 mg PO Q24H Patient Comments: TAKE 1 CAPSULE BY MOUTH ONCE DAILY AT NIGHT atorvastatin 40 mg tablet 20 mg PO HS Patient Comments: TAKE 1/2 TABLET BY MOUTH AT BEDTIME escitalopram oxalate 20 mg tablet 20 mg PO DAILY metformin 500 mg tablet extended release 24 hr 500 mg PO BID tamsulosin 0.4 mg capsule 0.4 mg PO QDAY Vitamin D3 PO One-A-Day Men's Multivitamin 400-20-300 mcg tablet PO omeprazole 20 mg tablet,delayed release (DR/EC) 20 mg PO DAILY aspirin [Martín Chewable Aspirin] 81 mg tablet,chewable 81 mg PO DAILY omega 5-lcb-rrz-fish oil [Fish Oil] 1,000 mg (120 mg-180 mg) capsule 1 cap PO DAILY Follow Up/Referrals: Mario White MD [Primary Care Provider] - Stand Alone Forms: [employer] Info Instructions
[2024-12-20 16:49] LABS: Troponin I* < 0.01 ng/mL (0.01-0.04)
== END 2024-12-20 17:04 | disposition home or self-care (01) ==
PROVIDERS: Emergency Provider Internal Medicine; PCP Surgery
DX: R42 Dizziness and giddiness (principal)
CPT/HCPCS: 36415; 70450; 71046; 80053; 81003; 82947; 84484; 85025; 85379; 93005; 96374; 99283; 99284; J2405

== ENCOUNTER 2025-01-19 08:00 | Outpatient (RCR) | payer MEDICARE, BC, SELFPAY ==
--- NOTE | 2025-01-18 16:36 | PT.OPEX ---
PT [place] Outpatient Eval PT [facility] Outpatient Eval Start: 01/15/25 12:19 Freq: Status: Active Protocol: Document 01/15/25 12:19 NAHOMI (Rec: 01/15/25 16:35 [facility] [id number]) E-signed By Missy Andres PT Physical Therapy Outpatient Evaluation Insurance Information Recert Due Date 04/14/25 Insurance Name Medicare B Medical Diagnosis RIGHT INFRASPINATUS TEAR Treating Diagnosis RIGHT SHOULDER PAIN Imaging Report Information MRI: -1CM AP BY 1.5CM MEDIOLATERAL POORLY DEFINED DEEP FIBER PARTIAL TEAR OF INFRASPINATUS TENDON WHICH MAXIMALLY INVOLVES TWO THIRDS OF THE TENDON FIBER THICKNESS. THIS APPEARS PROGRESSED -MILD SUBSCAPULARIS TENDINOPATHY -NO APPRECIABLE ROTATOR CUFF BELLY ATROPHY Referring MD COELHO Subjective Preferred Name NEFTALI Subjective PATIENT IS FAMILIAR PATIENT TO ME WHO RECENTLY PARTICIPATED IN 3 PHYSICAL THERAPY VISITS FOR POSTERIOR/LATERAL SHOULDER PAIN WHEN LAYING ON HIS SIDE IN BED. HE RETURNS HAVING SEEN ORTHO WITH AN MRI REVEALING A MODERATE, PARTIAL THICKNESS TEAR OF HIS SUPRASPINATUS WITH ONGOING C/O OF PROXIMAL, LATERAL SHOULDER PAIN WITH SAME POSITION. HE REPORTS COMPLIANCE WITH HIS HEP PROVIDED PREVIOUSLY CONSISTING OF RTC/SCAP STRENGTHENING AND STRETCHING BUT NO SIGNIFICANT CHANGE RESULT. HE DOES REPORT IMPROVEMENT AFTER DRY NEEDLING WITH JAYDE GALVAN PT BUT ONLY LAST 1-2 DAYS. HE DOES NOT HAVE PAIN WITH REACHING OH, LATERALLY, BEHIND BACK OR CROSS BODY Pain Comments 3-4/10 ONLY WHEN DIRECTLY LAYING ON RIGHT SHOULDER Date of Last Physician Visit 01/13/25 Current Work Status Retired Precautions Treatment Precautions/Contraindications PMHX: R/L RTC REPAIR, MULTIPLE LUMBAR SURGERIES, CMII, CAD, H /O WY W/STENT, H/O ORIF W/ HARDWARE REMOVAL, HTN, GERD, ASPLENIA, GHADA, GAMBELL W/HEARING AIDES Therapy Limitations/Systems Review Not Limited Objective Other/Pertinent Objective CERVICAL ROM : WFL H/O CERVICAL SPONDYLOLYSIS,FACET ARTHROPATHY SHOULDER AROM FLEX: WNL ABD:WNL IR: WNL ER: WNL NECK/SHOULDER MMT: DEEP NECK FLEXOR ENDURANCE TEST: 22SEC SHRUG 5/5 FLEX 5/5 EXT 5/5 ABD 5/5 IR 5/5 MIN DISCOMFORT LATERAL SHOULDER ER 5/5 MIN DISCOMFORT LATERAL SHOULDER ELBOW: FLEX 5/5 EXT 5/5 SPECIAL TESTS: CERVICAL: SPURLINGS (-) CERVICAL DISTRACTION (-) NEURAL TENSION (MEDIAN/ULNAR/ RADIAL) (-) BAKODY SIGN NT CRLF (+) RIGHT JAY JAY NT IMPINGEMENT: HANKINS-SHANNA (-) NEER (-) GRACIA (-) PAINFUL ARC (-) TENDONDITIS: SPEEDS (-) YERGASON'S (-) JOBES (EMPTYCAN) (-) FULL CAN (-) LIFT OFF (+) * HORN BLOWER DROP ARM (-) LABRAL TEAR/INSTABILITY/AC SCARF TEST PAXIONO (-) APPREHENSION (-) CHAN'S (-) JOINT MOBILITY/PALPATION: SC JOINT SIGNIFICANT HYPOMOBILITY RIGHT>LEFT, MIN HYPOMOBILITY POSTERIOR>INFERIOR; MIN (AT WORST) DISCOMFORT WITH FIRM PALPATION RIGHT DELTOID INSERTION/DELTOID TUBERSITY Assessment Assessment/Impression PATIENT IS A 74YO REFERR[address] DR. COELHO TO EVAL AND TREAT RIGHT SHOULDER PAIN; PATIENT ORIGINALLY REFERRED BY ALEXANDRA AT [facility] HAVING RECEIVED LISA TO CSPINE D/T NECK AND SHOULDER SYMPTOMS. FOLLOWING HIS EPIDURAL, HE HAD RESIDUAL PAIN LOCATED ABOUT THE RIGHT LATERAL SHOULDER AFFECTING HIM WITH REACHING BUT, MOST SPECIFICALLY LAYING ON HIS PREFERRED SIDE (RIGHT) DURING SLEEPING. HE PARTICIPATED IN A SHOULDER RTC/SCAPULAR STRENGTHENING AND STABILIZATION PROGRAM WELL RECEIVED DRY NEEDLING TO ASSIST WITH HIS PAIN WITH SUCCESS LASTING 1-2 DAYS POST PROCEDURE. HE RETURNS FOLLOWING HIS VISIT WITH DR. COELHO AND AN MRI REVEALING A MODERATE BUT PARTIAL THICKNESS TEAR OF THE INFRASPINATUS AND TENDINOPATHY OF THE SUBSCAPULARIS. HE CONTINUED WITH HIS HEP AFTER HIS LAST VISIT WHICH ALL BUT RESOLVED HIS SUBACROMIAL IMPINGEMENT NOTED IN NOVEMBER. TODAY, HOWEVER, HE DOES NOT PRESENT WITH ANY STRENGTH DEFICIT NOR ROM DEFICIT HAVING ONLY MILDLY UNCOMFORTABLE LIFT OFF TEST AND RESISTED IR/ER. AT THIS TIME, WE WILL PROCEED WITH DECREASING THE SOFT TISSUE IRRITATION AND MAINTAIN HIS ROM AND STRENGTH WITH GOAL OF SLEEPING ON PREFERRED RIGHT SIDE. SEE APPROPRIATE SECTIONS FOR OBJECTIVE FINDING, GOALS AND POC. PATIENT IS APPROPRIATE FOR SKILLED PHYSICAL THERAPY AND IN AGREEMENT WITH POC AND FREQ. Primary Functional Limitations SLEEPING ON RIGHT SIDE Plan of Care Rehabilitation Potential Good Physical Therapy Goals IN 4-6 VISITS: 1. DECREASE SHOULDER PAIN TO < /2-3/10 WITH DAILY ACTIVITIES AND WITH THE PROGRESSION OF HIS HEP OVER THE NEXT 4 WEEKS. 2. DEMONSTRATE PAIN FREE AROM OVER THE NEXT 4-6 WEEKS DURING DAILY ACTIVITIES WITHOUT FLARE UPS OF SYMPTOMS. 3. PATIENT WILL VERBALIZED UNDERSTANDING OF POSTURING AND BODY MECHANICS IT RELATES TO DECREASING STRESS, IMPROVED SHOULDER MECHANICS, AND DECREASED SYMPTOMS. 4.PATIENT WILL DEMONSTRATES IMPROVED STRENGTH TO FACILITATE RETURN TO DAILY ACTIVITIES WITH LESS SYMPTOMS AND DECREASED OPPORTUNITIES FOR FLARE UP OF PAIN 5. PATIENT WILL BE INDEPENDENT WITH HIS HEP WITHIN THE NEXT 6-8 WEEKS FOR PROGRESSION TWD ABOVE MENTION GOALS, CONTINUED MGMT OF SYMPTOMS, AND ONGOING SELF IMPROVEMENTS IN POSTURING/STRENGTH/ STABILIZATION. Coordination/Communication With Referral Source Treatment Plan/Direct Interventions Ice/Cold/Vasopneumatic,Joint Mobilization,Manual Therapy, Neuromuscular Re-ed,Self-Care/ Home Management,Therapeutic Activities,Therapeutic Exercises,Ultrasound Frequency/Duration 1-2X/WK Patient Will Be Discharged From Therapy Completion of LTG(s), Independently Progressing Evaluation Billing Untimed Code Treatment Minutes 25 PT Eval No Charge Yes Complexity Low Certification Information Initial Certification Date 01/15/25 Ending Certification Date 04/14/25 Provider Signature Required Yes Provider Signature Shows Agreement With POC & Medical Necessity Physician NPI Number Write NPI# Here Physician Comment/Change : Physician Signature & Date Requested Please Sign/Date Here
== END 2025-03-04 09:59 | disposition home or self-care (01) ==
PROVIDERS: PCP Surgery; Visit Provider Orthopaedic Surgery
DX: M75.101 Unspecified rotator cuff tear or rupture of right shoulder, not specified as traumatic (principal); Z51.89 Encounter for other specified aftercare; M25.511 Pain in right shoulder
CPT/HCPCS: 97110; 97140; 97161

== ENCOUNTER 2025-11-07 12:13 | Observation (INO) | payer MEDICARE, BC, SELFPAY ==
[2025-11-07] VITALS (20 sets, daily range): BP systolic 107–155; BP diastolic 65–75; PULSE 69–99; RESP 14–22; TEMP 37.1–38.2; O2SAT 94–99; BMI 26.5; BMI 27.9
--- OUTSIDE RECORDS SUMMARY | 2025-11-07 12:16 | XMS_ITS | Encounter Summary ---
Author Organization [facility] Address [address] [place] [address] Care Team Providers Care Wrong Address Clerk Name Role Phone Mario White MD Primary Care Provider Encounter Details Date Type Department Care Team (Late st Contact Info) Description 07/17/2012 [facility] Physical Medicine [address] [facility]. [place], [place] [id number] Jeff Gastelum MD [address] [place] [id number] REHAB REFERRAL TREATMENT Social History Tobacco Use Types Packs/Day Years Used Date Smoking Tobacco: Former Cigarettes 3 15 0 12/02/1965 - 12/02/1980 Smokeless Tobacco: Never Alcohol Use Standard Drinks/Week Comments Not Asked 0 (1 standard drink = 0.6 oz pur e alcohol) Sex and Gender Information Value Date Recorded Sex Assigned at Not on file Legal Sex Male 6:49 AM CDT Gender Identity Not on file Sexual Orientation Not on file documented as of this encounter Progress Notes * Jeff Gastelum MD - 07/17/2012 12:00 AM CDT documented in this encounter Plan of Treatment Not on file documented as of this encounter Visit Diagnoses Not on filedocumented in this encounter Care Teams Wrong Address Clerk Relationship Specialty Start Date End Date Mario White MD [address] [place], [place] [id number] PCP - General Family Practice 09/22/14 documented as of this encounter
--- OUTSIDE RECORDS SUMMARY | 2025-11-07 12:16 | XMS_ITS | Encounter Summary ---
Author Organization [facility] Address [address] [place] [address] Care Team Providers Care Carpet Loom Fixer Name Role Phone Mario White MD Primary Care Provider [phone] Encounter Details Date Type Department Care Team (Late st Contact Info) Description 05/27/2012 [facility] 401 Physical Medicine 401 [facility] [place] [address] Jeff Gastelum MD [address] [place] [address] SURGICAL DRESSING PRESCRIPTION Social History Tobacco Use [...] on filedocumented in this encounter Care Teams Carpet Loom Fixer Relationship Specialty Start Date End Date Mario White MD [address] [place] [address] PCP - General Family Practice 09/22/14 documented as of this encounter
--- OUTSIDE RECORDS SUMMARY | 2025-11-07 12:16 | XMS_ITS | Encounter Summary ---
Author Organization [facility] Address [address] [place] [address] Care Team Providers Care Lunch Wagon Operator Name Role Phone Mario White MD Primary Care Provider [phone] Encounter Details Date Type Department Care Team [...] as of this encounter Progress Notes * [facility], PROVIDER - 04/19/2012 12:00 AM CDT documented in this encounter Plan of Treatment Not on file documented as of this encounter Visit Diagnoses Not on filedocumented in this encounter Care Teams Lunch Wagon Operator Relationship Specialty Start Date End Date Mario White MD [address] [place] [address] PCP - General Family Practice 09/22/14 documented as of this encounter
--- OUTSIDE RECORDS SUMMARY | 2025-11-07 12:16 | XMS_ITS | Encounter Summary ---
Author Organization [facility] Address [address] [place] [address] Care Team Providers Care Residential Counselor Name Role Phone Mario White MD Primary Care Provider [phone] Encounter Details Date Type Department Care Team [...] * [facility], PROVIDER - 04/16/2012 12:00 AM CDT documented in this encounter Plan of Treatment Not on file documented as of this encounter Visit Diagnoses Not on filedocumented in this encounter Care Teams Residential Counselor Relationship Specialty Start Date End Date Mario White MD [address] [place] [address] PCP - General Family Practice 09/22/14 documented as of this encounter
--- OUTSIDE RECORDS SUMMARY | 2025-11-07 12:16 | XMS_ITS | Clinical Summary ---
Author [facility] Address [address] [place] [address] Care Team Providers Care Broadcast Engineer Name Role Phone Mario White MD Primary Care Provider [phone] Source Comments You are receiving this document as you are listed as the primary care provider,follow-up provider, or the patient has been referred to you for consultation.This is in compliance with the Medicare and[facility] Cent[facility]aid EHR Incentive Program,which states Providers who transition their patient to another setting of careor provider of care or refers their patient to another provider of care shouldprovide summary care record for each transition of care or referral. [facility] Allergies Active Allergy Reactions Criticality Noted Date Comments Morphine Muscle Aches/Weakness 05/29/2012 Medications acetaminophen (AKA TYLENOL EXTRA STRENGTH) 500 MG tablet Take 2 Tabs by mouth three times a day. 180 Tab 1 05/20/20 12 Active senna (SENOKOT) 8.6 MG tabletIndicati ons:Constipati on Take 1 Tablet by mouth two times a day. Take while on narcotics. Hold for loose stools. Indications: Constipation 30 Tablet 01/27/20 20 Active oxyCODONE (ROXICODONE) 5 MG immediate release tablet Take 1-2 Tablets by mouth every 4 hours as needed for Pain. Take 1 tablet for pain rated at 4-7. Take 2 tablets for pain rated 8-10. 25 Tablet 01/27/20 20 Active metoprolol tartrate (LOPRESSOR) 50 MG tabletIndicati ons:Hypertensi on Take 25 mg by mouth two times a day. Indications: High Blood Pressure Disorder Active omeprazole (PRILOSEC) 20 MG capsuleIndicat ions:Gastroeso phageal Reflux Disease Take 20 mg by mouth daily. Take 1 hour before a meal. Indications: Gastroesophageal Reflux Disease Active atorvastatin (LIPITOR) 40 MG tabletIndicati ons:Hyperlipid emia Take 20 mg by mouth daily. Indications: High Amount of Fats in the Blood Active escitalopram oxalate (LEXAPRO) 20 MG tabletIndicati ons:Mood Take 20 mg by mouth daily. Indications: Mood Active polyethylene glycol (MIRALAX) packet Take 1 Packet by mouth daily as needed for Constipation. 7 Each 01/29/20 20 Active Active Problems Problem Noted Date Diagnosed Date S/P hardware removal 01/27/2020 Overview (01/27/2020): S/p Removal of Left Tibial IMN for concerns of possible deep infection/osteomyelitis. Performed by Dr. Araya at [facility]. Open fracture of shaft of left tibia 11/23/2019 Overview (11/23/2019): Added automatically from request for surgery [id number] Pain of left tibia 11/11/2019 S/P ORIF [...] Coronary atherosclerosis 02/29/2012 Overview (01/27/2020): Stent at [facility] 12/2011 Anxiety state 01/09/2010 Immunizations Immunization Administration Dates Next Due Hib (PedvaxHIB) 05/02/2012 [...] Comments Blood Pressure 135/71 01/29/2020 6:36 AM SAFETY SPECIALIST Pulse 78 01/29/2020 6:36 AM SAFETY SPECIALIST Temperature 37.2 C (99 F) 01/29/2020 6:36 AM SAFETY SPECIALIST Respiratory Rate 18 01/29/2020 6:36 AM SAFETY SPECIALIST Oxygen Saturation 99% 01/29/2020 6:36 AM SAFETY SPECIALIST Inhaled Oxygen Concentration - - Weight 97.5 kg (214 lb 14.4 oz) 01/27/2020 8:21 AM SAFETY SPECIALIST Height 172.7 cm (5' 8) 01/27/2020 8:21 AM SAFETY SPECIALIST Body Mass Index 32.68 01/27/2020 8:21 AM SAFETY SPECIALIST Plan of Treatment Health Maintenance Due Date Last Done Comments Colon Cancer Screening Plan Due 1950 Diabetes: Eye Exam 1950 Diabetes: Foot Exam 1950 Diabetes: Lipid Panel 1950 Hep B Immunization Discussion 1950 Hep C Screening (Preventive Services) 1950 Medicare Annual Wellness Visit 1950 Meningococcal B Vaccine (1 of 4 - Increased Risk) 1960 Zoster/Shingles Vaccine (2 of 3) 04/25/2012 02/29/2012 MCV4 Vaccine (1 - Risk start 2-23 months series) 06/27/2012 05/02/2012, 04/15/2012 Diabetes: Albumin/Creatinine Ratio, Urine 11/19/2013 11/19/2012 Diabetes: Creatinine 11/20/2013 11/20/2012, 11/14/2012, 05/08/2012, Additional history exists Diabetes: HGBA1C 10/19/2020 04/18/2020, , 10/19/2019, Additional history exists Pneumococcal Vaccine 50+ Yrs (3 of 3 - PCV20 or PCV21) 09/25/2021 09/25/2016, 05/02/2012, 04/15/2012 RSV Vaccine (1 - 1-dose 75+ series) 2025 COVID-19 Vaccine (2 - 2024- season) 2025 01/16/2021 Influenza Vaccine (#1) 2025 0, 09/25/2016, 09/13/2014, Additional history exists DTaP/Tdap/Td Vaccine (3 - Tdap) 03/14/2031 03/14/2021, 04/14/2012, 12/19/2004 Hib Vaccine Completed 05/02/2012, 04/15/2012 HepA Vaccine Aged Out No longer eligi ble based on patient's age to complete this topic HepB Vaccine Aged Out No longer eligi ble based on patient's age to complete this topic IPV (Polio) Vaccine Aged Out No longe r eligible based on patient's age to complete this topic Medical Devices Implanted Type Area Clerical Proofreader Device Identifier Shelf Expiration Date Model / Serial / Lot Meli Maribellmistyshaniqua [facility] 5.0x175 - [id number] Implanted:Qty: 4 on 04/14/2012 by Daniel Hurtado MD at [facility] DEVICE TIBIA MIDSHAFT [employer] [id number] / / Nail Tib Ti [address] 10.0x330 - [id number] Implanted:Qty: 1 on 04/21/2012 by Daniel Hurtado MD at [facility] DEVICE Left: TIBIA MIDSHAFT [employer] 01/02/2021 04.004.446 S / / [id number] Scr Lk Ti T25 5.0x36 - [id number] Implanted:Qty: 1 on 04/21/2012 by Daniel Hurtado MD at [facility] DEVICE Left: TIBIA PROXIMAL [employer] 12/02/2020 04.005.526 / / [id number] Scr Lk Ti T25 5.0x40 - [id number] Implanted:Qty: 1 on 04/21/2012 at [facility] DEVICE Left: TIBIA DISTAL [employer] 12/02/2020 04.005.530 / / [id number] Scr Lk Ti T25 5.0x44 - [id number] Implanted:Qty: 1 on 04/21/2012 by Daniel Hurtado MD at [facility] DEVICE Left: TIBIA PROXIMAL [employer] 12/02/2020 04.005.534 / / [id number] Scr Lk Ti T25 5.0x32 - [id number] Implanted:Qty: 1 on 04/21/2012 by Daniel Hurtado MD at [facility] DEVICE Left: TIBIA DISTAL [employer] 01/02/2021 04.005.522 / / [id number] Scr Lk T2 5.0x40 F-Thrd - [id number] Implanted:Qty: 1 on 11/19/2012 by Byron Tena MD at [facility] DEVICE TIBIA DISTAL [employer] 10/01/2017 [id number] / / [id number] Nail Tib T2 [id number] - [id number] Implanted:Qty: 1 on 11/19/2012 by Byron Tena MD at [facility] DEVICE Left: TIBIA MIDSHAFT [employer] 05/31/2017 [id number] / / [id number] Scr Lk T2 5.0x42.5 F-Thrd - [id number] Implanted:Qty: 1 on 11/19/2012 by Byron Tena MD at [facility] DEVICE Left: TIBIA PROXIMAL Silvano 10/01/2017 [id number] / / [id number] End Cap T2 +10mm - [id number] Implanted:Qty: 1 on 11/19/2012 by Byron Tena MD at [facility] DEVICE Left: TIBIA PROXIMAL [employer] 05/31/2017 1822-0010S / / [id number] Procedures Procedure Name Priority Date/Time Associated Diagnosis Comments HGB A1C Routine 01/28/2020 11:07 AM SAFETY SPECIALIST BASIC METABOLIC PANEL Routine 11/20/2012 7:14 AM SAFETY SPECIALIST CREATININE, UR 24 HR Routine 11/19/2012 6:13 AM SAFETY SPECIALIST from Last 3 Months or Most Recently Relevant to Health Maintenance Results * (ABNORMAL) Hemoglobin A1C Glycosylated (01/28/2020 11:07 AM SAFETY SPECIALIST) Hemoglobin A1C 7.2(H) <=5.6 % 01/28/2020 1:56 PM SAFETY SPECIALIST [facility] Blood Venipuncture Butterfly / Unknown 01/28/2020 11:07 AM SAFETY SPECIALIST 01/28/2020 11:11 AM SAFETY SPECIALIST Narrative [facility] - 01/28/2020 1:56 PM SAFETY SPECIALIST For patients not previously diagnosed with diabetes: 5.7-6.4%: Increased risk for diabetes 6.5% and greater: Diagnostic for diabetes For patients diagnosed with diabetes: <8.0%: Goal of therapy for ages 18-75 Clinicians may recommend a higher or lower goal for specific individuals. us Daniela Aguiar APRN, ADMISSIONS CONSULTANT LAB_1 Final Result [facility] [address] * (ABNORMAL) Basic Metabolic Panel (K, Na, CO2, Cl, Gluc, BUN, Creat, Ca) (Chem 8) POD # (11/20/2012 7:14 AM SAFETY SPECIALIST) BUN 14 7 - 20 mg/dl [facility] Sodium 131(L) 135 - 145 mmol/L [facility] Potassium 4.1 3.5 - 5.3 mmol/L [facility] Chloride 95 95 - 106 mmol/L [facility] CO2 30 22 - 30 mmol/L [facility] Glucose 110 70 - 180 mg/dl [facility] Creatinine 0.97 0.66 - 1.25 mg/dl [facility] GFR, Estimated >60.0 >60 ml/min/1.7 3m2 [facility] GFR, Est., If Black >60.0 >60 ml/min/1.7 3m2 [facility] Calcium 8.4 8.4 - 10.2 mg/dl [facility] Anion Gap (calc.) 6(L) 7 - 16 mmol/L [facility] 11/20/2012 7:14 AM SAFETY SPECIALIST 11/20/2012 7:15 AM SAFETY SPECIALIST us Citlaliray Lazcano APRN, ADMISSIONS CONSULTANT LAB_1 Final Result [address] [address] * (ABNORMAL) CREATININE, UR 24 HR (11/19/2012 6:13 AM SAFETY SPECIALIST) Creatinine, Urine, 24 Hours 694(L) 1000 - 2000 mg/24 hr [facility] Total Volume, 24 hr 2525 ml [facility] 11/19/2012 6:13 AM SAFETY SPECIALIST 11/19/2012 7:18 AM SAFETY SPECIALIST Byron Tena MD LAB_1 Final Result Performing Organization Address City/State/[facility] Co de Phone Number [address] [address] from Last 3 Months or Most Recently Relevant to Health Maintenance Insurance [facility] MEDIC[facility] MANAGED CARE BC[place] [facility] Advance Directives * Full Code (Latest Code [...] 2:54 PM 2012 1:21 PM Care Teams Broadcast Engineer Relationship Specialty Start Date End Date Mario White MD [address] [place] [address] PCP - General Family Practice 09/22/14
--- OUTSIDE RECORDS SUMMARY | 2025-11-07 12:16 | XMS_ITS | Encounter Summary ---
Author Organization [facility] Address [address] [place] [address] Care Team Providers Care Critical Care Physician Assistant Name Role Phone Mario White MD Primary Care Provider [phone] Encounter Details Date Type Department Care Team (Late st Contact Info) Description 06/30/2012 [facility] 401 Physical Medicine 401 [facility]. [place], [place] [phone] Jeff Gastelum MD [address] [place] [address] [facility] Social History Tobacco Use [...] on filedocumented in this encounter Care Teams Critical Care Physician Assistant Relationship Specialty Start Date End Date Mario White MD [address] [place], [place] [phone] PCP - General Family Practice 09/22/14 documented as of this encounter
--- OUTSIDE RECORDS SUMMARY | 2025-11-07 12:16 | XMS_ITS | Encounter Summary ---
Author Organization [facility] [address], [place] [address] Care Team Providers Care Assistant Operator Name Role Phone Mario White MD Primary Care Provider [phone] Encounter Details Date Type Department Care Team (Late st Contact Info) Description 12/14/2012 Correspondence [facility] Orthopedics [address] [place] [address] Citlali Brower APRN, SUPERVISOR [employer] [address] [place] [address] FMLA Social History Tobacco Use Types Packs/Day [...] on filedocumented in this encounter Care Teams Assistant Operator Relationship Specialty Start Date End Date Mario White MD [address] [place] [address] PCP - General Family Practice 09/22/14 documented as of this encounter
--- OUTSIDE RECORDS SUMMARY | 2025-11-07 12:16 | XMS_ITS | Encounter Summary ---
Author Organization [facility] [address] [place] [address] Care Team Providers Care Network Liaison Name Role Phone Mario White MD Primary Care Provider [phone] Encounter Details Date Type Department Care Team (Late st Contact Info) Description 04/15/2012 Correspondence [facility] Orthopedics [address] [place] [address] Juan Jose Gill [address] [place] [address] ORTHO EQUIPMENT LIST Social History Tobacco Use [...] on filedocumented in this encounter Care Teams Network Liaison Relationship Specialty Start Date End Date Mario White MD [address] [place] [address] PCP - General Family Practice 09/22/14 documented as of this encounter
--- OUTSIDE RECORDS SUMMARY | 2025-11-07 12:16 | XMS_ITS | Clinical Summary ---
Author Organization [facility] Address [address] [address] Phone Care Team Providers Care Lobby Attendant Name Role Phone Tomasz Singh MD Primary Care Provider Tomasz Singh MD Unavailable [phone] Allergies Active Allergy Reactions Criticality Noted Date [...] do not crush, chew, or open Active [place]ard-3 Fatty Acids (fish oil) 1000 MG CAPSULE [...] obstruction 02/03/2024 H/O non-insulin dependent diabetes mellitus 03/2024 Hypertension 02/03/2024 GHADA (obstructive sleep apnea) 02/03/2024 GERD (gastroesophageal reflux disease) CAD (coronary artery disease) with prior stent 0 02/03/2024 Immunizations Immunization Administration Dates Next Due COVID-19 mRNA Vaccine [...] on file Legal Sex Male 8:05 PM ACADEMIC COACH Gender Identity Not on file Sexual Orientation Not on file Last Filed Vital Signs Vital Sign Reading Time Taken Comments Blood Pressure 141/60 02/06/2024 1:06 PM ACADEMIC COACH Pulse 70 02/06/2024 1:06 PM ACADEMIC COACH Temperature 37 C (98.6 F) 02/06/2024 1:06 PM ACADEMIC COACH Respiratory Rate 16 02/06/2024 1:06 PM ACADEMIC COACH Oxygen Saturation 90% 02/06/2024 1:06 PM ACADEMIC COACH Inhaled Oxygen Concentration - - Weight 91.2 kg (201 lb 1 oz) 02/06/2024 4:17 AM ACADEMIC COACH Height 177.8 cm (5' 10) 02/02/2024 8:37 PM ACADEMIC COACH Body Mass Index 28.85 02/02/2024 8:37 PM ACADEMIC COACH Plan of Treatment Health Maintenance Due Date Last Done Comments CT Colonography 1950 Cologuard 1950 Colonoscopy 1950 Colorectal Cancer Screening 1950 FIT/FOBT 1950 MEDICARE AWV 1950 Sigmoidoscopy 1950 VASCULAR LIPID PROFILE Q5 YEARS (Standing Order) 1968 Shingrix (Zoster recombinant) vaccine (Standing Order) (1 of 2) 04/25/2012 Pneumococcal Vaccine: 50+ yrs (Standing Order) (3 of 3 - PCV20 or PCV21) 09/25/2021 09/25/2016, 05/02/2012, 04/15/2012 TETANUS (Standing Order) 04/14/2022 04/14/2012, 12/02 RSV Vaccination (60+ yrs) (Abrysvo/Arexvy) (1 - 1-dose 75+ series) 2025 COVID-19 Single Dose 08/02/2025 Influenza Vaccine Seasonal (Standing Order) (#1) 2025 09/30/2020, 09/25/2016, 09/13/2014, Additional history exists PERTUSSIS (Standing Order) Completed 04/14/2012 HPV Vaccine (Standing Order) Aged Out No longer eligible based on patient's age to complete this topic Hepatitis B Vaccine (Standing Order) Aged Out No longer eligible based on patient's age to complete this topic Insurance KASHIA BLUE/VANTAGE BLUE MEDICARE COST PART A&B KASHIA BLUE/VANTAGE BLUE MEDICARE COST PART A&B Advance Directives For more information, please contact: [phone] * Full Code (Latest Code Status on File) Date Activated Date Inactivated Comments 02/03/2024 12:53 AM 02/06/2024 5:20 PM Care Teams Lobby Attendant Relationship Specialty Start Date End Date Tomasz Singh MD [facility] [address] [place] [phone] PCP - General Family Medicine 03/13/21 Tomasz Singh MD [facility] [address] [place] [phone] Family Medicine 03/13/21
--- OUTSIDE RECORDS SUMMARY | 2025-11-07 12:16 | XMS_ITS | Encounter Summary ---
Author Organization [facility] Address [address] [place] [address] Care Team Providers Care Ignition Expert Name Role Phone Mario Whiet MD Primary Care Provider [phone] Encounter Details Date Type Department Care Team [...] as of this encounter Progress Notes * [facility], PROVIDER - 08/19/2013 12:00 AM CDT documented in this encounter Plan of Treatment Not on file documented as of this encounter Visit Diagnoses Not on filedocumented in this encounter Care Teams Ignition Expert Relationship Specialty Start Date End Date Mario White MD [address] [place] [address] PCP - General Family Practice 09/22/14 documented as of this encounter
--- OUTSIDE RECORDS SUMMARY | 2025-11-07 12:16 | XMS_ITS | Encounter Summary ---
Author Organization [facility] Address [address] [place] [address] Care Team Providers Care Wage And Salary Specialist Name Role Phone Mario White MD Primary Care Provider [phone] Encounter Details Date Type Department Care Team (Late st Contact Info) Description 06/30/2012 [facility] Physical Medicine 401 [facility] [place], [place] [id number] Jeff Gastelum MD [address] [place] [address] [facility] Social History Tobacco Use Types [...] on filedocumented in this encounter Care Teams Wage And Salary Specialist Relationship Specialty Start Date End Date Mario White MD [address] [place] [address] PCP - General Family Practice 09/22/14 documented as of this encounter
--- OUTSIDE RECORDS SUMMARY | 2025-11-07 12:16 | XMS_ITS | Encounter Summary ---
Author Organization [facility] Address [address] [place] [address] Care Team Providers Care Patrol Agent Name Role Phone Mario White MD Primary Care Provider [phone] Encounter Details Date Type Department Care Team (Late st Contact Info) Description 04/14/2012 Outside Hospital External to External, Provider No address [address] ER NOTE/ TRANSFER Social History Tobacco [...] on filedocumented in this encounter Care Teams Patrol Agent Relationship Specialty Start Date End Date Mario White MD [address] [place] [address] PCP - General Family Practice 09/22/14 documented as of this encounter
--- OUTSIDE RECORDS SUMMARY | 2025-11-07 12:16 | XMS_ITS | Encounter Summary ---
Author Organization [facility] Address [address] [place] [address] Care Team Providers Care Animal Husbandry Technician Name Role Phone Mario White MD Primary Care Provider [phone] Encounter Details Date Type Department Care Team (Late st Contact Info) Description 06/18/2012 Scanned History External to External, [place] [address] [facility] SUMMARY [...] on filedocumented in this encounter Care Teams Animal Husbandry Technician Relationship Specialty Start Date End Date Maroi White MD [address] [place] [address] PCP - General Family Practice 09/22/14 documented as of this encounter
--- OUTSIDE RECORDS SUMMARY | 2025-11-07 12:16 | XMS_ITS | Encounter Summary ---
Author Organization [facility] Address [address] [place] [address] Care Team Providers Care Ergonomic Specialist Name Role Phone Mario White MD Primary Care Provider [phone] Encounter Details Date Type Department Care Team [...] as of this encounter Progress Notes * [facility], PROVID[facility] - 04/15/2012 12:00 AM CDT * [facility] PROVID[facility] - 04/14/2012 12:00 AM CDT documented in this encounter Plan of Treatment Not on file documented as of this encounter Visit Diagnoses Not on filedocumented in this encounter Care Teams Ergonomic Specialist Relationship Specialty Start Date End Date Mario White MD [address] [place] [address] PCP - General Family Practice 09/22/14 documented as of this encounter
--- OUTSIDE RECORDS SUMMARY | 2025-11-07 12:16 | XMS_ITS | Encounter Summary ---
Author Organization [facility] Address [address] [place] [address] Care Team Providers Care Superintendent Division Name Role Phone Mario White MD Primary Care Provider [phone] Encounter Details Date Type Department Care Team [...] as of this encounter Progress Notes * [facility], PROVIDER - 11/14/2012 12:00 AM CST CS TEST TECHNICIAN documented in this encounter Plan of Treatment Not on file documented as of this encounter Visit Diagnoses Not on filedocumented in this encounter Care Teams Superintendent Division Relationship Specialty Start Date End Date Mario White MD [place] [address] PCP - General Family Practice 09/22/14 documented as of this encounter
--- OUTSIDE RECORDS SUMMARY | 2025-11-07 12:16 | XMS_ITS | Clinical Summary ---
Author Organization [facility] Address [address] [place] [address] Care Team Providers Care Boatbuilder Wood Name Role Phone Mario White MD Primary Care Provider [phone] Krystin Alcantara MD Unavailable Unavailable Allergies Active Allergy Reactions Criticality Noted Date Comments Morphine Constipation 09/22/2012 Medications aspirin chewable 81 mg chewable tablet Take 1 tablet by mouth once daily. 0 2 Active [id number]-Fish Oil-Vit D3 300-1,000-1,000 mg-mg-unit cap Take by mouth. Take one daily 0 6 Active tamsulosin (FLOMAX) 0.4 mg capsule Take 1 Capsule by mouth at bedtime. 1 Active multivitamins-ayala xlyv-ebkt-rgftwhn s tab tablet Take 1 Tablet by mouth. Active psyllium husk (METAMUCIL ORAL) Take by mouth 2 times daily. Active primidone (MYSOLINE) 50 mg tablet Take 50 mg by mouth at bedtime. 4 Active metFORMIN (GLUCOPHAGE XR) 500 mg Extended-Release tabletIndications :Controlled type 2 diabetes mellitus with complication, without long-term current use of insulin (HC) Take 2 Tablets (1,000 mg) by mouth two times daily with meals. 360 Tablet 3 5 Active atorvastatin 40 mg tabletIndications :Coronary artery disease involving [place] coronary artery of [place] heart without angina pectoris Take 1 Tablet (40 mg) by mouth once daily in the evening. 90 Tablet 3 5 Active dilTIAZem CD 180 mg extended release 24 hr capsuleIndication s:Coronary artery disease involving [place] coronary artery of [place] heart without angina pectoris Take 1 Capsule (180 mg) by mouth once daily. 90 Capsule 3 5 Active nitroglycerin 0.4 mg sublingual tabletIndications :Coronary artery disease involving [place] coronary artery without angina pectoris, unspecified whether [place] or transplanted heart Place 1 Tablet (0.4 mg) under the tongue every 5 minutes if needed for Chest Pain. 25 Tablet 5 Active escitalopram oxalate 20 mg tablet Take 1 Tablet (20 mg) by mouth. 5 Active azelastine 137 mcg/actuation (ASTELIN) nasal sprayIndications: Allergic rhinitis, unspecified seasonality, unspecified trigger Inhale 1 [place] into affected nostril(s) two times daily. 30 mL 2 5 Active omeprazole (PRILOSEC) 40 mg Delayed-Release capsuleIndication s:Chronic GERD Take 1 Capsule (40 mg) by mouth once daily before a meal. 90 Capsule 3 5 Active albuterol HFA (Ventolin HFA) 90 mcg/actuation inhalerIndication s:Chronic dyspnea Inhale 1-2 Puffs by mouth every 4 hours if needed for Shortness Of Breath. 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 08/13/2023 Overview (08/13/2023): 2 cm segment - repeat in 5 years S/P ORIF (open reduction internal fixation) junec rashawn 11/11/2019 Type 2 diabetes mellitus wit hout complication, without long-term current use of insulin 07/30/2017 GHADA, 05/2017, AHI 33 06/11/2017 Dyslipidemia with low high d ensity lipoprotein (HDL) cholesterol with hypertriglyceridemia due to type 2 diabetes mellitus 10/02/2016 Spleen absent 09/22/2012 Allergic rhinitis, cause unspecified 09/22/2012 Wears hearing aid 09/22/2012 CAD (coronary artery disease) 02/29/2012 Overview (11/23/2021): 12/12/2011: NSTEMI, angiogram with severe distal RCA stenosis s/p [facility]. [facility] 11/23/2021: chest pain, NM stress test with new small apical ischemia. Coronary angiogram: Anxiety state, unspecified 01/09/2010 Resolved Problems Problem Noted Date Diagnosed Date Resolved Date GHADA (obstructive sleep apnea) 03/04/2025 05/18/2025 Chronic pain of left knee 11/11/2019 Pain of left tibia 11/11/2019 Lung nodules 06/28/2016 05/18/2025 Chronic chest wall pain 06/28/201605/02 Chronic GERD 06/28/2016 05/18/2025 Trigger thumb 02/29/2012 07/14/2012 Overview (02/29/2012): Right - bothering for a year Impaired fasting glucose 01/25/2009 Mixed hyperlipidemia 01/25/2009 016 Rotator cuff (capsule) sprain 01/19/2009 09/22/2012 Inguinal hernia without ment ion of obstruction or gangrene, bilateral, (not specified as recurrent) 08/26/2008 10/25/2009 Overview (08/26/2008): Right > Left Chronic low back pain 08/26/20082011 Elevated prostate specific antigen (PSA) 08/26/2008 01/19/2009 Intercostal neuralgia 2024 Encounters Date Type Department Care Team Description 08/27/2025 9:10 AM CDT Office Visit [facility] [address] [place] [address] Mario White MD Diabetes 08/26/2025 Travel from Last 3 Months Immunizations Immunization Administration Dates Next Due AMB Influenza, IIV4 PF (=>6 mos Flulaval,Fluzone Fluarix)(Flu Clinic Only) 09/13/2014 COVID-19 vaccine (Moderna 10 0mcg/0.5mL) PF, MDV 11/07/2021,02/13/2021,01/16/2021 COVID-19 vaccine (Abbott LabsBio NTech 30mcg/0.3mL) 12YO+ MAIRA-SUCROSE PF, MDV 04/16/2022 HIB PRP-OMP (PedvaxHIB) 04/15/2012 Influenza, High-dose [...] Cancer Brother 2 Mehdi Ca of [place] Other Brother 3 Mark Mult Sclerosis [...] Lb Alive Father Luis (Age 87) massive [place] Mother Kenzie (Age 49) Sister 1 Mary [...] = 0.6 oz pur e alcohol) maybe 1-3/month PHQ-2 Answer Date Recorded PHQ-2 TOTAL SCORE 0 05/18/2025 Social Connections Answer Date Recorded Do you often feel lonely or isolated from those around you? 0 05/18/2025 Financial Resource Strain Answer Date R ecorded Difficulty of Paying Living Expenses 3 05/18/2025 Difficulty of Paying Living Expenses Not on file 05/18/2025 Food Insecurity Answer Date Recorded Do you worry your food will run out before you are able to buy more? 1 05/18/2025 Transportation Needs Answer Date Record ed Does lack of transportation keep you from medica l appointments? 1 05/18/2025 Does lack of transportation keep you from work, meetings or getting things that you need? 1 05/18/2025 Housing Stability Answer Date Recorded What is your housing situation today? 1 05/18/2025 Utilities Answer Date Recorded Do you have trouble paying f or utilities (for example, heat, electricity, water, phone)? 1 05/18/2025 Sex and Gender Information Value Date Recorded Sex Assigned at Not on file Legal Sex Male 6:10 AM WATER/WASTEWATER PROJECT ENGINEER Gender Identity Not on file Sexual Orientation Not on file Occupation Industry Job Start Date Job End Date Disabled Not on file Not on file Not on file Last Filed Vital Signs Vital Sign Reading Time Taken Comments Blood Pressure 122/68 08/27/2025 9:12 AM CDT Pulse 68 08/27/2025 9:12 AM CDT Temperature 36.2 C (97.2 F) 02/27/2023 8:58 AM CDT Respiratory Rate 16 05/27/2025 4:05 PM CDT Oxygen Saturation 94% 08/27/2025 9:12 AM CDT Inhaled Oxygen Concentration - - Weight 84.8 kg (187 lb) 08/27/2025 9:12 AM CDT Height 170.2 cm (5' 7) 05/27/2025 4:05 PM CDT Body Mass Index 29.29 05/27/2025 4:05 PM CDT Plan of Treatment Upcoming Encounters Date Type Department Care Team (Late st Contact Info) Description 12/13/2025 9:30 AM WATER/WASTEWATER PROJECT ENGINEER Office Visit [facility] [address] [place] [address] Mario White MD [address] [place] [address] Health Maintenance Due Date Last Done Comments COVID-19 vaccine series (2024- season) 2025 08/27/2024, 12/11/2023, 11/20/2022, Additional history exists Influenza Vaccine (#1) 2025 , 08/13/2023, 11/20/2022, Additional history exists Depression screening for age 12+ 05/18/2026 05/18/2025, 01/24/2024, 01/24/2024, Additional history exists Medicare Wellness for age 65+ 05/19/2026 05/18/2025, 01/24/2024, 01/25/2023, Additional history exists BMI (ht and wt on same day) for age 18+ 05/27/2026 05/27/2025, 05/18/2025, 01/24/2024, Additional history exists Lipids for age 45-75 05/18/2030 05/18/2025, 01/24/2024, 01/25/2023, Additional history exists Colonoscopy through age 75 03/02/203103/02 (Completed outside of [facility]), 03/21/2012, 03/21/2012 Tetanus booster 03/14/2031 03/14/2021, 12/2012, 04/14/2012, Additional history exists Pneumococcal series for age 50+ Completed 09/25/2016, 09/24/2016 (Completed outside of [facility]), 08/31/2015, Additional history exists Hepatitis C screening for age 18-79 Completed 10/19/2019 Zoster (shingles) series for age 50+ Completed 02/09/2020, 11/17/2019, 02/29/2012 RSV vaccine for adults or Completed 01/07/2024 Hepatitis B series for 19+ Aged Out N o longer eligible based on patient's age to complete this topic Procedures Procedure Name Priority Date/Time Associated Diagnosis Comments BASIC METABOLIC PANEL Routine 08/27/2025 9:05 AM CDT Controlled type 2 diabetes mellitus with complication, without long-term current use of insulin (HC) HEMOGLOBIN A1C MONITORING (POCT) Routine 08/27/2025 9:05 AM CDT Controlled type 2 diabetes mellitus with complication, without long-term current use of insulin (HC) LIPID PANEL Routine 05/18/2025 11:02 AM CDT Dyslipidemia with low high density lipoprotein (HDL) cholesterol with hypertriglyceridemia due to type 2 diabetes mellitus (HC) ANTI HCV Routine 10/19/2019 10:02 AM WATER/WASTEWATER PROJECT ENGINEER Encounter for hepatitis C screening test for low risk patient from Last 3 Months or Most Recently Relevant to Health Maintenance Results * (ABNORMAL) POCT Hemoglobin A1C Monitoring (08/27/2025 9:05 AM CDT) POC HEMOGLOBIN A1C 6.9(H) <6.0 % OF TOTAL HGB 08/27/2025 9:16 AM CDT [facility] Comment: Any point of care results exhibiting inconsistency with the patient's clinical status should be repeated using a different testing method. Blood BLOOD SPECIMEN / Unknown [facility] / Unknown 08/27/2025 9:05 AM CDT 08/27/2025 9:05 AM CDT Mario White MD CHEMISTRY Final Resu lt [facility] [address] [place] [address], [place] [phone] [facility] [address] [place] [address], [place] [phone] * (ABNORMAL) BASIC METABOLIC PANEL (08/27/2025 9:05 AM CDT) SODIUM 137 135 - 146 mmol/L 08/28/2025 4:02 AM CDT [facility] POTASSIUM 4.2 3.5 - 5.3 mmol/L 08/28/2025 4:02 AM CDT [facility] CARBON DIOXIDE 28 20 - 32 mmol/L 08/28/2025 4:02 AM CDT [facility] GLUCOSE 155(H) 65 - 99 mg/dL 08/28/2025 4:02 AM CDT [facility] Comment: Fasting reference interval For someone without known diabetes, a glucose value >125 mg/dL indicates that they may have diabetes and this should be confirmed with a follow-up test. CALCIUM 9.7 8.6 - 10.3 mg/dL 08/28/2025 4:02 AM CDT [facility] CREATININE 1.00 0.70 - 1.28 mg/dL 08/28/2025 4:02 AM CDT [facility] BUN/CREATININE RATIO SEE NOTE: 6 - 22 (calc) 08/28/2025 4:02 AM CDT [facility] Comment: Not Reported: BUN and Creatinine are within reference range. EGFR 78 > OR = 60 mL/min/1. 73m2 08/28/2025 4:02 AM CDT [facility] UREA NITROGEN (BUN) 14 7 - 25 mg/dL 08/28/2025 4:02 AM CDT [facility] ELECTROLYTE BALANCE 10 7 - 17 mmol/L (calc) 08/28/2025 4:02 AM CDT [facility] CHLORIDE 99 98 - 110 mmol/L 08/28/2025 4:02 AM CDT [facility] Blood BLOOD SPECIMEN / Unknown [facility] / Unknown 08/27/2025 9:05 AM CDT 08/27/2025 9:05 AM CDT us Mario White MD CHEMISTRY Final Resu lt [facility] [address] [address], * (ABNORMAL) LIPID PANEL (05/18/2025 11:02 AM CDT) CHOLESTEROL, TOTAL 106 <200 mg/dL [facility] HDL CHOLESTEROL 39(L) > OR = 40 mg/dL [facility] TRIGLYCERIDES 140 <150 mg/dL [facility] LDL-CHOLESTEROL 45 mg/dL (calc) [facility] Comment: Reference range: <100 Desirable range <100 mg/dL for primary prevention; <70 mg/dL for patients with CHD or diabetic patients with > or = 2 CHD risk factors. LDL-C is now calculated using the Chela calculation, which is a validated novel method providing better accuracy than the Friedewald equation in the estimation of LDL-C. Luis SS et al. PEDRO. 2013;310(19): 0989-7821 (http://education.Actacell/faq/HWF880) CHOL/HDLC RATIO 2.7 <5.0 (calc) [facility] NON HDL CHOLESTEROL 67 <130 mg/dL (calc) [facility] Comment: For patients with diabetes plus 1 major ASCVD risk factor, treating to a non-HDL-C goal of <100 mg/dL (LDL-C of <70 mg/dL) is considered a therapeutic option. Blood BLOOD SPECIMEN / Unknown 05/18/2025 11:02 AM CDT 05/18/2025 11:02 AM CDT Narrative [facility] - 05/19/2025 7:19 AM CDT FASTING:YES FASTING: YES us Mairo White MD CHEMISTRY Final Resu lt [facility] [address] [address], [facility] [address] * ANTI HCV (10/19/2019 10:02 AM WATER/WASTEWATER PROJECT ENGINEER) HEPATITIS C ANTIBODY Non-React arleth Non-React arleth 10/19/2019 5:36 PM WATER/WASTEWATER PROJECT ENGINEER [facility] Comment:Antibodies to HCV no t detected; does not exclude the possibility of exposure to HCV. Blood BLOOD SPECIMEN / Unknown Venipuncture / Unknown 10/19/2019 10:02 AM WATER/WASTEWATER PROJECT ENGINEER 10/19/2019 10:02 AM WATER/WASTEWATER PROJECT ENGINEER us Stefan Burton MD SEND OUTS Final Result Performing Organization Address City/[facility]/ZIP Co de Phone Number [facility] [employer] [facility] [address] [place] [address], from Last 3 Months or Most Recently Relevant to Health Maintenance Insurance MEDICARE PART A HB ONLY MEDICARE PART B HB ONLY [employer] [place] B[employer] BLUE HB ONLY BLUE [employer] [place] [employer] BLUE MR PB ONLY BLUE CROSS [place] BAND BLUE MR PB ONLY MEDICARE PART B HB ONLY [employer]UE [employer] [place] BAND BLUE HB ONLY WORKERS COMP Advance Directives * Full Code (Latest Code Status on File) Date Activated Date Inactivated Comments 11/23/2021 1:35 PM 11/23/2021 10:40 PM Question Answer Comments Code Status Discussion: Discussed * Full Code Date Activated Date Inactivated Comments 12/11/2011 10:54 PM 12/13/2011 6:00 PM * Full Code Date Activated Date Inactivated Comments 12/11/2011 9:05 PM 12/11/2011 10:54 PM Care Teams Boatbuilder Wood Relationship Specialty Start Date End Date Mario White MD [address] [place] [address] PCP - General Family Practice 02/19/22 Krystin Alcantara MD [address] [place] [address] Consulting Physician Cardiovascular Disease 12/16/23
--- NOTE | 2025-11-07 12:49 | CRLHL7_ITS ---
For Patients: As a result of the Century Cures Act, medical imaging exams and procedure reports are released immediately into your electronic medical record. You may view this report before your referring provider. If you have questions, please contact your health care provider. INDICATION: Chest pain. TECHNIQUE: Chest 2 views. COMPARISON: 12/20/2024. FINDINGS: Grossly unchanged mild left basilar opacities compared to prior. This is favored to represent scarring the chronicity prominent interstitial markings are unchanged. There is elevation of the right hemidiaphragm. No definite effusion. No pneumothorax is seen. Cardiomegaly stable. Mediastinal contours are stable. There is a new generator with in the right chest wall with lead projecting cephalad to the neck. IMPRESSION: No acute cardiopulmonary abnormality Dictated by Edvin Olivas MD @ 11/07/2025 1:11:59 PM (Electronically Signed)
[2025-11-07] MEDS: ACETAMINOPHEN 325 MG TABLET 650 MG PO ×2 (12:59→17:33)
[2025-11-07 13:02] LABS: Lactate Sepsis w/Reflex* 1.8 mmol/L (0.5-1.9)
[2025-11-07 13:03] LABS: Hematocrit* 45.4 % (37.0-53.0); Hemoglobin* 14.8 gm/dL (13.5-17.5); Immature Granulocytes Abs Auto 0.03 K/uL (0.00-0.30); Immature Granulocytes Pct Auto 0.3 %; Lymphocytes Absolute Auto 2.03 K/uL (0.90-2.90); Mean Corpuscular HGB Conc 33 gm/dL (32-36); Mean Corpuscular Hemoglobin 31 pg (26-34); Mean Corpuscular Volume 96 fL (80-100); RDW Coefficient of Variation % 13.6 % (11.5-15.5); Red Blood Count* 4.75 m/uL (4.30-5.90); Slide Review Reflex No; White Blood Count* 9.85 K/uL (4.50-11.00)
[2025-11-07 13:04] LABS: PCR FLU A Negative PCR FLU A (Negative); PCR FLU B Negative PCR FLU B (Negative); PCR RSV Negative PCR RSV (Negative); SARS PCR* POSITIVE SARS-CoV-2 (Negative)
[2025-11-07 13:19] LABS: Chloride* 96 mmol/L (96-114); Potassium* 4.0 mmol/L (3.6-5.1); Sodium* 135 mmol/L (135-149)
[2025-11-07 13:22] LABS: Anion Gap 11 mEq/L (7-15); Blood Urea Nitrogen* 12 mg/dL (7-30); Calcium* 9.0 mg/dL (8.4-10.6); Carbon Dioxide* 28 mmol/L (20-32); Creatinine* 0.9 mg/dL (0.5-1.5); Est. Creatinine Clearance* 65.90; Estimated Glomerular Filt Rate 89 ml/min; Glucose* 153 mg/dL (60-115)
[2025-11-07 13:27] LABS: D Dimer Quantitative* < 0.27 ug/ml (0.00-0.50)
--- NOTE | 2025-11-07 13:39 | ED.GENADULT ---
HPI - General Adult General Date Seen: 11/07/25 Chief complaint: Cough Stated complaint: cough/shortness of breath Time Seen by Provider: 11/07/25 12:27 Source: patient Mode of arrival: ambulatory Limitations: no limitations History of Present Illness HPI narrative: Patient is a 75-year-old male with history of diabetes presenting to the emergency department for shortness of breath. States he had about a 5 minutes episode where he felt like he could not breathe at all. Since then he has been have breathe a little bit better but states he still does not feel normal. States he has take short deep breaths. Tried using her home inhaler without any improvement in his symptoms. He does not have COPD or asthma but states he has an inhaler for whenever he feels short of breath. Denies any chest pain but he states he still feels mildly short of breath at this time. Has had chills but has not noted any fevers. Has not taking anything yet for the chills. Has had previous cardiac stenting 2011. Denies abdominal pain, headache, lightheadedness, dizziness, vision changes, weakness, numbness, diarrhea, constipation. No other concerns noted at this time. Did have a family event yesterday Related Data Home Medications ?Medication ?Instructions ?Recorded ?Confirmed atorvastatin 40 mg tablet 40 mg PO HS 11/08/22 11/07/25 diltiazem HCl 180 mg 180 mg PO HS 11/08/22 11/07/25 capsule,extended release 24 hr aspirin 81 mg chewable tablet 81 mg PO DAILY 01/03/23 11/07/25 (Martín Chewable Low Dose Aspirin) omega 4-zcx-jcn-fish oil 1,000 mg 1 cap PO DAILY 01/03/23 11/07/25 (120 mg-180 mg) capsule (Fish Oil) escitalopram oxalate 20 mg tablet 20 mg PO DAILY 12/09/24 11/07/25 metformin 500 mg tablet,extended 1,000 mg PO BID 12/09/24 11/07/25 release 24 hr tnbkzblp-cmnamwpj-eoubz acid 400 1 tab PO DAILY 12/09/24 11/07/25 mcg-vit K 20 mcg-lycop 300 mcg tablet (One-A-Day Men's Multivitamin) tamsulosin 0.4 mg capsule 0.4 mg PO HS 12/09/24 11/07/25 primidone 50 mg tablet 50 mg PO HS 06/28/25 11/07/25 albuterol sulfate 90 mcg/actuation 2 inh inhalation QID PRN 11/07/25 11/07/25 aerosol inhaler azelastine 137 mcg (0.1 %) nasal 1 spray intranasal BID PRN 11/07/25 11/07/25 spray nitroglycerin 0.4 mg sublingual 0.4 mg sublingual Q5M PRN 11/07/25 11/07/25 tablet omeprazole 40 mg capsule,delayed 40 mg PO DAILY 11/07/25 11/07/25 release psyllium husk 0.52 gram capsule 0.52 g PO DAILY 11/07/25 11/07/25 Allergies Allergy/AdvReac Type Severity Reaction Status Date / Time morphine Allergy Verified 10/25/25 14:04 Review of Systems Status of ROS: Reports: 10 or more systems reviewed and unremarkable except as noted in History and below [facility] Medical History (Updated 11/08/25 @ 10:15 by Hayley Jewell MD) Cough ?R05.9 - Cough, unspecified (ICD-10) GHADA (obstructive sleep apnea) (06/11/17) ?G47.33 - Obstructive sleep apnea (adult) (pediatric) (ICD-10) Laceration of finger ?S61.219A - Laceration without foreign body of unspecified finger without damage to nail, initial encounter (ICD-10) Intractable hiccups ?R06.6 - Hiccough (ICD-10) Heart attack ?I21.9 - Acute myocardial infarction, unspecified (ICD-10) Type 2 diabetes mellitus ?E11.9 - Type 2 diabetes mellitus without complications (ICD-10) Hypertension ?I10 - Essential (primary) hypertension (ICD-10) Hyperlipidemia ?E78.5 - Hyperlipidemia, unspecified (ICD-10) Diverticulitis ?K57.92 - Diverticulitis of intestine, part unspecified, without perforation or abscess without bleeding (ICD-10) Chronic gastroesophageal reflux disease (06/28/16) ?K21.9 - Gastro-esophageal reflux disease without esophagitis (ICD-10) Asplenia (09/22/12) ?Q89.01 - Asplenia (congenital) (ICD-10) Adjustment disorder with depressed mood ?F43.21 - Adjustment disorder with depressed mood (ICD-10) Surgical History (Updated 11/08/25 @ 10:14 by Hayley Jewell MD) Coronary artery disease status post coronary stent insertion ?I25.10 - Atherosclerotic heart disease of [place] coronary artery without angina pectoris (ICD-10) ?Z95.5 - Presence of coronary angioplasty implant and graft (ICD-10) Status post open reduction and internal fixation (ORIF) of fracture (11/11/19) ?Z98.890 - Other specified postprocedural states (ICD-10) ?Z87.81 - Personal history of (healed) traumatic fracture (ICD-10) H/O hernia repair ?Z98.890 - Other specified postprocedural states (ICD-10) ?Z87.19 - Personal history of other diseases of the digestive system (ICD-10) H/O heart artery stent ?Z95.5 - Presence of coronary angioplasty implant and graft (ICD-10) Status post laparoscopic cholecystectomy ?Z90.49 - Acquired absence of other specified parts of digestive tract (ICD-10) Status post arthroscopy of right shoulder (11/04/09) ?Z98.890 - Other specified postprocedural states (ICD-10) Status post arthroscopy of left shoulder (04/02/17) ?Z98.890 - Other specified postprocedural states (ICD-10) History of removal of retained hardware (09/04/18) ?Z98.890 - Other specified postprocedural states (ICD-10) S/P ORIF (open reduction internal fixation) fracture (04/21/12) ?Z98.890 - Other specified postprocedural states (ICD-10) ?Z87.81 - Personal history of (healed) traumatic fracture (ICD-10) Social History What is your current living situation?: I presently have a place to live Problems where you live: no known problems In the past 12 months, utilities in danger of being shut off: no In past 12 months, lack of transportation kept you from medical appts, meetings, work, or getting things needed for daily living: no In the past 12 mos, have been you worried that your food would run out before you had money to buy more?: never true In the past 12 mos, the food you bought just didn't last and you didn't have money to buy more?: never true Highest level of school completed/degree received: 12th grade, no diploma Smoking Status: Former smoker Do you use any of these nicotine containing products: None Second hand tobacco smoke exposure: No How often do you have a drink containing alcohol: 2-3 times a week Alcohol type: beer How many standard drinks containing alcohol do you have on a typical day: 1 or 2 How often do you have six or more drinks on one occasion: Never AUDIT-C Alcohol total score: 3 Non-prescribed substance use: denies use Caffeine: No How often does anyone, including family, friends and others, physically hurt you: never How often does anyone, including family, friends and others, insult or talk down to you: never How often does anyone, including family, friends and others, threaten you with harm: never How often does anyone, including family, friends and others, scream or curse at you: never service: Yes Exam Narrative: Exam Narrative: Const: Well-nourished, Well-developed, in moderate distress Eyes: PERRL, no conjunctival injection, and symmetrical lids HENT: Atraumatic external nose and ears. Moist mucous membranes. Neck: Symmetric, trachea midline, No thyromegaly. CVS: RRR, No murmurs or gallops. Peripheral pulses 2+ and equal in all extremities RESP: Tachypneic and appears to be uncomfortable with his breathing GI: Nontender/Nondistended, No rebound or guarding. MSK:Extremities w/o deformity, Normal Active ROM Skin: Warm, Dry. No rashes or lesions. Neuro: Normal Muscle tone, No focal neurological deficits. Psych: Awake, Alert, & Oriented x3. Appropriate mood and affect. Const: Vital Signs, click to edit/add: Vital Signs - 24 hr 11/07/25 12:24 11/07/25 12:59 11/07/25 13:12 Temperature 98.8 F 100.0 F H Pulse Rate Pulse Rate [Pulse Oximeter] 99 Respiratory Rate 22 22 Blood Pressure Blood Pressure [Ri ght Upper Arm] 139/75 Pulse Oximetry 94 Oxygen Delivery Me thod Room Air 11/07/25 13:15 11/07/25 13:28 11/07/25 13:30 Temperature Pulse Rate 74 73 Pulse Rate [Pulse Oximeter] Respiratory Rate 19 15 Blood Pressure 155/71 H Blood Pressure [Ri ght Upper Arm] Pulse Oximetry 96 98 Oxygen Delivery Me thod 11/07/25 13:32 11/07/25 13:45 11/07/25 14:00 Temperature Pulse Rate 77 75 74 Pulse Rate [Pulse Oximeter] Respiratory Rate 16 Blood Pressure 148/69 H Blood Pressure [Ri ght Upper Arm] Pulse Oximetry 99 96 97 Oxygen Delivery Me thod 11/07/25 14:02 11/07/25 14:03 11/07/25 14:14 Temperature 99.3 F Pulse Rate 74 Pulse Rate [Pulse Oximeter] 84 Respiratory Rate 14 Blood Pressure 144/75 H Blood Pressure [Ri ght Upper Arm] Pulse Oximetry 95 94 Oxygen Delivery Me thod Room Air 11/07/25 14:18 Temperature Pulse Rate Pulse Rate [Pulse Oximeter] Respiratory Rate Blood Pressure Blood Pressure [Ri ght Upper Arm] Pulse Oximetry 94 Oxygen Delivery Me thod Room Air Course Vital Signs Vital signs: Initial Vital Signs Temperature 98.8 F 11/07/25 12:24 Temperature Source Temporal Artery Scan 11/07/25 12:24 Pulse Rate 99 11/07/25 12:24 Pulse Rhythm Regular 11/07/25 12:24 Respiratory Rate 22 11/07/25 12:24 Blood Pressure 139/75 11/07/25 12:24 Blood Pressure Mean 96 11/07/25 12:24 Blood Pressure Position Sitting 11/07/25 12:24 Pulse Oximetry 94 11/07/25 12:24 Oxygen Delivery Method Room Air 11/07/25 12:24 Vital Signs Temperature 98.8 F 11/07/25 12:24 Pulse Rate 99 11/07/25 12:24 Respiratory Rate 22 11/07/25 12:24 Blood Pressure 139/75 11/07/25 12:24 Pulse Oximetry 94 11/07/25 12:24 Oxygen Delivery Method Room Air 11/07/25 12:24 Temperature 100.4 F H 11/08/25 08:57 Pulse Rate 83 11/08/25 08:49 Respiratory Rate 18 11/08/25 08:49 Blood Pressure 111/64 11/08/25 08:49 Pulse Oximetry 95 11/08/25 08:49 Oxygen Delivery Method Room Air 11/08/25 08:49 Oxygen Flow Rate 2 11/07/25 15:00 Medications Administered Medications: Discontinued Medications Generic Name Dose Route Start Last Admin Trade Name Freluann PRN Reason Stop Dose Admin Acetaminophen 650 mg 11/07/25 12:52 11/07/25 12:59 Acetaminophen 325 Mg Tablet PO 11/07/25 12:53 650 mg ONCE ONE Administration Acetaminophen 650 mg 11/07/25 15:53 11/08/25 08:57 Acetaminophen 325 Mg Tablet PO 650 mg Q6H PRN Administration Aspirin 81 mg 11/08/25 09:00 11/08/25 08:57 Aspirin 81 Mg Tab.Chew PO 81 mg DAILY DENISE Administration Atorvastatin Calcium 40 mg 11/07/25 21:00 11/07/25 21:15 Atorvastatin Calcium 40 Mg Tablet PO 40 mg HS DENISE Administration Enoxaparin Sodium 40 mg 11/07/25 21:00 11/07/25 21:15 Enoxaparin 40 Mg/0.4 Ml Inj SUBCUT 40 mg HS DENISE Administration Escitalopram Oxalate 20 mg 11/08/25 09:00 11/08/25 08:57 Escitalopram 10 Mg Tablet PO 20 mg DAILY DENISE Administration Sodium Chloride 1,000 mls @ 100 mls/hr 11/07/25 15:53 11/08/25 04:35 0.9 % Sodium Chloride 1000 Ml IV 11/08/25 01:52 Infused .Q10H DENISE Infusion Insulin Aspart 0 unit 11/07/25 18:00 11/08/25 08:59 Insulin Aspart 100 Unit/Ml SUBCUT Not Given [facility] Protocol Omeprazole 40 mg 11/08/25 07:00 11/08/25 06:07 Omeprazole [address] PO 40 mg DAILY@0700 DENISE Administration Primidone 50 mg 11/07/25 21:00 11/07/25 21:15 Primidone 50 Mg Tablet PO 50 mg HS DENISE Administration Sodium Chloride 5 ml 11/07/25 21:00 11/07/25 21:09 Sodium Chloride 0.9 % (Flush) 10 Ml Syringe IVF Not Given BID DENISE Tamsulosin HCl 0.4 mg 11/07/25 21:00 11/07/25 21:15 Tamsulosin Hcl 0.4 Mg Capsule PO 0.4 mg HS DENISE Administration Medical Decision Making MDM Narrative Medical decision making narrative: Patient is a 75-year-old male presenting for shortness of breath. The differential diagnosis of shortness of breath is broad and includes common etiologies such as COPD, asthma, pneumonia, viral syndrome, etc. More serious etiologies considered include PE, CHF, coronary artery disease, pneumothorax, aortic dissection, aortic aneurysm. My main concern at this time would be pneumonia will do chest x-ray to look for signs of pneumonia. Will do viral swabs to look for signs COVID/flu/RSV. D-dimer aortic for signs of PE. EKG and troponin ordered the for signs of heart abnormalities. Also order BMP, CBC, magnesium. Patient is not having fever but his temperature did get slightly worse is now 100. Will order lactate and blood cultures. Lab work returned showing no acute concerning abnormalities. EKG interpreted by myself shows no concerning abnormalities. Chest x-ray interpreted by myself and the radiologist shows no concerning findings. D-dimer within normal limits. Electrolytes appear normal. Troponin within normal limits. He is COVID positive and this is likely the cause of all of his symptoms. He still appears very uncomfortable while breathing we will ambulate him to CV desats. He did not desat but he looked pale and appeared like he was going to fall over. He had to hold onto the nurse's desk so he did not fall. Was able to get back to his bed. I do not believe he is safe to go home at this time as he is very weak from the COVID and is having some difficulty breathing. Leaving his stay in the hospital and I spoke to the family about this. His fully agrees. He will be admitted to the hospitalist service. Lab Data Labs: Lab Results 11/07/25 11/07/25 11/07/25 Range/Units 12:20 12:49 12:55 WBC 9.85 (4.50-11.00) K/uL RBC 4.75 (4.30-5.90) m/uL Hgb 14.8 (13.5-17.5) gm/dL Hct 45.4 (37.0-53.0) % MCV 96 (80-100) fL MCH 31 (26-34) pg MCHC 33 (32-36) gm/dL RDW Coeff of Nora 13.6 (11.5-15.5) % Plt Count 283 (140-440) K/uL Neut % (Auto) 61.8 (42.0-72.0) % Lymph % (Auto) 20.6 (20-44) % Bracken % (Auto) 16.1 H (0.0-11.0) % Eos % (Auto) 0.9 (0.0-7.0) % Baso % (Auto) 0.3 (0.0-3.0) % Neut # (Auto) 6.08 (1.7-7.0) K/uL Lymph # (Auto) 2.03 (0.90-2.90) K/uL Bracken # (Auto) 1.60 H (0.00-0.90) K/UL Eos # (Auto) 0.09 (0.00-0.50) K/uL Baso # (Auto) 0.03 (0.00-0.30) K/uL Abs Immat Gran (auto) 0.03 (0.00-0.30) K/uL Imm/Tot Granulo (auto) 0.3 % D-Dimer Quant (PE/DVT) < 0.27 (0.00-0.50) ug/ml Sodium 135 (135-149) mmol/L Potassium 4.0 (3.6-5.1) mmol/L Chloride 96 (96-114) mmol/L Carbon Dioxide 28 (20-32) mmol/L Anion Gap 11 (7-15) mEq/L BUN 12 (7-30) mg/dL Creatinine 0.9 (0.5-1.5) mg/dL Estimated Creat Clear 65.90 Estimated GFR 89 ml/min Glucose 153 H (60-115) mg/dL Lactate 1.8 (0.5-1.9) mmol/L Calcium 9.0 (8.4-10.6) mg/dL Magnesium 1.8 (1.5-2.6) mg/dL POC Troponin I High Sensi < 2.9 L (2.9-28.0) pg/mL SARS-CoV-2 (PCR) POSITIVE SARS-CoV-2 A (Negative) Influenza Type A (PCR) Negative PCR FLU A (Negative) Influenza Type B (PCR) Negative PCR FLU B (Negative) RSV (PCR) Negative PCR RSV (Negative) Imaging Data Chest x-ray: Attestation: I have reviewed the pertinent imaging results. Radiologist's impression: No acute cardiopulmonary abnormality Dictated by Edvin Olivas MD @ 11/07/2025 1:11:59 PM ECG Data Attestation: I personally reviewed and interpreted this ECG as follows: Prior ECG tracings: available for review Interpretation: Normal sinus rhythm with a rate sinus 6 beats per minute, left axis deviation, normal intervals, no ST or T-wave abnormalities. Appears similar previous EKGs on file. Discharge Plan Discharge Condition: Improved Activity Level: Use Walker Discharge Diet: Regular
--- NOTE | 2025-11-07 15:34 | PM.IMHP1 ---
Assessment and Plan Assessment and plan (1) COVID-19: Problem comment: Patient presented with chills weakness and lightheadedness. Pt was not able to even stand to get his weight taken. Will not start steroids as patient does not require oxygen Conservative Tx with IV fluids, pain management and observation. PT/OT Status: Acute (2) Shortness of breath on exertion: Problem comment: -Patient denies shortness of breath at baseline. It started with his recent sickness (COVID). -no history of COPD or CHF. -EKG unremarkable, troponin negative x1. Repeat Trops as pt has Hx of [place]. -chest x-ray does not show any infiltrates or consolidations -likely secondary to COVID infection as patient is COVID positive. -ordered telemetry. Status: Acute (3) Coronary artery disease status post coronary stent insertion: Problem comment: 12/12/2011: NSTEMI, angiogram with severe distal RCA stenosis s/p LUCIEN. [facility] 11/23/2021: chest pain, NM stress test with new small apical ischemia. Coronary angiogram. on diltiazem for hypertension and coronary artery disease. He follows with Cardiology for this. ECHO 01/2025 Procedure: 2D, Color Doppler and Spectral Doppler. Indication for study: Dilatation of aortic sinus of Valsalva (HC); Mitral valve insufficiency, unspecified etiology Cardiac Rhythm: Regular.Study quality: Good. Final Impressions: 1. Normal LV size, borderline wall thickness, normal global systolic function with an estimated EF of 60 - 65%. 2. Right ventricular cavity size is moderately enlarged, global systolic RV function is normal. 3. Normal sized ascending aorta, diameter of 3.5 cm (upper limit of normal for age, sex, and BSA is 4.3 cm), Height Index 2.02. 4. Normal sized sinus of Valsalva, diameter of 3.8 cm (upper limt of normal for age, sex, and BSA is 4.2 cm), Height Index 2.23 cm/m. The aortic valve is normal in structure and trileaflet, no stenosis and no regurgitation. The mitral valve is normal in structure, trace mitral regurgitation. Spectral Doppler shows Grade 1 pattern of LV diastolic filling. The tricuspid valve is normal in structure and mild tricuspid regurgitation. Status: Acute (4) Type 2 diabetes mellitus: Problem comment: A1c 6.9 in 08/26. On metformin 1000 b.i.d. Hold during admission Start Sliding scale insulin during hospitalization Status: Acute (5) GHADA (obstructive sleep apnea): Problem comment: AHI 33 Status: Acute (6) Barretts esophagus: Problem comment: Resume omeprazole 40 mg. Status: Acute (7) Hypertension: Problem comment: on diltiazem for hypertension Status: Acute (8) Hyperlipidemia: Status: Acute Total Time Spent Total Time Spent: Time spent: Today I spent 75 minutes seeing the patient, discussing the patient with ER staff, reviewing Expanse and EPIC notes/diagnostics, discussing the care plan with our care time that includes social work, PT/OT, pharmacy, RT, snf and documenting my impressions and plan in the medical record. Hospitalist- H&P: HPI History of Present Illness Date Seen: 11/07/25 Chief complaint: cough/shortness of breath Narrative: Luis Hawkins is a 75 year old male w/ Past medical history of hypertension, hyperlipidemia, DM II, [place] 2011, status post PCI, GHADA asplenia, history of [place] esophagus without dysplasia and depression who presented with shortness of breath on exertion. Patient states that he has been feeling weak, unable to stand and has had chills all night. He added that when he gets up to walk he would feel dizzy. Patient denies shortness of breath at baseline. It started with his recent sickness (COVID). At the ED patient was hemodynamically stable. Maximum temperature was 100 F. he satting well on room air, not requiring oxygen. WBCs, Troponin within normal. COVID +ve. Chest x-ray does not show any infiltrates or consolidations. EKG unremarkable, with low-voltage QRS and left axis deviation. ED provider contacted me and stated that he does not believe that he is safe to go home with his weakness and lightheadedness as he was not able to even stand to get his weight taken. patient admitted for observation. Review of Systems Status of ROS: Reports: 6 or more systems reviewed and unremarkable except as noted in History and below Medical Decision Making Medical Decision Making Has patient completed a Health Care Directive: No PFSH [facility] Medical History (Updated 11/07/25 @ 16:11 by Gladis Paez MD) Cough ?R05.9 - Cough, unspecified (ICD-10) GHADA (obstructive sleep apnea) (07/11/17) ?G47.33 - Obstructive sleep apnea (adult) (pediatric) (ICD-10) Laceration of finger ?S61.219A - Laceration without foreign body of unspecified finger without damage to nail, initial encounter (ICD-10) Intractable hiccups ?R06.6 - Hiccough (ICD-10) Heart attack ?I21.9 - Acute myocardial infarction, unspecified (ICD-10) Type 2 diabetes mellitus ?E11.9 - Type 2 diabetes mellitus without complications (ICD-10) Hypertension ?I10 - Essential (primary) hypertension (ICD-10) Hyperlipidemia ?E78.5 - Hyperlipidemia, unspecified (ICD-10) Diverticulitis ?K57.92 - Diverticulitis of intestine, part unspecified, without perforation or abscess without bleeding (ICD-10) Chronic gastroesophageal reflux disease (06/28/16) ?K21.9 - Gastro-esophageal reflux disease without esophagitis (ICD-10) Asplenia (09/22/12) ?Q89.01 - Asplenia (congenital) (ICD-10) Adjustment disorder with depressed mood ?F43.21 - Adjustment disorder with depressed mood (ICD-10) Surgical History (Updated 11/07/25 @ 15:38 by Gladis Paez MD) Coronary artery disease status post coronary stent insertion ?I25.10 - Atherosclerotic heart disease of [place] coronary artery without angina pectoris (ICD-10) ?Z95.5 - Presence of coronary angioplasty implant and graft (ICD-10) Status post open reduction and internal fixation (ORIF) of fracture (11/11/19) ?Z98.890 - Other specified postprocedural states (ICD-10) ?Z87.81 - Personal history of (healed) traumatic fracture (ICD-10) H/O hernia repair ?Z98.890 - Other specified postprocedural states (ICD-10) ?Z87.19 - Personal history of other diseases of the digestive system (ICD-10) H/O heart artery stent ?Z95.5 - Presence of coronary angioplasty implant and graft (ICD-10) Status post laparoscopic cholecystectomy ?Z90.49 - Acquired absence of other specified parts of digestive tract (ICD-10) Status post arthroscopy of right shoulder (11/04/09) ?Z98.890 - Other specified postprocedural states (ICD-10) Status post arthroscopy of left shoulder (04/02/17) ?Z98.890 - Other specified postprocedural states (ICD-10) History of removal of retained hardware (09/04/18) ?Z98.890 - Other specified postprocedural states (ICD-10) S/P ORIF (open reduction internal fixation) fracture (04/21/12) ?Z98.890 - Other specified postprocedural states (ICD-10) ?Z87.81 - Personal history of (healed) traumatic fracture (ICD-10) Social History What is your current living situation?: I presently have a place to live Problems where you live: no known problems In the past 12 months, utilities in danger of being shut off: no In past 12 months, lack of transportation kept you from medical appts, meetings, work, or getting things needed for daily living: no In the past 12 mos, have been you worried that your food would run out before you had money to buy more?: never true In the past 12 mos, the food you bought just didn't last and you didn't have money to buy more?: never true Highest level of school completed/degree received: 12th grade, no diploma Smoking Status: Former smoker Do you use any of these nicotine containing products: None Second hand tobacco smoke exposure: No How often do you have a drink containing alcohol: 2-3 times a week Alcohol type: beer How many standard drinks containing alcohol do you have on a typical day: 1 or 2 How often do you have six or more drinks on one occasion: Never AUDIT-C Alcohol total score: 3 Non-prescribed substance use: denies use Caffeine: No How often does anyone, including family, friends and others, physically hurt you: never How often does anyone, including family, friends and others, insult or talk down to you: never How often does anyone, including family, friends and others, threaten you with harm: never How often does anyone, including family, friends and others, scream or curse at you: never service: Yes Meds Home Medications and Allergies Home Medications ?Medication ?Instructions ?Recorded ?Confirmed ?Type atorvastatin 40 mg tablet 40 mg PO HS 11/08/22 11/07/25 History diltiazem HCl 180 mg 180 mg PO HS 11/08/22 11/07/25 History capsule,extended release 24 hr aspirin 81 mg chewable tablet 81 mg PO DAILY 01/03/23 11/07/25 History (Martín Chewable Low Dose Aspirin) omega 6-qrs-qvk-fish oil 1,000 mg 1 cap PO DAILY 01/03/23 11/07/25 History (120 mg-180 mg) capsule (Fish Oil) escitalopram oxalate 20 mg tablet 20 mg PO DAILY 12/09/24 11/07/25 History metformin 500 mg tablet,extended 1,000 mg PO BID 12/09/24 11/07/25 History release 24 hr kznmszic-unvbocwh-ditsp acid 400 1 tab PO DAILY 12/09/24 11/07/25 History mcg-vit K 20 mcg-lycop 300 mcg tablet (One-A-Day Men's Multivitamin) tamsulosin 0.4 mg capsule 0.4 mg PO HS 12/09/24 11/07/25 History primidone 50 mg tablet 50 mg PO HS 06/28/25 11/07/25 History albuterol sulfate 90 mcg/actuation 2 inh inhalation QID PRN 11/07/25 11/07/25 History aerosol inhaler azelastine 137 mcg (0.1 %) nasal 1 spray intranasal BID PRN 11/07/25 11/07/25 History spray nitroglycerin 0.4 mg sublingual 0.4 mg sublingual Q5M PRN 11/07/25 11/07/25 History tablet omeprazole 40 mg capsule,delayed 40 mg PO DAILY 11/07/25 11/07/25 History release psyllium husk 0.52 gram capsule 0.52 g PO DAILY 11/07/25 11/07/25 History Allergies Allergy/AdvReac Type Severity Reaction Status Date / Time morphine Allergy Verified 10/25/25 14:04 Exam Narrative: Exam Narrative: Physical exam GENERAL: Pt looks weak, sleepy. HEAD AND NECK: Atraumatic, normocephalic CARDIOVASCULAR: RRR. Normal S1, S2. No murmurs. RESPIRATORY: Clear to auscultation B/L. Good air entry B/L. No wheezes or rhonchi. GASTROINTESTINAL: Not distended, not tender to palpation. NEUROLOGY: Sleepy. Normal speech. Const: Vital Signs, click to edit/add: Vital Signs - 24 hr 11/07/25 12:24 11/07/25 12:59 11/07/25 13:12 Temperature 98.8 F 100.0 F H Pulse Rate Pulse Rate [Pulse Oximeter] 99 Respiratory Rate 22 22 Blood Pressure Blood Pressure [Ri ght Arm] Blood Pressure [Ri ght Upper Arm] 139/75 Pulse Oximetry 94 Oxygen Delivery Me thod Room Air Oxygen Flow Rate 11/07/25 13:15 11/07/25 13:28 11/07/25 13:30 Temperature Pulse Rate 74 73 Pulse Rate [Pulse Oximeter] Respiratory Rate 19 15 Blood Pressure 155/71 H Blood Pressure [Ri ght Arm] Blood Pressure [Ri ght Upper Arm] Pulse Oximetry 96 98 Oxygen Delivery Me thod Oxygen Flow Rate 11/07/25 13:32 11/07/25 13:45 11/07/25 14:00 Temperature Pulse Rate 77 75 74 Pulse Rate [Pulse Oximeter] Respiratory Rate 16 Blood Pressure 148/69 H Blood Pressure [Ri ght Arm] Blood Pressure [Ri ght Upper Arm] Pulse Oximetry 99 96 97 Oxygen Delivery Me thod Oxygen Flow Rate 11/07/25 14:02 11/07/25 14:03 11/07/25 14:14 Temperature 99.3 F Pulse Rate 74 Pulse Rate [Pulse Oximeter] 84 Respiratory Rate 14 Blood Pressure 144/75 H Blood Pressure [Ri ght Arm] Blood Pressure [Ri ght Upper Arm] Pulse Oximetry 95 94 Oxygen Delivery Me thod Room Air Oxygen Flow Rate 11/07/25 14:18 11/07/25 15:00 11/07/25 15:00 Temperature 99.4 F Pulse Rate Pulse Rate [Pulse Oximeter] 73 Respiratory Rate 16 16 Blood Pressure Blood Pressure [Ri ght Arm] 144/71 H Blood Pressure [Ri ght Upper Arm] Pulse Oximetry 94 94 94 Oxygen Delivery Me thod Room Air Nasal Cannula Nasal Cannula Oxygen Flow Rate 2 2 Hospitalist - H&P: Result Labs Labs: Short CBC 11/07/25 Range/Units 12:55 WBC 9.85 (4.50-11.00) K/uL Hgb 14.8 (13.5-17.5) gm/dL Hct 45.4 (37.0-53.0) % Plt Count 283 (140-440) K/uL BMP 11/07/25 12:55 Sodium 135 Potassium 4.0 Chloride 96 Carbon Dioxide 28 BUN 12 Creatinine 0.9 Glucose 153 H Calcium 9.0 ECG Attestation: I personally reviewed and interpreted this ECG as follows: ECG interpretation date: 11/07/25 Interpretation: EKG unremarkable, with low-voltage QRS and left axis deviation. Imaging Chest x-ray: Attestation: I have reviewed the pertinent imaging results. Radiologist's impression: TECHNIQUE: Chest 2 views. COMPARISON: 12/20/2024. FINDINGS: Grossly unchanged mild left basilar opacities compared to prior. This is favored to represent scarring the chronicity prominent interstitial markings are unchanged. There is elevation of the right hemidiaphragm. No definite effusion. No pneumothorax is seen. Cardiomegaly stable. Mediastinal contours are stable. There is a new generator with in the right chest wall with lead projecting cephalad to the neck. IMPRESSION: No acute cardiopulmonary abnormality Dictated by Edvin Olivas MD @ 11/07/2025 1:11:59 PM (Electronically Signed)
[2025-11-07 17:09] LABS: NT Pro B Type NatriureticPept* 60 pg/mL (See Note)
[2025-11-07] MEDS: PRIMIDONE 50 MG TABLET PO (21:15)
[2025-11-07] MEDS: TAMSULOSIN HCL 0.4 MG CAPSULE PO (21:15)
[2025-11-07] MEDS: ATORVASTATIN CALCIUM 40 MG TABLET PO (21:15)
[2025-11-07] MEDS: ENOXAPARIN 40 MG/0.4 ML INJ SUBCUT (21:15)
--- NOTE | 2025-11-07 22:11 | PC.NURSE ---
Patient up with SBA and walker.He is utilizing the bed alarm for safety. Patient received Tylenol for a oral temp 100.8, rechecked, oral temp 99.4. Patient O2 sats 95% Room air. He is continent of bowel and bladder. PIV in left AC patent with NS @ 100/hour infusing.
[2025-11-08 01:16] VITALS: TEMP 38.7
[2025-11-08] MEDS: ACETAMINOPHEN 325 MG TABLET 650 MG PO ×2 (01:16→08:57)
[2025-11-08 02:20] VITALS: BP 109/66; PULSE 78; RESP 18; TEMP 37.6; O2SAT 92
[2025-11-08 04:37] VITALS: TEMP 37.7
[2025-11-08] MEDS: OMEPRAZOLE 20 MG CAPSULE DR 40 MG PO (06:07)
[2025-11-08 06:42] LABS: Hematocrit* 42.8 % (37.0-53.0); Hemoglobin* 14.0 gm/dL (13.5-17.5); Mean Corpuscular HGB Conc 33 gm/dL (32-36); Mean Corpuscular Hemoglobin 32 pg (26-34); Mean Corpuscular Volume 96 fL (80-100); Red Blood Count* 4.44 m/uL (4.30-5.90); White Blood Count* 6.60 K/uL (4.50-11.00)
[2025-11-08 07:00] LABS: Albumin* 3.8 g/dL (3.3-5.0); Chloride* 95 mmol/L (96-114); Sodium* 134 mmol/L (135-149)
[2025-11-08 07:01] LABS: Potassium* 3.9 mmol/L (3.6-5.1)
--- NOTE | 2025-11-08 07:01 | PC.NURSE ---
End of shift [id number]: Pt AxOx3, pleasant, and cooperative with cares. Hearing aids at bedside. A1 GB W to the bathroom. Continent of the bladder. Denies pain during shift. Pt had low grade fevers during shift, treated with PRN Tylenol and environmental control. IV SL. RA. Call light within reach. Bed alarm in place.
[2025-11-08 07:02] VITALS: PULSE 70
[2025-11-08 07:03] LABS: Alanine Aminotransferase* 28 U/L (4-50); Anion Gap 10 mEq/L (7-15); Aspartate Amino Transferase* 28 U/L (12-35); Blood Urea Nitrogen* 12 mg/dL (7-30); Carbon Dioxide* 29 mmol/L (20-32); Creatinine* 1.0 mg/dL (0.5-1.5); Est. Creatinine Clearance* 63.83; Estimated Glomerular Filt Rate 78 ml/min; Total Protein* 6.2 g/dL (6.0-8.3)
[2025-11-08 07:04] LABS: Alkaline Phosphatase* 71 U/L (40-150); Bilirubin Total* 0.7 mg/dL (0.1-1.5); Calcium* 8.6 mg/dL (8.4-10.6); Glucose* 126 mg/dL (60-115)
[2025-11-08 07:31] LABS: Slide Review Reflex No
[2025-11-08 08:49] VITALS: BP 111/64; PULSE 83; RESP 18; TEMP 38; O2SAT 95
[2025-11-08 08:57] VITALS: TEMP 38
[2025-11-08] MEDS: ASPIRIN 81 MG TAB.CHEW PO (08:57)
[2025-11-08] MEDS: ESCITALOPRAM 10 MG TABLET 20 MG PO (08:57)
--- NOTE | 2025-11-08 09:40 | PM.DS1 ---
DS: Providers Provider Time Seen by Provider: 09:34 Date Seen: 11/08/25 Date of admission: 11/07/25 14:57 Primary care physician: Mario White MD Admitting Clinician: Gladis Paez MD Consults: 11/07/25 15:53 Consult to Occupational Therapy [CONS] Routine Comment: Reason(s) for OT Consult:: Evaluate and Treat Any Restrictions?:: No Restrictions Consult to Physical Therapy [CONS] Routine Comment: Reason(s) for PT Consult:: Evaluate and Treat Any Restrictions?:: No Restrictions Attending Physician on discharge: Hayley Jewell MD Date of Discharge: 11/08/25 DS: Diagnosis Discharge Diagnosis (1) COVID-19: Status: Acute Problem details: Patient presented with chills weakness and lightheadedness. Pt was not able to even stand to get his weight taken. Will not start steroids as patient does not require oxygen Conservative Tx with IV fluids, pain management and observation. 11/08 PT/OT evaluated, no need for ongoing therapy, use walker I spoke with patient's over the phone. She's spoken with him today and also notes he seems much improved. We discussed that he is still having fevers, which is expected with a viral illness for a few days and that he should stay hydrated, get plenty of rest, eat some extra protein and a SMALL amount of extra salt while hydrating. (2) Shortness of breath on exertion: Status: Acute Problem details: -Patient denies shortness of breath at baseline. It started with his recent sickness (COVID). -no history of COPD or CHF. -EKG unremarkable, troponin negative x1. Repeat Trops as pt has Hx of [place]. -chest x-ray does not show any infiltrates or consolidations -likely secondary to COVID infection as patient is COVID positive. -ordered telemetry. 11/08 Denies SOB at rest or with exertion (3) Coronary artery disease status post coronary stent insertion: Status: Chronic Problem details: 12/12/2011: NSTEMI, angiogram with severe distal RCA stenosis s/p LUCIEN. [facility] 11/23/2021: chest pain, NM stress test with new small apical ischemia. Coronary angiogram. on diltiazem for hypertension and coronary artery disease. He follows with Cardiology for this. ECHO 01/2025 Procedure: 2D, Color Doppler and Spectral Doppler. Indication for study: Dilatation of aortic sinus of Valsalva (HC); Mitral valve insufficiency, unspecified etiology Cardiac Rhythm: Regular.Study quality: Good. Final Impressions: 1. Normal LV size, borderline wall thickness, normal global systolic function with an estimated EF of 60 - 65%. 2. Right ventricular cavity size is moderately enlarged, global systolic RV function is normal. 3. Normal sized ascending aorta, diameter of 3.5 cm (upper limit of normal for age, sex, and BSA is 4.3 cm), Height Index 2.02. 4. Normal sized sinus of Valsalva, diameter of 3.8 cm (upper limt of normal for age, sex, and BSA is 4.2 cm), Height Index 2.23 cm/m. The aortic valve is normal in structure and trileaflet, no stenosis and no regurgitation. The mitral valve is normal in structure, trace mitral regurgitation. Spectral Doppler shows Grade 1 pattern of LV diastolic filling. The tricuspid valve is normal in structure and mild tricuspid regurgitation. (4) Type 2 diabetes mellitus: Status: Chronic Problem details: A1c 6.9 in 08/26. On metformin 1000 b.i.d. Okay to restart metformin on discharge (5) GHADA (obstructive sleep apnea): Status: Chronic Problem details: AHI 33 (6) Barretts esophagus: Status: Chronic Problem details: Continue omeprazole 40 mg. (7) Hypertension: Status: Chronic Problem details: on diltiazem for hypertension (8) Hyperlipidemia: Status: Chronic Problem details: on atorvastatin DS: Summary Hospital Course Hospital Course: This is a 75-year-old male a history of type 2 diabetes mellitus, GHADA, hypertension, hyperlipidemia, coronary artery disease, and Mitchell's esophagus who was admitted for observation fordyspnea and unsteadiness associated with COVID viral illness. He was given IV fluids for hydration He did not require any oxygen. Chest x-ray was unremarkable. this morning he is much better and did well with therapies using a walker. He desires discharge home and I also spoke with his who agreed that he seemed much improved and was hoping to take him home today. He is discharged in improved condition. Status at Discharge Overall status at discharge: patient is back to baseline Time Spent with Patient Time attestation: Total time spent providing and/or coordinating discharge services: Time spent: Less than 30 minutes Exam Narrative: Exam Narrative: General: No acute distress. Awake, alert, oriented x3. Sitting in the bedside chair. No pallor. No jaundice. Oropharynx: Clear. Mucous membranes moist. Cardiovascular: Regular rate and rhythm. No murmurs, gallops, or rubs. Respiratory: Clear to auscultation bilaterally. No wheezes or crackles. Abdomen: Bowel sounds present. Soft, nondistended, nontender. Extremities: No lower extremity edema. Const: Vital Signs, click to edit/add: Vital Signs - 24 hr 11/07/25 12:24 11/07/25 12:59 11/07/25 13:12 Temperature 98.8 F 100.0 F H Pulse Rate Pulse Rate [Pulse Oximeter] 99 Respiratory Rate 22 22 Blood Pressure Blood Pressure [Ri ght Arm] Blood Pressure [Ri ght Upper Arm] 139/75 Pulse Oximetry 94 Oxygen Delivery Me thod Room Air Oxygen Flow Rate 11/07/25 13:15 11/07/25 13:28 11/07/25 13:30 Temperature Pulse Rate 74 73 Pulse Rate [Pulse Oximeter] Respiratory Rate 19 15 Blood Pressure 155/71 H Blood Pressure [Ri ght Arm] Blood Pressure [Ri ght Upper Arm] Pulse Oximetry 96 98 Oxygen Delivery Me thod Oxygen Flow Rate 11/07/25 13:32 11/07/25 13:45 11/07/25 14:00 Temperature Pulse Rate 77 75 74 Pulse Rate [Pulse Oximeter] Respiratory Rate 16 Blood Pressure 148/69 H Blood Pressure [Ri ght Arm] Blood Pressure [Ri ght Upper Arm] Pulse Oximetry 99 96 97 Oxygen Delivery Me thod Oxygen Flow Rate 11/07/25 14:02 11/07/25 14:03 11/07/25 14:14 Temperature 99.3 F Pulse Rate 74 Pulse Rate [Pulse Oximeter] 84 Respiratory Rate 14 Blood Pressure 144/75 H Blood Pressure [Ri ght Arm] Blood Pressure [Ri ght Upper Arm] Pulse Oximetry 95 94 Oxygen Delivery Me thod Room Air Oxygen Flow Rate 11/07/25 14:18 11/07/25 15:00 11/07/25 15:00 Temperature 99.4 F Pulse Rate Pulse Rate [Pulse Oximeter] 73 Respiratory Rate 16 16 Blood Pressure Blood Pressure [Ri ght Arm] 144/71 H Blood Pressure [Ri ght Upper Arm] Pulse Oximetry 94 94 94 Oxygen Delivery Me thod Room Air Nasal Cannula Nasal Cannula Oxygen Flow Rate 2 2 11/07/25 16:15 11/07/25 17:33 11/07/25 18:44 Temperature 100.8 F H 99.4 F Pulse Rate 69 Pulse Rate [Pulse Oximeter] 80 Respiratory Rate 16 Blood Pressure Blood Pressure [Ri ght Arm] 107/68 Blood Pressure [Ri ght Upper Arm] Pulse Oximetry 95 Oxygen Delivery Me thod Room Air Oxygen Flow Rate 11/07/25 19:44 11/07/25 23:23 11/07/25 23:48 Temperature 99.4 F 99.9 F H Pulse Rate 81 Pulse Rate [Pulse Oximeter] 74 Respiratory Rate 18 Blood Pressure Blood Pressure [Ri ght Arm] 136/65 Blood Pressure [Ri ght Upper Arm] Pulse Oximetry 96 Oxygen Delivery Me thod Room Air Oxygen Flow Rate 11/08/25 01:16 11/08/25 02:20 11/08/25 04:37 Temperature 101.7 F H 99.7 F H 99.8 F H Pulse Rate Pulse Rate [Pulse Oximeter] 78 Respiratory Rate 18 Blood Pressure Blood Pressure [Ri ght Arm] 109/66 Blood Pressure [Ri ght Upper Arm] Pulse Oximetry 92 Oxygen Delivery Me thod Room Air Oxygen Flow Rate 11/08/25 08:49 11/08/25 08:57 Temperature 100.4 F H 100.4 F H Pulse Rate Pulse Rate [Pulse Oximeter] 83 Respiratory Rate 18 Blood Pressure Blood Pressure [Ri ght Arm] 111/64 Blood Pressure [Ri ght Upper Arm] Pulse Oximetry 95 Oxygen Delivery Me thod Room Air Oxygen Flow Rate DS: Data Data Completed and Pending Completed studies during hospitalization: 11/07/2025 EKG: Normal sinus rhythm, 76 beats per minute, left axis deviation, low-voltage QRS, cannot rule out anterior infarct, age undetermined. Ordering Physician: Mario Mcduffie D.O. Date of Service: 11/07/25 Procedure(s): XR chest 2V Accession Number(s): [id number] cc: Mario Mcduffie D.O.; Mario White M.D.~ For Patients: As a result of the Cures Act, medical imaging exams and procedure reports are released immediately into your electronic medical record. You may view this report before your referring provider. If you have questions, please contact your health care provider. INDICATION: Chest pain. TECHNIQUE: Chest 2 views. COMPARISON: 12/20/2024. FINDINGS: Grossly unchanged mild left basilar opacities compared to prior. This is favored to represent scarring the chronicity prominent interstitial markings are unchanged. There is elevation of the right hemidiaphragm. No definite effusion. No pneumothorax is seen. Cardiomegaly stable. Mediastinal contours are stable. There is a new generator with in the right chest wall with lead projecting cephalad to the neck. IMPRESSION: No acute cardiopulmonary abnormality Dictated by Edvin Olivas MD @ 11/07/2025 1:11:59 PM (Electronically Signed) Labs on day of discharge: Labs from last 24 hours 11/08/25 11/07/25 11/07/25 06:20 16:35 12:55 WBC 6.60 9.85 RBC 4.44 4.75 Hgb 14.0 14.8 Hct 42.8 45.4 MCV 96 96 MCH 32 31 MCHC 33 33 RDW Coeff of Nora 13.6 Plt Count 255 283 Neut % (Auto) 61.8 Lymph % (Auto) 20.6 [place] % (Auto) 16.1 H Eos % (Auto) 0.9 Baso % (Auto) 0.3 Neut # (Auto) 6.08 Lymph # (Auto) 2.03 [place] # (Auto) 1.60 H Eos # (Auto) 0.09 Baso # (Auto) 0.03 Abs Immat Gran (auto) 0.03 Imm/Tot Granulo (auto) 0.3 D-Dimer Quant (PE/DVT) < 0.27 Sodium 134 L 135 Potassium 3.9 4.0 Chloride 95 L 96 Carbon Dioxide 29 28 Anion Gap 10 11 BUN 12 12 Creatinine 1.0 0.9 Estimated Creat Clear 63.83 65.90 Estimated GFR 78 89 Glucose 126 H 153 H Lactate 1.8 Calcium 8.6 9.0 Magnesium 1.8 Total Bilirubin 0.7 AST 28 ALT 28 Alkaline Phosphatase 71 Troponin I < 0.01 POC Troponin I High Sensi NT-Pro-B Natriuret Pep 60 Total Protein 6.2 Albumin 3.8 SARS-CoV-2 (PCR) Influenza Type A (PCR) Influenza Type B (PCR) RSV (PCR) 11/07/25 11/07/25 12:49 12:20 WBC RBC Hgb Hct MCV MCH MCHC RDW Coeff of Nora Plt Count Neut % (Auto) Lymph % (Auto) [place] % (Auto) Eos % (Auto) Baso % (Auto) Neut # (Auto) Lymph # (Auto) [place] # (Auto) Eos # (Auto) Baso # (Auto) Abs Immat Gran (auto) Imm/Tot Granulo (auto) D-Dimer Quant (PE/DVT) Sodium Potassium Chloride Carbon Dioxide Anion Gap BUN Creatinine Estimated Creat Clear Estimated GFR Glucose Lactate Calcium Magnesium Total Bilirubin AST ALT Alkaline Phosphatase Troponin I POC Troponin I High Sensi < 2.9 L NT-Pro-B Natriuret Pep Total Protein Albumin SARS-CoV-2 (PCR) POSITIVE SARS-CoV-2 A Influenza Type A (PCR) Negative PCR FLU A Influenza Type B (PCR) Negative PCR FLU B RSV (PCR) Negative PCR RSV Discharge Plan Discharge Disposition: Home, Self-Care Date of Admission: 11/07/25 14:57 Attending Provider on Discharge: Hayley Jewell Primary Care Provider: Mario White Condition: Improved Anticipated Discharge Date/Time: 11/08/25 10:21 Discharge Medications: Continued diltiazem HCl 180 mg capsule,extended release 24hr 180 mg PO HS atorvastatin 40 mg tablet 40 mg PO HS escitalopram oxalate 20 mg tablet 20 mg PO DAILY metformin 500 mg tablet extended release 24 hr 1,000 mg PO BID tamsulosin 0.4 mg capsule 0.4 mg PO HS One-A-Day Men's Multivitamin 400-20-300 mcg tablet 1 tab PO DAILY primidone 50 mg tablet 50 mg PO HS aspirin [Martín Chewable Aspirin] 81 mg tablet,chewable 81 mg PO DAILY omega 0-arf-hyt-fish oil [Fish Oil] 1,000 mg (120 mg-180 mg) capsule 1 cap PO DAILY omeprazole 40 mg capsule,delayed release(DR/EC) 40 mg PO DAILY psyllium husk 0.52 gram capsule 0.52 g PO DAILY albuterol sulfate 90 mcg/actuation HFA aerosol inhaler 2 inh inhalation QID PRN azelastine 137 mcg (0.1 %) spray,non-aerosol 1 spray intranasal BID PRN Rx Instructions: administer into each nostril nitroglycerin 0.4 mg tablet, sublingual 0.4 mg sublingual Q5M PRN Rx Instructions: do not exceed 3 doses per episode Discharge Orders: Discharge Order (Routine); Ordered 11/08/25 Ordered By: Hayley Jewell Patient Education: COVID-19 (Coronavirus Disease 2019) (DC), How to Recover from COVID-19 at Home (ED) Activity Level: Use Walker Discharge Diet: Regular Follow Up Appointments: Mario White MD [Primary Care Provider, Family Practice] Referral Note: as needed Forms: MyHealth Info Instructions
--- NOTE | 2025-11-08 12:35 | PC.NURSE ---
shift note: Pt is AOX4. Pt is on RA w/ >94% O2. Pt denies SOB, dizziness, & FLORES. Pt moves w/ SBA & walker. Pt is tolerating PO liquids. Pt is bedside & participant in RN education provided about follow-up, S &S, rest, mobility, and fever. Pt AMB and BR IND. Pt W/C out w/ by NELLI, to be driven home in personal vehicle.
== END 2025-11-08 11:05 | disposition home or self-care (01) ==
LOC: ED 13:16 → MEDSURG 15:01
PROVIDERS: Student in an Organized Health Care Education/Training Program; Admitting Provider Family Medicine; Emergency Provider Student in an Organized Health Care Education/Training Program; PCP Surgery; Visit Provider Family Medicine
DX: U07.1 COVID-19 (principal); R06.02 Shortness of breath; I25.10 Atherosclerotic heart disease of native coronary artery without angina pectoris; Z95.5 Presence of coronary angioplasty implant and graft; E11.9 Type 2 diabetes mellitus without complications; Z79.01 Long term (current) use of anticoagulants; G47.33 Obstructive sleep apnea (adult) (pediatric); K22.70 Barrett's esophagus without dysplasia; I10 Essential (primary) hypertension; E78.5 Hyperlipidemia, unspecified
CPT/HCPCS: 36415; 71046; 80048; 80053; 82962; 83605; 83735; 83880; 84484; 85025; 85027; 85379; 87040; 87631; 93005; 96360; 97116; 97161; 97165; 99284; 99285; A9270; G0378; J1650; J7030

== ENCOUNTER 2025-11-15 12:57 | Outpatient (CLI) | payer MEDICARE, BC, SELFPAY | END 2025-11-15 12:58 | disposition home or self-care (01) | PROVIDERS: PCP Surgery; Visit Provider Physician Assistant Surgical | DX: R11.2 Nausea with vomiting, unspecified (principal); R68.89 Other general symptoms and signs; R19.7 Diarrhea, unspecified | CPT/HCPCS: 82150; 83690 ==